=== PATIENT | female | born 2000 | race Caucasian/White ===

== ENCOUNTER 2024-04-04 11:50 | Emergency (ER) | payer OTHER, SELFPAY ==
[2024-04-04 11:57] VITALS: BP 114/92; PULSE 107; TEMP 36.9; O2SAT 97; BMI 48.9
[2024-04-04 12:29] LABS: Bilirubin Urine NEGATIVE (NEGATIVE); Blood Urine NEGATIVE (NEGATIVE); Clarity Urine CLEAR (CLEAR); Color Urine YELLOW (YELLOW); Glucose Urine UA NEGATIVE (NEGATIVE); Ketones Urine NEGATIVE (NEGATIVE); Leukocyte Esterase Urine NEGATIVE (NEGATIVE); Nitrite Urine NEGATIVE (NEGATIVE); Protein Urine TRACE mg/dL (NEG/TRACE); Specific Gravity Urine 1.015 (1.005-1.025); pH Urine 8.5 (5.0-9.0)
[2024-04-04 12:31] LABS: HCG Qualitative Urine* NEGATIVE (NEGATIVE); Urine Microscopic Indicated NO
[2024-04-04 12:50] VITALS: BP 127/83; PULSE 94; O2SAT 98
--- NOTE | 2024-04-04 15:51 | ED_ITS ---
HPI HPI - General Adult General Chief complaint: Nausea/Vomiting/Diarrhea Stated complaint: NAUSEA/VOMITING Time Seen by Provider: 04/04/24 12:05 Source: patient Mode of arrival: walk-in Limitations: no limitations History of Present Illness HPI narrative: 23-year-old female to the emergency department with chief complaint of crampy abdominal pain, nausea, vomiting, diarrhea. Symptoms started suddenly this morning. She reports some chills without fever. She reports possible . Related Data Home Medications ?Medication ?Instructions ?Recorded ?Confirmed desvenlafaxine succinate 50 mg 50 mg PO Q24H 04/04/24 04/04/24 tablet,extended release 24 hr doxepin 10 mg capsule 20 mg PO BEDTIME 04/04/24 04/04/24 omeprazole 40 mg capsule,delayed 40 mg PO DAILY 04/04/24 04/04/24 release prazosin 1 mg capsule 1 mg PO BEDTIME 04/04/24 04/04/24 Previous Rx's ?Medication ?Instructions ?Recorded dicyclomine 10 mg capsule 10 mg PO QID PRN abdominal pain 04/04/24 #12 caps ondansetron 4 mg disintegrating 4 mg PO Q8H PRN nausea and 04/04/24 tablet vomiting 3 days #9 tabs promethazine 25 mg tablet 25 mg PO QID PRN nausea and 04/04/24 vomiting #12 tabs Allergies Allergy/AdvReac Type Severity Reaction Status Date / Time morphine Allergy Intermediate Verified 04/04/24 12:00 Opioid HPI Opioid Management Most Recent Opioid Data: No Data to Display Exam Narrative Exam Narrative: VITALS: I have reviewed the triage vital signs. GENERAL: Well developed, well appearing adult in no acute distress. NEURO: Alert and oriented. Moves all extremities. Face is symmetric and expressive. EYES: PERRL. No scleral icterus or conjunctival injection. No discharge. HENT: Normocephalic, atraumatic. Hearing is grossly intact. Nares grossly patent and without discharge. Mucous membranes moist. NECK: No JVD. Patient moves neck without restriction. CARDIO: Rhythm regular. Normal rate. No murmur, rub, or gallop. Pulses equal bilaterally in the upper and lower extremity. No lower extremity edema. PULM: Lungs clear to auscultation in all lynn. No wheezes, rales, or rhonchi. No conversational dyspnea. No splinting, stridor, or accessory muscle use. GI/: Abdomen is soft and non-tender. Normoactive bowel sounds. EXTREMITIES: Symmetric muscle bulk. No joint swelling. No clubbing, cyanosis, or deformity. SKIN: Warm and dry. Normal turgor. No rash or lesions appreciated. PSYCH: Mood, affect, and interaction is appropriate to the setting. Constitutional Vital Signs, click to edit/add: Last Vital Signs Temp 98.5 F 04/04/24 11:57 Pulse 94 H 04/04/24 12:50 Resp 16 04/04/24 12:50 BP 127/83 04/04/24 12:50 Pulse Ox 98 04/04/24 12:50 O2 Del Method Room Air 04/04/24 12:50 Course Vital Signs Vital signs: Vital Signs Temperature 98.5 F 04/04/24 11:57 Pulse Rate 107 H 04/04/24 11:57 Respiratory Rate 18 04/04/24 11:57 Blood Pressure 114/92 H 04/04/24 11:57 Pulse Oximetry 97 04/04/24 11:57 Oxygen Delivery Method Room Air 04/04/24 11:57 Temperature 98.5 F 04/04/24 11:57 Pulse Rate 94 H 04/04/24 12:50 Respiratory Rate 16 04/04/24 12:50 Blood Pressure 127/83 04/04/24 12:50 Pulse Oximetry 98 04/04/24 12:50 Oxygen Delivery Method Room Air 04/04/24 12:50 Medical Decision Making MDM Narrative Medical decision making narrative: 23-year-old female with nausea, vomiting, diarrhea. Vital stable, the patient is afebrile. Her belly examination is benign. Just Zofran prior to arrival was controlled her symptoms. Given the predominance in the community her symptoms likely gastroenteritis. We'll treat with antiemetics and Bentyl at home. She is able tolerate oral intake. Oral rehydration is discussed. All questions were answered. The patient was discharged home. Medical Records Medical records reviewed: Yes I reviewed the patient's medical records Lab Data Lab results reviewed: Yes I reviewed the patient's lab results Labs: Lab Results 04/04/24 Range/Units 12:00 Urine Color Yellow (YELLOW) Urine Clarity Clear (CLEAR) Urine pH 8.5 (5.0-9.0) Ur Specific [place] 1.015 (1.005-1.025) Urine Protein Trace (NEG/TRACE) mg/dL Urine Glucose (UA) Negative (NEGATIVE) mg/dL Urine Ketones Negative (NEGATIVE) mg/dL Urine Occult Blood Negative (NEGATIVE) Urine Nitrite Negative (NEGATIVE) Urine Bilirubin Negative (NEGATIVE) Urine Urobilinogen 1.0 (0.2-1.0) EU/dL Ur Leukocyte Esterase Negative (NEGATIVE) Urine HCG, Qual Negative (NEGATIVE) Discharge Plan Discharge Stand Alone Forms: Portal Instructions Chief Complaint: Nausea/Vomiting/Diarrhea Clinical Impression: Gastroenteritis Patient Disposition: Home, Self-Care Time of Disposition Decision: 12:43 Condition: Good Mode of Transportation: Private Vehicle Prescriptions / Home Meds: New promethazine 25 mg tablet 25 mg PO QID PRN (Reason: nausea and vomiting) Qty: 12 0RF ondansetron 4 mg tablet,disintegrating 4 mg PO Q8H PRN (Reason: nausea and vomiting) 3 Days Qty: 9 0RF dicyclomine 10 mg capsule 10 mg PO QID PRN (Reason: abdominal pain) Qty: 12 0RF No Action desvenlafaxine succinate 50 mg tablet extended release 24 hr 50 mg PO Q24H doxepin 10 mg capsule 20 mg PO BEDTIME omeprazole 40 mg capsule,delayed release(DR/EC) 40 mg PO DAILY prazosin 1 mg capsule 1 mg PO BEDTIME Print Language: [place]ien Instructions: Gastroenteritis (ED) Referrals: DRE VÁZQUEZ [Primary Care Provider] - 1 week Discharge Date/Time: 04/04/24 12:51
== END 2024-04-04 12:51 | disposition home or self-care (01) ==
PROVIDERS: Emergency Provider Student in an Organized Health Care Education/Training Program; PCP Nurse Practitioner
DX: K52.9 Noninfective gastroenteritis and colitis, unspecified (principal); Z79.899 Other long term (current) drug therapy
CPT/HCPCS: 81003; 84703; 99283

== ENCOUNTER 2024-11-10 21:36 | Emergency (ER) | payer OTHER, SELFPAY ==
[2024-11-10 21:39] VITALS: BP 126/84; PULSE 86; TEMP 37; O2SAT 97; BMI 50.3
--- OUTSIDE RECORDS SUMMARY | 2024-11-10 21:43 | XMS_ITS | CCD ---
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 Phone SELF, REFERRED Referring Unavailable SELF, REFERRED Primary Care Unavailable AROMND SUBRAMANIAN Attending Unavailable MARIARMOND NEWTON Admitting Unavailable Adina, Kip A Primary Care Provider Kathya Rush Primary Care Provider Natan Jose Primary Care Provider Jose Gama MD Primary Care Provider [phone] CHIRICA, JOSE Primary Care Unavailable CHIRICA, JOSE Referring Unavailable TURSKI, KATHYA L Referring Unavailable TURSKI, KATHYA L Primary Care Unavailable AHMAD, RAYEESA Referring Unavailable TURSKI, KATHYA L Primary Care Unavailable CHIRICA, JOSE Referring Unavailable CHIRICA, JOSE Primary Care Unavailable CHIRICA, JOSE Referring Unavailable CHIRICA, JOSE Primary Care Unavailable ADINA, KIP A Primary Care Unavailable YOVANY JOHNSON Referring Unavailable ADINA, KIP A Primary Care Unavailable YOVANY JOHNSON Referring Unavailable ADINA, KIP A Primary Care Unavailable YOVANY JOHNSON Referring Unavailable CHIRICA, JOSE Primary Care Unavailable CHIRICA, JOSE Referring Unavailable CHIRICA, JOSE Primary Care Unavailable KRISTINE GONZALEZ Referring Unavailable CHIRICA, JOSE Primary Care Unavailable NANI GRESHAM Referring Unavailable KRISTINE GONZALEZ Admitting Unavailable KRISTINE GONZALEZ Attending Unavailable CHIRICA, JOSE Primary Care Unavailable EVENS MEMBRENO Referring Unavailable CHIRICA, JOSE Primary Care Unavailable CHIRICA, JOSE Primary Care Unavailable Marie Mccormick Unavailable Micaela Lewis Unavailable Lillian Almanzar Unavailable Katie Mahmood Unavailable MICAELA CENTENO Primary Care Physician ТАТЬЯНА Centeno Primary Care Provider DEMETRICE Lewis Emergency Provider [phone] DEMETRICE Mccormick Attending Provider [phone] JACOBO, MICAELA Primary Care Unavailable THANG ., JESSE Admitting Unavailable THANG ., JESSE Attending Unavailable THANG ., JESSE Consulting Unavailable HOY ., DR WANG Admitting Unavailable HOY ., DR WANG Attending Unavailable JACOBO, MICAELA Primary Care Unavailable HOY ., DR WANG Consulting Unavailable HOY ., DR WANG Admitting Unavailable HOY ., DR WANG Attending Unavailable JACOBO, MICAELA Primary Care Unavailable HOY ., DR WANG Consulting Unavailable JACOBO, MICAELA Primary Care Unavailable MARKER ., DR KAUR Admitting Unavailable MARKER ., DR KAUR Attending Unavailable JACOBO, MICAELA Primary Care Unavailable THANG ., JESSE Admitting Unavailable THANG ., JESSE Attending Unavailable KRISTINE PIMENTEL Consulting Unavailable THANG ., JESSE Consulting Unavailable JACOBO, MICAELA Admitting Unavailable JACOBO, MICAELA Attending Unavailable JACOBO, MICAELA Primary Care Unavailable JACOBO, MICAELA Consulting Unavailable ZIEBER, DR VIKASH Barrera Admitting Unavailable ZIEBER, DR VIKASH Barrera Attending Unavailable JACOBO, MICAELA Primary Care Unavailable ZIEBER, DR VIKASH Barrera Consulting Unavailable HOY ., DR WANG Admitting Unavailable HOY ., DR WANG Attending Unavailable JACOBO, MICAELA Primary Care Unavailable JACOBO, MICAELA Admitting Unavailable JACOBO, MICAELA Attending Unavailable JACOBO, MICAELA Primary Care Unavailable JACOBO, MICAELA Consulting Unavailable HOY ., DR WANG Admitting Unavailable HOY ., DR WANG Attending Unavailable JACOBO, MICAELA Primary Care Unavailable HOY ., DR WANG Consulting Unavailable ZAID, DR KRISTINE Thibodeaux Consulting Unavailable JACOBO, MICAELA Admitting Unavailable JACOBO, MICAELA Attending Unavailable JACOBO, MICAELA Primary Care Unavailable JACOBO, MICAELA Consulting Unavailable JACOBO, MICAELA Admitting Unavailable JACOBO, MICAELA Attending Unavailable JACOBO, MICAELA Primary Care Unavailable JACOBO, MICAELA Consulting Unavailable JACOBO, MICAELA Admitting Unavailable JACOBO, MICAELA Attending Unavailable JACOBO, MICAELA Primary Care Unavailable JACOBO, MICAELA Consulting Unavailable JACOBO, MICAELA Admitting Unavailable JACOBO, MICAELA Attending Unavailable JACOBO, MICAELA Primary Care Unavailable JACOBO, MICAELA Consulting Unavailable KARASIK ., DR BISHOP Admitting Unavailabl e KARASIK ., DR BISHOP Attending Unavailabl e JACOBO, MICAELA Primary Care Unavailable KARASIK ., DR BISHOP Consulting Unavailabl e JACOBO, MICAELA Primary Care Unavailable REINECK, DR SCOOTER Bonilla Admitting Unavailabl e REINECK, DR SCOOTER Bonilla Attending Unavailabl e REINECK, DR SCOOTER Bonilla Consulting Unavailabl e JACOBO, MICAELA Primary Care Unavailable DAWN, DR DES Barrera Admitting Unavailable DAWN, DR DES Barrera Attending Unavailable DAWN, DR DES Barrera Consulting Unavailable AALIYAH CHACON Consulting Unavailable JACOBO, MICAELA Primary Care Unavailable HAY ., DR ROLLINS Admitting Unavailable HAY ., DR ROLLINS Attending Unavailable SUHAS ., RACHNA Consulting Unavailable JACOBO, MICAELA Primary Care Unavailable HAY ., DR ROLLINS Admitting Unavailable HAY ., DR ROLLINS Attending Unavailable HAY ., DR ROLLINS Consulting Unavailable CLAUDYKALEB Admitting Unavailable CLAUDYKALEB Attending Unavailable JACOBO, MICAELA Primary Care Unavailable ZIEBER, DR VIKASH Barrera Consulting Unavailable CLAUDYKALEB Consulting Unavailable JACOBO, MICAELA Primary Care Unavailable HAY ., DR ROLLINS Admitting Unavailable HAY ., DR ROLLINS Attending Unavailable HAY ., DR ROLLINS Consulting Unavailable JACOBO, MICAELA Admitting Unavailable JACOBO, MICAELA Attending Unavailable JACOBO, MICAELA Primary Care Unavailable JACOBO, MICAELA Admitting Unavailable JACOBO, MICAELA Attending Unavailable JACOBO, MICAELA Primary Care Unavailable JACOBO, MICAELA Consulting Unavailable KARASIK ., DR BISHOP Admitting Unavailabl e KARASIK ., DR BISHOP Attending Unavailabl e JACOBO, MICAELA Primary Care Unavailable KARASIK ., DR BISHOP Consulting Unavailabl e KRISTINE PIMENTEL Consulting Unavailable 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 CNP Primary Care Provider 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 CNP Attending Unavailable Jose Gama MD Primary Care Provider Kendra TAYLOR, Dhiraj Abebe Attending Unavaila ble CHIRICA, JOSE Primary Care Unavailable SHARON RAM Attending Unavailable CHIRICA, JOSE Primary Care Unavailable JUAN JOSE ZAVALA Referring Unavailable CHIRICA, JOSE Primary Care Unavailable PEDRO SEYMOUR Referring Unavailabl e CHIRICA, JOSE Primary Care Unavailable CHIRICA, JOSE Primary Care Unavailable RACHEAL GOSS Attending Unavailabl e Fredo, Sophie Kuhn Primary Care Physician Fredo, ORDER CHECKER Sophie L Attending Unavailable Fredo, ORDER CHECKER Sophie L Attending Unavailable Fredo, ORDER CHECKER Sophie L Attending Unavailable Fredo, ORDER CHECKER Sophie L Attending Unavailable VALADEZPURNIMA Hannah Admitting Unavailabl e VALADEZPURNIMA EARLY Attending Unavailabl e Hajdisac, Astrit H Attending Unavailable Fredo, ORDER CHECKER Sophie L Attending Unavailable Fredo, ORDER CHECKER Sophie L Attending Unavailable Fredo, ORDER CHECKER Sophie L Admitting Unavailable Kourtney, Evens STamra Attending Unavailable Fredo, ORDER CHECKER Sophie L Attending Unavailable VALADEZ, LIBERTY Admitting Unavailable VALADEZ, LIBERTY Attending Unavailable Kourtney, Evens S. Attending Unavailable HENRIQUE GUTIERREZ Attending Unavailable Fredo Sophie TAYLOR Unavailable Maciel Bellamy Attending Unavailab le Maciel Bellamy Admitting Unavailab le NON STAFF Primary Care Unavailable Fredo, Sophie L Attending Unavailable Fredo, Sophie L Attending Unavailable Fredo, Sophie L Attending Unavailable Fredo, Sophie L Attending Unavailable KANDICE KATHYA A Attending Unavailable KANDICE, KATHYA A Attending Unavailable Fredo, Sophie L Attending Unavailable KANDICE, KATHYA A Attending Unavailable KANDICE, KATHYA A Attending Unavailable Fredo, Sophie L Attending Unavailable Fredo, Sophie L Referring Unavailable Fredo, Sophie L Attending Unavailable Allergies Allergy Classification Reported Allergen(s) Allergy Type Date of Onset Reaction(s) Facility Antihistamines (4 sources) hydrOXYzine Drug Allergy 1 Nausea And Vomiting [facility] Opioid Agonists (1 source) Morphine Drug Allergy 1 Hives [facility] (20 sources) hydrOXYzine; Translations: [hydroxyzine] Drug Allergy 1 Nausea And Vomiting, Nausea and vomiting (disorder), Rash, GI intolerance [facility]- [place], [place] (20 sources) Morphine; Translations: [morphine] Drug Allergy 1 Hives, Urticaria (disorder) [facility] (15 sources) traZODone; Translations: [trazodone] Drug Allergy 3 Shortness Of Breath [facility] (4 sources) trazadone Propensity to adverse reactions Unknown [facility]oni[facility] Other (2 sources) hydrOXYzine Drug Allergy [facility] (2 sources) Morphine Drug Allergy [facility] (2 sources) traZODone Drug Allergy [facility] (6 sources) hydrOXYzine; Translations: [Vistaril 25 MG Oral Capsule] Drug Allergy 3 Skin Rashes / Eruption of skin [facility] (6 sources) SUMAtriptan; Translations: [Imitrex 25 MG Oral Tablet] Drug Allergy 3 Skin Rashes / Eruption of skin, Hives / Urticaria [facility] (6 sources) Morphine Derivatives; Translations: [Morphine Derivatives] Drug allergy 3 Hives / Urticaria [facility] (2 sources) SUMAtriptan Drug Allergy 3 Rash, Hives [facility] (1 source) hydrOXYzine Drug Allergy 4 [facility] Repository (1 source) Morphine Drug Allergy 4 [facility] Repository (1 source) traZODone Drug Allergy 4 [facility] Repository Medications Current Medications Medication Drug Class(es) Dates Sig (Normalized) Sig (Original) acetaminophen 500 mg oral tablet (5 sources) Start: 07-16-2024 take 1 tablet by mouth every four hours acetaminophen 500 mg Tab 500 mg = 1 tab(s), Oral, q4hr, # 60 tab(s), Refills(s) 0, Pharmacy: [facility]/pharmacy #[id number], 163, cm, 07/16/24 15:27:00 EDT, Height/Length Dosing, 130.2, kg, 07/16/24 15:27:00 EDT, Weight Dosing Start Date: 07/16/24 Status: Ordered Start: 07-16-2024 acetaminophen (Tylenol) 500 MG tablet Take 500 mg by mouth 07/16/2024 Active take 1 tablet by hayley th every six hours as needed for pain acetaminophen (TYLENOL) 500 MG tablet Take 500 mg by mouth every 6 hours as needed for Pain 0 Active Acidophilus Probiotic Oral Capsule (1 source) Start: 10-03-2023 Acidophilus Probiotic Oral Capsule 10/03/2023 Provider: Vika Rose CNP [id number] 200 actuat albuterol 0.09 mg/actuat metered dose inhaler (7 sources) beta2-Adrenergic Agonist Start: 06-06-2020 take 1-2 puff(s) by mouth every four to six hours albuterol sulfate HFA 108 (90 Base) MCG/ACT inhaler inhale 1 TO 2 puffs by mouth every 4 to 6 hours if needed 0 06/06/2020 Active albuterol sulfate HFA 108 (90 Base) MCG/ACT inhaler (14 sources) Start: 06-06-2020 take 1-2 puff(s) by mouth every four to six hours albuterol sulfate HFA 108 (90 Base) MCG/ACT inhaler inhale 1 TO 2 puffs by mouth every 4 to 6 hours if needed 0 06/06/2020 Active amitriptyline hydrochloride 25 mg oral tablet (7 sources) Tricyclic Antidepressant Start: 03-05-2024 take 25 mg by mouth once daily Amitriptyline Active 25 MG PO Daily March 05, 2024 12:00am amitriptyline (E LAVIL) 25 MG tablet Take by mouth 0 Active amoxicillin 500 mg oral capsule (4 sources) Penicillin-class Antibacterial Start: 05-08-2024 End: 05-18-2024 take 1 capsule by mouth every twelve hours amoxicillin 500 mg Cap 500 mg = 1 cap(s), Oral, q12hr, X 10 day(s), # 20 cap(s), Refills(s) 0, Pharmacy: [facility]/pharmacy #[id number], 163, cm, 05/08/24 15:30:00 EDT, Height/Length Dosing, 133.3, kg, 05/08/24 15:30:00 EDT, Weight Dosing Start Date: 05/08/24 Stop Date: 05/18/24 Status: Ordered Start: 10-12-2020 End: 10-22-2020 take 1 tablet by mouth twice daily amoxicillin (AMOXIL) 875 MG tablet Indications: Non-recurrent acute suppurative otitis media of right ear without spontaneous rupture of tympanic membrane Take 1 tablet by mouth 2 times daily for 10 days 20 tablet 0 10/12/2020 10/22/2020 Active amoxicillin 875 mg / clavulanate 125 mg oral tablet (1 source) Penicillin-class Antibacterial Start: 10-26-2020 End: 11-05-2020 take 1 tablet by mouth twice daily amoxicillin-clavulanate (AUGMENTIN) 875-125 MG per tablet Indications: Recurrent acute suppurative otitis media of right ear without spontaneous rupture of tympanic membrane Take 1 tablet by mouth 2 times daily for 10 days 20 tablet 0 10/26/2020 11/05/2020 Active azelastine hydrochloride 0.137 mg/actuat metered dose nasal spray (6 sources) Histamine-1 Receptor Antagonist Start: 05-01-2023 take 2 spray(s) nasal route twice daily Azelastine HCl 137 MCG/SPRAY SOLN USE 2 SPRAYS NASALLY TWICE A DAY 0 05/01/2023 Active take 2 spray(s) nasal route twic e daily Azelastine HCl 137 MCG/SPRAY USE 2 SPRAYS NASALLY TWICE A DAY Nasal for 30 Days Not-Taking azithromycin 250 mg oral tablet (3 sources) Macrolide Antimicrobial Start: 12-02-2020 End: 12-07-2020 take 2 tablets by mouth once daily azithromycin (ZITHROMAX) 250 MG tablet Indications: Cough present for greater than 3 weeks 500 mg orally on day one followed by 250 mg daily on days two through five 6 tablet 0 12/02/2020 12/07/2020 Active benzonatate 100 mg oral capsule (1 source) Non-narcotic Antitussive Start: 10-12-2020 End: 10-19-2020 take 1 capsule by mouth three times daily as needed for cough benzonatate (TESSALON) 100 MG capsule Indications: Cough Take 1 capsule by mouth 3 times daily as needed for Cough 21 capsule 0 10/12/2020 10/19/2020 Active brompheniramine maleate 0.4 mg/ml / dextromethorphan hydrobromide 2 mg/ml / pseudoephedrine hydrochloride 6 mg/ml oral solution (2 sources) alpha-Adrenergic Agonist, Uncompetitive C-pexikh-T-aspartat e Receptor Antagonist, Sigma-1 Agonist Start: 01-21-2024 take 5 mL by mouth four times daily Bromfed DM oral syrup 5 mL, Oral, QID for cold symptoms, 120 mL, Refill(s) 0, [facility], 163.8, cm, 01/21/24 16:10:00 EST, Height/Length Dosing, 135.2, kg, 01/21/24 16:10:00 EST, Weight Dosing Start Date: 01/21/24 Status: Ordered Start: 02-16-2022 take 10 mL by mouth every six hours Sdygkhkwa-Tjxzxitm-FS 30-2-10 MG/5ML 10 mL Orally every 6 hours for 5 days Jan, Active busPIRone hydrochloride 10 mg oral tablet (5 sources) Start: 10-24-2020 take 1 tablet by mouth twice daily busPIRone (BUSPAR) 10 MG tablet take 1 tablet by mouth twice a day 60 tablet 5 10/24/2020 Active Start: 09-19-2020 End: 10-19-2020 take 1 tablet by mouth twice daily busPIRone (BUSPAR) 10 MG tablet Take 1 tablet by mouth 2 times daily 60 tablet 0 09/19/2020 10/19/2020 Active calcium chloride 0.0014 meq/ml / potassium chloride 0.004 meq/ml / sodium chloride 0.103 meq/ml / sodium lactate 0.028 meq/ml injectable solution (1 source) Start: 07-07-2021 luis enrique mejia rs infusion cetirizine hydrochloride 10 mg oral tablet (20 sources) Histamine-1 Receptor Antagonist Start: 08-19-2024 take 1 tablet by mouth once daily cetirizine 10 mg Tab See Instructions, TAKE 1 TABLET BY MOUTH EVERY DAY, # 90 tab(s), Refills(s) 3, Pharmacy: [facility]/pharmacy #[id number], 163, cm, 08/19/24 9:04:00 EDT, Height/Length Dosing, 131.8, kg, 08/19/24 9:04:00 EDT, Weight Dosing Start Date: 08/19/24 Status: Ordered Start: 03-05-2024 take 10 mg by mouth once daily Cetirizine Active 10 MG PO Daily March 05, 2024 12:00am Start: 05-12-2023 take 1 tablet by hayley th once daily cetirizine (ZYRTEC) 10 MG tablet Take 1 tablet by mouth daily 0 05/12/2023 Active Start: 01-30-2022 take 1 tablet by hayley th every twenty-four hours Start: 08-12-2018 take 1 tablet by hayley th once daily RA ALLERGY RELIEF 10 MG tablet Indications: Eustachian tube dysfunction, bilateral take 1 tablet by mouth once daily 30 tablet 5 08/12/2018 Active clotrimazole 10 mg/ml topical cream (1 source) Azole Antifungal Start: 10-03-2023 Clotrimazole 1% External Cream 10/03/2023 Provider: Vika Rose CNP 24 hr desvenlafaxine succinate 50 mg extended release oral tablet (20 sources) Serotonin and Norepinephrine Reuptake Inhibitor Start: 02-21-2024 take 1 tablet by mouth every twenty-four hours desvenlafaxine (Pristiq) 50 MG 24 hr tablet Take 50 mg by mouth 02/21/2024 Active Start: 02-21-2024 take 1 tablet by hayley th once daily desvenlafaxine 50 mg Tab- 50 mg = 1 tab(s), Oral, Daily, take 1 tablet by mouth once daily, # 90 tab(s), Refills(s) 1, Pharmacy: [id number], 163.8, cm, 02/06/24 13:56:00 EDT, Height/Length Dosing, 132, kg, 02/06/24 13:56:00 EDT, Weight Dosing Start Date: 02/21/24 Status: Ordered Start: 01-09-2024 take 1 tablet by hayley th once daily desvenlafaxine 50 mg Tab- 50 mg = 1 tab(s), Oral, Daily, take 1 tablet by mouth once daily Start Date: 01/09/24 Status: Ordered Start: 04-12-2021 take 1 tablet by hayley th once daily desvenlafaxine succinate (PRISTIQ) 100 MG TB24 extended release tablet Indications: Mild episode of recurrent major depressive disorder (HCC) Take 1 tablet by mouth daily 30 tablet 3 04/12/2021 Active Start: 09-11-2020 desvenlafaxine succinate (PRISTIQ) 100 MG TB24 extended release tablet Start: 07-06-2020 take 1 tablet by hayley th once daily desvenlafaxine succinate (PRISTIQ) 50 MG TB24 extended release tablet take 1 tablet by mouth once daily 0 07/06/2020 Active dicyclomine hydrochloride 10 mg oral capsule (1 source) Anticholinergic Start: 05-18-2024 End: 05-25-2024 take 1 capsule by mouth four times daily Bentyl 10 mg Cap 10 mg = 1 cap(s), Oral, QID, X 7 day(s), # 28 cap(s), Refills(s) 0, Pharmacy: [facility]/pharmacy #[id number], 163, cm, 05/18/24 20:47:00 EDT, Height/Length Dosing, 133.2, kg, 05/18/24 20:47:00 EDT, Weight Dosing Start Date: 05/18/24 Stop Date: 05/25/24 Status: Ordered docusate sodium 100 mg oral capsule (6 sources) Start: 07-07-2021 take 1 capsule by mouth twice daily docusate sodium (COLACE) 100 MG capsule Take 1 capsule by mouth 2 times daily 20 capsule 0 07/07/2021 Active Start: 01-05-2019 take 1 capsule by mo [facility] twice daily docusate sodium (COLACE) 100 MG capsule Indications: Rectal bleeding in pediatric patient Take 1 capsule by mouth 2 times daily 60 capsule 1 01/05/2019 Active ergocalciferol 1.25 mg oral capsule (7 sources) Provitamin D2 Compound Start: 04-12-2021 take 1 capsule by mouth every week vitamin D (ERGOCALCIFEROL) 1.25 MG (11013 UT) CAPS capsule Indications: Vitamin D deficiency Take 1 capsule by mouth once a week 12 capsule 0 04/12/2021 Active escitalopram 10 mg oral tablet (17 sources) Serotonin Reuptake Inhibitor Start: 03-05-2024 take 10 mg by mouth once daily Escitalopram Oxalate Active 10 MG PO Daily March 05, 2024 12:00am Start: 04-30-2023 Escitalopram O xalate 20 MG Oral Tablet 04/30/2023 Provider: take 1 tablet by hayley once daily Escitalopram Oxalate 10 MG TAKE 1 TABLET BY MOUTH EVERY DAY Oral for 30 Days Active Lexapro Antonia-Takliat ng Ethinyl Estradiol / norgestimate (20 sources) Progestin, Estrogen Start: 05-14-2024 take 1 tablet by mouth once daily ethinyl estradiol-norgestimate 35 mcg-0.25 mg Tab 1 tab(s), Oral, Daily, 28 tab(s), Refill(s) 11, [facility]/pharmacy #[id number], 163, cm, 05/14/24 9:33:00 EDT, Height/Length Dosing, 133.5, kg, 05/14/24 9:33:00 EDT, Weight Dosing Start Date: 05/14/24 Status: Ordered Start: 01-09-2024 take 1 tablet by hayley th once daily ethinyl estradiol-norgestimate 35 mcg-0.25 mg Tab 1 tab(s), Oral, Daily, Refill(s) 0 Start Date: 01/09/24 Status: Ordered Start: 11-02-2023 norgestimate-e thinyl estradiol (Ortho-Cyclen) 0.25-35 MG-MCG tablet Take 1 tablet by mouth Daily 11/02/2023 Active Start: 06-30-2023 norgestimate-e thinyl estradiol (ORTHO-CYCLEN) 0.25-35 MG-MCG per tablet Start: 06-04-2023 Bhumika 0.25-35 M G-MCG Oral Tablet 06/04/2023 Provider: 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 CNP Start: 04-29-2023 End: 06-04-2023 Bhumika 0.25-35 MG-MCG Oral Tab let 04/29/2023 - 06/04/2023 Provider: etonogestrel 68 mg drug impl ant (20 sources) Progestin etonogestrel (NE XPLANON) 68 MG implant Inject into the skin 0 Active Nexplanon Active Etonogestrel (Nexplanon) 68 mg implant (1 source) Start: 03-05-2024 Etonogestrel (Nexplanon) 68 mg implant Active 1 IMPLANT SUBDERMAL Once March 05, 2024 12:00am famotidine 20 mg oral tablet (13 sources) Histamine-2 Receptor Antagonist Start: 09-12-2020 take 1 tablet by mouth twice daily famotidine (PEPCID) 20 MG tablet Indications: Gastroesophageal reflux disease without esophagitis , Cough Take 1 tablet by mouth 2 times daily 60 tablet 3 09/12/2020 Active 2 ml fentaNYL 0.05 mg/ml injection (1 source) Opioid Agonist Start: 07-07-2021 fentaNYL (SUBLIMAZE) injection 25 mcg ferrous sulfate 325 mg oral tablet (2 sources) Start: 01-05-2019 take 1 tablet by mouth once daily at breakfast ferrous sulfate 325 (65 Fe) MG tablet Indications: Anemia, unspecified type Take 1 tablet by mouth daily (with breakfast) 30 tablet 5 01/05/2019 Active fluconazole 150 mg oral tablet (4 sources) Azole Antifungal Start: 08-19-2024 fluconazole (Diflucan) 150 MG tablet Take 150 mg by mouth 08/19/2024 Active Start: 05-14-2024 take 4 tablets by mouth once D iflucan 150 mg Tab 150 mg = 1 tab(s), Oral, Once, take 1 tab on day one and 1 tab on day four, # 2 tab(s), Refills(s) 1, Pharmacy: [facility]/pharmacy #[id number], 163, cm, 05/14/24 9:33:00 EDT, Height/Length Dosing, 133.5, kg, 05/14/24 9:33:00 EDT, Weight Dosing Start Date: 05/14/24 Status: Ordered Start: 10-03-2023 Diflucan 150 M G Oral Tablet 10/03/2023 Provider: Vika Rose CNP fluticasone propionate 0.05 mg/actuat metered dose nasal spray (20 sources) Corticosteroid Start: 08-19-2024 take 2 spray(s) nasal route once daily fluticasone (Flonase Allergy Relief) 50 MCG/ACT nasal spray Administer 2 sprays into each nostril Daily 08/19/2024 Active Start: 08-19-2024 Flonase 0.05 m g/inh [place] 2 spray(s), Nasal, Daily, 16 gram, Refill(s) 5, each nostril, [facility]/pharmacy #[id number], 163, cm, 08/19/24 9:04:00 EDT, Height/Length Dosing, 131.8, kg, 08/19/24 9:04:00 EDT, Weight Dosing Start Date: 08/19/24 Status: Ordered Start: 03-05-2024 Fluticasone Pr opionate (Flonase Allergy Relief) 50 mcg/actuation spray,suspension Active 1 SPRAY INTRANASAL Daily March 05, 2024 12:00am Start: 02-10-2024 Flonase 0.05 m g/inh [place] 2 spray(s), Nasal, Daily, 16 gram, Refill(s) 0, each nostril, [facility], 163.8, cm, 02/06/24 13:56:00 EDT, Height/Length Dosing, 132, kg, 02/06/24 13:56:00 EDT, Weight Dosing Start Date: 02/10/24 Status: Ordered Start: 01-30-2022 take 1 spray(s) nasa l route once daily Start: 11-10-2021 take 1 spray(s) nasa l route once daily fluticasone (FLONASE) 50 MCG/ACT nasal spray 1 spray by Each Nostril route daily 16 g 0 11/10/2021 Active 12 hr guaiFENesin 1200 mg / pseudoephedrine hydrochloride 120 mg extended release oral tablet (3 sources) alpha-Adrenergic Agonist Start: 11-10-2021 take 120-1200 mg by mouth once as needed pseudoephedrine-guaiFENesin (MUCINEX D MAX STRENGTH) 120-1200 MG TB12 Take 1 tablet by mouth 2 times daily as needed (cough/congestion) 20 tablet 0 11/10/2021 Active 1 ml hydrALAZINE hydrochloride 20 mg/ml injection (1 source) Arteriolar Vasodilator Start: 07-07-2021 hydrALAZINE (APRESOLINE) injection 5 mg hydrOXYzine pamoate 25 mg oral capsule (1 source) Antihistamine Start: 09-11-2020 hydrOXYzine (VISTARIL) 25 MG capsule ibuprofen 800 mg oral tablet (20 sources) Nonsteroidal Anti-inflammatory Drug Start: 09-18-2024 take 1 tablet by mouth every eight hours ibuprofen 800 mg Tab 800 mg = 1 tab(s), Oral, q8hr, # 30 tab(s), Refills(s) 0, Pharmacy: [facility]/pharmacy #[id number], 163, cm, 09/18/24 9:18:00 EDT, Height/Length Dosing, 133.6, kg, 09/18/24 9:18:00 EDT, Weight Dosing Start Date: 09/18/24 Status: Ordered Start: 05-18-2024 take 1 tablet by hayley th every eight hours as needed for pain ibuprofen 600 mg Tab 600 mg = 1 tab(s), Oral, q8hr, PRN as needed for pain, # 30 tab(s), Refills(s) 0, Pharmacy: [facility]/pharmacy #[id number], 163, cm, 05/18/24 20:47:00 EDT, Height/Length Dosing, 133.2, kg, 05/18/24 20:47:00 EDT, Weight Dosing Start Date: 05/18/24 Status: Ordered Start: 09-17-2021 End: 11-21-2022 take 800 mg by mouth every six hours Ibuprofen Discontinued 800 MG PO Q6H September 17, 2021 12:00am November 21, 2022 12:06pm Start: 04-12-2021 take 1 tablet by hayley th twice daily as needed for pain ibuprofen (ADVIL;MOTRIN) 800 MG tablet Indications: Dysmenorrhea Take 1 tablet by mouth 2 times daily as needed for Pain (headaches, dysmenorrhea) 60 tablet 1 04/12/2021 Active Start: 07-11-2020 take 1 tablet by hayley th twice daily as needed for pain ibuprofen (ADVIL;MOTRIN) 800 MG tablet Take 1 tablet by mouth 2 times daily as needed for Pain 90 tablet 1 07/11/2020 Active Start: 09-25-2016 take 1 tablet by hayley th every six hours as needed for pain ibuprofen (ADVIL;MOTRIN) 600 MG tablet Indications: Dysmenorrhea in adolescent Take 1 tablet by mouth every 6 hours as needed for Pain 120 tablet 1 09/25/2016 Active lactase 3000 unt oral tablet (20 sources) Start: 04-12-2021 take 1 tablet by mouth three times daily at mealtime lactase (LACTAID) 3000 units tablet Indications: Lactose intolerance Take 1 tablet by mouth 3 times daily (with meals) 90 tablet 3 04/12/2021 Active Start: 04-27-2019 take 1 tablet by hayley th three times daily at mealtime lactase (LACTAID) 3000 units tablet Indications: Lactose intolerance Take 1 tablet by mouth 3 times daily (with meals) 90 tablet 3 04/27/2019 Active meclizine hydrochloride 25 mg oral tablet (1 source) Antiemetic Start: 09-01-2024 take 1 tablet by mouth three times daily as needed for dizziness meclizine 25 mg Tab 25 mg = 1 tab(s), Oral, TID, PRN for dizziness, # 60 tab(s), Refills(s) 0, Pharmacy: [facility]/pharmacy #[id number], 163, cm, 09/01/24 10:38:00 EDT, Height/Length Dosing, 131.3, kg, 09/01/24 10:38:00 EDT, Weight Dosing Start Date: 09/01/24 Status: Ordered melatonin 3 mg oral tablet (2 sources) Start: 04-03-2023 take 1-2 tablets by mouth at bedtime as needed for sleep melatonin 3 MG TABS tablet TAKE 1-2 TABLETS BY MOUTH AT BEDTIME NEEDED FOR SLEEP 0 04/03/2023 Active meloxicam 15 mg disintegrating oral tablet (2 sources) Nonsteroidal Anti-inflammatory Drug Start: 08-28-2024 take 1 tablet by mouth once daily Meloxicam 15 MG tablet dispersible Indications: Otalgia, right ear Take 15 mg by mouth Daily 30 tablet 08/28/2024 Active Start: 08-28-2024 take 1 tablet by hayley th once daily Meloxicam 15 MG tablet dispersible Indications: Otalgia, right ear Take 15 mg by mouth Daily 30 tablet 08/28/2024 Active meperidine hydrochloride 50 mg/ml injectable solution (1 source) Opioid Agonist Start: 07-07-2021 meperidine (DEMEROL) injection 12.5 mg methocarbamol 500 mg oral tablet (1 source) Muscle Relaxant Start: 01-08-2023 End: 01-11-2023 take 1 tablet by mouth three times daily Robaxin 500 mg Tab 500 mg = 1 tab(s), Oral, TID, X 3 day(s), # 9 tab(s), Refills(s) 0, Pharmacy: [facility]/pharmacy #[id number], 165, cm, 01/08/23 17:56:00 EST, Height/Length Dosing, 121.7, kg, 01/08/23 17:56:00 EST, Weight Dosing Start Date: 01/08/23 Stop Date: 01/11/23 Status: Ordered methylPREDNISolone 4 mg oral tablet (3 sources) Corticosteroid Start: 08-24-2024 End: 08-30-2024 methylPREDNISolone (Medrol) 4 MG tablet Take by mouth 08/24/2024 08/30/2024 Active Start: 05-14-2024 End: 05-20-2024 Medrol 4 mg Tab = 1 packet(s ), Oral, As Directed, as directed on package labeling, X 6 day(s), # 21 tab(s), Refills(s) 0, Pharmacy: [facility]/pharmacy #[id number], 163, cm, 05/14/24 9:33:00 EDT, Height/Length Dosing, 133.5, kg, 05/14/24 9:33:00 EDT, Weight Dosing Start Date: 05/14/24 Stop Date: 05/20/24 Status: Ordered metroNIDAZOLE 500 mg oral tablet (1 source) Nitroimidazole Antimicrobial Start: 11-03-2021 End: 11-10-2021 take 1 tablet by mouth twice daily metroNIDAZOLE (FLAGYL) 500 MG tablet Take 1 tablet by mouth 2 times daily for 7 days 14 tablet 0 11/03/2021 11/10/2021 Active naproxen 500 mg oral tablet (1 source) Nonsteroidal Anti-inflammatory Drug Start: 01-08-2023 take 1 tablet by mouth twice daily as needed for pain Naprosyn 500 mg Tab 500 mg = 1 tab(s), Oral, BID, PRN for pain, # 20 tab(s), Refills(s) 0, [id number], cm, 01/08/23 17:56:00 EST, Height/Length Dosing, 121.7, kg, 01/08/23 17:56:00 EST, Weight Dosing Start Date: 01/08/23 Status: Ordered Nasalcare Rinse Starter Kit nasal powder for reconstitution (2 sources) Start: 05-11-2024 Nasalcare Rinse Starter Kit nasal powder for reconstitution See Instructions, 1 kit(s), Refill(s) 0, Use as directed Dispense one kit, [facility]/pharmacy #[id number], 163, cm, 05/08/24 15:30:00 EDT, Height/Length Dosing, 133.3, kg, 05/08/24 15:30:00 EDT, Weight Dosing Start Date: 05/11/24 Status: Ordered NIFEdipine 10 mg oral capsule (2 sources) Dihydropyridine Calcium Channel Richard Start: 01-21-2019 take 1 capsule by mouth once daily NIFEdipine (PROCARDIA) 10 MG capsule Take 1 capsule by mouth daily 30 capsule 1 01/21/2019 Active nitrofurantoin, macrocrystals 25 mg / nitrofurantoin, monohydrate 75 mg oral capsule (4 sources) Nitrofuran Antibacterial Start: 01-08-2023 take 1 capsule by mouth every twelve hours Macrobid 100 MG 1 capsule with food Orally every 12 hrs for 7 day(s) Dec, Active nystatin [id number] unt/ml topical cream (3 sources) Polyene Antifungal Start: 08-19-2024 nystatin (Mycostatin) cream Apply topically 08/19/2024 Active ofloxacin 3 mg/ml otic solution (5 sources) Quinolone Antimicrobial Start: 08-26-2024 ofloxacin Otic 0.3% Marsha 5 drop(s), Otic, BID, 5 mL, Refill(s) 0, [facility] #[id number], 163, cm, 08/24/24 9:13:00 EDT, Height/Length Dosing, 131, kg, 08/24/24 9:13:00 EDT, Weight Dosing Start Date: 08/26/24 Status: Ordered Start: 05-27-2024 ofloxacin (Edward halina) 0.3 % otic solution 5 drops 05/27/2024 Active Start: 05-08-2024 End: 05-15-2024 ofloxacin Otic 0.3% Marsha 5 dr op(s), Otic, BID for 7 day(s), 5 mL, Refill(s) 0, [id number], 163, cm, 05/08/24 15:30:00 EDT, Height/Length Dosing, 133.3, kg, 05/08/24 15:30:00 EDT, Weight Dosing Start Date: 05/08/24 Stop Date: 05/15/24 Status: Ordered omeprazole 40 mg delayed release oral capsule (20 sources) Proton Pump Inhibitor Start: 05-25-2024 omeprazo le (PriLOSEC) [address] capsule Take 40 mg by mouth 05/25/2024 Active Start: 03-05-2024 take 20 mg by mouth once daily Omeprazole Active 20 MG PO Daily March 05, 2024 12:00am Start: 01-09-2024 take 1 capsule by [facility] once daily omeprazole 40 mg Cap-DR 40 mg = 1 cap(s), Oral, Daily, take 1 capsule by mouth once daily Start Date: 01/09/24 Status: Ordered Start: 05-01-2023 End: 06-04-2023 take 1 capsule by mouth once daily before breakfast omeprazole (PRILOSEC) 40 MG delayed release capsule Take 1 capsule by mouth every morning (before breakfast) 30 capsule 0 07/11/2023 Active Start: 12-19-2021 take 1 capsule by mo uth once daily omeprazole 20 mg Cap-DR 20 mg = 1 cap(s), Oral, Daily Start Date: 12/19/21 Status: Ordered Start: 01-05-2021 take 1 capsule by mo uth once daily before breakfast for pain omeprazole (PRILOSEC) 40 MG delayed release capsule Indications: Other acute gastritis without hemorrhage take 1 capsule by mouth EVERY MORNING BEFORE BREAKFAST FOR UPSET STOMACH AND PAIN 30 capsule 0 01/05/2021 Active Omeprazole Activ e ondansetron 4 mg disintegrating oral tablet (13 sources) Serotonin-3 Receptor Antagonist Start: 01-09-2024 take 1 tablet by mouth every four to six hours ondansetron 4 mg Dis Tab See Instructions, 1 tab(s) Oral every 4-6 hours Start Date: 01/09/24 Status: Ordered Start: 07-11-2023 take 1 tablet by hayley th three times daily as needed for nausea ondansetron (ZOFRAN-ODT) 4 MG disintegrating tablet Take 1 tablet by mouth 3 times daily as needed for Nausea or Vomiting 21 tablet 0 07/11/2023 Active Start: 06-15-2022 take 1 tablet by hayley th every eight hours as needed Zofran ODT 4 MG 1 tab Orally every 8 hours prn for 5 days May, Active Start: 07-07-2021 End: 07-07-2021 ondansetron (ZOFRAN) injecti on 4 mg Start: 06-07-2021 End: 06-13-2021 take 1 tablet by mouth every six hours as needed for nausea ondansetron (ZOFRAN) 4 MG tablet Indications: Abdominal pain, RLQ Take 1 tablet by mouth every 6 hours as needed for Nausea or Vomiting 24 tablet 0 06/07/2021 06/13/2021 Active Start: 10-12-2020 End: 10-14-2020 take 1 tablet by mouth every eight hours as needed for nausea ondansetron (ZOFRAN ODT) 4 MG disintegrating tablet Indications: Nausea and vomiting, intractability of vomiting not specified, unspecified vomiting type Take 1 tablet by mouth every 8 hours as needed for Nausea or Vomiting 6 tablet 0 10/12/2020 10/14/2020 Active phenazopyridine hydrochloride 200 mg oral tablet (4 sources) Start: 01-05-2023 take 1 tablet by mouth every eight hours Pyridium 200 MG 1 tablet after meals Orally Three times a day for 2 day(s) Dec, Active phentermine hydrochloride 37.5 mg oral tablet (2 sources) Sympathomimetic Amine Anorectic Start: 01-13-2024 take 1 tablet by mouth once daily phentermine 37.5 mg Tab 37.5 mg = 1 tab(s), Oral, Daily, # 30 tab(s), Refills(s) 0, Pharmacy: [facility] #[id number], 163.8, cm, 01/09/24 13:06:00 EST, Height/Length Dosing, 136.3, kg, 01/09/24 13:06:00 EST, Weight Dosing Start Date: 01/13/24 Status: Ordered Start: 08-05-2023 End: 10-03-2023 Phentermine HCl 37.5 MG Oral Tablet 08/05/2023 - 10/03/2023 Provider: 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 CNP polyethylene glycol 3350 16488 mg powder for oral solution (7 sources) Osmotic Laxative Start: 05-24-2021 polyethylene glycol (GLYCOLAX) 17 GM/SCOOP powder Take 17 g by mouth 2 times daily 0 05/24/2021 Active predniSONE 20 mg oral tablet (1 source) Start: 11-10-2021 End: 11-17-2021 take 2 tablets by mouth once daily predniSONE (DELTASONE) 20 MG tablet Take 2 tablets by mouth daily for 7 days 14 tablet 0 11/10/2021 11/17/2021 Active 1 ml promethazine hydrochloride 25 mg/ml injection (1 source) Phenothiazine Start: 07-07-2021 End: 07-07-2021 promethazine (PHENERGAN) injection 6.25 mg sertraline 50 mg oral tablet (2 sources) Serotonin Reuptake Inhibitor Start: 08-11-2018 take 2 tablets by mouth once daily sertraline (ZOLOFT) 50 MG tablet Take 100 mg by mouth daily 0 08/11/2018 Active 3 ml sodium chloride 9 mg/ml injection (4 sources) Start: 07-07-2021 sodium chloride flush 0.9 % injection 10 mL Start: 07-07-2021 0.9 % sodium c hloride infusion Start: 07-07-2021 sodium chlorid e flush 0.9 % injection 10 mL traZODone hydrochloride 100 mg oral tablet (10 sources) Serotonin Reuptake Inhibitor Start: 06-22-2020 take 1 tablet by mouth at bedtime for sleep traZODone (DESYREL) 100 MG tablet take 1 tablet by mouth at bedtime if needed for sleep 0 06/22/2020 Active Start: 10-14-2018 traZODone (ADALBERTO YREL) 50 MG tablet vilazodone hydrochloride 20 mg oral tablet (12 sources) Start: 09-12-2020 VILAZODONE HCL 20 MG Tablet Zofran ODT 4 mg Tab-Dis (1 source) Start: 05-18-2024 take 1 tablet by mouth every eight hours as needed for nausea Zofran ODT 4 mg Tab-Dis 4 mg = 1 tab(s), Oral, q8hr, PRN Nausea/Vomiting, # 12 tab(s), Refills(s) 0, Pharmacy: [facility]/pharmacy #[id number], 163, cm, 05/18/24 20:47:00 EDT, Height/Length Dosing, 133.2, kg, 05/18/24 20:47:00 EDT, Weight Dosing Start Date: 05/18/24 Status: Ordered Completed/Discontinued Medications Medication Drug Class(es) Dates Sig (Normalized) Sig (Original) acetaminophen 325 mg / HYDROcodone bitartrate 5 mg oral tablet (2 sources) Opioid Agonist Start: 07-07-2021 End: 07-07-2021 HYDROcodone-acetam inophen (NORCO) 5-325 MG per tablet Start: 07-07-2021 End: 07-14-2021 HYDROcodone-acetaminophen (N ORCO) 5-325 MG per tablet Indications: Chronic appendicitis Take 1 tablet by mouth every 6 hours as needed for Pain for up to 7 days. Intended supply: 7 days. Take lowest dose possible to manage pain 10 tablet 0 07/07/2021 07/14/2021 Active 1 ml diphenhydrAMINE hydrochloride 50 mg/ml cartridge (2 sources) Histamine-1 Receptor Antagonist Start: 07-07-2021 End: 07-07-2021 diphenhydrAMINE (BENADRYL) injection 25 mg Start: 07-07-2021 End: 07-07-2021 diphenhydrAMINE (BENADRYL) 5 0 MG/ML injection doxepin hydrochloride 10 mg oral capsule (16 sources) Tricyclic Antidepressant Start: 11-12-2023 take 1 capsule by mouth once daily at bedtime for sleep doxepin 10 mg Cap 10 mg = 1 cap(s), Oral, Once a day (at bedtime), PRN Insomnia, take 1 capsule by mouth at bedtime if needed for sleep Start Date: 01/09/24 Status: Ordered Start: 04-30-2023 Doxepin HCl 10 MG Oral Capsule 04/30/2023 Provider: 1 ml HYDROmorphone hydrochloride 1 mg/ml cartridge (2 sources) Opioid Agonist Start: 07-07-2021 End: 07-07-2021 HYDROmorphone (DILAUDID) 1 MG/ML injection Start: 07-07-2021 HYDROmorphone (DILAUDID) injection 0.5 mg 1 ml morphine sulfate 2 mg/ml injection (2 sources) Opioid Agonist Start: 07-07-2021 End: 07-07-2021 morphine 2 MG/ML injection Start: 07-07-2021 morphine (PF) injection 1 mg penicillin v potassium 500 mg oral tablet (11 sources) Start: 01-30-2022 End: 03-05-2024 take 500 mg by mouth twice daily Penicillin V Potassium Discontinued 500 MG PO Twice daily November 21, 2022 1:00am March 05, 2024 1:55pm prazosin 1 mg oral capsule (14 sources) alpha-Adrenergi c Richard Start: 11-12-2023 take 1 capsule by mouth at bedtime prazosin 1 mg Cap 1 mg = 1 cap(s), Oral, Bedtime, take 1 capsule by mouth at bedtime for PTSD NIGHTMARES, # 90 cap(s), Refills(s) 1, Pharmacy: [id number], 163.8, cm, 01/27/24 15:09:00 EST, Height/Length Dosing, 133.9, kg, 01/27/24 15:09:00 EST, Weight Dosing Start Date: 02/04/24 Status: Ordered Start: 04-30-2023 Prazosin HCl 1 MG Oral Capsule 04/30/2023 Provider: Problems Active Problems Problem Classification Problem Date Documented Da te Episodic/Chronic Abdominal pain (19 sources) Right lower quadrant pain; Translations: [Right lower quadrant pain] Onset: 2 Episodic Acquired foot deformities (2 sources) Acquired pes planus of left foot; Translations: [Flat foot [pes planus] (acquired), left foot] Onset: 3 10-03-2023 Episodic Acute and chronic tonsillitis (1 source) Acute tonsillitis, unspecified; Translations: [Acute tonsillitis, unspecified] Onset: 3 Episodic Administrative/social admission (10 sources) Obesity diet education; Translations: [Dietary counseling and surveillance] Onset: 3 07-22-2023 Episodic Anxiety disorders (20 sources) Chronic post-traumatic stress disorder; Translations: [Anxiety] Onset: 1 01-05-2019 Chronic Appendicitis and other appendiceal conditions (1 source) Chronic appendicitis; Translations: [Other appendicitis] Episodic Asthma (1 source) Unspecified asthma with (acute) exacerbation; Translations: [UNS ASTHMA W/ACUTE EXACERBATION] Onset: 2 Chronic Conditions associated with dizziness or vertigo (1 source) Vertigo 09-01-2024 Episodic Esophageal disorders (20 sources) Gastroesophageal reflux disease; Translations: [Gastro-esophageal reflux disease without esophagitis] Onset: 0 09-12-2020 Chronic Fever of unknown origin (1 source) Fever 08-24-2024 Episodic Gastrointestinal hemorrhage (20 sources) Hematochezia; Translations: [Rectal hemorrhage] Onset: 3 12-23-2021 Episodic Genitourinary symptoms and ill-defined conditions (5 sources) Dysuria; Translations: [Frequency of micturition] Onset: 2 Episodic Headache; including migraine (1 source) Headache; including migraine; Translations: [HEADACHE UNSPECIFIED] Onset: 2 Hemorrhoids (5 sources) Hemorrhoids 01-27-2024 Episodic Joint disorders and dislocations; trauma-related (7 sources) Patellofemoral stress syndrome; Translations: [Patellofemoral disorders, unspecified knee] Onset: 6 01-11-2016 Chronic Malaise and fatigue (1 source) Fatigue; Translations: [Chronic fatigue] Episodic Menstrual disorders (20 sources) Menometrorrhagia; Translations: [Excessive and frequent menstruation with irregular cycle] Onset: 0 09-12-2020 Chronic Mood disorders (20 sources) Recurrent major depressive episodes, moderate ; Translations: [Depressive disorder] Onset: 1 Resolved: 1 01-05-2019 Chronic Mycoses (5 sources) Candidiasis; Translations: [Candidiasis, unspecified] Onset: 3 10-03-2023 Episodic Nutritional deficiencies (9 sources) Vitamin D deficiency; Translations: [Vitamin D deficiency, unspecified] Onset: 1 12-05-2020 Chronic Other ear and sense organ disorders (3 sources) Otitis externa of right ear; Translations: [Unspecified otitis externa, right ear] Onset: 4 Chronic Other ear and sense organ disorders (3 sources) Otitis externa 05-09-2024 Chronic Other ear and sense organ disorders (2 sources) Otalgia, right ear; Translations: [Otalgia, unspecified] 08-28-2024 Episodic Other ear and sense organ disorders (2 sources) Ear sensations - finding; Translations: [Other specified disorders of ear, unspecified ear] Onset: 4 08-27-2024 Episodic Other female genital disorders (5 sources) Other specified noninflammatory disorders of vagina; Translations: [OTH SPEC NONINFLAMMATORY D/O VAGINA] Onset: 2 Episodic Other female genital disorders (2 sources) Vaginal irritation; Translations: [Other specified noninflammatory disorders of vagina] Onset: 4 08-27-2024 Episodic Other gastrointestinal disorders (13 sources) Constipation; Translations: [Constipation, unspecified] 09-12-2020 Episodic Other gastrointestinal disorders (10 sources) Alteration in bowel elimination 12-23-2021 Episodic Other lower respiratory disease (3 sources) Cough; Translations: [Cough] 07-21-2024 Episodic Other lower respiratory disease (1 source) Personal history of other diseases of the respiratory system Episodic Other non-traumatic joint disorders (16 sources) Pain in right knee; Translations: [Right knee pain] Onset: 6 01-11-2016 Other nutritional; endocrine; and metabolic disorders (20 sources) Lactose intolerance, unspecified; Translations: [Intolerance to lactose] Onset: 9 04-24-2019 Chronic Other nutritional; endocrine; and metabolic disorders (20 sources) Body mass index 30+ - obesity; Translations: [Body mass index (BMI) 35.0-35.9, adult] Onset: 9 04-24-2019 Chronic Other nutritional; endocrine; and metabolic disorders (14 sources) Obesity; Translations: [Obesity, unspecified] Onset: 0 09-12-2020 Chronic Other nutritional; endocrine; and metabolic disorders (11 sources) Body mass index 40+ - severely obese 12-19-2021 Chronic Other nutritional; endocrine; and metabolic disorders (1 source) Obesity, unspecified; Translations: [OBESITY UNSPECIFIED] Onset: 2 Chronic Other nutritional; endocrine; and metabolic disorders (20 sources) Finding of body mass index; Translations: [Body mass index (observable entity)] Onset: 3 Chronic Other and delivery including normal (1 source) Normal ; Translations: [Encounter for supervision of normal , unspecified, unspecified trimester] Onset: 4 Episodic Other upper respiratory disease (15 sources) Seasonal allergy; Translations: [Other seasonal allergic rhinitis] Onset: 0 09-12-2020 Chronic Other upper respiratory disease (7 sources) Allergic rhinitis; Translations: [Allergic rhinitis, unspecified] Onset: 1 04-17-2021 Chronic Other upper respiratory disease (1 source) Other seasonal allergic rhinitis Onset: 2 Resolved: 2 Chronic Other upper respiratory disease (1 source) Congestion of nasal sinus; Translations: [Nasal congestion] Episodic Other upper respiratory infections (20 sources) Streptococcal pharyngitis; Translations: [Acute pharyngitis, unspecified] Onset: 2 Resolved: 2 Episodic Otitis media and related conditions (20 sources) Acute suppurative otitis media without spontaneous rupture of ear drum; Translations: [Other acute nonsuppurative otitis media, bilateral] Onset: 2 Resolved: 2 Episodic Ovarian cyst (2 sources) Cyst of left ovary; Translations: [Unspecified ovarian cyst, left side] Onset: 3 Episodic Residual codes; unclassified (1 source) Generalized aches and pains 08-24-2024 Episodic Sprains and strains (4 sources) Sprain of interphalangeal joint of toe; Translations: [Sprain of interphalangeal joint of left great toe, initial encounter] Onset: 3 08-03-2023 Episodic Thyroid disorders (6 sources) Hypothyroidism; Translations: [Other specified hypothyroidism] Onset: 3 Chronic Unclassified (11 sources) Patient encounter status; Translations: [Screen for STD (sexually transmitted disease)] 01-09-2024 Unclassified (4 sources) CONTACT W/AND (SUSP) EXPOS COVID-19; Translations: [CONTACT W/AND (SUSP) EXPOS COVID-19] Onset: 2 Unclassified (4 sources) COUGH, UNSPECIFIED; Translations: [COUGH, UNSPECIFIED] Onset: 2 Unclassified (2 sources) Test; Translations: [ Test] Onset: 3 Unclassified (3 sources) Cancer cervix screening status 05-14-2024 Unclassified (3 sources) Possible 05-09-2024 Unclassified (1 source) Ear sensations - finding 05-27-2024 Unclassified (1 source) Non-smoker 08-19-2024 Urinary tract infections (20 sources) Urinary tract infectious disease; Translations: [Urinary tract infection, site not specified] Onset: 2 Episodic Viral infection (10 sources) Herpes simplex 07-04-2022 Episodic Viral infection (3 sources) COVID-19; Translations: [COVID-19] Onset: 2 Resolved: 2 Past or Other Problems Problem Classification Problem Date Documented Date Episodic/Chronic Chronic obstructive pulmonary disease and bronchiectasis (1 source) Bronchitis, not specified as acute or chronic; Translations: [BRONCHITIS NOT SPEC ACUTE/CHRON] Onset: 08-30-2022 Episodic Contraceptive and procreative management (12 sources) Contraception care management; Translations: [Encounter for surveillance of contraceptive pills] Onset: 06-04-2023 06-04-2023 Episodic E Codes: Struck by; against (1 source) Striking against or struck by other objects, initial encounter; Translations: [STRIKING AGNST/STRUCK OTH OBJ INIT] Onset: 10-28-2022 Episodic Immunizations and screening for infectious disease (18 sources) Contact with and (suspected) exposure to other viral communicable diseases; Translations: [Encounter for screening for infections with a predominantly sexual mode of transmission] Onset: 01-30-2022 Resolved: 06-15-2022 Episodic Inflammatory diseases of female pelvic organs (2 sources) Acute vaginitis; Translations: [Acute vulvitis] Onset: 05-21-2022 Episodic Joint disorders and dislocations; trauma-related (16 sources) Patellofemoral stress syndrome; Translations: [Patellofemoral stress syndrome] Onset: 01-11-2016 01-11-2016 Episodic Nausea and vomiting (6 sources) Nausea and vomiting; Translations: [Nausea with vomiting, unspecified] Onset: 06-15-2022 Resolved: 06-15-2022 Episodic Other aftercare (1 source) 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; Translations: [OTH EMBEDDED SYSTEMS DEVELOPER CURRENT DRUG THERAPY] Onset: 08-20-2022 Episodic Other nervous system disorders (1 source) Personal history of other diseases of the nervous system and sense organs; Translations: [PERSONAL HX OTH DZ NS AND SENSE ORGANS] Onset: 05-02-2022 Episodic Other non-traumatic joint disorders (5 sources) Pain in right knee; Translations: [Pain in right knee] Onset: 01-11-2016 01-11-2016 Episodic Other non-traumatic joint disorders (4 sources) Pain in right knee; Translations: [Pain in joint, lower leg] Onset: 01-11-2016 01-11-2016 Episodic Other screening for suspected conditions (not mental disorders or infectious disease) (20 sources) Encounter for test, result negative; Translations: [Encounter for screening for diabetes mellitus] Onset: 07-25-2022 Episodic Other upper respiratory disease (2 sources) Nasal congestion; Translations: [NASAL CONGESTION] Onset: 06-15-2022 Resolved: 06-15-2022 Episodic Other upper respiratory disease (1 source) Acute bronchospasm; Translations: [ACUTE BRONCHOSPASM] Onset: 08-20-2022 Episodic Residual codes; unclassified (1 source) Pain, unspecified Onset: 03-28-2022 Resolved: 03-28-2022 Episodic Residual codes; unclassified (4 sources) Procedure and treatment not carried out due to patient leaving prior to being seen by health care provider; Translations: [PROC AND TX NOT CARRIED OUT PT LEAVE] Onset: 06-28-2022 Episodic Superficial injury; contusion (4 sources) Contusion of scalp, initial encounter; Translations: [CONTUSION SCALP INITIAL ENCOUNTER] Onset: 10-25-2022 Episodic Unclassified (2 sources) Ankle sprain and strain 09-17-2021 Unclassified (1 source) Acute cough R05.1 Unclassified (1 source) CONTACT W/AND (SUSP) EXPOS COVID-19; Translations: [CONTACT W/AND (SUSP) EXPOS COVID-19] Onset: 11-20-2022 Unclassified (1 source) COUGH, UNSPECIFIED; Translations: [COUGH, UNSPECIFIED] Onset: 09-03-2022 Results Test Name Value Interpretation Reference Range Facility Ambulatory Visit Summaryon 1 01-06-2024 Ambulatory Visit Summary Ambulatory Visit Summary JENY CARDOSO :2000 Visit Date:11/05/2024 Ambulatory Visit Instructions Your Diagnosis Sinus problem Non-smoker BMI 45.0-49.9, adult, Body mass index [BMI] 45.0-49.9, adult Morbid obesity with BMI of 45.0-49.9, adult Your Care Team Attending Physician - KATHYA WOODSON CNP Primary Care Physician - Sophie Salcido This Is Your Medications List acetaminophen (acetaminophen 500 mg Tab) cetirizine (cetirizine 10 mg Tab) desvenlafaxine (desvenlafaxine 50 mg Tab-) doxepin (doxepin 10 mg Cap) ethinyl estradiol-norgestima te (ethinyl estradiol-norgestima te 35 mcg-0.25 mg Tab) fluconazole (Diflucan 150 mg Tab) fluticasone nasal (Flonase 0.05 mg/inh [place]) ibuprofen (ibuprofen 600 mg Tab) ibuprofen (ibuprofen 800 mg Tab) meclizine (meclizine 25 mg Tab) nystatin topical (nystatin Top 100,000 units/g Crm 15 gram) ofloxacin otic (ofloxacin Otic 0.3% Marsha) omeprazole (omeprazole 40 mg Cap-DR) ondansetron (ondansetron 4 mg Dis Tab) prazosin (prazosin 1 mg Cap) Procedures Performed Appendectomy, Colonoscopy, Ovarian cystectomy. Discharge Vitals Temperature (Oral) 36.5 ???C Heart Rate (Peripheral) 80 Respiratory Rate 18 Blood Pressure 124/84 Height 163.0 cm Height 64 in Weight 132.2 kg Weight 291.451 lb BMI 49.76 Medications What How Much When Why Instructions New fluconazole (Diflucan 150 mg Tab) Oral, 0 Refill(s) Unchanged acetaminophen (acetaminophen 500 mg Tab) 1 Tablets By Mouth Every 4 hours Viral URI Unchanged cetirizine (cetirizine 10 mg Tab) See instructions TAKE 1 TABLET BY MOUTH EVERY DAY Unchanged desvenlafaxine (desvenlafaxine 50 mg Tab-) 1 Tablets By Mouth Every day take 1 tablet by mouth once daily Unchanged doxepin (doxepin 10 mg Cap) 1 Capsules By Mouth Once a day (at bedtime) as needed for Insomnia take 1 capsule by mouth at bedtime if needed for sleep Unchanged ethinyl estradiol-norgestima te (ethinyl estradiol-norgestima te 35 mcg-0.25 mg Tab) 1 Tablets By Mouth Every day Unchanged fluticasone nasal (Flonase 0.05 mg/ inh [place]) 2 Sprays Nasal Inhalation Every day each nostril Unchanged ibuprofen (ibuprofen 600 mg Tab) 1 Tablets By Mouth Every 8 hours as needed for as needed for pain Unchanged ibuprofen (ibuprofen 800 mg Tab) 1 Tablets By Mouth Every 8 hours Thoracic back pain Unchanged meclizine (meclizine 25 mg Tab) 1 Tablets By Mouth 3 times a day as needed for for dizziness Vertigo BMI 45.0-49.9, adult Obesity, morbid, BMI 40.0-49.9 Non-smoker Unchanged nystatin topical (nystatin Top 100,000 units/ g Crm 15 gram) 1 Application Topical 2 times a day Skin yeast infection Unchanged ofloxacin otic (ofloxacin Otic 0.3% Marsha) 5 Drops Otic 2 times a day Ear infection Unchanged omeprazole (omeprazole 40 mg Cap-DR) 1 Capsules By Mouth Every day take 1 capsule by mouth once daily Unchanged ondansetron (ondansetron 4 mg Dis Tab) See instructions 1 tab(s) Oral every 4-6 hours Unchanged prazosin (prazosin 1 mg Cap) 1 Capsules By Mouth At bedtime take 1 capsule by mouth at bedtime for PTSD [place] Allergies hydrOXYzine (Nausea and vomiting) morphine (Urticaria) traZODone (Wheezing) Problems Ongoing - Any problem that you are currently receiving treatment for. Anxiety Bilateral otitis media BMI 45.0-49.9, adult Body aches Cervical cancer screening Change in bowel habits Chronic otitis media of both ears Cough Depression Ear fullness Encounter for weight management Fever Flank pain Fluid level behind tympanic membrane of both ears Fluid level behind tympanic membrane of left ear Frequent UTI GERD (gastroesophageal reflux disease) Hematochezia Hemorrhoid Herpes Non-smoker Obesity, morbid, BMI 40.0-49.9 Otitis media Possible Rectal bleeding Right otitis externa Right otitis media Skin yeast infection Vertigo Well woman exam Patient Survey You may receive a survey via text or e-mail asking about your office visit. Please share your experience with us by completing your survey. We appreciate your feedback and thank you for choosing us for your care. [facility] Family Medicine Office/Clini c Noteon 11-05-2024 Family Medicine Office/Clinic Note Family Medicine Office/Clinic Note HPI Staff Jeny is a 24 year old female presenting with sinus pressure Onset: Started last week Headache- yes yesterday Earache- yes both ears popping Sinus Congestion- yes Rhinorrhea- yes Sore Throat- yes Cough- yes wheezing- yes Orthopnea- Trouble laying flat/breathing through nose: yes Lung Hx (asthma, recurring bronchitis/chest colds, COPD)- ,, asthma Fevers/chills- no possibly the day before yesterday GI symptoms- no Tried: nasal rinses, and Ibuprofen Nyquil History of Present Illness 24 year old patient of Wendi Yoo CNP presents today for an acute visit for evaluation of sinus congestion x 1 week. She reports a headache, ear popping , sore throat, and cough. She has tried nasal rinses, ibuprofen, and nyquil with no improvement. Review of Systems PHQ Score Initial Depression Screen Score: 0 SCORE Constitutional: no fever, no chills, no sweats, no weakness Skin: no Jaundice, no rash, no lesions, nopetechiae ENMT: no ear pain, no sore throat, no congestion, no hoarseness Respiratory: no shortness of breath, no cough, no orthopnea, no wheezing Cardiovascular: no chest pain, no palpitations, no edema Gastrointestinal: no nausea, no vomiting, no diarrhea, no GI bleeding Genitourinary: no dysuria, no hematuria, no discharge, no pain Musculoskeletal: no back pain, no trauma Neurologic: no headache, no dizziness, no numbness, no weakness Psychiatric: no sleeping problems, no irritability, no mood swings/depression. Heme/Lymph: no bleeding tendency, no bruising tendency, no petechiae, no swollen nodes Allergy/Immunologic: no seasonal allergies, no food allergies, no recurrent infections, no impaired immunity Additional ROS info: Except as noted in the above Review of Systems and in the History of Present Illness all other systems have been reviewed and are negative or noncontributory. Physical Exam Vitals & Measurements T: 36.5 ???C(Oral) HR: 80(Peripheral) RR: 18 BP: 124/84 SpO2: 98% HT: 64 in HT: 163.0 cm WT: 132.2 kg WT: 291.451 lb BMI: 49.76 General: alert, no acute distress ENMT: TM's not clear, oral mucosa moist, no pharyngeal erythema or exudate Cardiovascular: regular rate and rhythm, normal peripheral perfusion Respiratory: Lungs CTA, respirations non labored Extremities: no deformity, no trauma Neurological: oriented x 4, LOC appropriate for age, CN II-XII intact, motor strength equal & normal bilaterally, sensation equal & normal bilaterally, speech normal Assessment/Plan 1. Sinus problem (J34.9: Unspecified disorder of nose and nasal sinuses) Encouraged to continue with nasal saline rinses Encouraged to restart flonase daily f/u with pcp if no improvement Ordered: amoxicillin-clavulan ate, 1 tab(s), Oral, BID for 10 day(s), 20 tab(s), Refill(s) 0, [id number], 163, cm, 11/05/24 7:54:00 EST, Height/Length Dosing, 132.2, kg, 11/05/24 7:54:00 EST, Weight Dosing 2. Non-smoker (Z78.9: Other specified health status) Encouraged to continue is a non-smoker 3. BMI 45.0-49.9, adult, (Z68.42: Body mass index [BMI] 45.0-49.9, adult)Body mass index [BMI] 45.0-49.9, adult The standard range for ages 18 and older is >=18.5 and < 25 kg/m2. Your BMI today was above this range, this falls in the overweight to obese category and there are medical benefits to weight loss. We can offer counselling, referral, and/or medical support in addressing this problem. Your BMI and weight management will be followed at subsequent visits. 4. Morbid obesity with BMI of 45.0-49.9, adult (E66.01: Morbid (severe) obesity due to excess calories) The standard range for ages 18 and older is >=18.5 and < 25 kg/m2. Your BMI today was above this range, this falls in the overweight to obese category and there are medical benefits to weight loss. We can offer counselling, referral, and/or medical support in addressing this problem. Your BMI and weight management will be followed at subsequent visits. Orders: fluconazole, 150 mg = 1 tab(s), Oral, Once, Take one tablet with the onset of symptoms; may repeat in 72 hours, # 2 tab(s), Refills(s) 0, Pharmacy: [id number], 163, cm, 11/05/24 7:54:00 EST, Height/Length Dosing, 132.2, kg, 11/05/24 7:54:00 EST, Weight Dosing Follow-up No qualifying data available Problem List/Past Medical History Ongoing Anxiety Bilateral otitis media BMI 45.0-49.9, adult Body aches Cervical cancer screening Change in bowel habits Chronic otitis media of both ears Cough Depression Ear fullness Encounter for weight management Fever Flank pain Fluid level behind tympanic membrane of both ears Fluid level behind tympanic membrane of left ear Frequent UTI GERD (gastroesophageal reflux disease) Hematochezia Hemorrhoid Herpes Non-smoker Obesity, morbid, BMI 40.0-49.9 Otitis media Possible Rectal bleeding Right otitis externa Right otitis media Skin yeast infection Verti (more content not included)... [facility] Comment on above: Result Comment: Elec tronically Signed By: KATHYA WOODSON CNP\.br\Date and Time Signed: 11/05/24 09:23 EST Family Medicine Office/Clini c Noteon 09-18-2024 Family Medicine Office/Clinic Note Family Medicine Office/Clinic Note HPI Staff Jeny is a 24 year old female presenting with Onset: Started yesterday at work, sitting on ground Location: mid back pain Characteristics:_ stabbing pain throbbing Aggravated by: walking, breathing trying to take a BM Relieved by: Tylenol,, Aleve neither one helped When she press on it it is her mid back, than radiates down lower back History of Present Illness 24 year old patient of Wendi Yoo CNP present today for evaluation of low back pain. Patient reports she was sitting on the floor at work with her back against the wall yesterday. She noted that she was having some back pain so she readjusted. She reports the back pain seemed worse after she got home she took 1 acetaminophen and later on took 1 aspirin. She reports these did not help at all she tried heat for about 20 minutes last night before she went to sleep. She reports she did get some relief with the heat. She denies any injury to her back. Review of Systems PHQ Score Initial Depression Screen Score: 0 SCORE Constitutional: no fever, no chills, no sweats, no weakness Skin: no Jaundice, no rash, no lesions, nopetechiae ENMT: no ear pain, no sore throat, no congestion, no hoarseness Respiratory: no shortness of breath, no cough, no orthopnea, no wheezing Cardiovascular: no chest pain, no palpitations, no edema Genitourinary: no dysuria, no hematuria, no discharge, no pain Musculoskeletal: mild back pain, no trauma Additional ROS info: Except as noted in the above Review of Systems and in the History of Present Illness all other systems have been reviewed and are negative or noncontributory. Physical Exam Vitals & Measurements T: 36.5 ???C(Oral) HR: 78(Peripheral) RR: 18 BP: 124/84 SpO2: 99% HT: 64 in HT: 163.0 cm WT: 133.6 kg WT: 293.92 lb BMI: 50.28 General: alert, no acute distress Skin: warm, dry Head: no trauma, normocephalic Cardiovascular: regular rate and rhythm, normal peripheral perfusion Respiratory: Lungs CTA, respirations non labored Back: Mild tenderness, Normal ROM, Normal alignment; mild pain when straightenin back up Extremities: no deformity, no trauma Neurological: oriented x 4, LOC appropriate for age speech normal Psychiatric: cooperative, affect appropriate for age, normal judgement, normal psychiatric thoughts. Assessment/Plan 1. Thoracic back pain (M54.6: Pain in thoracic spine) Encouraged to continue alternating between ice and heat Start ibuprofen 800 mg 1 p.o. 3 times daily as needed for pain encourage back exercises Follow-up with PCP as needed Ordered: ibuprofen, 800 mg = 1 tab(s), Oral, q8hr, # 30 tab(s), Refills(s) 0, Pharmacy: [facility] #[id number], 163, cm, 09/18/24 9:18:00 EDT, Height/Length Dosing, 133.6, kg, 09/18/24 9:18:00 EDT, Weight Dosing 2. Non-smoker (Z78.9: Other specified health status) Encouraged to continue with a non-smoker 3. BMI 50.0-59.9, adult (Z68.43: Body mass index [BMI] 50.0-59.9, adult) The standard range for ages 18 and older is >=18.5 and < 25 kg/m2. Your BMI today was above this range, this falls in the overweight to obese category and there are medical benefits to weight loss. We can offer counselling, referral, and/or medical support in addressing this problem. Your BMI and weight management will be followed at subsequent visits. 4. Morbid obesity (E66.01: Morbid (severe) obesity due to excess calories) The standard range for ages 18 and older is >=18.5 and < 25 kg/m2. Your BMI today was above this range, this falls in the overweight to obese category and there are medical benefits to weight loss. We can offer counselling, referral, and/or medical support in addressing this problem. Your BMI and weight management will be followed at subsequent visits. Follow-up No qualifying data available Patient Education Thoracic Strain, [id number] Problem List/Past Medical History Ongoing Anxiety Bilateral otitis media BMI 45.0-49.9, adult Body aches Cervical cancer screening Change in bowel habits Chronic otitis media of both ears Cough Depression Ear fullness Encounter for weight management Fever Flank pain Fluid level behind tympanic membrane of both ears Fluid level behind tympanic membrane of left ear Frequent UTI GERD (gastroesophageal reflux disease) Hematochezia Hemorrhoid Herpes Non-smoker Obesity, morbid, BMI 40.0-49.9 Otitis media Possible Rectal bleeding Right otitis externa Right otitis media Skin yeast infection Vertigo Well woman exam Historical No qualifying data Procedure/Surgical History Appendectomy, Colonoscopy, Ovarian cystectomy. Medications acetaminophen 500 mg Tab, 500 mg= 1 tab(s), Oral, q4hr cetirizine 10 mg Tab, See Instructions, 3 refills desvenlafaxine 50 mg Tab-, 50 mg= 1 tab(s), Oral, Daily, 1 refills doxepin 10 mg Cap, 10 mg= 1 cap(s), Oral, Once a day (at bedtime), PRN ethinyl estradiol-norgestima te 35 mcg-0.25 mg Tab, 1 (more content not included)... [facility] Comment on above: Result Comment: Elec tronically Signed By: KATHYA WOODSON CNP\.br\Date and Time Signed: 09/18/24 09:36 EDT Provider Letteron 09-18-2024 Provider Letter Provider Letter September 18, 2024 JENYROBINA CARDOSO [address] [place] [id number] : 2000 To Whom It May Concern, Please excuse above patient from work. Date of Illness: 09/18/2024 May Return to Work On: 09/21/2024 Sincerely, [place] [address] [facility] Provider Letteron 09-08-2024 Provider Letter Provider Letter September 08, 2024 JENYROBINA CARDOSO [address] [place] [phone] : 2000 To Whom It May Concern, Please excuse above patient from work. Date of Illness: From: 09-07-24 To: 09-08-24 May Return to Work On:09-09-24 Restrictions: _ Comments: _ Sincerely, [place] [address] [facility] Family Medicine Office/Clini c Noteon 09-01-2024 Family Medicine Office/Clinic Note Family Medicine Office/Clinic Note Chief Complaint Not feeling well HPI Staff Pt presents today for acute visit. Onset: since yesterday Location: head, ears Characteristics:_Diz zy spell, headache & not making sense while talking. Associated Symptoms:_Has passed out 2x since yesterday. Previously referred to ENT. Would like 2nd opinion. History of Present Illness pt c/o dizziness. feeling like she just got off a boat Review of Systems PHQ Score Initial Depression Screen Score: 0 SCORE Physical Exam Vitals & Measurements T: 36.8 ?C(Tympanic) HR: 83(Peripheral) RR: 16 BP: 130/84 SpO2: 97% HT: 64 in HT: 163 cm WT: 131.35 kg WT: 288.97 lb BMI: 49.44 General: alert, no acute distress ENMT: oral mucosa moist, no pharyngeal erythema or exudate Cardiovascular: regular rate and rhythm, normal peripheral perfusion Respiratory: Lungs CTA, respirations non labored Extremities: no deformity, no trauma Neurological: oriented x 4, LOC appropriate for age, CN II-XII intact, motor strength equal & normal bilaterally, speech normal Assessment/Plan 1. Vertigo (R42: Dizziness and giddiness) pt had 2 episodes of dizziness yesterday. feeling like she could pass out. was just seen by Dr. Gutierrez and was told she had TMJ. and she wants a second opinion. encouraged her to follow Dr. Gutierrez's suggestion to see if it helps her ear pain. if meclizine does not help with dizziness will refer to vestibular therapy Ordered: meclizine, 25 mg = 1 tab(s), Oral, TID, PRN for dizziness, # 60 tab(s), Refills(s) 0, Pharmacy: [facility]/pharmacy #[id number], 163, cm, 09/01/24 10:38:00 EDT, Height/Length Dosing, 131.3, kg, 09/01/24 10:38:00 EDT, Weight Dosing 2. BMI 45.0-49.9, adult (Z68.42: Body mass index [BMI] 45.0-49.9, adult) BMI edcuation Ordered: meclizine, 25 mg = 1 tab(s), Oral, TID, PRN for dizziness, # 60 tab(s), Refills(s) 0, [id number] 163, cm, 09/01/24 10:38:00 EDT, Height/Length Dosing, 131.3, kg, 09/01/24 10:38:00 EDT, Weight Dosing Body Mass Index (BMI) documented 3008F Current tobacco non-user 1036F Depression Screening Negative 3352F Discharge medications reconciled with current medications in outpatient record 1111F Influenza immunization status assessed 1030F Medication list documented in medical record 1159F Most recent diastolic blood pressure 80-89 mm Hg 3079F Review of all meds by a prescribing practitioner or clinical pharmacist documented in EHR 1160F Systolic BP 130-139 mm Hg (Most Recent) 3075F 3. Obesity, morbid, BMI 40.0-49.9 (E66.01: Morbid (severe) obesity due to excess calories) see above Ordered: meclizine, 25 mg = 1 tab(s), Oral, TID, PRN for dizziness, # 60 tab(s), Refills(s) 0, [id number] 163, cm, 09/01/24 10:38:00 EDT, Height/Length Dosing, 131.3, kg, 09/01/24 10:38:00 EDT, Weight Dosing 4. Non-smoker (Z78.9: Other specified health status) continue not smoking Ordered: meclizine, 25 mg = 1 tab(s), Oral, TID, PRN for dizziness, # 60 tab(s), Refills(s) 0, [id number] 163, cm, 09/01/24 10:38:00 EDT, Height/Length Dosing, 131.3, kg, 09/01/24 10:38:00 EDT, Weight Dosing ofloxacin otic, 5 drop(s), Otic, BID, 5 mL, Refill(s) 0, [id number] 163, cm, 05/27/24 17:45:00 EDT, Height/Length Dosing, 134.6, kg, 05/27/24 17:45:00 EDT, Weight Dosing Orders: fluconazole, 150 mg = 1 tab(s), Oral, Once, take 1 tab on day one and 1 tabon day four, # 2 tab(s), Refills(s) 1, Pharmacy: [facility]/pharmacy #[id number], 163, cm, 08/19/24 9:04:00 EDT, Height/Length Dosing, 131.8, kg, 08/19/24 9:04:00 EDT, Weight Dosing methylPREDNISolone, = 1 packet(s), Oral, Once, as directed on package labeling, # 21 tab(s), Refills(s) 0, [id number], 163, cm, 07/21/24 10:42:00 EDT, Height/Length Dosing, 130.5, kg, 07/21/24 10:42:00 EDT, Weight Dosing Follow-up No qualifying data available Problem List/Past Medical History Ongoing Anxiety Bilateral otitis media BMI 45.0-49.9, adult Body aches Cervical cancer screening Change in bowel habits Chronic otitis media of both ears Cough Depression Ear fullness Encounter for weight management Fever Flank pain Fluid level behind tympanic membrane of both ears Fluid level behind tympanic membrane of left ear Frequent UTI GERD (gastroesophageal reflux disease) Hematochezia Hemorrhoid Herpes Non-smoker Obesity, morbid, BMI 40.0-49.9 Otitis media Possible Rectal bleeding Right otitis externa Right otitis media Skin yeast infection Vertigo Well woman exam Historical No qualifying data Procedure/Surgical History Appendectomy, Colonoscopy, Ovarian cystectomy. Medications acetaminophen 500 mg Tab, 500 mg= 1 tab(s), Oral, q4hr cetirizine 10 mg Tab, See Instructions, 3 refills desvenlafaxine 50 mg Tab-, 50 mg= 1 tab(s), Oral, Daily, 1 refills doxepin 10 mg Cap, 10 mg= 1 cap(s), Oral, Once a day (at bedtime), PRN ethinyl estradiol-norgestima te 35 mcg-0.25 (more content not included)... [facility] Comment on above: Result Comment: Elec tronically Signed By: Sophie [email or web address].[email or web address]\Date and Time Signed: 09/01/24 11:10 EDT Ambulatory Visit Summaryon 0 08-24-2024 Ambulatory Visit Summary Ambulatory Visit Summary JENY CARDOSO :2000 Visit Date:08/24/2024 Ambulatory Visit Instructions Your Diagnosis Non-smoker BMI 45.0-49.9, adult Your Care Team Attending Physician - Sophie Salcido Primary Care Physician - Sophie Salcido This Is Your Medications List acetaminophen (acetaminophen 500 mg Tab) amoxicillin-clavulan ate (amoxicillin-clavula marko 875 mg-125 mg Tab) cetirizine (cetirizine 10 mg Tab) desvenlafaxine (desvenlafaxine 50 mg Tab-) doxepin (doxepin 10 mg Cap) ethinyl estradiol-norgestima te (ethinyl estradiol-norgestima te 35 mcg-0.25 mg Tab) fluconazole (Diflucan 150 mg Tab) fluticasone nasal (Flonase 0.05 mg/inh [place]) ibuprofen (ibuprofen 600 mg Tab) methylPREDNISolone (methylPREDNISolone 4 mg tab dosepak) nystatin topical (nystatin Top 100,000 units/g Crm 15 gram) ofloxacin otic (ofloxacin Otic 0.3% Marsha) omeprazole (omeprazole 40 mg Cap-DR) ondansetron (ondansetron 4 mg Dis Tab) prazosin (prazosin 1 mg Cap) Procedures Performed Appendectomy, Colonoscopy, Ovarian cystectomy. Discharge Vitals Temperature (Oral) 36.7 ?C Heart Rate (Peripheral) 88 Respiratory Rate 20 Blood Pressure 128/84 Height 163.0 cm Height 64 in Weight 131.0 kg Weight 288.2 lb BMI 49.31 Medications What How Much When Why Instructions Unchanged acetaminophen (acetaminophen 500 mg Tab) 1 Tablets By Mouth Every 4 hours Viral URI Unchanged amoxicillin-clavulan ate (amoxicillin-clavula marko 875 mg-125 mg Tab) 1 Tablets By Mouth Every 12 hours Duration: 7 Days Unchanged cetirizine (cetirizine 10 mg Tab) See instructions TAKE 1 TABLET BY MOUTH EVERY DAY Unchanged desvenlafaxine (desvenlafaxine 50 mg Tab-) 1 Tablets By Mouth Every day take 1 tablet by mouth once daily Unchanged doxepin (doxepin 10 mg Cap) 1 Capsules By Mouth Once a day (at bedtime) as needed for Insomnia take 1 capsule by mouth at bedtime if needed for sleep Unchanged ethinyl estradiol-norgestima te (ethinyl estradiol-norgestima te 35 mcg-0.25 mg Tab) 1 Tablets By Mouth Every day Unchanged fluconazole (Diflucan 150 mg Tab) 1 Tablets By Mouth Once Chronic otitis media of both ears Fluid level behind tympanic membrane of both ears take 1 tab on day one and 1 tabon day four Unchanged fluticasone nasal (Flonase 0.05 mg/ inh [place]) 2 Sprays Nasal Inhalation Every day each nostril Unchanged ibuprofen (ibuprofen 600 mg Tab) 1 Tablets By Mouth Every 8 hours as needed for as needed for pain Unchanged methylPREDNISolone (methylPREDNISolone 4 mg tab dosepak) 1 Packets By Mouth Once as directed on package labeling Unchanged nystatin topical (nystatin Top 100,000 units/ g Crm 15 gram) 1 Application Topical 2 times a day Skin yeast infection Unchanged ofloxacin otic (ofloxacin Otic 0.3% Marsha) 5 Drops Otic 2 times a day Ear fullness BMI 50.0-59.9, adult Non-smoker Unchanged omeprazole (omeprazole 40 mg Cap-DR) 1 Capsules By Mouth Every day take 1 capsule by mouth once daily Unchanged ondansetron (ondansetron 4 mg Dis Tab) See instructions 1 tab(s) Oral every 4-6 hours Unchanged prazosin (prazosin 1 mg Cap) 1 Capsules By Mouth At bedtime take 1 capsule by mouth at bedtime for PTSD [place] Allergies hydrOXYzine (Nausea and vomiting) morphine (Urticaria) traZODone (Wheezing) Problems Ongoing - Any problem that you are currently receiving treatment for. Anxiety Bilateral otitis media BMI 40.0-44.9, adult BMI 45.0-49.9, adult Cervical cancer screening Change in bowel habits Chronic otitis media of both ears Cough Depression Ear fullness Encounter for weight management Flank pain Fluid level behind tympanic membrane of both ears Fluid level behind tympanic membrane of left ear Frequent UTI GERD (gastroesophageal reflux disease) Hematochezia Hemorrhoid Herpes Non-smoker Obesity, morbid, BMI 40.0-49.9 Otitis media Possible Rectal bleeding Right otitis externa Right otitis media Skin yeast infection Well woman exam Patient Survey You may receive a survey via text or e-mail asking about your office visit. Please share your experience with us by completing your survey. We appreciate your feedback and thank you for choosing us for your care. [facility] Family Medicine Office/Clini c Noteon 08-24-2024 Family Medicine Office/Clinic Note Family Medicine Office/Clinic Note HPI Staff Jeny is a 24 year old female presenting with running fever and not feeling well Onset: Yesterday morning was achy through the day it got worse C/O: Duration: _ Body aches: yes Chills: yes Fatigue: yes Cough: no Sore throat: no a little bit Fever: yes This morning 101.8 Headache: yes Nasal congestion: no Loss of taste: no Loss of smell: no Eye itching/watering: no Sneezing: no SOB: yes Known Exposure: Works at [employer] last night and this morning Has ear infection now COVID tested- NEG FLU tested- NEG History of Present Illness pt presents today with fever and body aches. covid and flus both negative today Review of Systems PHQ Score Initial Depression Screen Score: 0 SCORE Physical Exam Vitals & Measurements T: 36.7 ?C(Oral) HR: 88(Peripheral) RR: 20 BP: 128/84 SpO2: 97% HT: 64 in HT: 163.0 cm WT: 131.0 kg WT: 288.2 lb BMI: 49.31 General: alert, no acute distress ENMT: oral mucosa moist, no pharyngeal erythema or exudate, ROGELIO TM full of fluid Cardiovascular: regular rate and rhythm, normal peripheral perfusion Respiratory: Lungs CTA, respirations non labored Extremities: no deformity, no trauma Neurological: oriented x 4, LOC appropriate for age, CN II-XII intact, motor strength equal & normal bilaterally, speech normal Assessment/Plan 1. Fever (R50.9: Fever, unspecified) pt presents today with fever and body aches. is still taking augmentin for ear infection. covid and flu both negative. will send medrol dose pack. 2. Body aches (R52: Pain, unspecified) rotate tylenol and motrin 3. Fluid level behind tympanic membrane of both ears (H65.93: Unspecified nonsuppurative otitis media, bilateral) medrol dose pack sent 4. Non-smoker (Z78.9: Other specified health status) continue not smoking Ordered: methylPREDNISolone, = 1 packet(s), Oral, As Directed, as directed on package labeling, X 6 day(s), # 21 tab(s), Refills(s) 0, Pharmacy: [facility]/pharmacy #[id number], 163, cm, 08/24/24 9:13:00 EDT, Height/Length Dosing, 131, kg, 08/24/24 9:13:00 EDT, Weight Dosing 5. BMI 45.0-49.9, adult (Z68.42: Body mass index [BMI] 45.0-49.9, adult) ZBMI education given Ordered: methylPREDNISolone, = 1 packet(s), Oral, As Directed, as directed on package labeling, X 6 day(s), # 21 tab(s), Refills(s) 0, Pharmacy: [facility]/pharmacy #[id number], 163, cm, 08/24/24 9:13:00 EDT, Height/Length Dosing, 131, kg, 08/24/24 9:13:00 EDT, Weight Dosing Follow-up No qualifying data available Problem List/Past Medical History Ongoing Anxiety Bilateral otitis media BMI 40.0-44.9, adult BMI 45.0-49.9, adult Body aches Cervical cancer screening Change in bowel habits Chronic otitis media of both ears Cough Depression Ear fullness Encounter for weight management Fever Flank pain Fluid level behind tympanic membrane of both ears Fluid level behind tympanic membrane of left ear Frequent UTI GERD (gastroesophageal reflux disease) Hematochezia Hemorrhoid Herpes Non-smoker Obesity, morbid, BMI 40.0-49.9 Otitis media Possible Rectal bleeding Right otitis externa Right otitis media Skin yeast infection Well woman exam Historical No qualifying data Procedure/Surgical History Appendectomy, Colonoscopy, Ovarian cystectomy. Medications acetaminophen 500 mg Tab, 500 mg= 1 tab(s), Oral, q4hr amoxicillin-clavulan ate 875 mg-125 mg Tab, 1 tab(s), Oral, q12hr cetirizine 10 mg Tab, See Instructions, 3 refills desvenlafaxine 50 mg Tab-, 50 mg= 1 tab(s), Oral, Daily, 1 refills Diflucan 150 mg Tab, 150 mg= 1 tab(s), Oral, Once, 1 refills doxepin 10 mg Cap, 10 mg= 1 cap(s), Oral, Once a day (at bedtime), PRN ethinyl estradiol-norgestima te 35 mcg-0.25 mg Tab, 1 tab(s), Oral, Daily, 11 refills Flonase 0.05 mg/inh [place], 2 spray(s), Nasal, Daily, 5 refills ibuprofen 600 mg Tab, 600 mg= 1 tab(s), Oral, q8hr, PRN Medrol 4 mg Tab, 1 packet(s), Oral, As Directed methylPREDNISolone 4 mg tab dosepak, 1 packet(s), Oral, Once nystatin Top 100,000 units/g Crm 15 gram, 1 gee, Topical, BID ofloxacin Otic 0.3% Marsha, 5 drop(s), Otic, BID omeprazole 40 mg Cap-DR, 40 mg= 1 cap(s), Oral, Daily, 1 refills ondansetron 4 mg Dis Tab, See Instructions prazosin 1 mg Cap, 1 mg= 1 cap(s), Oral, Bedtime, 1 refills Allergies hydrOXYzine (Nausea and vomiting) morphine (Urticaria) traZODone (Wheezing) Social History Alcohol - Denies Alcohol Use, 12/19/2021 Substance Abuse - Denies Substance Abuse, 12/19/2021 Tobacco - Denies Tobacco Use, 07/04/2022 Never (less than 100 in lifetime) Tobacco Use:. Never Smokeless Tobacco Use:. Cigarettes, Household tobacco concerns: No. Yes, 08/24/2024 Family History Alcoholism: Father. Arthritis: Mother and Father. Diabetes mellitus type 2: Grandparent. High blood pressure: Father. Migraine: Mother. Primary malignant neoplasm of female genital organ: Grandparent. Immuniza (more content not included)... [facility] Comment on above: Result Comment: Elec tronically Signed By: Sophie Salcido\.br\Date and Time Signed: 08/24/24 09:25 EDT Provider Letteron 08-24-2024 Provider Letter Provider Letter August 24, 2024 JENYRafaela CARDOSO [address] [place] [address] : 2000 To Whom It May Concern, Please excuse above patient from work, due to illness. Date of Illness: From: 08-24-24 To: May Return to Work On: 08-26-24 Restrictions: _ Comments: _ Sincerely, Family Medicine [address] [address] [facility] Ambulatory Visit Summaryon 0 08-19-2024 Ambulatory Visit Summary Ambulatory Visit Summary JENY CARDOSO :2000 Visit Date:08/19/2024 Ambulatory Visit Instructions Your Care Team Attending Physician - Sophie Salcido Primary Care Physician - Sophie Salcido This Is Your Medications List acetaminophen (acetaminophen 500 mg Tab) cetirizine (cetirizine 10 mg Tab) desvenlafaxine (desvenlafaxine 50 mg Tab-) doxepin (doxepin 10 mg Cap) ethinyl estradiol-norgestima te (ethinyl estradiol-norgestima te 35 mcg-0.25 mg Tab) fluticasone nasal (Flonase 0.05 mg/inh [place]) ibuprofen (ibuprofen 600 mg Tab) methylPREDNISolone (methylPREDNISolone 4 mg tab dosepak) ofloxacin otic (ofloxacin Otic 0.3% Marsha) omeprazole (omeprazole 40 mg Cap-DR) ondansetron (ondansetron 4 mg Dis Tab) prazosin (prazosin 1 mg Cap) Procedures Performed Appendectomy, Colonoscopy, Ovarian cystectomy. Discharge Vitals Temperature (Temporal Artery) 36.7 ?C Heart Rate (Peripheral) 77 Respiratory Rate 18 Blood Pressure 132/84 Height 163 cm Height 64 in Weight 131.85 kg Weight 290.07 lb BMI 49.63 Medications What How Much When Why Instructions Unchanged acetaminophen (acetaminophen 500 mg Tab) 1 Tablets By Mouth Every 4 hours Viral URI Unchanged cetirizine (cetirizine 10 mg Tab) See instructions TAKE 1 TABLET BY MOUTH EVERY DAY Unchanged desvenlafaxine (desvenlafaxine 50 mg Tab-) 1 Tablets By Mouth Every day take 1 tablet by mouth once daily Unchanged doxepin (doxepin 10 mg Cap) 1 Capsules By Mouth Once a day (at bedtime) as needed for Insomnia take 1 capsule by mouth at bedtime if needed for sleep Unchanged ethinyl estradiol-norgestima te (ethinyl estradiol-norgestima te 35 mcg-0.25 mg Tab) 1 Tablets By Mouth Every day Unchanged fluticasone nasal (Flonase 0.05 mg/ inh [place]) 2 Sprays Nasal Inhalation Every day each nostril Unchanged ibuprofen (ibuprofen 600 mg Tab) 1 Tablets By Mouth Every 8 hours as needed for as needed for pain Unchanged methylPREDNISolone (methylPREDNISolone 4 mg tab dosepak) 1 Packets By Mouth Once as directed on package labeling Unchanged ofloxacin otic (ofloxacin Otic 0.3% Marsha) 5 Drops Otic 2 times a day Ear fullness BMI 50.0-59.9, adult Non-smoker Unchanged omeprazole (omeprazole 40 mg Cap-DR) 1 Capsules By Mouth Every day take 1 capsule by mouth once daily Unchanged ondansetron (ondansetron 4 mg Dis Tab) See instructions 1 tab(s) Oral every 4-6 hours Unchanged prazosin (prazosin 1 mg Cap) 1 Capsules By Mouth At bedtime take 1 capsule by mouth at bedtime for PTSD [place] Allergies hydrOXYzine (Nausea and vomiting) morphine (Urticaria) traZODone (Wheezing) Problems Ongoing - Any problem that you are currently receiving treatment for. Anxiety Bilateral otitis media BMI 40.0-44.9, adult BMI 45.0-49.9, adult Cervical cancer screening Change in bowel habits Cough Depression Ear fullness Encounter for weight management Flank pain Fluid level behind tympanic membrane of both ears Fluid level behind tympanic membrane of left ear Frequent UTI GERD (gastroesophageal reflux disease) Hematochezia Hemorrhoid Herpes Non-smoker Obesity, morbid, BMI 40.0-49.9 Otitis media Possible Rectal bleeding Right otitis externa Right otitis media Well woman exam Patient Survey You may receive a survey via text or e-mail asking about your office visit. Please share your experience with us by completing your survey. We appreciate your feedback and thank you for choosing us for your care. [facility] Family Medicine Office/Clini c Noteon 08-19-2024 Family Medicine Office/Clinic Note Family Medicine Office/Clinic Note Chief Complaint Rash on Stomach HPI Staff Pt presents today due to rash on stomach. Onset: 2wks ago Location:on stomach Characteristics:_int ermittent, splotchy Aggravated by: Clothing, sweating Relieved by: Cream that grandma gave her Associated Symptoms:_painful, odorous Would also like to have her ears looked at. Thinks fluid back in both of them. History of Present Illness pt presents today with ear pain and rash on abdomen Review of Systems PHQ Score Initial Depression Screen Score: 0 SCORE Physical Exam Vitals & Measurements T: 36.7 ?C(Temporal Artery) HR: 77(Peripheral) RR: 18 BP: 132/84 SpO2: 97% HT: 64 in HT: 163 cm WT: 131.85 kg WT: 290.07 lb BMI: 49.63 General: alert, no acute distress ENMT: oral mucosa moist, no pharyngeal erythema or exudate, ROGELIO TM and canals red, Left TM bulging with fluid Cardiovascular: regular rate and rhythm, normal peripheral perfusion Respiratory: Lungs CTA, respirations non labored Extremities: no deformity, no trauma Neurological: oriented x 4, LOC appropriate for age, CN II-XII intact, motor strength equal & normal bilaterally, speech normal red yeast rash noted on abdominal fold Assessment/Plan 1. Chronic otitis media of both ears (H66.93: Otitis media, unspecified, bilateral) pt c/o ear pain and feeling fluid moving around. ROGELIO TM and canals red left TM is bulging with fluid. pt has had this going on and off for several months now. will continue cetrizine and flonase. will send referral to ENT Ordered: fluconazole, 150 mg = 1 tab(s), Oral, Once, take 1 tab on day one and 1 tabon day four, # 2 tab(s), Refills(s) 1, Pharmacy: [facility] #[id number], 163, cm, 08/19/24 9:04:00 EDT, Height/Length Dosing, 131.8, kg, 08/19/24 9:04:00 EDT, Weight Dosing [facility] [place] 2. Fluid level behind tympanic membrane of both ears (H65.93: Unspecified nonsuppurative otitis media, bilateral) refill of flonase sent Ordered: fluconazole, 150 mg = 1 tab(s), Oral, Once, take 1 tab on day one and 1 tabon day four, # 2 tab(s), Refills(s) 1, Pharmacy: [facility] #[id number], 163, cm, 08/19/24 9:04:00 EDT, Height/Length Dosing, 131.8, kg, 08/19/24 9:04:00 EDT, Weight Dosing [facility] [place] 3. Skin yeast infection, (B37.2: Candidiasis of skin and nail)Skin yeast infection nystatin cream sent Ordered: nystatin topical, 1 gee, Topical, BID, 30 gram, Refill(s) 0, [facility]/pharmacy #[id number], 163, cm, 08/19/24 9:04:00 EDT, Height/Length Dosing, 131.8, kg, 08/19/24 9:04:00 EDT, Weight Dosing Orders: amoxicillin-clavulan ate, 1 tab(s), Oral, q12hr for 7 day(s), 14 tab(s), Refill(s) 0, [facility]/pharmacy #[id number], 163, cm, 08/19/24 9:04:00 EDT, Height/Length Dosing, 131.8, kg, 08/19/24 9:04:00 EDT, Weight Dosing cetirizine, See Instructions, TAKE 1 TABLET BY MOUTH EVERY DAY, # 30 tab(s), Refills(s) 0, Pharmacy: [facility] [id number], 163, cm, 07/21/24 10:42:00 EDT, Height/Length Dosing, 130.5, kg, 07/21/24 10:42:00 EDT, Weight Dosing cetirizine, See Instructions, TAKE 1 TABLET BY MOUTH EVERY DAY, # 90 tab(s), Refills(s) 3, Pharmacy: [facility]/pharmacy #[id number], 163, cm, 08/19/24 9:04:00 EDT, Height/Length Dosing, 131.8, kg, 08/19/24 9:04:00 EDT, Weight Dosing fluticasone nasal, 2 spray(s), Nasal, Daily, 16 gram, Refill(s) 0, each nostril, [facility] #[facility], 163.8, cm, 02/06/24 13:56:00 EDT, Height/Length Dosing, 132, kg, 02/06/24 13:56:00 EDT, Weight Dosing fluticasone nasal, 2 spray(s), Nasal, Daily, 16 gram, Refill(s) 5, each nostril, [facility]/pharmacy #[id number], 163, cm, 08/19/24 9:04:00 EDT, Height/Length Dosing, 131.8, kg, 08/19/24 9:04:00 EDT, Weight Dosing Follow-up No qualifying data available Problem List/Past Medical History Ongoing Anxiety Bilateral otitis media BMI 40.0-44.9, adult BMI 45.0-49.9, adult Cervical cancer screening Change in bowel habits Chronic otitis media of both ears Cough Depression Ear fullness Encounter for weight management Flank pain Fluid level behind tympanic membrane of both ears Fluid level behind tympanic membrane of left ear Frequent UTI GERD (gastroesophageal reflux disease) Hematochezia Hemorrhoid Herpes Non-smoker Obesity, morbid, BMI 40.0-49.9 Otitis media Possible Rectal bleeding Right otitis externa Right otitis media Skin yeast infection Well woman exam Historical No qualifying data Procedure/Surgical History Appendectomy, Colonoscopy, Ovarian cystectomy. Medications acetaminophen 500 mg Tab, 500 mg= 1 tab(s), Oral, q4hr amoxicillin-clavulan ate 875 mg-125 mg Tab, 1 tab(s), Oral, q12hr cetirizine 10 mg Tab, See Instructions, 3 refills desvenlafaxine 50 mg Tab-, 50 mg= 1 tab(s), Oral, Daily, 1 refills Diflucan 150 mg Tab, 150 mg= 1 tab(s), Oral, Once, 1 refills doxepin 10 mg Cap, 10 mg= 1 cap(s), Oral, Once a day (at bedtime), PRN ethinyl estradiol-norgestima te 35 mcg-0.25 mg Tab, 1 tab(s), Oral, Daily, 11 refills Flonase 0.05 mg (more content not included)... [facility] Comment on above: Result Comment: Elec tronically Signed By: Sophie Salcido\.br\Date and Time Signed: 08/19/24 09:39 EDT Ambulatory Visit Summaryon 0 07-21-2024 Ambulatory Visit Summary Ambulatory Visit Summary JENY CARDOSO :2000 Visit Date:07/21/2024 Ambulatory Visit Instructions Your Diagnosis Non-smoker Class 3 severe obesity with body mass index (BMI) of 45.0 to 49.9 in adult Body mass index [BMI] 45.0-49.9, adult Your Care Team Attending Physician - Sophie Salcido Primary Care Physician - Sophie Salcido This Is Your Medications List acetaminophen (acetaminophen 500 mg Tab) cetirizine (cetirizine 10 mg Tab) desvenlafaxine (desvenlafaxine 50 mg Tab-) doxepin (doxepin 10 mg Cap) ethinyl estradiol-norgestima te (ethinyl estradiol-norgestima te 35 mcg-0.25 mg Tab) fluticasone nasal (Flonase 0.05 mg/inh [place]) ibuprofen (ibuprofen 600 mg Tab) ofloxacin otic (ofloxacin Otic 0.3% Marsha) omeprazole (omeprazole 40 mg Cap-DR) ondansetron (ondansetron 4 mg Dis Tab) prazosin (prazosin 1 mg Cap) Procedures Performed Appendectomy, Colonoscopy, Ovarian cystectomy. Discharge Vitals Temperature (Temporal Artery) 36.5 ?C Heart Rate (Peripheral) 92 Respiratory Rate 18 Blood Pressure 128/86 Height 163.0 cm Height 64 in Weight 130.50 kg Weight 287.1 lb BMI 49.12 What to do next Scheduled Follow-Up Appointments 2023 10:15 AM EDT Where: [facility] Dietary Medications What How Much When Why Instructions Unchanged acetaminophen (acetaminophen 500 mg Tab) 1 Tablets By Mouth Every 4 hours Viral URI Unchanged cetirizine (cetirizine 10 mg Tab) 1 Tablets By Mouth Every day Viral URI Unchanged desvenlafaxine (desvenlafaxine 50 mg Tab-) 1 Tablets By Mouth Every day take 1 tablet by mouth once daily Unchanged doxepin (doxepin 10 mg Cap) 1 Capsules By Mouth Once a day (at bedtime) as needed for Insomnia take 1 capsule by mouth at bedtime if needed for sleep Unchanged ethinyl estradiol-norgestima te (ethinyl estradiol-norgestima te 35 mcg-0.25 mg Tab) 1 Tablets By Mouth Every day Unchanged fluticasone nasal (Flonase 0.05 mg/ inh [place]) 2 Sprays Nasal Inhalation Every day each nostril Unchanged ibuprofen (ibuprofen 600 mg Tab) 1 Tablets By Mouth Every 8 hours as needed for as needed for pain Unchanged ofloxacin otic (ofloxacin Otic 0.3% Marsha) 5 Drops Otic 2 times a day Ear fullness BMI 50.0-59.9, adult Non-smoker Unchanged omeprazole (omeprazole 40 mg Cap-DR) 1 Capsules By Mouth Every day take 1 capsule by mouth once daily Unchanged ondansetron (ondansetron 4 mg Dis Tab) See instructions 1 tab(s) Oral every 4-6 hours Unchanged prazosin (prazosin 1 mg Cap) 1 Capsules By Mouth At bedtime take 1 capsule by mouth at bedtime for PTSD [place] Allergies hydrOXYzine (Nausea and vomiting) morphine (Urticaria) traZODone (Wheezing) Problems Ongoing - Any problem that you are currently receiving treatment for. Anxiety BMI 40.0-44.9, adult Cervical cancer screening Change in bowel habits Depression Ear fullness Encounter for weight management Flank pain Fluid level behind tympanic membrane of both ears Fluid level behind tympanic membrane of left ear Frequent UTI GERD (gastroesophageal reflux disease) Hematochezia Hemorrhoid Herpes Otitis media Possible Rectal bleeding Right otitis externa Right otitis media Well woman exam Patient Survey You may receive a survey via text or e-mail asking about your office visit. Please share your experience with us by completing your survey. We appreciate your feedback and thank you for choosing us for your care. [facility] Family Medicine Office/Clini c Noteon 07-21-2024 Family Medicine Office/Clinic Note Family Medicine Office/Clinic Note HPI Staff Jeny is a 23 year old female presenting with congestion, sinus drainage, sore throat, cough, pain in both ears C/O: Duration: _ Started last Sunday 07/15 Body aches: no Chills: no Fatigue: yes Cough: yes Sore throat: yes Fever: no Headache: no Nasal congestion: yes Loss of taste: no Loss of smell: no Eye itching/watering: no itchy and pain in both Sneezing: no SOB: no Known Exposure: no sinus drainage, pain in both ears Did nasal rinse this morning and yesterday, today her ears hurt really bad and they popped Did home COVID test and on here IO last week History of Present Illness pt presents today with worsening URI symptoms Review of Systems PHQ Score Initial Depression Screen Score: 0 SCORE Physical Exam Vitals & Measurements T: 36.5 ?C(Temporal Artery) HR: 92(Peripheral) RR: 18 BP: 128/86 SpO2: 99% HT: 64 in HT: 163.0 cm WT: 130.50 kg WT: 287.1 lb BMI: 49.12 General: alert, no acute distress ENMT: oral mucosa moist, no pharyngeal erythema or exudate, ROGELIO TM red and full of fluid, canals are red Cardiovascular: regular rate and rhythm, normal peripheral perfusion Respiratory: Lungs CTA, respirations non labored Extremities: no deformity, no trauma Neurological: oriented x 4, LOC appropriate for age, CN II-XII intact, motor strength equal & normal bilaterally, speech normal Assessment/Plan 1. Bilateral otitis media (H66.93: Otitis media, unspecified, bilateral) ROGELIO TM and canals red. TM are both bulging with clear fluid. 2. Cough (R05.9: Cough, unspecified) post nasal drainage cough. will order medrol dose pack and tessalon pearls. 3. Non-smoker (Z78.9: Other specified health status) continue not smoking Ordered: benzonatate, 200 mg = 1 cap(s), Oral, TID, X 7 day(s), # 21 cap(s), Refills(s) 0, Pharmacy: [facility] #[id number], 163, cm, 07/21/24 10:42:00 EDT, Height/Length Dosing, 130.5, kg, 07/21/24 10:42:00 EDT, Weight Dosing 4. Class 3 severe obesity with body mass index (BMI) of 45.0 to 49.9 in adult (E66.01: Morbid (severe) obesity due to excess calories) see above Ordered: benzonatate, 200 mg = 1 cap(s), Oral, TID, X 7 day(s), # 21 cap(s), Refills(s) 0, Pharmacy: [facility] #[id number], 163, cm, 07/21/24 10:42:00 EDT, Height/Length Dosing, 130.5, kg, 07/21/24 10:42:00 EDT, Weight Dosing Body mass index [BMI] 45.0-49.9, adult (Z68.42: Body mass index [BMI] 45.0-49.9, adult) BMI education given Orders: amoxicillin-clavulan ate, 1 tab(s), Oral, q12hr for 7 day(s), 14 tab(s), Refill(s) 0, [id number], 163, cm, 07/21/24 10:42:00 EDT, Height/Length Dosing, 130.5, kg, 07/21/24 10:42:00 EDT, Weight Dosing methylPREDNISolone, = 1 packet(s), Oral, Once, as directed on package labeling, # 21 tab(s), Refills(s) 0, Pharmacy: [facility]/pharmacy #[id number], 163, cm, 07/21/24 10:42:00 EDT, Height/Length Dosing, 130.5, kg, 07/21/24 10:42:00 EDT, Weight Dosing Follow-up No qualifying data available Problem List/Past Medical History Ongoing Anxiety Bilateral otitis media BMI 40.0-44.9, adult Cervical cancer screening Change in bowel habits Cough Depression Ear fullness Encounter for weight management Flank pain Fluid level behind tympanic membrane of both ears Fluid level behind tympanic membrane of left ear Frequent UTI GERD (gastroesophageal reflux disease) Hematochezia Hemorrhoid Herpes Otitis media Possible Rectal bleeding Right otitis externa Right otitis media Well woman exam Historical No qualifying data Procedure/Surgical History Appendectomy, Colonoscopy, Ovarian cystectomy. Medications acetaminophen 500 mg Tab, 500 mg= 1 tab(s), Oral, q4hr amoxicillin-clavulan ate 875 mg-125 mg Tab, 1 tab(s), Oral, q12hr benzonatate 200 mg oral capsule, 200 mg= 1 cap(s), Oral, TID cetirizine 10 mg Tab, 10 mg= 1 tab(s), Oral, Daily desvenlafaxine 50 mg Tab-, 50 mg= 1 tab(s), Oral, Daily, 1 refills doxepin 10 mg Cap, 10 mg= 1 cap(s), Oral, Once a day (at bedtime), PRN ethinyl estradiol-norgestima te 35 mcg-0.25 mg Tab, 1 tab(s), Oral, Daily, 11 refills Flonase 0.05 mg/inh [place], 2 spray(s), Nasal, Daily ibuprofen 600 mg Tab, 600 mg= 1 tab(s), Oral, q8hr, PRN methylPREDNISolone 4 mg tab dosepak, 1 packet(s), Oral, Once ofloxacin Otic 0.3% Marsha, 5 drop(s), Otic, BID omeprazole 40 mg Cap-DR, 40 mg= 1 cap(s), Oral, Daily, 1 refills ondansetron 4 mg Dis Tab, See Instructions prazosin 1 mg Cap, 1 mg= 1 cap(s), Oral, Bedtime, 1 refills Allergies hydrOXYzine (Nausea and vomiting) morphine (Urticaria) traZODone (Wheezing) Social History Alcohol - Denies Alcohol Use, 12/19/2021 Substance Abuse - Denies Substance Abuse, 12/19/2021 Tobacco - Denies Tobacco Use, 07/04/2022 Never (less than 100 in lifetime) Tobacco Use:. Never Smokeless Tobacco Use:. Cigarettes, Household tobacco concerns: No., 07/21/2024 Family History Alcoholism: Father. Arthritis: Mother and Father. (more content not included)... [facility] Comment on above: Result Comment: Elec tronically Signed By: Sophie Salcido\.br\Date and Time Signed: 07/21/24 10:55 EDT Family Medicine Office/Clini c Noteon 07-16-2024 Family Medicine Office/Clinic Note Family Medicine Office/Clinic Note HPI Staff Jeny is a 23 year old female presenting with C/O: Ears feel full Duration: _ Started yesterday Body aches: yes Chills: yes Fatigue: yes Cough: yes Sore throat: yes Fever: yes last time temp was last night 99.3 Headache: no Nasal congestion: yes Loss of taste: no Loss of smell: no Eye itching/watering: no dry Sneezing: yes SOB: yes 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 History of Present Illness 23 year old patient of Wendi Yoo CNP presents today for evaluation of ear congestion, sore throat, and body aches. She reports she took a home COVID and it was negative.She reports she has not taken any acetaminophen today. She did call off work and she will need a note for her employer. Review of Systems PHQ Score Initial Depression Screen Score: 0 SCORE Constitutional: no fever, mild chills, no sweats, no weakness Skin: no Jaundice, no rash, no lesions, nopetechiae ENMT: no ear pain, no sore throat, mild congestion, no hoarseness Respiratory: no shortness of breath, no cough, no orthopnea, no wheezing Cardiovascular: no chest pain, no palpitations, no edema Musculoskeletal: no back pain, no trauma Neurologic: no headache, no dizziness, no numbness, no weakness Psychiatric: no sleeping problems, no irritability, no mood swings/depression. Additional ROS info: Except as noted in the above Review of Systems and in the History of Present Illness all other systems have been reviewed and are negative or noncontributory. Physical Exam Vitals & Measurements T: 36.8 ?C(Oral) HR: 92(Peripheral) RR: 20 BP: 130/84 SpO2: 98% HT: 64 in HT: 163.0 cm WT: 130.2 kg WT: 286.44 lb BMI: 49 General: alert, no acute distress ENMT: TM's not clear injected, oral mucosa moist, no pharyngeal erythema or exudate; mild frontal sinus tenderness; nasal passages clear Cardiovascular: regular rate and rhythm, normal peripheral perfusion Respiratory: Lungs CTA, respirations non labored Extremities: no deformity, no trauma Neurological: oriented x 4, LOC appropriate for age speech normal Assessment/Plan 1. Viral URI (J06.9: Acute upper respiratory infection, unspecified) Discussed viral vs bacterial infections COVID negative in office Encouraged to increase fluids Acetaminophen or ibuprofen for fever or discomfort Encouraged to use the flonase as ordered Patient reports seasonal allergies - encouraged to take the cetirizine daily Note completed for employer for today f/u if no improvement ion 3-5 days Ordered: acetaminophen, 500 mg = 1 tab(s), Oral, q4hr, # 60 tab(s), Refills(s) 0, Pharmacy: [id number], 163, cm, 07/16/24 15:27:00 EDT, Height/Length Dosing, 130.2, kg, 07/16/24 15:27:00 EDT, Weight Dosing cetirizine, 10 mg = 1 tab(s), Oral, Daily, # 30 tab(s), Refills(s) 0, Pharmacy: [id number], 163, cm, 07/16/24 15:27:00 EDT, Height/Length Dosing, 130.2, kg, 07/16/24 15:27:00 EDT, Weight Dosing 2. Non-smoker (Z78.9: Other specified health status) Encouraged to continue as a non-smoker Ordered: Rapid COVID POC 75632 3. Adult BMI 45.0-49.9 kg/sq m (Z68.42: Body mass index [BMI] 45.0-49.9, adult) The standard range for ages 18 and older is >=18.5 and < 25 kg/m2. Your BMI today was above this range, this falls in the overweight to obese category and there are medical benefits to weight loss. We can offer counselling, referral, and/or medical support in addressing this problem. Your BMI and weight management will be followed at subsequent visits. Ordered: Rapid COVID POC 41131 4. Class 3 severe obesity due to excess calories with body mass index (BMI) of 45.0 to 49.9 in adult (E66.01: Morbid (severe) obesity due to excess calories) The standard range for ages 18 and older is >=18.5 and < 25 kg/m2. Your BMI today was above this range, this falls in the overweight to obese category and there are medical benefits to weight loss. We can offer counselling, referral, and/or medical support in addressing this problem. Your BMI and weight management will be followed at subsequent visits. Ordered: Rapid COVID POC 53862 Follow-up No qualifying data available Patient Education Viral Respiratory Infection, [id number] Problem List/Past Medical History Ongoing Anxiety BMI 40.0-44.9, adult Cervical cancer screening Change in bowel habits Depression Ear fullness Encounter for weight management Flank pain Fluid level behind tympanic membrane of both ears Fluid level behind tympanic membrane of left ear Frequent UTI GERD (gastroesophageal reflux disease) Hematochezia Hemorrhoid Herpes Otitis media Possible Rectal bleeding Right otitis externa Right otitis media Well woman exam Historical No qualifying data Procedure/Surgical History Appendectomy, Colonoscopy, Ovarian cystect (more content not included)... [facility] Comment on above: Result Comment: Elec tronically Signed By: KATHYA WOODSON CNP\.br\Date and Time Signed: 07/16/24 16:07 EDT Provider Letteron 07-16-2024 Provider Letter Provider Letter July 16, 2024 [address]OSO [address] [place] [id number] : 2000 To Whom It May Concern, Please excuse above patient from work. Date of Illness: 07/16/2024 May Return to Work On: 07/17/2024 Sincerely, [place] [address] [facility] Ambulatory Visit Summaryon 0 06-22-2024 Ambulatory Visit Summary Ambulatory Visit Summary JENY CARDOSO :2000 Visit Date:06/22/2024 Ambulatory Visit Instructions Your Diagnosis Encounter for physical examination BMI 45.0-49.9, adult Your Care Team Attending Physician - KATHYA WOODSON CNP Primary Care Physician - Sophie Salcido This Is Your Medications List desvenlafaxine (desvenlafaxine 50 mg Tab-) doxepin (doxepin 10 mg Cap) ethinyl estradiol-norgestima te (ethinyl estradiol-norgestima te 35 mcg-0.25 mg Tab) fluticasone nasal (Flonase 0.05 mg/inh [place]) ibuprofen (ibuprofen 600 mg Tab) ofloxacin otic (ofloxacin Otic 0.3% Marsha) omeprazole (omeprazole 40 mg Cap-DR) ondansetron (ondansetron 4 mg Dis Tab) prazosin (prazosin 1 mg Cap) Procedures Performed Appendectomy, Colonoscopy, Ovarian cystectomy. Discharge Vitals Heart Rate (Peripheral) 94 Blood Pressure 128/70 Height 163 cm Height 64 in Weight 132.1 kg Weight 290.62 lb BMI 49.72 What to do next Scheduled Follow-Up Appointments 2023 9:00 AM EDT Where: [facility] Dietary Medications What How Much When Why Instructions Unchanged desvenlafaxine (desvenlafaxine 50 mg Tab-) 1 Tablets By Mouth Every day take 1 tablet by mouth once daily Unchanged doxepin (doxepin 10 mg Cap) 1 Capsules By Mouth Once a day (at bedtime) as needed for Insomnia take 1 capsule by mouth at bedtime if needed for sleep Unchanged ethinyl estradiol-norgestima te (ethinyl estradiol-norgestima te 35 mcg-0.25 mg Tab) 1 Tablets By Mouth Every day Unchanged fluticasone nasal (Flonase 0.05 mg/ inh [place]) 2 Sprays Nasal Inhalation Every day each nostril Unchanged ibuprofen (ibuprofen 600 mg Tab) 1 Tablets By Mouth Every 8 hours as needed for as needed for pain Unchanged ofloxacin otic (ofloxacin Otic 0.3% Marsha) 5 Drops Otic 2 times a day Ear fullness BMI 50.0-59.9, adult Non-smoker Unchanged omeprazole (omeprazole 40 mg Cap-DR) 1 Capsules By Mouth Every day take 1 capsule by mouth once daily Unchanged ondansetron (ondansetron 4 mg Dis Tab) See instructions 1 tab(s) Oral every 4-6 hours Unchanged prazosin (prazosin 1 mg Cap) 1 Capsules By Mouth At bedtime take 1 capsule by mouth at bedtime for PTSD [place] Allergies hydrOXYzine (Nausea and vomiting) morphine (Urticaria) traZODone (Wheezing) Problems Ongoing - Any problem that you are currently receiving treatment for. Anxiety BMI 40.0-44.9, adult Cervical cancer screening Change in bowel habits Depression Ear fullness Encounter for weight management Flank pain Fluid level behind tympanic membrane of both ears Fluid level behind tympanic membrane of left ear Frequent UTI GERD (gastroesophageal reflux disease) Hematochezia Hemorrhoid Herpes Otitis media Possible Rectal bleeding Right otitis externa Right otitis media Well woman exam Patient Survey You may receive a survey via text or e-mail asking about your office visit. Please share your experience with us by completing your survey. We appreciate your feedback and thank you for choosing us for your care. [facility] Family Medicine Office/Clini c Noteon 06-22-2024 Family Medicine Office/Clinic Note Family Medicine Office/Clinic Note Chief Complaint work physical HPI Staff Jeny is a 23 year old female presenting for a work physical Pt. states she has some real bad hemorrhoids for a few weeks, has tried some otc cream History of Present Illness 23 year old patient of Wendi Yoo CNP, presents today for a physical for employment. 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 She reports she should be starting work on July 06. . Review of Systems PHQ Score Initial Depression Screen Score: 0 SCORE Constitutional: no fever, no chills, no sweats, no weakness Skin: no Jaundice, no rash, no lesions, nopetechiae ENMT: no ear pain, no sore throat, no congestion, no hoarseness Respiratory: no shortness of breath, no cough, no orthopnea, no wheezing Cardiovascular: no chest pain, no palpitations, no edema Gastrointestinal: no nausea, no vomiting, no diarrhea, no GI bleeding Genitourinary: no dysuria, no hematuria, no discharge, no pain Musculoskeletal: no back pain, no trauma Neurologic: no headache, no dizziness, no numbness, no weakness Psychiatric: no sleeping problems, no irritability, no mood swings/depression. Heme/Lymph: no bleeding tendency, no bruising tendency, no petechiae, no swollen nodes Allergy/Immunologic: no seasonal allergies, no food allergies, no recurrent infections, no impaired immunity Additional ROS info: Except as noted in the above Review of Systems and in the History of Present Illness all other systems have been reviewed and are negative or noncontributory. Physical Exam Vitals & Measurements HR: 94(Peripheral) BP: 128/70 SpO2: 97% HT: 64 in HT: 163 cm WT: 132.1 kg WT: 290.62 lb BMI: 49.72 General: alert, no acute distress Skin: warm, dry Head: no trauma, normocephalic Neck: Trachea midline, no adenopathy, no tenderness Eye: normal conjunctiva, sclera clear ENMT: TM's clear, oral mucosa moist, no pharyngeal erythema or exudate Cardiovascular: regular rate and rhythm, normal peripheral perfusion Respiratory: Lungs CTA, respirations non labored Chest wall: no deformity. Gastrointestinal: soft, non distended, no tenderness, no guarding. Back: No tenderness, Normal ROM, Normal alignment. Extremities: no deformity, no trauma Neurological: oriented x 4, LOC appropriate for age, CN II-XII intact, motor strength equal & normal bilaterally, sensation equal & normal bilaterally, speech normal Psychiatric: cooperative, affect appropriate for age, normal judgement, normal psychiatric thoughts. Assessment/Plan 1. Encounter for physical examination (Z00.00: Encounter for general adult medical examination without abnormal findings) Stable Healthy Form completed for employer (see scanned document) f/u with pcp as needed 2. BMI 45.0-49.9, adult (Z68.42: Body mass index [BMI] 45.0-49.9, adult) The standard range for ages 18 and older is >=18.5 and < 25 kg/m2. Your BMI today was above this range, this falls in the overweight to obese category and there are medical benefits to weight loss. We can offer counselling, referral, and/or medical support in addressing this problem. Your BMI and weight management will be followed at subsequent visits. Follow-up No qualifying data available Patient Education Health Maintenance, Female Problem List/Past Medical History Ongoing Anxiety BMI 40.0-44.9, adult Cervical cancer screening Change in bowel habits Depression Ear fullness Encounter for weight management Flank pain Fluid level behind tympanic membrane of both ears Fluid level behind tympanic membrane of left ear Frequent UTI GERD (gastroesophageal reflux disease) Hematochezia Hemorrhoid Herpes Otitis media Possible Rectal bleeding Right otitis externa Right otitis media Well woman exam Historical No qualifying data Procedure/Surgical History Appendectomy, Colonoscopy, Ovarian cystectomy. Medications desvenlafaxine 50 mg Tab-, 50 mg= 1 tab(s), Oral, Daily, 1 refills doxepin 10 mg Cap, 10 mg= 1 cap(s), Oral, Once a day (at bedtime), PRN ethinyl estradiol-norgestima te 35 mcg-0.25 mg Tab, 1 tab(s), Oral, Daily, 11 refills Flonase 0.05 mg/inh [place], 2 spray(s), Nasal, Daily ibuprofen 600 mg Tab, 600 mg= 1 tab(s), Oral, q8hr, PRN ofloxacin Otic 0.3% Marsha, 5 drop(s), Otic, BID omeprazole 40 mg Cap-DR, 40 mg= 1 cap(s), Oral, Daily, 1 refills ondansetron 4 mg Dis Tab, See Instructions prazosin 1 mg Cap, 1 mg= 1 cap(s), Oral, Bedtime, 1 refills Allergies hydrOXYzine (Nausea and vomiting) morphine (Urticaria) traZODone (Wheezing) Social History Alcohol - Denies Alcohol Use, 12/19/2021 Substance Abuse - Denies Substance Abuse, 12/19/2021 Tobacco - Denies Tobacco Use, 07/04/2022 Never (less than 100 in lifetime) Tobacco Use:. Never Smokeless Tobacco Use:. Household tobacco concerns: No., 06/22/2024 Family History Alcoholism: Father. Arthritis: Mother and Father. Diabetes mellitus ty (more content not included)... [facility] Comment on above: Result Comment: Elec tronically Signed By: KATHYA WOODSON CNP.kike\Date and Time Signed: 06/22/24 13:45 EDT Family Medicine Office/Clini c Noteon 05-27-2024 Family Medicine Office/Clinic Note Family Medicine Office/Clinic Note HPI Staff Jeny is a 23 year old female presenting for acute visit Onset: 2 weeks Fevers: no Sinus congestion: no Sneezing: Ear pain: bilateral Ear itching, popping, fullness, ringing, muffled hearing: itching, popping, full , muffled Ear drainage: no Swollen nodes: no Sore throat: no Ear pain worse with chewing: yes Itching: yes Difficulty hearing: yes 1 week right calf pain intermittent noticed a bruise and denies any injury to area History of Present Illness pt presents today with ear complaints Review of Systems PHQ Score Initial Depression Screen Score: 0 SCORE Physical Exam Vitals & Measurements HR: 86(Peripheral) RR: 18 BP: 118/84 SpO2: 98% HT: 64 in HT: 163.0 cm WT: 134.6 kg WT: 296.12 lb BMI: 50.66 General: alert, no acute distress ENMT: oral mucosa moist, no pharyngeal erythema or exudate, ROGELIO Tm full of fluid also red and irritated Cardiovascular: regular rate and rhythm, normal peripheral perfusion Respiratory: Lungs CTA, respirations non labored Extremities: no deformity, no trauma Neurological: oriented x 4, LOC appropriate for age, CN II-XII intact, motor strength equal & normal bilaterally, speech normal Assessment/Plan 1. Otitis media (H66.90: Otitis media, unspecified, unspecified ear) augmentin sent to pharmacy 2. Fluid level behind tympanic membrane of both ears (H65.93: Unspecified nonsuppurative otitis media, bilateral) kenalog 80mg given in office 3. BMI 50.0-59.9, adult (Z68.43: Body mass index [BMI] 50.0-59.9, adult) BMI education given Ordered: amoxicillin-clavulan ate, = 1 tab(s), Oral, q12hr, X 7 day(s), # 14 tab(s), Refills(s) 0, Pharmacy: [facility]/pharmacy #[id number], 163, cm, 05/27/24 17:45:00 EDT, Height/Length Dosing, 134.6, kg, 05/27/24 17:45:00 EDT, Weight Dosing ofloxacin otic, 5 drop(s), Otic, BID, 5 mL, Refill(s) 0, [facility]/pharmacy #[id number], 163, cm, 05/27/24 17:45:00 EDT, Height/Length Dosing, 134.6, kg, 05/27/24 17:45:00 EDT, Weight Dosing 4. Non-smoker (Z78.9: Other specified health status) continue not smoking Ordered: amoxicillin-clavulan ate, = 1 tab(s), Oral, q12hr, X 7 day(s), # 14 tab(s), Refills(s) 0, Pharmacy: [facility]/pharmacy #[id number], 163, cm, 05/27/24 17:45:00 EDT, Height/Length Dosing, 134.6, kg, 05/27/24 17:45:00 EDT, Weight Dosing ofloxacin otic, 5 drop(s), Otic, BID, 5 mL, Refill(s) 0, [facility]/pharmacy #[id number], 163, cm, 05/27/24 17:45:00 EDT, Height/Length Dosing, 134.6, kg, 05/27/24 17:45:00 EDT, Weight Dosing Orders: dicyclomine, 10 mg = 1 cap(s), Oral, QID, X 7 day(s), # 28 cap(s), Refills(s) 0, Pharmacy: [facility]/pharmacy #[id number], 163, cm, 05/18/24 20:47:00 EDT, Height/Length Dosing, 133.2, kg, 05/18/24 20:47:00 EDT, Weight Dosing sodium chloride nasal, See Instructions, 1 kit(s), Refill(s) 0, Use as directed Dispense one kit, [facility]/pharmacy #[id number], 163, cm, 05/08/24 15:30:00 EDT, Height/Length Dosing, 133.3, kg, 05/08/24 15:30:00 EDT, Weight Dosing Follow-up No qualifying data available Problem List/Past Medical History Ongoing Anxiety BMI 40.0-44.9, adult Cervical cancer screening Change in bowel habits Depression Ear fullness Encounter for weight management Flank pain Fluid level behind tympanic membrane of both ears Fluid level behind tympanic membrane of left ear Frequent UTI GERD (gastroesophageal reflux disease) Hematochezia Hemorrhoid Herpes Otitis media Possible Rectal bleeding Right otitis externa Right otitis media Well woman exam Historical No qualifying data Procedure/Surgical History Appendectomy, Colonoscopy, Ovarian cystectomy. Medications Augmentin 875 mg oral tablet, 1 tab(s), Oral, q12hr desvenlafaxine 50 mg Tab-, 50 mg= 1 tab(s), Oral, Daily, 1 refills doxepin 10 mg Cap, 10 mg= 1 cap(s), Oral, Once a day (at bedtime), PRN ethinyl estradiol-norgestima te 35 mcg-0.25 mg Tab, 1 tab(s), Oral, Daily, 11 refills Flonase 0.05 mg/inh [place], 2 spray(s), Nasal, Daily ibuprofen 600 mg Tab, 600 mg= 1 tab(s), Oral, q8hr, PRN ofloxacin Otic 0.3% Marsha, 5 drop(s), Otic, BID omeprazole 40 mg Cap-DR, 40 mg= 1 cap(s), Oral, Daily, 1 refills ondansetron 4 mg Dis Tab, See Instructions prazosin 1 mg Cap, 1 mg= 1 cap(s), Oral, Bedtime, 1 refills Allergies hydrOXYzine (Nausea and vomiting) morphine (Urticaria) traZODone (Wheezing) Social History Alcohol - Denies Alcohol Use, 12/19/2021 Substance Abuse - Denies Substance Abuse, 12/19/2021 Tobacco - Denies Tobacco Use, 07/04/2022 Never (less than 100 in lifetime) Tobacco Use:. Never Smokeless Tobacco Use:. Household tobacco concerns: No., 05/27/2024 Family History Alcoholism: Father. Arthritis: Mother and Father. Diabetes mellitus type 2: Grandparent. High blood pressure: Father. Migraine: Mother. Primary malignant neoplasm of female genital organ: Grandparent. Immunizations Vaccine Date Status Comments influenza virus vaccine, inactivated 09/14/2021 Recorded influenza, unspecified (more content not included)... [facility] Comment on above: Result Comment: Elec tronically Signed By: Sophie Salcido\.br\Date and Time Signed: 05/27/24 17:56 EDT C Urineon 05-20-2024 Bacteria identified Cx Nom (U) Microbiology PROCEDURE: Urine Culture [R1] SOURCE: U CleanCatch BODY SITE: COLLECTED DATE/TIME: 05/18/2024 21:30 EDT RECEIVED DATE/TIME: 05/18/2024 22:44 EDT START DATE/TIME: 05/18/2024 22:44 EDT FREE TEXT SOURCE: Evens Oconnell DO, DO, Noah S. FINAL REPORTS Final Report [] Verified Date/Time: 05/20/2024 11:09 EDT 3,000 cfu/ml Mixed skin contaminants Performing Locations R1: This test was performed at: [facility], [address] [place] [address], [facility]- , , [facility] Comment on above: Performed By: #### 2 [id number] ####[facility] [address] [place] [address] Coding Summary.on 05-20-2024 Coding Summary. HFCVCram24OTu1zVd+PG hlYWQ+HD0MSSGtO94gyL ByxV7oJ9FERTsKNojyQQ PMZFdJXgEvhfGsZH3kvB NjZXJu IC8+UW8iUHFzXnywpCEl x8T9nLH6I74xvt7dHKok pML0HTWeEpOnpreml7ji vPb7PGzqJgolEtIw LNUchU22XZB1xJ08Ju08 mVHcjLEgo8fqbKl5JyFs OAPyUJX5aMbwMMzet7Tp JHMfU70hsDPhp6K9 IGNvbGxhcHNlOyBlbXB0 lK3mHTympemxw2cxvtbz Cdf9pc12mLSqs7O1jFT9 R8OfduF3NYJxqZDn PjrwcUOJiR9hayulh0lm lmgqJzPqZNUcGQv9DKr0 MGVatJfvXiKjOW97XPW8 KLJkuvRyC6UhGUQe qUdqPmE0v4O0Je2QI4BL VkotC7PEWANYBAkseCD+ HU93zo02V9VzZtzqBan7 EMUkUSK2bWW7lC0v NXStBEccq9R9aQW9O1Ps ymRonc5ye7xbLLDeZOie G66seOCkg6R9ZABhjCU7 RPIbmYpaLqThdJ59 Oyc+OFDmlRwzp8QwSjce t8crx4rpdVy0TohzKQAs dsPvpYuhPLU8f3LjZy2w GPDxeHM3sIV0rW5z ClUwOoL8OJfuU436ZhMp jKItRlsrQ20wF9VfzXT+ FKZbHum6CMGicWcmPU8j Z8AfQGEqkadrgZUj rMwzMW7cVYCebdyoYHXt kT1gNPEeR0x7BaCsNsR6 OGegR8TvWEUtzlqmIt78 xI4rZmLlXdB5WIze Z1NisxB9XDHruVImFClx JVD5Y94hw0P9SROaXIUi BJK7tCJ4cZ8glKcqhpon bGVmdDsgdmVydGlj DZzrVHqgC721JJMsfYce PkNvZGluZyBEYXRlOiAg MDYvMjYvMjAyNDwvdGQ+ KWLyEDN1kAvdLRKl gZJnSHouOf4apBduqEwa JP6xUZFnjzmpTPZxgR2y LBHvpVIqeRseCW5oPUSi lqxsg145MbNdDDA7 PBHsmVEvR0QirQ5oKvRq SARpPQVhY3ZafUMtBEwb D259FNqpLeI7TYBxzdLx K4OkIHAuaIduGbY1 g1R9Wa5Rj6CcpabuV3Oy yVLzMdIqByznCMz0G0Vq PjwvdHI+TE44MNBqFJ25 JQs1FXC8oTznZStp ETAyZ0VsxO6uDxMeIWFr ZGRkOyc+PHRhYmxlIHdp ZHRoPScxMDAlJyBzdHls ZS1jSx4jWFQdIIDs bPayzDGkBvOla0prSDWg FXegDQ9udCoxK4DfiOU4 YDBpy9z8Qu06F24eY3Ad dXA+CCTvtDL7uZQ8 dH7mUgJnLuW9TVcrV440 HvVahOMcTdjbc9hdm7fl uAd1QfG8UVEmiyKoiWmi XOO9p2VoJf11X59z IHdpZHRoPSIxNSUiIHZh tIjkny2qxM9tGk4+PGNv lRL0zSE9nU8mQsBeHiS3 VZbiZ777TcZihMTu Hhkis2rsn6mixZj7RsZg DTCssuUyeMafQGL9l2Ou Fk79F7EkjCliy4ElEio4 ki70wZBci7C0kAL9 V7EsKVDungxtyAWxwRga VO6cQHJnendxGHKimA5s TDKrV1j3ZbJtAoT4DSxj Y7PagzK6YJYolQAa QRJxcGUFpC2xldvws6yl uiucSxOcBUViHBm5FRj0 DFNnqUrvCoYvYCW8CcN4 RXP9bJFrpQ5qdLbd afxzyL2fAum+UKI0kCWk sZJFWZ2oPzsniCB+PHRk OUF8bPfzUJbsHXPrsI5d IDPeW5q5FrIgSvV8 PAgoR9WowtW0IHOzzDOc HGJtkDFUrX3zzjfzc1jw pkspKiTkJDNvJNr0LAa2 LWFsaWduOiBsZWZ0 GpE3FUE6oWKvwO3oxMhv ybfgyD0iGko+QmlydGgg KRR3MTi0M0EaAlj8AZGq tTtxMF5xgUDvNCiz Lk5pxUicyPicAI4mFEMw ijmtw179PlOic4koTYMp rEPaMBzkLSG7I81um2W2 HKWfJBUvAYG7tQV5 qL3sfCnshqgehAJciKyu ljGsrNuoVVhnKAjaO933 PEVxqEdvUzIbDWb0X3La Yco0LONmaTlbRI8h aTQlLYuoQw2qdViakEai YJ1zLTAagyocd648EvAt u2cpZONtpUTbEGkcJZD5 V52ba7L1VAGqHLAm FPT6gET4zX4aoRdntlko bGVmdDsgdmVydGljYWwt ZVbcG419TXGneBvjIhZm uUv1T7HnFcs4MVId tWsiGZ3mdTZgVSzbPy8u tFblcRfcLV3pKJHpwcjj f782TiKqp2pvMDUizGSa NKpqDEI0N53su4F8 UOMzPJPpONG8mLU1hF0e bGlnbjogbGVmdDsgdmVy jCzyEQmhDLpcZ154SXWf cDsnPlBhdGllbnQg TKeiCSo6R2YxIqbblVT+ GC33XWJaCC32aOIhwFHd b7widDw0UwMuEMWoXSH6 xPahMKkcs3SaGLEe O38gnVIut7S4KQXmtKdp ePAyTzTqbYM1iF7gVRfh yatte6zlcswhNmprh4io uv76gG75E24xVJwo ZHRoPSIzMCUiIHZhbGln bg8amW9aWf9+PGNvbCB3 eZT2gZ8fQMTfUyW3RSmt R350QjGblUIlFiyv v8bia8ujcJl6QyT7GRKy yrVlsGvhJIX4x5AdCs88 I09oSUwkPXEzEJPgEBIj ZKCsbChwvg8iaC2i Ii8+DWLzgAG8zKE4bF6m HnGlXpN0FAjoP161KyPb jCKyDqdkF77cW7RniHY+ TBQpJik4MIJoqUye NH4wvMDiWYvaAe5pQYU9 HfDkKhVdKKxtG0FdJAPn pqynymljoRX5TTZqLYCn sC04Ud1vrGxzQJJu xJCKtA7fluifj1zimyfa UkBsTVXsNXi7GHx0FHUs mRalJrDeNJN3SuW7MLD5 uHUdjS4mtVimyccj jV9rC2DdANEhdyvwHu12 yB7pPkIpYnD7XRqdKwd+ UklGRkUsIEtBWUxFRSBB NC53HO97mEDcw5A9 vTV6V9YkLXHisqktwwua wSY6UYRrZOMudB61sENj LZdhYw1sp2C6l273APLs DLUnkY67Mr0hgStt MAHkgZSEnN2sgrzvl6li pqrnFxZkSPHpMUl6LWa3 IHXczSbgRtRoELG7VzP8 BTO7tSUmnQ9nvTjn evjbzB5vNvv+MDkvMjkv MjAwMjwvdGQ+PHRkIHN0 iZpxCKuvATLynQ0jPQZk U9b2YfLjNjA1AGdw K2YqBPFbxxkcQi91iK8d OsFeGxX7JJipE8CtizU5 YIOrmSDgJBgbYSH9V19n w7Y9PPCoZDVaIVR9 bLO5zI4fjKlbasyycGPm dDsgdmVydGljYWwtYWxp Y384FQZtaAtoQcQpYYfk IMJmUW22EG27qEWa o1W3tBR0U3KzSPKsquoe jizehBV5JCGqPZCzbA76 aVNlCIudYt0sz6C6r287 VRHqRTLbmO05Ov0u aHadLMVwfKAKxB8rlymt h6vtdvraGzNbNZMxOOt5 KJh0BPGlgOwxSlGdLHJ8 YkN9XYH5mBAxrO2l gSzguktjhT9lJgg+RmVt PVoqNC27MF54oSPqk0T5 xNA1K1NnBOWdqlsicoje eEH1LWUtXFJhaP58 sXKhWVjvCd6iw5H0c726 XOYzXILzfV72Oq2hpKnj GZMeaTVOmW3pcflqv9mw cjogIzAwMDAwMDt0 LZu5DCUiwHxkPlOqHNS4 AmR9TCD3hKMxsP6cnAnx ucpviJ5fOmc+TGFiIERy k2Xna3AhSM49KF52 F4BtUplnmZRokTB+PHRh YmxlIHdpZHRoPScxMDAl ElKcfEijUM1tWw2fIKUe LWNvbGxhcHNlOiBj w1zdBVCdEQipOI3zjZkk E0CraTB6HNFyx9i8Dq87 X96rD2AnrCT+PGNvbCB3 vFO8uU2qAzGrYrA2 MKgvV574FnPmrOPaZpuk j8tyw9wecGu7DxDuXFEd pxRbcWzmEMR2q1IfUg28 E54sZIpxCJMwTVHz SIDaJUPfeLzgnj9akQ5f Ii8+WERihTN9mCA1hV5q IhOkBrN6CEhjH838ZlYx vTDkFdapY28bI6Lc dXA+GHQcOmn6INNrpHnh IL2kaRWySGbzQw7tLII9 CzPjKvSeAVuhM8QwTEMk tcnaweromMB9AVEd XGAhsU34Fm6biLbtOl8j DUPwZLZ8EQYgmLSaO0Xw hQ4mNuAkCAWsWPUyE1Dn mDPqAOzdM716DGkv QdB9MMByxsLpV2MaICZu xWusDpT9n4O1Gb7JkWkn nWToWO7tLyJyFIz8T4Tk Xpk0RRUfySivJG7f fRXkQFiuVz6arCaswTdl NX5dBBOguiiwz430PuFv o6itODVfzDClFXpdAEP4 O24xf5I4WFTnIEFa DJZ6tTI8hH6xiDqibjsg bGVmdDsgdmVydGljYWwt BWqcN918DMUncYcvEbKJ Tep2X4LdXma3CPTv xZlyRU8dzDUaYZwnNf8r hTsmxPzwYF6gACDvxhdo s752JbTxl4uoJYMxhSSo TOjhMOI1R86wv6I0 RXFvNMCsOEH1nUV0wO7m bGlnbjogbGVmdDsgdmVy nKikZVwrQZikJ466RIMm kSzfYd2SHcy2G7Ds Vbu5FQGhyUdhTD4dpLFn VZvdJy0iaWbakAljSM2d WTFchbmsc934ClSsp6at IDEwcHQgVGltZXM7 F41oz7J5OUYyGUSfKGJ4 rRX5mT1adNsxxgkmdHHo dDsgdmVydGljYWwtYWxp O131WKLzlYlaLpXf eWVyOjwvdGQ+JM29qz17 L7IaZmemFvw5VJRsYAM2 pWL9yQ0rKTDdSZjma8E0 rRR6J3NptaTcxs4h y9vyZEJyGHrvS (more content not included)... [facility] Coding Summary.on 05-19-2024 Coding Summary. PDBQBhrv51IGn7jGn+PG hlYWQ+MX3YUMUnI45pxP OxyA0lJ1XVTMrEJzulKC NIUNjDGvZhbgKbRG0iuV NjZXJu IC8+GR9sUDTiWlvjdPBj b6F4xVZ9E30ecu5rNIue bOI1FEYnQkGkfytxw9mn lTj7OSvuNjmyUySy JNXozS16ZPH9aM48Ud05 wPJkvFDim3rayXx6LeKo SLQzEYI4gVjrFHgdv9Pc CWAdK12hxTOri5E3 IGNvbGxhcHNlOyBlbXB0 cK3jIAgjozlad2ygictl Fbn9pe71wNKak3A9zSQ0 Z2FrmsX9XUVurZAp McumzXOErG6maetdc0yj qiwnLgKlBLLaGVd6XDu1 MJUauDniRmOnTQ43PAR4 XUNyjjFzS6ItGSWb rNlrOjT9x0T7La9KB1WY ZhxbI9KABKLVMMjzjLY+ XV92cr50W5CzKokoQch6 XVGuEGF0mEO8sZ3s KSHmWEiyl5T9oTI4C4Iz sdZvcd8eq1gqJIIsOTty H68wqAKrn0I0HXSmvFU0 RBNxkAhrQtNeaF86 Oyc+VEIovNkmy5MgSyst f7yrl7rtkSl5GavhFTMs wwXpjUbqLBJ4v6CxCg8b OQGxhIC0xQU3xZ5u UyLbKxY0UJraF117AwDf qRQzVsieM37kM6UbyTN+ RLAlDyh8RPBwtZcnUU2v V0VhYLUvmaqnuYId tBnqZZ9zKVZpkrvqJEWp jS2pCOQlH0o2EaZrPnD5 CWdsE0NuQKDklcjcJa79 sH2tBaYnIqM9FVwv J3FgixX1WUIvoTTaTCeo SDX3B62th1B4KKUpCKJl BVL6mZA1kG4xuOwjupsv bGVmdDsgdmVydGlj UKikBMliQ890IVOjxCaj PkNvZGluZyBEYXRlOiAg MDYvMjUvMjAyNDwvdGQ+ DHJuPLP4iYhkLFFp yPEvXFibKl0iwPlbhBay ZL3tDUGhhipdINOnxJ7w KLHncFVqmTroFN0qSVKf zwcaf762EsPiUET3 TAUlgJLiM4WozS4wJrUb SSMoAYTeE4UpoCGnOBsu G933IZxiSmD1BBLiyzSe H9AsZGUnlPutVeV2 j0J8Rz3Xh1HdirjbN4Qu dOVxEhKqCuzbHGn5Q3Rn PjwvdHI+EG20GSJqHR22 TQt9UIC9bEfkXXdd WPXuB2VlhS9rIzZgYJFq ZGRkOyc+PHRhYmxlIHdp ZHRoPScxMDAlJyBzdHls HO7sSj4ySOIiBDVg cLxjkJHdHxIfb2daIDOp QZphLK2bjBwkH5MvjGF2 CBWxr4c8Bn70O95fC6Zi dXA+HMOcpKE4uAF7 aN0dRlHvVeZ4TUcfS118 PiFgtNFpMdszg3mst6fj pYr8ChE0QOInyoLyuJtg XFO9g2ToWq70W05z IHdpZHRoPSIxNSUiIHZh uJkhtz3xxM9uEk0+PGNv lWC2kGV8iC0sIxCvGuG0 KUupG086MwHchNEp Wciyx3rle2zgtOq3BsKn QQLvhxXrzEzsPXJ7o5Tg Jt17Z8ByvLecs4QkLrt6 oq73rWKeh1N6dKN5 I5UwXEFeblbehJJevQhi MY0bPAMetidtAXMraH9j ICEmE3x5HqAvApO8YEyx E9BuqtY5LULwfWVz DNGhuNFQvY2gwvauk6gv xyrzFrHlMMOpLOk8ODz2 KYIrzIvfXkJjPGH7QwB1 PYU2kWKnfQ4grAnf jowhvC9zIvo+CUT4xIUy rGIPPI2tXaojbYD+PHRk IFZ8wQcwQBdwAQCbvM8j VFMvB8d2OqFgVqG3 OHsvS3DzfxJ6UFDcvCAh UJFnoHSDuO4xcbcsh6rx kqhyEfDqBUPxPIq6PTi6 LWFsaWduOiBsZWZ0 PvK7XBU8rXJzoK6boCce cyxhwE0jPwa+QmlydGgg DGS2HXm8E1NwDsk3ADJe zQtiOV0iyTEcBJkv Vq9rgUssbMxgIB3nAMUs sydsy861BzTav7swMXCt iMTrSQsbFFW7I61zx1J5 IRQkYMLdZJJ7gFZ4 mW2xtPlntokvuBVedPyv szMkiSntHSueKSvaM471 PASxbLxaMeUnTEa3B3Zi Iwc5WUQvzHyvLC2h nNLzHGdgPe2jzQblmSgi XF5lXYBhxibtm490ClFc z4ftSCRvdVSdEJlqTNQ4 D09dw4R7WDYcOUQf CEL1xOA4zW2ipUmcqlcz bGVmdDsgdmVydGljYWwt EPipO982BILmtWijIxGx fGs2U9CyNih9RUOq fSguUG8cwNXxQZdxNw3i lJglhVxfAI3uHVInxayg e171JsCpr4fbXINawOTq BCmeHLS8W63la2Q0 JLSvUGIvSSM2cUO3gQ9d bGlnbjogbGVmdDsgdmVy aXjrUVrqVKbeM015SXBd cDsnPlBhdGllbnQg ZQizBWz0W3JdImpmlDM+ WK26JOBfMY74zKYuqFDo x7losBz7DsOcYENhBQW2 zRcxWEnhs9KtRONa G13pkWImv1P6ACGubQcg gSWxZmRqeUJ6wF2zVNfk cpkyc7rfyriwGgwyb3rf is90xZ75U13hBXtt ZHRoPSIzMCUiIHZhbGln ni2knM0nPc7+PGNvbCB3 fLW2qN3cDUBpCoS2HTrm Y794PkTozRWfRivp m3mtq0rfoFo6OxR8DVZu qeAqmHtmRXL6q0BcKi08 Y47aADtfQTTrFZRjBACy RJRiaPxnpf9zmW0s Ii8+IIMzxHI0sJR8aO2v NgHgFuG8FVynG956QjTi jINmVqthP31pH1CzoWW+ VFCtKmn5YGXtcKby IK8hrCGaQTunLa8tGEL2 JzYxDfHcBBikF1UsLBFu rclavqghbUB4VHCzXJKz dI54By1ajUrrTPCv fTKFpU5jasyvp3ppzfez HiGnMPNtMIv5DGg6VJEl vJscUkZuHNW8TmD7WUJ2 gWQqhS0orCkujvit cI4lE6EwSBCegavwYy40 bJ3xWiOpByH3QQdvRqf+ UklGRkUsIEtBWUxFRSBB GK82QK57lVGha3O0 sOG2R4YjXYExhpmpjayj yHU6JJRuIJUqfB30kNWx UWqyLl4kq4C4u173XYSz FQPboY79Gu1poWmb BJEwjGNIeK2setaof6vs remiSmNtHKKzJJn4VOd4 WBKywYzhTnScBZI4WrP4 HQS6vRBmwB1arJuj zhdywJ6nMla+MDkvMjkv MjAwMjwvdGQ+PHRkIHN0 aEllZYnzPMRepY0eUNQj G3d6PnJxPhW1FByh A9XyTBBkvwhgBg47yR3t ImFiLkD6JBpuA5FvbvP5 ARGkpAYpGTgwPMJ7Y78c h6W6CFCfIXUgAZW9 yEI6nW9akZetahdjsCUi dDsgdmVydGljYWwtYWxp G083DQFvmJhzZtOtTDvk UERiMO38PS28eMMl z9G0oEJ9J8DaOABxvhum ethgwGU3ZWAfZHJxhU36 vHBhOLqqJd0pl8W9c658 GHWyOMNbbT61He2a oVbiDZFfbCPAjT3rigev b3sfqsviOvUwYZSnHKw3 QKi1KVDfuKxwNrYzMLO0 CkY1VMG9oSZpjY7x yYwlkolzlQ5pCpp+RmVt BDanJG85PP75fINqb2H3 jEG5I9IlUADmpqvjkwqk pDR0GNWiLHAvzT28 bAKcEHzcAo7fx7H9w575 YMJsUOIgqL20Vw4wmHby LPMexWDFyX3xxzqyf1fh cjogIzAwMDAwMDt0 GLa9KCZprZwxEkGbXGT6 VnJ4DNR5rVVcnB8tmIgp rekhhD6tGnn+O0E9wEG0 aWVudDwvdGQ+PC90 kl97C7PyLuofBml2ATTk WEB7nNP6xL9lZWJlKNyh g5S4fXF4R2JpwiZgmf1e u1moUQIyTXlpP25q kFKug7A3TBLciKX8UGBs jDwbCxCxdM83Hwq+PGNv iLmes9NtUxsvn5awc2eq nEv2NvHzLOFsrdVd yJyeTVP9d1ZsSg72K10y IHdpZHRoPSIzMCUiIHZh aFvltu1qpD8oSt0+PGNv vJC9lPH3fD7gJvCx ZxD6AVmrA910ZgJgoWHr Vyfjo3mor0rydJd2RdDk DPCogdZbqRfjLKS9n5Ry Ip03F1ZnrRere4Jk Pcb1vn87aXQag7U2lZJ4 T4MlWRNywqhnxHUlnGmu LA0sTEWqkvgqRLHveU7o FSErO9o0NfIoZrD9 BJglX9YfgbX6LIWccUZa OJBvmJMNaG6ogazbr6ne wtyxLuYxIINzKPm8BDm5 LWFsaWduOiBsZWZ0 IhK6EWE4vGHveQ6ccSbh vlnxvY1hHwx+OSp5d5cy iTUdOK1abXY3NL12KK75 vRBdc0S0yHY7T3Kl RUXxvojqvhyyhXR6BCWd UYSxdY16Tj5mdAxpHm0h OEJdSRM6ITJlgMLkG2Jx zT6oQpXqLHDkKKZp F1GxmPSgKMjoS909QFsz PiU7INTczeLcO5GaLWXf xOjuPlV8q0S4Fk9OFI25 GX80SZ40dQPfh5W6 bAS8J2ExLFKtpntpcjyj vOP6FSOyHAYngE94Si8d hOuaYd1hDZWaBWO3BZAh mRUmT9LlfN9uKdYi WDErPCRnG0RfbJYvMFgx B915AAojLwJ0VBQtddNq I7MqFYNijBbsFdL3f5F4 Ny0SOr43OP73QD63 qYQmf4S6jCX7A8NmRBKx tgjbdskhzWH4RAAmSUHv gL09Yf5xnWxjPo3sXQRx KYJ1QGUhnYUtS3Lx lC0aLdKjJOHzAGQdL9Fy gQSjRRjkY569XUuwIqM6 FZFlegVqY2QhYIGziOsy RcH8q8C1Nv4ASJml dyx4D5AjVqelnOJ+PC90 HHEnAB10yMFtvAMgy9nt eLa7WbKkSWXxBRG0dPov APzkj7RzHUQfG39d eYFqx9I4FCNpa (more content not included)... Normal [facility] Discharge Instructionson Discharge Instructions [id number]#1.00TIFF Normal [facility] PAP [id number] 05-19-2024 C. trachomatis rRNA MIKE+probe Ql (Cvx) Negative Invalid Interpretation Code Negative [facility] Comment on above: Performed By: #### 1 [id number] #### [facility] [address] [place] [address] Cytology report Cyto stain Doc (Cvx/Vag) Note Invalid Interpretation Code [facility] Comment on above: Result Comment: TEST S RESULT FLAG UNITS REF RANGE LAB Clinician Provided Cytology Information Source.............Endocervix No. of containers..01 ThinPrep Vial DIAGNOSIS: 01 NEGATIVE FOR INTRAEPITHELIAL LESION OR MALIGNANCY. Specimen adequacy: 01 Satisfactory for evaluation. Endocervical and/or squamous metaplastic cells (endocervical component) are present. Performed by: Rachna Owens, Entrepreneurship Program Director (ASC) . 01 Note: Note 01 The Pap smear is a screening test designed to aid in the detection of premalignant and malignant conditions of the uterine cervix. It is not a diagnostic procedure and should not be used as the sole means of detecting cervical cancer. Both false-positive and false-negative reports do occur. Test Methodology: Note 01 This liquid based ThinPrep(R) pap test was screened with the use of an image guided system. . 01 The HPV DNA reflex criteria were not met with this specimen result therefore, no HPV testing was performed. FLAG LEGEND: L-Low Normal,H-High Normal,LL-Alert Low,HH-Alert High <-Panic Low,>-Panic High,A-Abnormal,AA-Critical Abnormal Performed at: 01 [facility] [address] [id number] Renay Tobias MD, Performed By: #### 1 [id number] #### [facility] [address] [place] [address] N. gonorrhoeae rRNA MIKE+probe Ql (Cvx) Negative Invalid Interpretation Code Negative [facility] Comment on above: Performed By: #### 1 [id number] #### [facility] [address] [place] [address] T. vaginalis rRNA MIKE+probe Ql (Unsp spec) Negative Invalid Interpretation Code Negative [facility] Comment on above: Result Comment: Perf ormed at: [facility] [place] [address] [place], [place] [id number] MD Micheline Niño Performed at: =[facility] [id number] MD Micheline Niño Performed By: #### 1 [id number] #### [facility] [address] [place] [address] BMPon 05-18-2024 Anion gap [Moles/Vol] 13 mmol/L Normal 6-16 [facility] Comment on above: Performed By: #### 2 [id number] #### [facility] [address] [place] [address] Calcium [Mass/Vol] 9.1 mg/dL Normal 8.9-11.1 [facility] Comment on above: Performed By: #### 2 [id number] #### [facility] [address] [place] [address] Chloride [Moles/Vol] 104 mmol/L Normal 101-111 [facility] Comment on above: Performed By: #### 2 [id number] #### [facility] [address] [place] [address] CO2 [Moles/Vol] 25 mmol/L Normal 21-31 [facility] Comment on above: Performed By: #### 2 [id number] #### [facility] [address] [place] [address] Creatinine [Mass/Vol] 0.6 mg/dL Normal 0.5-1.3 [facility] Comment on above: Performed By: #### 2 [id number] #### [facility] [address] [place] [address] Glucose [Mass/Vol] 83 mg/dL Normal 55-199 [facility] Comment on above: Performed By: #### 2 [id number] #### [facility] [address] [place] [address] Potassium [Moles/Vol] 4.1 mmol/L Normal 3.5-5.3 [facility] Comment on above: Performed By: #### 2 [id number] #### [facility] [address] [place] [address] Sodium [Moles/Vol] 138 mmol/L Normal 135-145 [facility] Comment on above: Performed By: #### 2 [id number] #### [facility] [address] [place] [address] Urea nitrogen [Mass/Vol] 10 mg/dL Normal 5-21 [facility] Comment on above: Performed By: #### 2 [id number] #### [facility] [address] [place] [address] Urea nitrogen/Creatinine [Mass ratio] 17 No Units Normal 10-20 [facility] Comment on above: Performed By: #### 2 [id number] #### [facility] [address] [place] [address] CBC w/ Auto Diffon 4 Basophils/100 WBC (Bld) 0.4 % Normal 0.0-2.0 [facility] Comment on above: Performed By: #### 2 [id number] #### [facility] [address] [place] [address] Basophils/Leukocytes Auto (Bld) [Pure # fraction] 0.0 E9/L Normal 0.0-0.2 [facility] Comment on above: Performed By: #### 2 [id number] #### [facility] [address] [place] [address] Eosinophils (Bld) [#/Vol] 0.1 E9/L Normal 0.0-0.5 [facility] Comment on above: Performed By: #### 2 [id number] #### [facility] [address] [place] [address] Eosinophils/100 WBC (Bld) 1.3 % Normal 0.0-8.0 [facility] Comment on above: Performed By: #### 2 [id number] #### [facility] [address] [place] [address] Erythrocyte distribution width (RBC) [Ratio] 17.0 % High 10.9-14.2 [facility] Comment on above: Performed By: #### 2 [id number] #### [facility] [address] [place] [address] Hematocrit (Bld) [Volume fraction] 37.3 % Normal 34.0-46.0 [facility] Comment on above: Performed By: #### 2 [id number] #### [facility] [address] [place] [address] Hemoglobin (Bld) [Mass/Vol] 12.8 g/dL Normal 12.0-16.0 [facility] Comment on above: Performed By: #### 2 [id number] #### [facility] [address] [place] [address] Lymphocytes (Bld) [#/Vol] 2.0 E9/L Normal 1.0-4.0 [facility] Comment on above: Performed By: #### 2 [id number] #### [facility] [address] [place] [address] Lymphocytes/100 WBC (Bld) 31.4 % Normal 14.0-50.0 [facility] Comment on above: Performed By: #### 2 [id number] #### [facility] [address] [place] [address] MCH (RBC) [Entitic mass] 27.6 pg Normal 27.0-34.0 [facility] Comment on above: Performed By: #### 2 [id number] #### [facility] [address] [place] [address] MCHC (RBC) [Mass/Vol] 34.2 g/dL Normal 31.4-36.0 [facility] Comment on above: Performed By: #### 2 [id number] #### [facility] [address] [place] [address] MCV (RBC) [Entitic vol] 80.7 fL Normal 80.0-100.0 [facility] Comment on above: Performed By: #### 2 [id number] #### [facility] [address] [place] [address] Monocytes (Bld) [#/Vol] 0.4 E9/L Normal 0.2-1.0 [facility] Comment on above: Performed By: #### 2 [id number] #### [facility] [address] [place] [address] Neutrophils (Bld) [#/Vol] 3.8 E9/L Normal 2.0-7.5 [facility] Comment on above: Performed By: #### 2 [id number] #### [facility] [address] [place] [address] Neutrophils/100 WBC (Bld) 61.2 % Normal 36.0-75.0 [facility] Comment on above: Performed By: #### 2 [id number] #### [facility] [address] [place] [address] Platelet 254.0 E9/L Normal 150.0-500.0 [facility] Comment on above: Performed By: #### 2 [id number] #### [facility] [address] [place] [address] Platelet mean volume (Bld) [Entitic vol] 8.2 fL Normal 6.4-10.8 [facility] Comment on above: Performed By: #### 2 [id number] #### [facility] [address] [place] [address] RBC (Bld) [#/Vol] 4.6 E12/L Normal 4.3-5.9 [facility] Comment on above: Performed By: #### 2 [id number] #### [facility] [address] [place] [address] WBC corrected for nucl RBC Auto (Bld) [#/Vol] 6.2 E9/L Normal 4.0-11.0 [facility] Comment on above: Performed By: #### 2 [id number] #### [facility] [address] [place] [address] CHEMISTRYOrdered By: SYSTEM SYSTEM on 05-18-2024 Albumin [Mass/Vol] 4.1 g/dL Normal 3.3 - 5.0 gm/dL [facility] Albumin/Globulin [Mass ratio] 1.2 {ratio} Normal 1.1 - 2.2 [facility] ALP [Catalytic activity/Vol] 63 [iU]/d Normal 21 - 98 Int._Unit/L [facility] ALT No additional P-5'-P [Catalytic activity/Vol] 23 [iU]/d Normal 6 - 46 Int._Unit/L [facility] Anion gap [Moles/Vol] 13 mmol/L Normal 6 - 16 mEq/L R emisol Chem AST [Catalytic activity/Vol] 18 [iU]/d Normal 5 - 43 Int._Unit/L [facility] Bilirubin [Mass/Vol] 0.3 mg/dL Normal 0.0 - 1 .1 mg/dL [facility] Bilirubin.direct [Mass/Vol] 0.1 mg/dL Normal 0.0 - 0.4 mg/dL [facility] Bilirubin.indirect [Mass or moles/Vol] 0.2 mg/dL Normal 0.1 - 0.9 mg/dL [facility] Calcium [Mass/Vol] 9.1 mg/dL Normal 8.9 - 11. 1 mg/dL [facility] Chloride [Moles/Vol] 104 mmol/L Normal 101 - 1 11 mmol/L [facility] CO2 [Moles/Vol] 25 mmol/L Normal 21 - 31 mmol/L [facility] Creatinine [Mass/Vol] 0.6 mg/dL Normal 0.5 - 1.3 mg/dL [facility] eGFR 130 mL/min/1.73 m2 Normal >=59mL/mi n/1. 73 m2 [facility] Globulin (S) [Mass/Vol] 3.3 g/dL Normal 1.4 - 4.0 gm/dL [facility] Glucose [Mass/Vol] 83 mg/dL Normal 55 - 199 mg/dL [facility] Lipase [Catalytic activity/Vol] 16 U/L Normal 13 - 58 unit/L [facility] Potassium [Moles/Vol] 4.1 mmol/L Normal 3.5 - 5.3 mmol/L [facility] Protein [Mass/Vol] 7.4 g/dL Normal 6.0 - 7.8 gm/dL [facility] Sodium [Moles/Vol] 138 mmol/L Normal 135 - 145 mmol/L [facility] Urea nitrogen [Mass/Vol] 10 mg/dL Normal 5 - 21 mg/dL [facility] Urea nitrogen/Creatinine [Mass ratio] 17 mg/mg Normal 10 - 20 [facility] Consent for Treatmenton 04-26 Consent for Treatment [id number] #1.00TIFF Normal [facility] ED Clinical Summaryon 2023 ED Clinical Summary [place] [id number] ED Clinical Summary Person Information Name: JENY CARDOSO Ivelisse/[facility] Age: 23 Years : 2000 Sex: Female Language: Citizen Of [place] PCP: Sophie Salcido Marital Status: Single Visit Id: Visit Reason: Vaginal bleeding; Nausea; Abdominal pain; VAGINAL BLEEDING Speciality: Acuity: 3 Enc Type: Emergency Med Service: Emergency Arrival: 05/18/2024 20:28:49 Discharge: 05/18/2024 23:39:50 LOS: 000 03:11 Checkin: 05/18/2024 20:28:49 Checkout: 05/18/2024 23:39:50 Dispo Type: Home (Routine DC) EVENTS: Event Name Event Status Request Date/Time Start Date/Time Complete Date/Time Arrive Complete 05/18/2024 20:28:49 05/18/2024 20:28:49 05/18/2024 20:28:49 Document Home Meds Request 05/18/2024 20:28:49 Triage Complete 05/18/2024 20:28:49 05/18/2024 20:47:23 05/18/2024 20:47:23 Bed Assign Complete 05/18/2024 20:48:15 05/18/2024 20:48:15 05/18/2024 20:48:15 Dr Exam Complete 05/18/2024 20:48:15 05/18/2024 20:52:22 05/18/2024 20:52:22 RN Exam Complete 05/18/2024 20:48:15 05/18/2024 22:14:24 05/18/2024 22:14:24 Registration Complete 05/18/2024 20:52:22 05/18/2024 21:11:42 05/18/2024 21:11:42 Meds Admin Complete 05/18/2024 20:53:00 05/18/2024 23:32:25 Pending Labs Complete 05/18/2024 20:53:00 05/18/2024 23:23:13 Lab Complete 05/18/2024 20:53:00 05/18/2024 23:23:13 Patient Care Complete 05/18/2024 20:53:00 05/18/2024 23:22:29 Urine Collect Complete 05/18/2024 20:53:00 05/18/2024 21:40:57 Meds Admin Cancel 05/18/2024 20:53:28 05/18/2024 22:25:08 Reg Complete Request 05/18/2024 21:11:42 Reg Bed Request Complete 05/18/2024 21:11:42 05/18/2024 21:11:42 05/18/2024 21:11:42 Pending Labs Inlab 05/18/2024 21:44:51 05/18/2024 21:44:51 Lab Inlab 05/18/2024 21:44:51 05/18/2024 21:44:51 Meds Admin Complete 05/18/2024 22:24:10 05/18/2024 22:46:46 Meds Admin Complete 05/18/2024 22:25:08 05/18/2024 22:46:46 Pending Labs Complete 05/18/2024 22:51:04 05/18/2024 22:51:04 05/18/2024 23:23:13 Lab Complete 05/18/2024 22:51:04 05/18/2024 22:51:04 05/18/2024 23:23:13 Discharge Complete 05/18/2024 23:27:40 05/18/2024 23:40:01 05/18/2024 23:40:01 Transfer Complete 05/18/2024 23:40:01 05/18/2024 23:40:01 05/18/2024 23:40:01 ADDRESS: [address] [place] [phone] PHYS DOC NOTES: MEDICAL INFORMATION: Prescriptions Given: New Medications [facility]/pharmacy #[id number], [address], [place] [id number], [phone] dicyclomine (Bentyl 10 mg Cap) 1 Capsules By Mouth 4 times a day for 7 Days. Refills: 0. ibuprofen (ibuprofen 600 mg Tab) 1 Tablets By Mouth every 8 hours as needed as needed for pain. Refills: 0. Medications to Continue Taking That Have Changed [facility]/pharmacy #[id number], [address], [place] [id number], [phone] START: ondansetron (Zofran ODT 4 mg Tab-Dis) 1 Tablets By Mouth every 8 hours as needed Nausea/Vomiting. Refills: 0. Other Medications START: ondansetron (ondansetron 4 mg Dis Tab) 1 tab(s) Oral every 4-6 hours. Medications to Continue with No Changes Other Medications desvenlafaxine (desvenlafaxine 50 mg Tab-) 1 Tablets By Mouth every day. take 1 tablet by mouth once daily. Refills: 1. doxepin (doxepin 10 mg Cap) 1 Capsules By Mouth once a day (at bedtime) as needed Insomnia. take 1 capsule by mouth at bedtime if needed for sleep. ethinyl estradiol-norgestima te (ethinyl estradiol-norgestima te 35 mcg-0.25 mg Tab) 1 Tablets By Mouth every day. Refills: 11. fluticasone nasal (Flonase 0.05 mg/inh [place]) 2 Sprays Nasal Inhalation every day. each nostril. Refills: 0. omeprazole (omeprazole 40 mg Cap-DR) 1 Capsules By Mouth every day. take 1 capsule by mouth once daily. prazosin (prazosin 1 mg Cap) 1 Capsules By Mouth at bedtime. take 1 capsule by mouth at bedtime for PTSD NIGHT[place]. Refills: 1. sodium chloride nasal (Nasalcare Rinse Starter Kit nasal powder for reconstitution) Use as directed Dispense one kit. Refills: 0. PATIENT EDUCATION INFORMATION: Instructions: Abdominal Pain, Adult Follow up: With: Address: When: Sophie Fredo In 3 days DIAGNOSIS: AP (abdominal pain) [facility] ED Note-Physicianon 05-18-20 ED Note-Physician Basic Information Time Seen: Evens Oconnell DO 05/18/2024 20:52 Chief Complaint pt arrives for c/o being 16 days late on her period . states she has been having cramps and bleeding starting last night. pt states she called the family dr who advised to be seen in ed History of Present Illness HPI: Patient is a 23-year-old female past medical history of anxiety, depression, GERD presents the ED for lower abdominal cramping and vaginal bleeding. Patient states that she does take oral contraceptives and has not missed any doses but does have unprotected sex with her boyfriend and was 16 days late for her menstrual cycle. She states that last night she is having spotting and today having a large amount of vaginal bleeding with clots and lower abdominal cramping. She has had some nausea with this but denies vomiting. She does have some loose bowel movements as well. She denies any fever or chills. ROS: Pertinent review of systems conducted and is negative except as noted above. Physical exam: General: nontoxic appearing and in no distress HEENT: Mucous membranes moist Neuro: awake and alert Neck: supple, trachea midline Card: Heart regular rate and rhythm no murmur Resp: Lungs clear to auscultation no wheeze or rhonchi Abd: Soft and nondistended. No tenderness to palpation with no rebound or guarding. Ext: No gross deformity or edema Physical Exam Vitals & Measurements T: 37 ?C(Oral) HR: 92(Peripheral) RR: 19 BP: 131/86 SpO2: 99% HT: 163 cm WT: 133.2 kg BMI: 50.13 Medical Decision Making MEDICAL DECISION MAKING Number and Complexity of Problems Differential Diagnosis: [] [facility] Data External documents reviewed: N/A My EKG interpretation: Noted in chart if applicable My CT interpretation: N/A My X-ray interpretation: Noted in chart if applicable My Ultrasound interpretation: N/A Decision rules/scores evaluated: N/A Discussed with: N/A Treatment and Disposition ED Course: Is nontoxic-appearing no distress. She has no reproducible tenderness on exam. A urinalysis and urine was ordered as well as blood work. Urine is negative so the patient was given Zofran and Toradol as well as Bentyl. Work is overall very reassuring. Urine shows contamination without convincing signs of UTI. Reexamination the patient is feeling much better. I discussed that I feel that this was just cramping due to a late period which is more severe than usual. We discussed plan of discharge with ibuprofen, Bentyl, and Zofran as needed. She will follow-up with her primary care physician. Discussed return precautions. Patient states understanding agreement this plan was discharged stable condition. Shared decision making: As above Code status: N/A Assessment/Plan AP (abdominal pain) (R10.9: Unspecified abdominal pain) Orders: dicyclomine, 10 mg = 1 cap(s), Oral, QID, X 7 day(s), # 28 cap(s), Refills(s) 0, Pharmacy: [facility]/pharmacy #[id number], 163, cm, 05/18/24 20:47:00 EDT, Height/Length Dosing, 133.2, kg, 05/18/24 20:47:00 EDT, Weight Dosing dicyclomine, 10 mg = 1 cap(s), Cap, Oral, Once, Stop date 05/18/24 22:24:00 EDT, STAT, Start date 05/18/24 22:24:00 EDT, 05/18/24 22:24:00 EDT ibuprofen, 600 mg = 1 tab(s), Oral, q8hr, PRN as needed for pain, # 30 tab(s), Refills(s) 0, Pharmacy: [facility]/pharmacy #[id number], 163, cm, 05/18/24 20:47:00 EDT, Height/Length Dosing, 133.2, kg, 05/18/24 20:47:00 EDT, Weight Dosing ketorolac, 30 mg = 1 mL, Injection, IntraMuscular, Once, Stop date 05/18/24 22:23:00 EDT, STAT, Start date 05/18/24 22:23:00 EDT, 05/18/24 22:23:00 EDT ondansetron, 4 mg = 1 tab(s), Oral, q8hr, PRN Nausea/Vomiting, # 12 tab(s), Refills(s) 0, Pharmacy: [facility]/pharmacy #[id number], 163, cm, 05/18/24 20:47:00 EDT, Height/Length Dosing, 133.2, kg, 05/18/24 20:47:00 EDT, Weight Dosing ondansetron, 4 mg = 1 tab(s), Tab-Dis, Oral, Once, Stop date 05/18/24 22:24:00 EDT, STAT, Start date 05/18/24 22:24:00 EDT, 05/18/24 22:24:00 EDT Sodium Chloride 0.9% intravenous solution, 1,000 mL, Soln-IV, IV, Once, Stop date 05/18/24 20:52:00 EDT, STAT, Start date 05/18/24 20:52:00 EDT, Infuse over 61, minute(s) Basic Metabolic Panel CBC w/ Auto Diff eGFR Hepatic Function Panel Lipase Level Saline Lock Insert U Beta Hcg Qual UA with Cult Rflx Urine Culture Disposition Plan Discharge Prescription List Prescriptions Bentyl 10 mg Cap, 10 mg= 1 cap(s), Oral, QID ibuprofen 600 mg Tab, 600 mg= 1 tab(s), Oral, q8hr, PRN Zofran ODT 4 mg Tab-Dis, 4 mg= 1 tab(s), Oral, q8hr, PRN Follow-up With When Contact Information Sophie Yoo In 3 days Additional Instructions: Patient Education Abdominal Pain, Adult Problem List/Past Medical History Ongoing Anxiety BMI 40.0-44.9, adult Cervical cancer screening Change in bowel habits Depression Encounter for weight management Flank pain Fluid level behind tympanic membrane of left ear Frequent UTI GERD (gastroesophageal reflux disease) Hematochezia Hemorrhoid Herpes (more content not included)... Normal [facility] Comment on above: Result Comment: Cristo alfonso Signed By: Evens Oconnell DO\.kike\Date and Time Signed: 05/18/24 23:30 EDT ED Patient Education Noteon 05-18-2024 ED Patient Education Note Gastroenterology Abdominal Pain, Adult Pain in the abdomen (abdominal pain) can be caused by many things. Often, abdominal pain is not serious and it gets better with no treatment or by being treated at home. However, sometimes abdominal pain is serious. Your health care provider will ask questions about your medical history and do a physical exam to try to determine the cause of your abdominal pain. Follow these instructions at home: Medicines ? Take [id number] and prescription medicines only as told by your health care provider. ? Do not take a laxative unless told by your health care provider. General instructions ? Watch your condition for any changes. ? Drink enough fluid to keep your urine pale yellow. ? Keep all follow-up visits as told by your health care provider. This is important. Contact a health care provider if: ? Your abdominal pain changes or gets worse. ? You are not hungry or you lose weight without trying. ? You are constipated or have diarrhea for more than 2?3 days. ? You have pain when you urinate or have a bowel movement. ? Your abdominal pain wakes you up at night. ? Your pain gets worse with meals, after eating, or with certain foods. ? You are vomiting and cannot keep anything down. ? You have a fever. ? You have blood in your urine. Get help right away if: ? Your pain does not go away as soon as your health care provider told you to expect. ? You cannot stop vomiting. ? Your pain is only in areas of the abdomen, such as the right side or the left lower portion of the abdomen. Pain on the right side could be caused by appendicitis. ? You have bloody or black stools, or stools that look like tar. ? You have severe pain, cramping, or bloating in your abdomen. ? You have signs of dehydration, such as: ? Dark urine, very little urine, or no urine. ? Cracked lips. ? Dry mouth. ? Sunken eyes. ? Sleepiness. ? Weakness. ? You have trouble breathing or chest pain. Summary ? Often, abdominal pain is not serious and it gets better with no treatment or by being treated at home. However, sometimes abdominal pain is serious. ? Watch your condition for any changes. ? Take riop-rjv-adzyfdl and prescription medicines only as told by your health care provider. ? Contact a health care provider if your abdominal pain changes or gets worse. ? Get help right away if you have severe pain, cramping, or bloating in your abdomen. This information is not intended to replace advice given to you by your health care provider. Make sure you discuss any questions you have with your health care provider. Document Revised: 12/30/2020 Document Reviewed: 03/21/2020 [employer] Patient Education ? 2022 [employer]. [facility] ED Patient Summaryon 024 ED Patient Summary [place] [id number] Patient Discharge Instructions Person Information Name: JENY CARDOSO Age: 23 Years Arrival Date: 05/18/2024 20:28:49 Discharge Diagnosis: AP (abdominal pain) Primary Care Physician: Sophie Salcido Provider Information Primary Provider: Evens Oconnell DO Advanced Dryer Operator:None The exam and treatment you received in the Emergency Department were for an urgent problem and are not intended as complete care. It is important that you follow up with a doctor, nurse practitioner, or physician?s catering administrative assistant for ongoing care. If your symptoms become worse or you do not improve as expected and you are unable to reach your usual health care provider, you should return to the Emergency Department. We are available 24 hours a day. JENY CARDOSO has been given the following list of patient education materials, prescriptions and follow-up instructions: Follow-up Instructions: With: Address: When: Sophie Yoo In 3 days In the event that this physician does not participate in your insurance network, please consult with your insurance company to find a nearby participating provider. Patient Education Materials: Abdominal Pain, Adult A MESSAGE TO ALL PATIENTS REGARDING OPIOIDS PRESCRIPTION OPIOIDS: WHAT YOU NEED TO KNOW Prescription opioids can be used to help relieve pikfmqer-cn-ylepyn pain and are often prescribed following a surgery or injury, or for certain health conditions. These medications can be an important part of the treatment but also come with serious risks. It is important to work with your healthcare provider to make sure you are getting the safest, most effective care. WHAT ARE THE RISKS AND SIDE EFFECTS OF OPIOID USE? Prescription opioids carry serious risks of addiction and overdose, especially with prolonged use. An opioid overdose, often marked by slowed breathing, can cause sudden . The use of prescription opioids can have a number of side effects as well, even when taken as directed: ? Tolerance?meaning you might need to take more of the medication for the same pain relief ? Physical dependence?meaning you have symptoms of withdrawal when a medication is stopped ? Increased sensitivity to pain ? Constipation ? Nausea, vomiting, and dry mouth ? Sleepiness and dizziness ? Confusion ? Depression ? Low levels of testosterone that can result in lower sex drive, energy, and strength ? Itching and sweating RISKS ARE GREATER WITH: ? History of drug misuse, substance use disorder, or overdose ? Mental health conditions (such as depression or anxiety) ? Sleep apnea ? Older age (65 years and older) ? Avoid alcohol while taking prescription opioids. Also, unless specifically advised by your health care provider, medications to avoid include: ? Benzodiazepines (such as Xanax or Valium) ? Muscle relaxants (such as Soma or Flexeril) ? Hypnotics (such as Ambien or Lunesta) ? Other prescription opioids KNOW YOUR OPTIONS Talk to your health care provider about ways to manage your pain that don?t involve prescription opioids. Some of these options may actually work better and have fewer risks and side effects. Options may include: ? Pain relievers such as acetaminophen, ibuprofen, and naproxen ? Some medication that are also used for depression or seizures ? Physical therapy and exercise ? Cognitive behavioral therapy, a psychological, goal-directed approach, in which patients learn how to modify physical, behavioral, and emotional triggers of pain and stress. IF YOU ARE PRESCRIBED OPIOIDS FOR PAIN: ? Never take opioids in greater amounts or more often than prescribed. ? Follow up with your primary health care provider. o Work together to create a plan on how to manage your pain. o Talk about ways to help manage your pain that don?t involve prescription opioids. o Talk about any and all concerns and side effects. ? Help prevent misuse and abuse o Never sell or share prescription opioids. o Never use another person?s prescription opioids. ? Store prescription opioids in a secure place and out of reach of others (this may include visitors, children, friends, and family). ? Safely dispose of unused prescription opioids: Find your community drug take-back program or your pharmacy mail-back program, or flush them down the toilet, following guidance from the Food and Drug Administration (www.fda.gov/Drugs/R esourcesForYou). ? Visit www.cdc.gov/drugover dose to learn about the risks of opioids abuse and overdose. ? If you believe you may be struggling with addiction, tell your health date night caregiver and ask for guidance or call [facility]?S National Helpline at 2-976-836-BXKG. r Source: US Department of Health and Human Services/Center for Disease Control & Prevention [facility] (more content not included)... [facility] HEMATOLOGYOrdered By: SYSTEM SYSTEM on 05-18-2024 Basophils/100 WBC (Bld) 0.4 % Normal 0.0 - 2.0 % Remisol Heme Basophils/Leukocytes Auto (Bld) [Pure # fraction] 0.0 E9/L Normal 0.0 - 0.2 E9/L Remisol Heme Eosinophils (Bld) [#/Vol] 0.1 E9/L Normal 0.0 - 0.5 E9/L Remisol Heme Eosinophils/100 WBC (Bld) 1.3 % Normal 0.0 - 8.0 % Remisol Heme Erythrocyte distribution width (RBC) [Ratio] 17.0 % High 10.9 - 14.2 % Remisol Heme Hematocrit (Bld) [Volume fraction] 37.3 % Normal 34.0 - 46.0 % Remisol Heme Hemoglobin (Bld) [Mass/Vol] 12.8 g/dL Normal 12.0 - 16.0 gm/dL Remisol Heme Lymphocytes (Bld) [#/Vol] 2.0 E9/L Normal 1.0 - 4.0 E9/L Remisol Heme Lymphocytes/100 WBC (Bld) 31.4 % Normal 14.0 - 50.0 % Remisol Heme MCH (RBC) [Entitic mass] 27.6 pg Normal 27.0 - 34.0 pg Remisol Heme MCHC (RBC) [Mass/Vol] 34.2 g/dL Normal 31.4 - 36.0 gm/dL Remisol Heme MCV (RBC) [Entitic vol] 80.7 fL Normal 80.0 - 100.0 fL Remisol Heme Monocytes (Bld) [#/Vol] 0.4 E9/L Normal 0.2 - 1.0 E9/L Remisol Heme Monocytes/100 WBC (Bld) 5.7 % Normal 4.0 - 14.0 % Remisol Heme Neutrophils (Bld) [#/Vol] 3.8 E9/L Normal 2.0 - 7.5 E9/L Remisol Heme Neutrophils/100 WBC (Bld) 61.2 % Normal 36.0 - 75.0 % Remisol Heme Platelet 254.0 E9/L Normal 150.0 - 500.0 E9/L Remisol Heme Platelet mean volume (Bld) [Entitic vol] 8.2 fL Normal 6.4 - 10.8 fL Remisol Heme RBC (Bld) [#/Vol] 4.6 E12/L Normal 4.3 - 5.9 E12/L Remisol Heme WBC corrected for nucl RBC Auto (Bld) [#/Vol] 6.2 E9/L Normal 4.0 - 11.0 E9/L Remisol Heme Hep Func Panelon 05-18-2024 Albumin [Mass/Vol] 4.1 g/dL Normal 3.3-5.0 [facility] Comment on above: Performed By: #### 2 [id number] #### [facility] [address] [place] [address] Albumin/Globulin (S) [Mass conc ratio] 1.2 Normal 1.1-2.2 [facility] Comment on above: Performed By: #### 2 [id number] #### [facility] [address] [place] [address] ALP [Catalytic activity/Vol] 63 Int._Unit/L Normal 21-98 [facility] Comment on above: Performed By: #### 2 [id number] #### [facility] [address] [place] [address] ALT No additional P-5'-P [Catalytic activity/Vol] 23 Int._Unit/L Normal 6-46 [facility] Comment on above: Performed By: #### 2 [id number] #### [facility] [address] [place] [address] AST [Catalytic activity/Vol] 18 Int._Unit/L Normal 5-43 [facility] Comment on above: Performed By: #### 2 [id number] #### [facility] [address] [place] [address] Bilirubin [Mass/Vol] 0.3 mg/dL Normal 0.0-1.1 [facility] Comment on above: Performed By: #### 2 [id number] #### [facility] [address] [place] [address] Bilirubin.direct [Mass/Vol] 0.1 mg/dL Normal 0.0-0.4 [facility] Comment on above: Performed By: #### 2 [id number] #### [facility] [address] [place] [address] Bilirubin.indirect [Mass or moles/Vol] 0.2 mg/dL Normal 0.1-0.9 [facility] Comment on above: Performed By: #### 2 [id number] #### [facility] [address] [place] [address] Globulin (S) [Mass/Vol] 3.3 g/dL Normal 1.4-4.0 [facility] Comment on above: Performed By: #### 2 [id number] #### [facility] [address] [place] [address] Protein [Mass/Vol] 7.4 g/dL Normal 6.0-7.8 [facility] Comment on above: Performed By: #### 2 [id number] #### [facility] [address] [place] [address] Lipase Levelon 05-18-2024 Lipase [Catalytic activity/Vol] 16 U/L Normal 13-58 [facility] Comment on above: Performed By: #### 2 [id number] #### [facility] [address] [place] [address] SEROLOGYOrdered By: Emmanuel Hackett on 05-18-2024 HCG.beta subunit (U) [Moles/Vol] Negative Normal [facility] Man Sero U BetaHcg Qualon 05-18-2024 HCG.beta subunit (U) [Moles/Vol] Negative [facility] Comment on above: Performed By: #### 2 [id number] #### [facility] [address] [place] [address] UA with Cult Rflxon 05-18-20 Bacteria Auto Ql (U) Trace Normal Trace [facility] Comment on above: Performed By: #### 4 [id number] #### [facility] [address] [place] [address] Bilirubin Ql (U) Negative Normal Negative [facility] Comment on above: Performed By: #### 4 [id number] #### [facility] [address] [place] [address] Clarity (U) Turbid Abnormal Clear [facility] Comment on above: Performed By: #### 4 [id number] #### [facility] [address] [place] [address] Color (U) Yellow Normal Yellow [facility] Comment on above: Result Comment: Micr oscopic readings are only performed on those samples that meet specific criteria set forth by [facility]. Performed By: #### 4 [id number] #### [facility] [address] [place] [address] Epithelial cells.squamous Auto (Urine sed) [#/Area] 9-10 Invalid Interpretation Code [facility] Comment on above: Performed By: #### 4 [id number] #### [facility] [address] [place] [address] Glucose Ql (U) Negative Normal Negative [facility] Comment on above: Performed By: #### 4 [id number] #### [facility] [address] [place] [address] Hemoglobin Auto test strip (U) [Mass/Vol] 3+ mg/dL Abnormal Negative [facility] Comment on above: Performed By: #### 4 [id number] #### [facility] [address] [place] [address] Hyaline casts LM Ql (Urine sed) 0-3 Normal 0-3 [facility] Comment on above: Performed By: #### 4 [id number] #### [facility] [address] [place] [address] Ketones Auto test strip Ql (U) Negative Normal Negative [facility] Comment on above: Performed By: #### 4 [id number] #### [facility] [address] [place] [address] Leukocyte esterase Auto test strip Ql (U) 75 Amelia/uL Abnormal Negative [facility] Comment on above: Performed By: #### 4 [id number] #### [facility] [address] [place] [address] Mucus Auto Ql (U) Trace Normal Negative [facility] Comment on above: Performed By: #### 4 [id number] #### [facility] [address] [place] [address] Nitrite Auto test strip Ql (U) Negative Normal Negative [facility] Comment on above: Performed By: #### 4 [id number] #### [facility] [address] [place] [address] pH (U) 6.0 [pH] Invalid Interpretation Code 5.0-9.0 [facility] Comment on above: Performed By: #### 4 [id number] #### [facility] [address] [place] [address] Protein Ql (U) Trace Abnormal Negative [facility] Comment on above: Performed By: #### 4 [id number] #### [facility] [address] [place] [address] RBC Ql (U) 4-20 Abnormal 0-3 [facility] Comment on above: Performed By: #### 4 [id number] #### [facility] [address] [place] [address] Specific gravity (U) [Rel density] 1.026 Invalid Interpretation Code 1.005-1.030 [facility] Comment on above: Performed By: #### 4 [id number] #### [facility] [address] [place] [address] Urobilinogen (U) [Mass/Vol] Negative Normal Negative [facility] Comment on above: Performed By: #### 4 [id number] #### [facility] [address] [place] [address] WBC Auto (Urine sed) [#/Area] 6-15 Abnormal 0-5 [facility] Comment on above: Performed By: #### 4 [id number] #### [facility] [address] [place] [address] Type of Urine collection method Clean Catch Normal [facility] Comment on above: Performed By: #### 4 [id number] #### [facility] [address] [place] [address] URINALYSISOrdered By: SYSTEM SYSTEM on 05-18-2024 Bacteria Auto Ql (U) Trace /HPF Normal Trace/HPF FT UA Auto SS Bilirubin Ql (U) Negative Normal Negativemg/dL [facility] UA Auto SS Clarity (U) Turbid *ABN* (05/18/24 9:30 PM) Invalid Interpretation Code Clear [facility] UA Auto SS Color (U) Yellow 1 (05/18/24 9:30 PM) Normal Yellow [facility] UA Auto SS Comment on above: Interpretive Data: M icroscopic readings are only performed on those samples that meet specific criteria set forth by [facility]. Epithelial cells.squamous Auto (Urine sed) [#/Area] 9-10 graded/HPF Invalid Interpretation Code FT UA Auto SS Glucose Ql (U) Negative Normal Negativemg/dL FT UA Auto SS Hemoglobin Auto test strip (U) [Mass/Vol] 3+ mg/dL Invalid Interpretation Code Negativemg/dL FT UA Auto SS Hyaline casts LM Ql (Urine sed) 0-3 graded/LPF Normal 0-3graded/LPF FT UA Auto SS Ketones Auto test strip Ql (U) Negative Normal Negativemg/dL FT UA Auto SS Leukocyte esterase Auto test strip Ql (U) 75 Amelia/uL Amelia/uL Invalid Interpretation Code NegativeLeu/u L FT UA Auto SS Mucus Auto Ql (U) Trace graded/LPF Normal Negati vegrade d/LPF FT UA Auto SS Nitrite Auto test strip Ql (U) Negative Normal Negativemg/dL FT UA Auto SS pH (U) 6.0 *NA* (05/18/24 9:30 PM) Invalid Interpretation Code 5.0 - 9.0 FT UA Auto SS Protein Ql (U) Trace mg/dL Invalid Interpretation Code Negativemg/dL FT UA Auto SS RBC Ql (U) 4-20 graded/HPF Invalid Interpretation Code 0-3graded/HPF FT UA Auto SS Specific gravity (U) [Rel density] 1.026 *NA* (05/18/24 9:30 PM) Invalid Interpretation Code 1.005 - 1.030 FT UA Auto SS Urobilinogen (U) [Mass/Vol] Negative Normal Negativemg/dL FT UA Auto SS WBC Auto (Urine sed) [#/Area] 6-15 graded/HPF Invalid Interpretation Code 0-5graded/HPF [facility] UA Auto SS URINALYSISOrdered By: Evens erazo on 05-18-2024 UA Spec Desc Clean Catch (05/18/24 9:30 PM) Normal [facility] UA Auto SS eGFRon 05-18-2024 eGFR 130 mL/min/1.73 m2 Normal >=59 [facility] Comment on above: Order Comment: Order added by Discern Expert. Performed By: #### 1 [id number] #### [facility] [address] [place] [address] Family Medicine Office/Clini c Noteon 05-14-2024 Family Medicine Office/Clinic Note Chief Complaint women wellness exam HPI Staff Jeny is a 23 year old female presenting for well woman Woman check up: Last pap:2022 Results of lap pap: normal Where was it done: [facility] hx: # of pregnancies:none abortions:none. live births: none living children: none menstrual cycle (normal,heavy,ect): normal- she states she is late on her menstrual cycle. states it will be 2 weeks. she states she went to [facility] and had HCG lab and it was negative. patient is on control History of STD: none Do you want tested for STD today: yes Vaginal discharge, odor, itching: none Self breast exam at home? does not Hx of breast, cervical or uterine cancer in the family: yes, maternal grandmother- cervical cancer PHQ9(D): 5 LEVI: 7 History of Present Illness pt presents today for well woman visit Review of Systems PHQ Score Initial Depression Screen Score: 0 SCORE Physical Exam Vitals & Measurements HR: 85(Peripheral) RR: 16 BP: 112/62 SpO2: 98% HT: 64 in HT: 163 cm WT: 133.5 kg WT: 293.7 lb BMI: 50.25 General: Well developed, well nourished, in no acute distress Neck: Neck supple. No masses or palpable cervical nodes. Trachea midline. Thyroid without nodules, masses, tenderness, or enlargement Breast: No mass, nodule, discharge, or erythema bilaterally, and no axillary lymphadenopathy Lungs: Normal respiratory effort and clear to auscultation Cardio: Regular rate and rhythm, normal S1 and S2, no murmur, no rub Abdomen: Soft, non-distended, non-tender, normal bowel sounds x4 Gyno: normal external genitalia. Urethra no discharge. Vagina normal without lesions, no vaginal discharge. Cervix normal, without lesions. Uterus normal. No adnexal masses. Pap obtained CMT noted on exam, small amount white discharge noted Neurologic: Grossly normal Skin: [place], moist, no tenting Lymph Nodes: No cervical adenopathy, nodes normal Mental Status: Alert and oriented x3. Normal mood and affect Assessment/Plan 1. Well woman exam (Z01.419: Encounter for gynecological examination (general) (routine) without abnormal findings) pt presents today for well woman exam. pt is 2 weeks late for cycle. urine test is negative. pt is currently on antibiotics for ear infection. BSE discussed. pap obtained without difficulty. cervix is sensitive. Ordered: fluconazole, 150 mg = 1 tab(s), Oral, Once, take 1 tab on day one and 1 tab on day four, # 2 tab(s), Refills(s) 1, Pharmacy: [facility]/pharmacy #[id number], 163, cm, 05/14/24 9:33:00 EDT, Height/Length Dosing, 133.5, kg, 05/14/24 9:33:00 EDT, Weight Dosing methylPREDNISolone, = 1 packet(s), Oral, As Directed, as directed on package labeling, X 6 day(s), # 21 tab(s), Refills(s) 0, Pharmacy: [facility]/pharmacy #[id number], 163, cm, 05/14/24 9:33:00 EDT, Height/Length Dosing, 133.5, kg, 05/14/24 9:33:00 EDT, Weight Dosing Est Preventative 18 to 39 years [id number]/NG/Trich rflx HPV 2. Cervical cancer screening (Z12.4: Encounter for screening for malignant neoplasm of cervix) pap obtained. cervical motion tenderness noted on exam. small amount of white discharge also noted Ordered: fluconazole, 150 mg = 1 tab(s), Oral, Once, take 1 tab on day one and 1 tab on day four, # 2 tab(s), Refills(s) 1, Pharmacy: [facility]/pharmacy #[id number], 163, cm, 05/14/24 9:33:00 EDT, Height/Length Dosing, 133.5, kg, 05/14/24 9:33:00 EDT, Weight Dosing methylPREDNISolone, = 1 packet(s), Oral, As Directed, as directed on package labeling, X 6 day(s), # 21 tab(s), Refills(s) 0, Pharmacy: [facility]/pharmacy #[id number], 163, cm, 05/14/24 9:33:00 EDT, Height/Length Dosing, 133.5, kg, 05/14/24 9:33:00 EDT, Weight Dosing Est Preventative 18 to 39 years [address]/NG/Trich rflx HPV 3. Late menses (N92.6: Irregular menstruation, unspecified) urine test negative in office today. and HCG was negative last week Ordered: fluconazole, 150 mg = 1 tab(s), Oral, Once, take 1 tab on day one and 1 tab on day four, # 2 tab(s), Refills(s) 1, [id number] 163, cm, 05/14/24 9:33:00 EDT, Height/Length Dosing, 133.5, kg, 05/14/24 9:33:00 EDT, Weight Dosing Est Preventative 18 to 39 years [address] HCG, Urine POC 65649 4. Fluid level behind tympanic membrane of left ear (H65.92: Unspecified nonsuppurative otitis media, left ear) medrol dose pack sent Ordered: fluconazole, 150 mg = 1 tab(s), Oral, Once, take 1 tab on day one and 1 tab on day four, # 2 tab(s), Refills(s) 1, Pharmacy: [facility]/pharmacy #[id number], 163, cm, 05/14/24 9:33:00 EDT, Height/Length Dosing, 133.5, kg, 05/14/24 9:33:00 EDT, Weight Dosing methylPREDNISolone, = 1 packet(s), Oral, As Directed, as directed on package labeling, X 6 day(s), # 21 tab(s), Refills(s) 0, Pharmacy: [facility]/pharmacy #[id number], 163, cm, 05/14/24 9:33:00 EDT, Height/Length Dosing, 133.5, kg, 05/14/24 9:33:00 EDT, Weight Dosing Est Preventative 18 to 39 years [address] 5. BMI 50.0-59.9, adult (Z68.43: Body mass index [BMI] 50.0-59.9, adult) BMI education Ordered: fl (more content not included)... [facility] Comment on above: Result Comment: Elec tronically Signed By: Sophie Salcido\.br\Date and Time Signed: 05/14/24 11:15 EDT PAP [id number] 05-14-2024 Gynecological Body Site ENDOCERVIX Normal [facility] Comment on above: Performed By: #### 1 [id number] #### [facility] [address] [place] [address] Family Medicine Office/Clini c Noteon 05-09-2024 Family Medicine Office/Clinic Note Chief Complaint Sore throat, Rogelio ear pain HPI Staff 23 year old female present for Sore throat Onset: Yesterday Sinus congestion: Yes Swollen nodes: Yes Red/ white spots: Denies Fever/ Chills: Denies Body aches: Denies Nausea/ Vomiting: Yes/nausea, poor appetite Cough: Denies Ear pain: Yes OTC: None History of Present Illness Reviewed and agree with above documented HPI by emergency medical technician/driver. Portions of this record may have been created with voice recognition artificial intelligence software, specifically [employer] and or [employer]. Substitutions may have occurred due to the inherent limitations of voice recognition and artificial intelligence software. Patient is a 23-year-old female who [facility], for right ear pain, sore throat, patient states she did have some sinus congestion for about a week, noticed some enlarged lymph nodes, states been having some postnasal drip causing her to have some nausea and vomiting, had a poor appetite, the sinus symptoms had improved, but continues with right ear pain, versus left ear pain, states she Mr. Menstrual cycle, she is about 3 weeks late, concerned she may be , does not want any antibiotics if she is , states she is able to eat and drink, has a sense of taste and smell intact, denies any headache, worsening nausea or vomiting, fevers, chills, difficulty swallowing, cough, chest pain, shortness of breath, weakness, vaginal bleeding, or vaginal discharge, or abdominal pain. Review of Systems PHQ Score Initial Depression Screen Score: 0 SCORE Physical Exam Vitals & Measurements T: 36.9 ?C(Oral) HR: 86(Peripheral) RR: 16 BP: 118/78 SpO2: 98% HT: 64 in HT: 163 cm WT: 133.3 kg WT: 293.26 lb BMI: 50.17 General: Well developed, well nourished, in no acute distress. Patient does appears ill but not septic. No respiratory distress. Patient answers questions appropriately and in complete sentences, and follows commands appropriately. Head: Normocephalic/atraum atic positive upper respiratory infections. Eyes: Pupils equal, round, and reactive to light. Conjunctivae and sclerae normal, Ears: Bilateral TMs are bulging, right greater than left, right with redness and tenderness, concerning for otitis externa and otitis media, no signs otitis media otitis externa with the left ear, hearing is intact. Nose: No deformity, discharge, inflammation, or lesions Mouth: Mucous membranes moist. Normal oropharynx, and posterior pharynx without erythema, lesions, exudates, or enlarged tonsils. No trismus. No difficulty swallowing. Neck: Neck supple. No masses or palpable cervical nodes. No mastoid tenderness. Lungs: Normal respiratory effort and clear to auscultation throughout. Cardio: regular rate and rhythm, no murmur no chest wall tenderness. Pulses: Normal capillary refill Abdomen: . Soft, nondistended, nontender, no pain with deep palpation, no left or right CVA tenderness, suprapubic pressure, or lumbar back pain. Neurologic: Grossly normal Skin: No rashes, ulcerations, or suspicious lesions Lymph Nodes: no lad Mental Status: alert, active Assessment/Plan 23-year-old female presented to [facility], for right otitis media and right otitis externa, patient was concern for , informed patient was given a prescription for amoxicillin, if she is is not contradicted, preferred to have a blood test done since she missed her period, she will take the prescription for amoxicillin, would not fill until she finds out she is negative for , to to take kqjk-jor-lgdijxj Tylenol only for any body aches or fevers, drink plenty of water for hydration, patient is agreeable to go to [facility] for hCG blood test, to be notified of the results. And follow-up with her primary care doctor or her occupational analyst. 1. Right otitis externa (H60.91: Unspecified otitis externa, right ear) See above Ordered: amoxicillin, 500 mg = 1 cap(s), Oral, q12hr, X 10 day(s), # 20 cap(s), Refills(s) 0, [facility]acy: [id number], 163, cm, 05/08/24 15:30:00 EDT, Height/Length Dosing, 133.3, kg, 05/08/24 15:30:00 EDT, Weight Dosing ofloxacin otic, 5 drop(s), Otic, BID for 7 day(s), 5 mL, Refill(s) 0, [id number], 163, cm, 05/08/24 15:30:00 EDT, Height/Length Dosing, 133.3, kg, 05/08/24 15:30:00 EDT, Weight Dosing 2. Right otitis media (H66.91: Otitis media, unspecified, right ear) See above Ordered: amoxicillin, 500 mg = 1 cap(s), Oral, q12hr, X 10 day(s), # 20 cap(s), Refills(s) 0, Pharmacy: [id number], 163, cm, 05/08/24 15:30:00 EDT, Height/Length Dosing, 133.3, kg, 05/08/24 15:30:00 EDT, Weight Dosing 3. Possible (Z32.00: Encounter for test, result unknown) See above Orders: Beta hCG Qual Follow-up With When Contact Information Sophie Salcido, FAM, MED Additional Instructions: Patient Education Human Chorionic Gonadotropin Test Otitis Media, Adult, (more content not included)... [facility] Comment on above: Result Comment: Elec tronically Signed By: LIBERTY VALADEZ PA-C\.br\Date and Time Signed: 05/09/24 12:32 EDT Patient Educationon 05-09-20 Patient Education ENT Otitis Media, Adult Otitis media is a condition in which the middle ear is red and swollen (inflamed) and full of fluid. The middle ear is the part of the ear that contains bones for hearing as well as air that helps send sounds to the brain. The condition usually goes away on its own. What are the causes? This condition is caused by a blockage in the eustachian tube. This tube connects the middle ear to the back of the nose. It normally allows air into the middle ear. The blockage is caused by fluid or swelling. Problems that can cause blockage include: ? A cold or infection that affects the nose, mouth, or throat. ? Allergies. ? An irritant, such as tobacco smoke. ? Adenoids that have become large. The adenoids are soft tissue located in the back of the throat, behind the nose and the roof of the mouth. ? Growth or swelling in the upper part of the throat, just behind the nose (nasopharynx). ? Damage to the ear caused by a change in pressure. This is called barotrauma. What increases the risk? You are more likely to develop this condition if you: ? Smoke or are exposed to tobacco smoke. ? Have an opening in the roof of your mouth (cleft palate). ? Have acid reflux. ? Have problems in your body's defense system (immune system). What are the signs or symptoms? Symptoms of this condition include: ? Ear pain. ? Fever. ? Problems with hearing. ? Being tired. ? Fluid leaking from the ear. ? Ringing in the ear. How is this treated? This condition can go away on its own within 3?5 days. But if the condition is caused by germs (bacteria) and does not go away on its own, or if it keeps coming back, your doctor may: ? Give you antibiotic medicines. ? Give you medicines for pain. Follow these instructions at home: ? Take hydn-esv-repbfvj and prescription medicines only as told by your doctor. ? If you were prescribed an antibiotic medicine, take it as told by your doctor. Do not stop taking it even if you start to feel better. ? Keep all follow-up visits. Contact a doctor if: ? You have bleeding from your nose. ? There is a lump on your neck. ? You are not feeling better in 5 days. ? You feel worse instead of better. Get help right away if: ? You have pain that is not helped with medicine. ? You have swelling, redness, or pain around your ear. ? You get a stiff neck. ? You cannot move part of your face (paralysis). ? You notice that the bone behind your ear hurts when you touch it. ? You get a very bad headache. Summary ? Otitis media means that the middle ear is red, swollen, and full of fluid. ? This condition usually goes away on its own. ? If the problem does not go away, treatment may be needed. You may be given medicines to treat the infection or to treat your pain. ? If you were prescribed an antibiotic medicine, take it as told by your doctor. Do not stop taking it even if you start to feel better. ? Keep all follow-up visits. This information is not intended to replace advice given to you by your health care provider. Make sure you discuss any questions you have with your health care provider. Document Revised: 02/19/2022 Document Reviewed: 02/19/2022 [employer] Patient Education ? 2022 [employer] Infectious Disease Otitis Externa Otitis externa is an infection of the outer ear canal. The outer ear canal is the area between the outside of the ear and the eardrum. Otitis externa is sometimes called swimmer's ear. What are the causes? Common causes of this condition include: ? Swimming in dirty water. ? Moisture in the ear. ? An injury to the inside of the ear. ? An object stuck in the ear. ? A cut or scrape on the outside of the ear or in the ear canal. What increases the risk? You are more likely to get this condition if you go swimming often. What are the signs or symptoms? ? Itching in the ear. This is often the first symptom. ? Swelling of the ear. ? Redness in the ear. ? Ear pain. The pain may get worse when you pull on your ear. ? Pus coming from the ear. How is this treated? This condition may be treated with: ? Antibiotic ear drops. These are often given for 10?14 days. ? Medicines to reduce itching and swelling. Follow these instructions at home: ? If you were prescribed antibiotic ear drops, use them as told by your doctor. Do not stop using them even if you start to feel better. ? Take lsgt-fki-ldpocqy and prescription medicines only as told by your doctor. ? Avoid getting water in your ears as told by your doctor. You may be told to avoid swimming or water sports for a few days. ? Keep all follow-up visits. How is this prevented? ? Keep your ears dry. Use the corner of a towel to dry your ears after you swim or bathe. ? Try not to scratch or put things in your ear. Doing these things makes it easier for germs to grow in your ear. ? Avoid swimming in lakes (more content not included)... [facility] B hCG Qualon 05-08-2024 Beta HCG ( test) Ql Negative [facility] Comment on above: Performed By: #### 2 [id number] #### [facility] [address] [place] [address] Consent for Treatmenton 04-25 Consent for Treatment [id number] #1.00TIFF [facility] SEROLOGYOrdered By: Christina Martinez on 05-08-2024 Beta HCG ( test) Ql Negative (05/08/24 5:08 PM) Normal [facility] Pre-Certification Formon Pre-Certification Form [id number] #1.00TIFF [facility] Family Medicine Office/Clini c Noteon 02-06-2024 Family Medicine Office/Clinic Note HPI Staff Jeny is a 23 year old female presenting for 1 month follow up Weight management: Started Phentermine on 01/09/24 Sleeping well:Yes, 6-8 hours Chest pain:No Tremors:No Headaches:No Heart fluttering:No Blurred Vision:No Beginning weight: 299.8 Ibs Previous weight: 294.5 Today's weight: 291.4 Questions/Concerns: pt is having dry mouth Bilateral ears are muffled and can hardly hear out of the left ear. History of Present Illness pt presents today for weight management Review of Systems PHQ Score Initial Depression Screen Score: 0 SCORE Physical Exam Vitals & Measurements HR: 92(Peripheral) RR: 18 BP: 124/80 SpO2: 99% HT: 64 in HT: 163.8 cm WT: 132.0 kg WT: 290.4 lb BMI: 49.2 General: alert, no acute distress ENMT: oral mucosa moist, no pharyngeal erythema or exudate Cardiovascular: regular rate and rhythm, normal peripheral perfusion Respiratory: Lungs CTA, respirations non labored Extremities: no deformity, no trauma Neurological: oriented x 4, LOC appropriate for age, CN II-XII intact, motor strength equal & normal bilaterally, speech normal Assessment/Plan 1. Encounter for weight management (Z76.89: Persons encountering health services in other specified circumstances) pt is down 8 pounds. having dry mouth. denies other needs. refill sent RTC 4 weeks 2. BMI 45.0-49.9, adult (Z68.42: Body mass index [BMI] 45.0-49.9, adult) BMI education complete 3. Non-smoker (Z78.9: Other specified health status) continue not smoking Orders: phentermine, 37.5 mg = 1 tab(s), Oral, Daily, # 30 tab(s), Refills(s) 0, Pharmacy: [id number], 163.8, cm, 02/06/24 13:56:00 EDT, Height/Length Dosing, 132, kg, 02/06/24 13:56:00 EDT, Weight Dosing phentermine, 37.5 mg = 1 tab(s), Oral, Daily, # 30 tab(s), Refills(s) 0, Pharmacy: [id number], 163.8, cm, 01/09/24 13:06:00 EST, Height/Length Dosing, 136.3, kg, 01/09/24 13:06:00 EST, Weight Dosing Follow-up No qualifying data available Problem List/Past Medical History Ongoing Anxiety BMI 40.0-44.9, adult Change in bowel habits Depression Encounter for weight management Flank pain Fluid level behind tympanic membrane of left ear Frequent UTI GERD (gastroesophageal reflux disease) Hematochezia Hemorrhoid Herpes Rectal bleeding Right otitis media Historical No qualifying data Procedure/Surgical History Appendectomy, Colonoscopy, Ovarian cystectomy. Medications desvenlafaxine 50 mg Tab-, 50 mg= 1 tab(s), Oral, Daily doxepin 10 mg Cap, 10 mg= 1 cap(s), Oral, Once a day (at bedtime), PRN ethinyl estradiol-norgestima te 35 mcg-0.25 mg Tab, 1 tab(s), Oral, Daily omeprazole 40 mg Cap-DR, 40 mg= 1 cap(s), Oral, Daily ondansetron 4 mg Dis Tab, See Instructions phentermine 37.5 mg Tab, 37.5 mg= 1 tab(s), Oral, Daily prazosin 1 mg Cap, 1 mg= 1 cap(s), Oral, Bedtime, 1 refills Proctofoam HC rectal foam, 1 gee, Rectal, TID Allergies hydrOXYzine (Nausea and vomiting) morphine (Urticaria) traZODone (Wheezing) Social History Alcohol - Denies Alcohol Use, 12/19/2021 Substance Abuse - Denies Substance Abuse, 12/19/2021 Tobacco - Denies Tobacco Use, 07/04/2022 Never (less than 100 in lifetime) Tobacco Use:. Never Smokeless Tobacco Use:. Household tobacco concerns: No., 01/27/2024 Family History Alcoholism: Father. Arthritis: Mother and Father. Diabetes mellitus type 2: Grandparent. High blood pressure: Father. Migraine: Mother. Immunizations Vaccine Date Status Comments influenza virus vaccine, inactivated 09/14/2021 Recorded influenza, unspecified formulation 08/25/2021 Recorded meningococcal conjugate vaccine 12/02/2020 Recorded 2022-12-25: VIS DATE: 07/09/2019 influenza virus vaccine, inactivated 12/02/2020 Recorded 2022-12-25: VIS DATE: 07/09/2019 meningococcal group B vaccine 09/17/2019 Recorded meningococcal conjugate vaccine 09/17/2019 Recorded influenza virus vaccine, inactivated 10/14/2018 Recorded influenza virus vaccine, inactivated 09/11/2018 Recorded influenza virus vaccine, inactivated 11/25/2016 Recorded influenza virus vaccine, inactivated 09/25/2016 Recorded human papillomavirus vaccine 03/12/2016 Recorded human papillomavirus vaccine 11/07/2015 Recorded diphtheria/pertussis , acel/tetanus adult 09/07/2015 Recorded meningococcal conjugate vaccine 09/07/2015 Recorded influenza virus vaccine, live, trivalent 09/07/2015 Recorded human papillomavirus vaccine 09/07/2015 Recorded hepatitis A pediatric vaccine 09/07/2015 Recorded hepatitis A pediatric vaccine 12/23/2013 Recorded DTaP, unspecified formulation 02/24/2013 Recorded influenza virus vaccine, inactivated 01/16/2012 Recorded varicella virus vaccine 02/07/2010 Recorded influenza virus vaccine, inactivated 10/04/2009 Recorded poliovirus vaccine, inactivated 08/12/2007 Recorded measles/mumps/rubell a virus vaccine 08/12/2007 Recorded DTaP, unspecified formulation 08/12/2007 Recorded DT (more content not included)... [facility] Comment on above: Result Comment: Elec tronically Signed By: Sophie Salcido\.br\Date and Time Signed: 02/06/24 15:47 EDT Pre-Certification Formon Pre-Certification Form [id number] #1.00TIFF [facility] Family Medicine Office/Clini c Noteon 01-27-2024 Family Medicine Office/Clinic Note HPI Staff Jeny is a 23 year old female presenting for acute sick visit Respiratory C/O: Pt went [place] [facility] [place] was negative for flu and covid started on brompheniramine/dext romethorphan Onset: 01/20/24 Body aches: no Chest congestion: no Chills: no Cough: yes Sputum production: yes light green/yellow Sore throat: little bit but is a lot ear Ear complaints: yes bilateral popping Eye itching/watering: no Fever: no Headache: no Nasal congestion: no Nasal discharge: yes Poor appetite: yes Reduced activity: yes Sinus pain/pressure: yes Sneezing: yes Wheezing: no yesterday had to use inhaler Ill contacts: yes Remedies tried: Mucinex Questions/Concerns: started out as sore throat and sinus felt full on left side with left ear popping. pt thinks yesterday she may have a hemorrhoid. History of Present Illness pt presents today with URI symptoms Review of Systems PHQ Score Initial Depression Screen Score: 0 SCORE ROS - Provider Constitutional: no fever, no chills, no sweats, no fatigue Respiratory: no shortness of breath, no cough, no orthopnea, no wheezing. ears popping, dizziness Cardiovascular: no chest pain, no palpitations, no edema. Neurologic: no headache, no dizziness, no numbness, no weakness. Physical Exam Vitals & Measurements T: 37.0 ?C(Tympanic) HR: 88(Peripheral) RR: 18 BP: 128/74 SpO2: 98% HT: 64 in HT: 163.8 cm WT: 133.900 kg WT: 294.58 lb BMI: 49.91 General: alert, no acute distress ENMT: oral mucosa moist, no pharyngeal erythema or exudate Cardiovascular: regular rate and rhythm, normal peripheral perfusion Respiratory: Lungs CTA, respirations non labored Extremities: no deformity, no trauma Neurological: oriented x 4, LOC appropriate for age, CN II-XII intact, motor strength equal & normal bilaterally, speech normal Assessment/Plan 1. Right otitis media (H66.91: Otitis media, unspecified, right ear) right TM red as well as canal. will treat with augmentin 2. Fluid level behind tympanic membrane of left ear (H65.92: Unspecified nonsuppurative otitis media, left ear) left TM bulging with clear fluid 3. Hemorrhoid (K64.9: Unspecified hemorrhoids) proctofoam ordered 4. BMI 45.0-49.9, adult (Z68.42: Body mass index [BMI] 45.0-49.9, adult) BMI education complete Ordered: amoxicillin-clavulan ate, = 1 tab(s), Oral, q12hr, X 7 day(s), # 14 tab(s), Refills(s) 0, Pharmacy: [facility], 163.8, cm, 01/27/24 15:09:00 EST, Height/Length Dosing, 133.9, kg, 01/27/24 15:09:00 EST, Weight Dosing hydrocortisone-pramo xine topical, 1 gee, Rectal, TID, 10 gram, Refill(s) 0, [facility], 163.8, cm, 01/27/24 15:09:00 EST, Height/Length Dosing, 133.9, kg, 01/27/24 15:09:00 EST, Weight Dosing methylPREDNISolone, = 1 packet(s), Oral, As Directed, as directed on package labeling, X 6 day(s), # 21 tab(s), Refills(s) 0, Pharmacy: [facility], 163.8, cm, 01/27/24 15:09:00 EST, Height/Length Dosing, 133.9, kg, 01/27/24 15:09:00 EST, Weight Dosing 5. Non-smoker (Z78.9: Other specified health status) continue not smoking Ordered: amoxicillin-clavulan ate, = 1 tab(s), Oral, q12hr, X 7 day(s), # 14 tab(s), Refills(s) 0, Pharmacy: [facility], 163.8, cm, 01/27/24 15:09:00 EST, Height/Length Dosing, 133.9, kg, 01/27/24 15:09:00 EST, Weight Dosing hydrocortisone-pramo xine topical, 1 gee, Rectal, TID, 10 gram, Refill(s) 0, [facility], 163.8, cm, 01/27/24 15:09:00 EST, Height/Length Dosing, 133.9, kg, 01/27/24 15:09:00 EST, Weight Dosing methylPREDNISolone, = 1 packet(s), Oral, As Directed, as directed on package labeling, X 6 day(s), # 21 tab(s), Refills(s) 0, Pharmacy: [facility], 163.8, cm, 01/27/24 15:09:00 EST, Height/Length Dosing, 133.9, kg, 01/27/24 15:09:00 EST, Weight Dosing Follow-up No qualifying data available Problem List/Past Medical History Ongoing Anxiety BMI 40.0-44.9, adult Change in bowel habits Depression Encounter for weight management Flank pain Fluid level behind tympanic membrane of left ear Frequent UTI GERD (gastroesophageal reflux disease) Hematochezia Hemorrhoid Herpes Rectal bleeding Right otitis media Historical No qualifying data Procedure/Surgical History Appendectomy, Colonoscopy, Ovarian cystectomy. Medications Augmentin 875 mg oral tablet, 1 tab(s), Oral, q12hr desvenlafaxine 50 mg Tab-, 50 mg= 1 tab(s), Oral, Daily doxepin 10 mg Cap, 10 mg= 1 cap(s), Oral, Once a day (at bedtime), PRN ethinyl estradiol-norgestima te 35 mcg-0.25 mg Tab, 1 tab(s), Oral, Daily Medrol 4 mg Tab, 1 packet(s), Oral, As Directed omeprazole 40 mg Cap-DR, 40 mg= 1 cap(s), Oral, Daily ondansetron 4 mg Dis Tab, See Instructions phentermine 37.5 mg Tab, 37.5 mg= 1 tab(s), Oral, Daily prazosin 1 mg Cap, 1 mg= 1 cap(s), Oral, Bedtime Proctofoam HC rectal foam, 1 gee, Rectal, TID Allergies hydrOXYzine (Nausea and vomiting) morphine (Urticaria) traZODone (Wheezing) Social (more content not included)... [facility] Comment on above: Result Comment: Elec tronically Signed By: Sophie Salcido\.br\Date and Time Signed: 01/27/24 15:45 EST Consent for Treatmenton 12-27 Consent for Treatment [id number] #1.00TIFF [facility] Discharge Instructionson Discharge Instructions [id number]#1.00TIFF [facility] ED Clinical Summaryon 2023 ED Clinical Summary [address] [address] ED Clinical Summary Person Information Name: JENY CARDOSO Ivelisse/[facility] Age: 23 Years : 2000 Sex: Female Language: Citizen Of [place] PCP: Sophie Salcido Marital Status: Single Phone: [phone] Visit Id: Visit Reason: Throat pain - Adult; Sinus Pain/Congestion; Cough; COVID LIKE SYMPTOMS Speciality: Acuity: 4 Enc Type: Emergency Med Service: Emergency Arrival: 01/21/2024 15:57:24 Discharge: 01/21/2024 18:29:08 LOS: 000 02:32 Checkin: 01/21/2024 15:57:24 Checkout: 01/21/2024 18:29:08 Dispo Type: Home (Routine DC) EVENTS: Event Name Event Status Request Date/Time Start Date/Time Complete Date/Time Arrive Complete 01/21/2024 15:57:24 01/21/2024 15:57:24 01/21/2024 15:57:24 Document Home Meds Request 01/21/2024 15:57:24 Triage Complete 01/21/2024 15:57:24 01/21/2024 16:10:44 01/21/2024 16:10:44 Registration Complete 01/21/2024 16:00:23 01/21/2024 16:00:23 01/21/2024 16:00:23 Reg Complete Request 01/21/2024 16:00:23 Reg Bed Request Complete 01/21/2024 16:00:23 01/21/2024 16:00:23 01/21/2024 16:00:23 Pending Labs Complete 01/21/2024 16:11:07 01/21/2024 16:51:17 Lab Complete 01/21/2024 16:11:07 01/21/2024 16:51:17 Swab Complete 01/21/2024 16:11:07 01/21/2024 16:50:45 Dr Exam Complete 01/21/2024 16:32:34 01/21/2024 16:32:34 01/21/2024 16:32:34 Registration Start 01/21/2024 16:32:34 01/21/2024 16:55:10 Pending Labs Request 01/21/2024 16:33:00 Dr Exam Complete 01/21/2024 16:42:33 01/21/2024 16:42:33 01/21/2024 16:42:33 Bed Assign Complete 01/21/2024 16:55:10 01/21/2024 16:55:10 01/21/2024 16:55:10 RN Exam Complete 01/21/2024 16:55:10 01/21/2024 17:02:08 01/21/2024 17:02:08 Pending Labs Complete 01/21/2024 17:14:18 01/21/2024 18:01:33 Lab Complete 01/21/2024 17:14:18 01/21/2024 18:01:33 Urine Collect Complete 01/21/2024 17:14:18 01/21/2024 18:01:33 Discharge Complete 01/21/2024 17:57:51 01/21/2024 18:29:12 01/21/2024 18:29:12 Transfer Complete 01/21/2024 18:29:12 01/21/2024 18:29:12 01/21/2024 18:29:12 ADDRESS: [address] [place] [phone] PHYS DOC NOTES: MEDICAL INFORMATION: Prescriptions Given: [facility], [address], [place] [id number], [phone] brompheniramine/dext romethorphan/PSE (Bromfed DM oral syrup) 5 Milliliter By Mouth 4 times a day as needed for cold symptoms. Refills: 0. Medications to Continue with No Changes Other Medications desvenlafaxine (desvenlafaxine 50 mg Tab-) 1 Tablets By Mouth every day. take 1 tablet by mouth once daily. doxepin (doxepin 10 mg Cap) 1 Capsules By Mouth once a day (at bedtime) as needed Insomnia. take 1 capsule by mouth at bedtime if needed for sleep. ethinyl estradiol-norgestima te (ethinyl estradiol-norgestima te 35 mcg-0.25 mg Tab) 1 Tablets By Mouth every day. omeprazole (omeprazole 40 mg Cap-DR) 1 Capsules By Mouth every day. take 1 capsule by mouth once daily. ondansetron (ondansetron 4 mg Dis Tab) 1 tab(s) Oral every 4-6 hours. phentermine (phentermine 37.5 mg Tab) 1 Tablets By Mouth every day. Refills: 0. prazosin (prazosin 1 mg Cap) 1 Capsules By Mouth at bedtime. take 1 capsule by mouth at bedtime for PTSD NIGHTMARES. PATIENT EDUCATION INFORMATION: Instructions: Upper Respiratory Infection, Adult, [place] Follow up: With: Address: When: Sophie Yoo In 3 days 01/24/2024 DIAGNOSIS: 1:Viral URI with cough [facility] ED Note-Physicianon 01-21-20 ED Note-Physician Basic Information Time Seen: Sosa Licea PA-C 01/21/2024 16:32 Chief Complaint patient presents with cough, sore throat and congestion that started 1 week ago History of Present Illness This patient presents emergency department chief complaint of cough, congestion, sore throat x 1 week. The patient has been exposed to other people that have been ill. The patient states she also had a period that lasted only 2 days this weekend and she is concerned she might be . She denies any urinary burning frequency or urgency. She denies any vaginal discharge or bleeding. Review of Systems Constitutional: Denies weight loss, fevers, chills, sweats, malaise Eyes: Denies visual changes, eye pain, double vision, scotomas, floaters ENT: Denies runny nose, epistaxis, sinus pain, ear pain, ringing in ears, tooth ache. + sore throat, pain with swallowing,+ Nasal congestion Cardiovascular: Denies chest pain, shortness of breath, orthopnea, edema, palpitations, loss of consciousness, claudication Respiratory: Denies sputum production, wheezing, hemoptysis, shortness of breath, dyspnea on exertion. + Nonproductive cough Gastrointestinal: Denies abdominal pain, unintentional weight loss, difficulty swallowing, indigestion, bloating, cramping, loss of appetite, nausea, vomiting, diarrhea, constipation, hematochezia, melena Genitourinary: Denies any incontinence of urine, dysuria, hematuria, nocturia, polyuria, hesitancy, frequency, urgency, burning Musculoskeletal: Denies joint pain, morning stiffness, joint swelling, decreased range of motion, crepitus Integumentary: Denies any pruritus, rashes, lesions, wounds, petechiae Neurologic: Denies any changes in sight, smell, hearing, taste, seizures, headache, paresthesia, numbness, weakness, balance disturbance Psychiatric denies any depression, change in sleep patterns, anxiety, difficulty concentrating, paranoia, anhedonia, lack of energy, adia Hematologic/lymphati c: Denies any purpura, petechiae, excessive bleeding, bruising Physical Exam Vitals & Measurements T: 36.8 ?C(Oral) HR: 83(Peripheral) RR: 18 BP: 131/97 SpO2: 99% HT: 163.8 cm WT: 135.2 kg BMI: 50.39 Vital signs and nursing notes reviewed. General: Awake, alert, NAD. HEENT: Head is normocephalic, atraumatic. PERRL. EOMI. Sclerae are anicteric. External ears are normal. TMs are intact bilaterally. Canals are clear bilaterally. Nares are patent bilaterally. Oral mucosa is pink and moist. No lesions noted. Tongue protrudes in midline. Uvula rises with phonation. Neck is supple, no no palpable adenopathy. No JVD. Trachea is midline. Thorax: Symmetrical rise and fall Lungs: Clear to auscultation throughout all lynn, no wheezes, no crackles Heart: Regular rate and rhythm. No murmur, gallop, or rub Abdomen: No tenderness on palpation. Bowel sounds are present active and normal. No organomegaly. No palpable masses. No CVA tenderness. Extremities: Motor sensory pulses intact x4 extremities. No lower extremity edema. Skin: No lesions, rashes, ulcerations. No bruising or petechiae. Color appropriate, warm and dry Neuro: No oriented x3, no focal neuro deficits Psych: Mood and affect are normal Medical Decision Making MEDICAL DECISION MAKING Number and Complexity of Problems Differential Diagnosis: COVID-19, influenza A, influenza B, viral illness, acute lower urinary tract infection, MDM Data External documents reviewed: Not applicable My EKG interpretation: Noted in chart if applicable My CT interpretation: Noted in chart if applicable My X-ray interpretation: Noted in chart if applicable My Ultrasound interpretation: Not applicable Decision rules/scores evaluated: Noted in chart if applicable Discussed with: Not applicable Treatment and Disposition ED Course: Patient was interviewed and examined. The appropriate ER workup has been initiated. Influenza A, influenza B, both negative. COVID-19 negative. UA was unremarkable. Urine was negative. I discussed the results of the workup with the patient. I discussed the discharge diagnosis, plan of care, home-going instructions and prescription with the patient. The patient be discharged home in stable condition. She can follow-up with her primary care physician. She is to return to the emergency department for any further problems or concerns. Shared decision making: I discussed the discharge diagnosis, plan of care, home-going instructions and prescription with the patient. She is in agreement with the plan of care. Code status: Not applicable Assessment/Plan 1. Viral URI with cough (J06.9: Acute upper respiratory infection, unspecified) Orders: brompheniramine/dext romethorphan/PSE, 5 mL, Oral, QID for cold symptoms, 120 mL, Refill(s) 0, [facility], 163.8, cm, 01/21/24 16:10:00 EST, Height/Length Dosing, 135.2, kg, 01/21/24 16:10:00 EST, Weight Dosing Rapid Strep w/rfx U Beta Hcg Qual UA With Cult Reflex Disposition Plan Radha (more content not included)... [facility] Comment on above: Result Comment: Elec tronically Signed By: Sosa Licea PA-C\.br\Date and Time Signed: 01/21/24 18:19 EST\.br\Electronically Co-Signed By: Ruel Dowd M.D.\.br\Date and Time Co-Signed: 01/21/24 19:48 EST ED Patient Education Noteon 01-21-2024 ED Patient Education Note Infectious Disease Upper Respiratory Infection, Adult An upper respiratory infection (URI) affects the nose, throat, and upper airways that lead to the lungs. The most common type of URI is often called the common cold. URIs usually get better on their own, without medical treatment. What are the causes? A URI is caused by a germ (virus). You may catch these germs by: ? Breathing in droplets from an infected person's cough or sneeze. ? Touching something that has the germ on it (is contaminated) and then touching your mouth, nose, or eyes. What increases the risk? You are more likely to get a URI if: ? You are very young or very old. ? You have close contact with others, such as at work, school, or a health care facility. ? You smoke. ? You have long-term (chronic) heart or lung disease. ? You have a weakened disease-fighting system (immune system). ? You have nasal allergies or asthma. ? You have a lot of stress. ? You have poor nutrition. What are the signs or symptoms? ? Runny or stuffy (congested) nose. ? Cough. ? Sneezing. ? Sore throat. ? Headache. ? Feeling tired (fatigue). ? Fever. ? Not wanting to eat as much as usual. ? Pain in your forehead, behind your eyes, and over your cheekbones (sinus pain). ? Muscle aches. ? Redness or irritation of the eyes. ? Pressure in the ears or face. How is this treated? URIs usually get better on their own within 7?10 days. Medicines cannot cure URIs, but your doctor may recommend certain medicines to help relieve symptoms, such as: ? Ooyt-kbe-rnphlzq cold medicines. ? Medicines to reduce coughing (cough suppressants). Coughing is a type of defense against infection that helps to clear the nose, throat, windpipe, and lungs (respiratory system). Take these medicines only as told by your doctor. ? Medicines to lower your fever. Follow these instructions at home: Activity ? Rest as needed. ? If you have a fever, stay home from work or school until your fever is gone, or until your doctor says you may return to work or school. ? You should stay home until you cannot spread the infection anymore (you are not contagious). ? Your doctor may have you wear a face mask so you have less risk of spreading the infection. Relieving symptoms ? Rinse your mouth often with salt water. To make salt water, dissolve ??1 tsp (3?6 g) of salt in 1 cup (237 mL) of warm water. ? Use a cool-mist humidifier to add moisture to the air. This can help you breathe more easily. Eating and drinking ? Drink enough fluid to keep your pee (urine) pale yellow. ? Eat soups and other clear broths. General instructions ? Take pdqp-cew-nhkspcw and prescription medicines only as told by your doctor. ? Do not smoke or use any products that contain nicotine or tobacco. If you need help quitting, ask your doctor. ? Avoid being where people are smoking (avoid secondhand smoke). ? Stay up to date on all your shots (immunizations), and get the flu shot every year. ? Keep all follow-up visits. How to prevent the spread of infection to others ? Wash your hands with soap and water for at least 20 seconds. If you cannot use soap and water, use hand supervisor grinding. ? Avoid touching your mouth, face, eyes, or nose. ? Cough or sneeze into a tissue or your sleeve or elbow. Do not cough or sneeze into your hand or into the air. Contact a doctor if: ? You are getting worse, not better. ? You have any of these: ? A fever or chills. ? Brown or red mucus in your nose. ? Yellow or brown fluid (discharge)coming from your nose. ? Pain in your face, especially when you bend forward. ? Swollen neck glands. ? Pain when you swallow. ? White areas in the back of your throat. Get help right away if: ? You have shortness of breath that gets worse. ? You have very bad or constant: ? Headache. ? Ear pain. ? Pain in your forehead, behind your eyes, and over your cheekbones (sinus pain). ? Chest pain. ? You have long-lasting (chronic) lung disease along with any of these: ? Making high-pitched whistling sounds when you breathe, most often when you breathe out (wheezing). ? Long-lasting cough (more than 14 days). ? Coughing up blood. ? A change in your usual mucus. ? You have a stiff neck. ? You have changes in your: ? Vision. ? Hearing. ? Thinking. ? Mood. These symptoms may be an emergency. Get help right away. Call 911. ? Do not wait to see if the symptoms will go away. ? Do not drive yourself to the hospital. Summary ? An upper respiratory infection (URI) is caused by a germ (virus). The most common type of URI is often called the common cold. ? URIs usually get better within 7?10 days. ? Take bfve-sgb-rocewdv and prescription medicines only as told by your doctor. This information is not intended to replace advice given to you by your health care (more content not included)... Normal [facility] ED Patient Summaryon 024 ED Patient Summary [address] [address] Patient Discharge Instructions Person Information Name: JENY CARDOSO Age: 23 Years Arrival Date: 01/21/2024 15:57:24 Discharge Diagnosis: 1:Viral URI with cough Primary Care Physician: Sophie Salcido Provider Information Primary Provider: uRel Dowd M.D. Advanced Dryer Operator:None The exam and treatment you received in the Emergency Department were for an urgent problem and are not intended as complete care. It is important that you follow up with a doctor, nurse practitioner, or physician?s catering administrative assistant for ongoing care. If your symptoms become worse or you do not improve as expected and you are unable to reach your usual health care provider, you should return to the Emergency Department. We are available 24 hours a day. JENY CARDOSO has been given the following list of patient education materials, prescriptions and follow-up instructions: Follow-up Instructions: With: Address: When: Sophie Yoo In 3 days 01/24/2024 In the event that this physician does not participate in your insurance network, please consult with your insurance company to find a nearby participating provider. Patient Education Materials: Upper Respiratory Infection, Adult, Xvnj-em-Rcno A MESSAGE TO ALL PATIENTS REGARDING OPIOIDS PRESCRIPTION OPIOIDS: WHAT YOU NEED TO KNOW Prescription opioids can be used to help relieve hpphpvkn-yr-cfpiyt pain and are often prescribed following a surgery or injury, or for certain health conditions. These medications can be an important part of the treatment but also come with serious risks. It is important to work with your healthcare provider to make sure you are getting the safest, most effective care. WHAT ARE THE RISKS AND SIDE EFFECTS OF OPIOID USE? Prescription opioids carry serious risks of addiction and overdose, especially with prolonged use. An opioid overdose, often marked by slowed breathing, can cause sudden . The use of prescription opioids can have a number of side effects as well, even when taken as directed: ? Tolerance?meaning you might need to take more of the medication for the same pain relief ? Physical dependence?meaning you have symptoms of withdrawal when a medication is stopped ? Increased sensitivity to pain ? Constipation ? Nausea, vomiting, and dry mouth ? Sleepiness and dizziness ? Confusion ? Depression ? Low levels of testosterone that can result in lower sex drive, energy, and strength ? Itching and sweating RISKS ARE GREATER WITH: ? History of drug misuse, substance use disorder, or overdose ? Mental health conditions (such as depression or anxiety) ? Sleep apnea ? Older age (65 years and older) ? Avoid alcohol while taking prescription opioids. Also, unless specifically advised by your health care provider, medications to avoid include: ? Benzodiazepines (such as Xanax or Valium) ? Muscle relaxants (such as Soma or Flexeril) ? Hypnotics (such as Ambien or Lunesta) ? Other prescription opioids KNOW YOUR OPTIONS Talk to your health care provider about ways to manage your pain that don?t involve prescription opioids. Some of these options may actually work better and have fewer risks and side effects. Options may include: ? Pain relievers such as acetaminophen, ibuprofen, and naproxen ? Some medication that are also used for depression or seizures ? Physical therapy and exercise ? Cognitive behavioral therapy, a psychological, goal-directed approach, in which patients learn how to modify physical, behavioral, and emotional triggers of pain and stress. IF YOU ARE PRESCRIBED OPIOIDS FOR PAIN: ? Never take opioids in greater amounts or more often than prescribed. ? Follow up with your primary health care provider. o Work together to create a plan on how to manage your pain. o Talk about ways to help manage your pain that don?t involve prescription opioids. o Talk about any and all concerns and side effects. ? Help prevent misuse and abuse o Never sell or share prescription opioids. o Never use another person?s prescription opioids. ? Store prescription opioids in a secure place and out of reach of others (this may include visitors, children, friends, and family). ? Safely dispose of unused prescription opioids: Find your community drug take-back program or your pharmacy mail-back program, or flush them down the toilet, following guidance from the Food and Drug Administration (www.fda.gov/Drugs/R esourcesForYou). ? Visit www.cdc.gov/drugover dose to learn about the risks of opioids abuse and overdose. ? If you believe you may be struggling with addiction, tell your health date night caregiver and ask for guidance or call [facility]?S National Helpline at 8-401-385-FHWO. v Source: [place] Department of Health and Human Services/Center for Disease C (more content not included)... Normal [facility] Influenza A&B Agon Influenzae A Ag Negative Normal Negative [facility] Comment on above: Performed By: #### 1 [id number], [id number] ####[facility] [address] [place] [address] Influenzae B Ag Negative Normal Negative [facility] Comment on above: Result Comment: Test sensitivity and specificity vary for age group, specimen type, antigen types, and prevalence of disease. Test results must be evaluated in conjunction with other clinical data available to the physician. Individuals who received nasally administered Influenza A vaccine may have positive test results up to 3 days after vaccination. Performed By: #### 1 [id number], [id number] ####[facility] [address] [place] [address] MICRO OTHER TESTSOrdered By: Christina Martinez on 01-21-2024 Influenzae A Ag Negative (01/21/24 4:14 PM) Normal Negative [facility] Influenzae B Ag Negative 1 (01/21/24 4:14 PM) Normal Negative [facility] Comment on above: Interpretive Data: T est sensitivity and specificity vary for age group, specimen type, antigen types, and prevalence of disease. Test results must be evaluated in conjunction with other clinical data available to the physician. Individuals who received nasally administered Influenza A vaccine may have positive test results up to 3 days after vaccination. Rapid COV Int NEG Ctl Pass (01/21/24 4:14 PM) Normal [facility] Rapid COV Int POS Ctl Pass (01/21/24 4:14 PM) Normal [facility] SARS-CoV+SARS-CoV-2 (COVID-19) Ag IA.rapid Ql (Resp) Not Detected 2 (01/21/24 4:14 PM) Normal Not Detected [facility] Comment on above: Interpretive Data: T he [employer] Veritor System for Rapid Detection of SARS-CoV-2 is a chromatographic digital immunoassay intended for the direct and qualitative detection of SARS-CoV-2 nucleocapsid antigens in nasal swabs from individuals who are suspected of COVID-19 by their healthcare provider within the first five days of the onset of symptoms. Negative results should be treated as presumptive, do not rule out SARS-CoV-2 infection and should not be used as the sole basis for treatment or patient management decisions, including infection control decisions. Negative results should be considered in the context of a patient s recent exposures, history and the presence of clinical signs and symptoms consistent with COVID-19, and confirmed with a molecular assay, if necessary, for patient management. For in vitro diagnostic use. In the [place], only for use under an Emergency Use Authorization. In the [place], this test has not been FDA cleared or approved; this test has been authorized by FDA under an EUA for use by authorized laboratories; use by laboratories certified under the CLIA, 42 U.S.C. 263a, that meet requirements to perform moderate, high, or waived complexity tests and at the Point of Care (POC), i.e., in patient care settings operating under a CLIA Certificate of Waiver, Certificate of Compliance, or Certificate of Accreditation. This test has been authorized only for the detection of proteins from SARS-CoV-2, not for any other viruses or pathogens; and, in the [place], this test is only authorized for the duration of the declaration that circumstances exist justifying the authorization of emergency use of in vitro diagnostics for detection and/or diagnosis of the virus that causes COVID-19 under Section 564(b)(1) of the Act, 21 U.S.C. 360bbb-3(b)(1), unless the authorization is terminated or revoked sooner. Prescriptions/Work Noteson 0 01-21-2024 Prescriptions/Work Notes [id number] 2#1.00TIFF Normal [facility] Rapid COVID Antigen ([facility])on 01-21-2024 Rapid COV Int NEG Ctl Pass Normal [facility] Comment on above: Performed By: #### 1 [id number], [id number] ####[facility] [address] [place] [address] Rapid COV Int POS Ctl Pass Normal [facility] Comment on above: Performed By: #### 1 [id number], [id number] ####[facility] [address] [place] [address] SARS-CoV+SARS-CoV-2 (COVID-19) Ag IA.rapid Ql (Resp) Not detected Normal Not Detected [facility] Comment on above: Result Comment: The [employer]? System for Rapid Detection of SARS-CoV-2 is a chromatographic digital immunoassay intended for the direct and qualitative detection of SARS-CoV-2 nucleocapsid antigens in nasal swabs from individuals who are suspected of COVID-19 by their healthcare provider within the first five days of the onset of symptoms. Negative results should be treated as presumptive, do not rule out SARS-CoV-2 infection and should not be used as the sole basis for treatment or patient management decisions, including infection control decisions. Negative results should be considered in the context of a patient?s recent exposures, history and the presence of clinical signs and symptoms consistent with COVID-19, and confirmed with a molecular assay, if necessary, for patient management. For in vitro diagnostic use. In the [place], only for use under an Emergency Use Authorization. In the [place], this test has not been FDA cleared or approved; this test has been authorized by FDA under an EUA for use by authorized laboratories; use by laboratories certified under the CLIA, 42 U.S.C. ?263a, that meet requirements to perform moderate, high, or waived complexity tests and at the Point of Care (POC), i.e., in patient care settings operating under a CLIA Certificate of Waiver, Certificate of Compliance, or Certificate of Accreditation. This test has been authorized only for the detection of proteins from SARS-CoV-2, not for any other viruses or pathogens; and, in the [place], this test is only authorized for the duration of the declaration that circumstances exist justifying the authorization of emergency use of in vitro diagnostics for detection and/or diagnosis of the virus that causes COVID-19 under Section 564(b)(1) of the Act, 21 U.S.C. ? 360bbb-3(b)(1), unless the authorization is terminated or revoked sooner. Performed By: #### 1 [id number], [id number] ####[facility] [address] [place] [address] SEROLOGYOrdered By: Jeannette russo on 01-21-2024 HCG.beta subunit (U) [Moles/Vol] Negative Normal [facility] U BetaHcg Qualon 01-21-2024 HCG.beta subunit (U) [Moles/Vol] Negative Normal [facility] Comment on above: Performed By: #### 1 [id number], [id number] ####[facility] [address] [place] [address] UA With Cult Reflexon 2023 Bacteria LM Ql (Urine sed) TRACE Normal Trace [facility] Comment on above: Performed By: #### 1 [id number], [id number] ####[facility] [address] [place] [address] Bilirubin Ql (U) Negative Normal Negative [facility] Comment on above: Performed By: #### 1 [id number], [id number] ####[facility] [address] [place] [address] Clarity (U) CLEAR Normal Clear [facility] Comment on above: Performed By: #### 1 [id number], [id number] ####[facility] [address] [place] [id number] Color (U) YELLOW Normal Yellow [facility] Comment on above: Performed By: #### 1 [id number], [id number] ####[facility] [address] [place] [address] Crystals LM Ql (Urine sed) Present Normal [facility] Comment on above: Performed By: #### 1 [id number], [id number] ####[facility] [address] [place] [address] Epithelial cells.squamous LM.HPF (Urine sed) [#/Area] 5-8 Normal 0-2 [facility] Comment on above: Performed By: #### 1 [id number], [id number] ####[facility] [address] [place] [address] Glucose Test strip (U) [Mass/Vol] Negative Normal Negative [facility] Comment on above: Performed By: #### 1 [id number], [id number] ####[facility] [address] [place] [address] Hemoglobin Ql (U) Negative Normal Negative [facility] Comment on above: Performed By: #### 1 [id number], [id number] ####[facility] [address] [place] [address] Ketones (U) [Mass/Vol] Negative Normal Negative [facility] Comment on above: Performed By: #### 1 [id number], [id number] ####[facility] [address] [place] [address] Agency.plasma/Agency .RBC (Bld) [Mass ratio] 0-3 Normal 0-3 [facility] Comment on above: Performed By: #### 1 [id number], [id number] ####[facility] [address] [place] [address] Mucus Ql (Urine sed) TRACE Normal [facility] Comment on above: Performed By: #### 1 [id number], [id number] ####[facility] [address] [place] [address] Nitrite Ql (U) Negative Normal Negative [facility] Comment on above: Performed By: #### 1 [id number], [id number] ####[facility] [address] [place] [address] pH (U) 6.0 [pH] Invalid Interpretation Code 5.0-9.0 [facility] Comment on above: Performed By: #### 1 [id number], [id number] ####[facility] [address] [place] [address] Protein (U) [Mass/Vol] TRACE Abnormal Negative [facility] Comment on above: Performed By: #### 1 [id number], [id number] ####[facility] [address] [place] [address] Specific gravity (U) [Rel density] >=1.030 Invalid Interpretation Code 1.005-1.030 [facility] Comment on above: Performed By: #### 1 [id number], [id number] ####[facility] [address] [place] [address] Type of Urine collection method Clean Catch Normal [facility] Comment on above: Performed By: #### 1 [id number], [id number] ####[facility] [address] [place] [address] Urobilinogen Qn (U) 1.0 {Shelbie'U}/dL Normal 0.0-1.0 [facility] Comment on above: Performed By: #### 1 [id number], [id number] ####[place] [id number] WBC Auto Ql (U) Negative Normal Negative [facility] Comment on above: Performed By: #### 1 [id number], [id number] ####[place] [id number] WBC LM.HPF (Urine sed) [#/Area] 0-5 Normal 0-5 [facility] Comment on above: Performed By: #### 1 [id number], [id number] ####[place] [id number] URINALYSISOrdered By: Jeannette keys on 01-21-2024 Bacteria LM Ql (Urine sed) Trace /HPF Normal Trace/HPF [facility] UA Auto SS Bilirubin Ql (U) Negative (01/21/24 5:27 PM) Normal Negative [facility] UA Auto SS Clarity (U) Clear (01/21/24 5:27 PM) Normal Clear [facility] UA Auto SS Color (U) Yellow (01/21/24 5:27 PM) Normal Yellow [facility] UA Auto SS Crystals LM Ql (Urine sed) Present (01/21/24 5:27 PM) Normal [facility] UA Auto SS Epithelial cells.squamous LM.HPF (Urine sed) [#/Area] 5-8 /HPF Normal 0-2/HPF [facility] UA Aut o SS Glucose Test strip (U) [Mass/Vol] Negative (01/21/24 5:27 PM) Normal Negative [facility] UA Auto SS Hemoglobin Ql (U) Negative (01/21/24 5:27 PM) Normal Negative [facility] UA Auto SS Ketones (U) [Mass/Vol] Negative (01/21/24 5:27 PM) Normal Negative [facility] UA Auto SS Agency.plasma/Agency .RBC (Bld) [Mass ratio] 0-3 /HPF Normal 0-3/HPF [facility] UA Auto SS Mucus Ql (Urine sed) Trace (01/21/24 5:27 PM) Normal [facility] UA Auto SS Nitrite Ql (U) Negative (01/21/24 5:27 PM) Normal Negative [facility] UA Auto SS pH (U) 6.0 *NA* (01/21/24 5:27 PM) Invalid Interpretation Code 5.0 - 9.0 [facility] UA Auto SS Protein (U) [Mass/Vol] Trace *ABN* (01/21/24 5:27 PM) Invalid Interpretation Code Negative [facility] UA Auto SS Specific gravity (U) [Rel density] >=1.030 *NA* (01/21/24 5:27 PM) Invalid Interpretation Code 1.005 - 1.030 [facility] UA Auto SS UA Spec Desc Clean Catch (01/21/24 5:27 PM) Normal [facility] UA Auto SS Urobilinogen Qn (U) 1.4324630 {Shelbie'U}/dL Normal 0.0 - 1.0 EU/dL [facility] UA Auto SS WBC Auto Ql (U) Negative (01/21/24 5:27 PM) Normal Negative [facility] UA Auto SS WBC LM.HPF (Urine sed) [#/Area] 0-5 /HPF Normal 0-5/HPF [facility] UA Auto SS Ambulatory Visit Summaryon 0 01-09-2024 Ambulatory Visit Summary JANAECHRISTINEJENY A :2000 Visit Date:01/09/2024 Ambulatory Visit Instructions Your Diagnosis Encounter for weight management Depression Anxiety BMI 50.0-59.9, adult Non-smoker Your Care Team Attending Physician - Sophie Salcido Primary Care Physician - MICAELA CENTENO CNP This Is Your Medications List desvenlafaxine (desvenlafaxine 50 mg Tab-) doxepin (doxepin 10 mg Cap) ethinyl estradiol-norgestima te (ethinyl estradiol-norgestima te 35 mcg-0.25 mg Tab) omeprazole (omeprazole 40 mg Cap-DR) ondansetron (ondansetron 4 mg Dis Tab) prazosin (prazosin 1 mg Cap) Procedures Performed Appendectomy, Colonoscopy, Ovarian cystectomy. Discharge Vitals Heart Rate (Peripheral) 88 Respiratory Rate 18 Blood Pressure 128/86 Height 163.8 cm Height 64 in Weight 136.3 kg Weight 299.86 lb BMI 50.8 What to do next Scheduled Follow-Up Appointments Jan. 2023 1:40 PM EDT With: Sophie Salcido Where: [facility] Family Medicine Bashir Normal [facility] Family Medicine Office/Clini c Noteon 01-09-2024 Family Medicine Office/Clinic Note HPI Staff Jeny is a 23 year old female presenting to establish care Establish Care: History: Any previous diagnosis: Anxiety/Depression PTSD History of seeing any specialist: When was your last doctors visit: Last provider: cheyenne ortega Any recent labs: 09/2023 , [facility] UTD: Colonoscopy: 2-3 years ago normal Mammogram: 2-3 years ago normal Pelvic/Pap: 07/2023 normal LEVI: 13 PHQ-9: 13 Acute: Current issues/complaints: 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 no refills needed at this time History of Present Illness pt presents today to establish care. would like referral for , also wants to discuss weight loss Review of Systems PHQ Score Initial Depression Screen Score: 2 SCORE ROS - Provider Constitutional: no fever, no chills, no sweats, no fatigue Respiratory: no shortness of breath, no cough, no orthopnea, no wheezing. Cardiovascular: no chest pain, no palpitations, no edema. Neurologic: no headache, no dizziness, no numbness, no weakness. Physical Exam Vitals & Measurements HR: 88(Peripheral) RR: 18 BP: 128/86 SpO2: 98% HT: 64 in HT: 163.8 cm WT: 136.3 kg WT: 299.86 lb BMI: 50.8 General: alert, no acute distress ENMT: oral mucosa moist, no pharyngeal erythema or exudate Cardiovascular: regular rate and rhythm, normal peripheral perfusion Respiratory: Lungs CTA, respirations non labored Extremities: no deformity, no trauma Neurological: oriented x 4, LOC appropriate for age, CN II-XII intact, motor strength equal & normal bilaterally, speech normal Assessment/Plan 1. Encounter for weight management (Z76.89: Persons encountering health services in other specified circumstances) pt would like to discuss weight loss. previous provider wanted to prescribe something that was really expensive. adipiex discussed. medication agreement signed. risks and benefits discussed. RTC 4 weeks 2. Depression (F32.A: Depression, unspecified) pt looking for referral for . has been going to [employer] but is not happy for it. 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 Anxiety (F41.9: Anxiety disorder, unspecified) see above 4. BMI 50.0-59.9, adult (Z68.43: Body mass index [BMI] 50.0-59.9, adult) BMI education complete. pt to make better food choices and is working out 5. Non-smoker (Z78.9: Other specified health status) continue not smoking Follow-up No qualifying data available Problem List/Past Medical History Ongoing Anxiety BMI 40.0-44.9, adult Change in bowel habits Depression Encounter for weight management Flank pain Frequent UTI GERD (gastroesophageal reflux disease) Hematochezia Herpes Rectal bleeding Historical No qualifying data Procedure/Surgical History Appendectomy, Colonoscopy, Ovarian cystectomy. Medications desvenlafaxine 50 mg Tab-, 50 mg= 1 tab(s), Oral, Daily doxepin 10 mg Cap, 10 mg= 1 cap(s), Oral, Once a day (at bedtime), PRN ethinyl estradiol-norgestima te 35 mcg-0.25 mg Tab, 1 tab(s), Oral, Daily, Not taking: pt is out of medication omeprazole 40 mg Cap-DR, 40 mg= 1 cap(s), Oral, Daily ondansetron 4 mg Dis Tab, See Instructions prazosin 1 mg Cap, 1 mg= 1 cap(s), Oral, Bedtime Allergies hydrOXYzine (Nausea and vomiting) morphine (Urticaria) traZODone (Wheezing) Social History Alcohol - Denies Alcohol Use, 12/19/2021 Substance Abuse - Denies Substance Abuse, 12/19/2021 Tobacco - Denies Tobacco Use, 07/04/2022 Never (less than 100 in lifetime) Tobacco Use:. Never Smokeless Tobacco Use:. Household tobacco concerns: No., 01/09/2024 Family History Alcoholism: Father. Arthritis: Mother and Father. Diabetes mellitus type 2: Grandparent. High blood pressure: Father. Migraine: Mother. Immunizations Vaccine Date Status Comments influenza virus vaccine, inactivated 09/14/2021 Recorded influenza, unspecified formulation 08/25/2021 Recorded meningococcal conjugate vaccine 12/02/2020 Recorded 2022-12-25: VIS DATE: 07/09/2019 influenza virus vaccine, inactivated 12/02/2020 Recorded 2022-12-25: VIS DATE: 07/09/2019 meningococcal group B vaccine 09/17/2019 Recorded meningococcal conjugate vaccine 09/17/2019 Recorded influenza virus vaccine, inactivated 10/14/2018 Recorded influenza virus vaccine, inactivated 09/11/2018 Recorded influenza virus vaccine, inactivated 11/25/2016 Recorded influenza virus vaccine, inactivated 09/25/2016 Recorded human papillomavirus vaccine 03/12/2016 Recorded human papillomavirus vaccine 11/07/2015 Recorded diphtheria/pertussis , acel/tetanus adult 09/07/2015 Recorded meningococcal conjugate vaccine 09/07/2015 Recorded influenza virus vaccine, live, trivalent 09/07/2015 Recorded human papillomavirus vaccine 09/07/2015 Recorded hepatitis A pediatric vaccine 09/07/2015 Recorded hepatitis A pediatric vaccine 12/23/2013 Recorded DTaP, unspecified formulation 02/24/2013 Recorded influenza viru (more content not included)... [facility] Comment on above: Result Comment: Elec tronically Signed By: Sophie Salcido\.br\Date and Time Signed: 01/09/24 13:26 EST Medication Consenton 024 Medication Consent [id number] #[id number] [facility] Cult,Genitalon 09-13-2023 Cult,Genital Specimen Description .VAGINA Culture NORMAL URO-GENITAL OMID NEGATIVE FOR GROUP B STREPTOCOCCI NEGATIVE FOR NEISSERIA GONORRHOEAE Report Status FINAL 09/13/2023 [facility] Comment on above: Performed By: #### G EC #### [facility] [address] [place] [address] Receiving Team Member: Arron Paul MD [facility] [address] [place] [address] Receiving Team Member: Kristine Talbot MD Chlamydia/GC DNA, TPon 09-12 Chlamydia Probe, TP Negative Normal NEG [facility] Comment on above: Result Comment: CHLA MYDIA TRACHOMATIS DNA not detected by nucleic acid amplification. This test is intended for medical purposes only and is not valid for the evaluation of suspected sexual abuse or for other forensic purposes. In certain contexts, culture may be required to meet applicable laws and regulations for diagnosis of C. trachomatis and N. gonorrhoeae infections. Per 2014 CDC recommendations, this test does not include confirmation of positive results by an alternative nucleic acid target. Performed By: #### C YTCGP #### [address] [id number] Receiving Team Member: Arron Paul MD Gonorrhea Probe, TP Negative Normal NEG [facility] Comment on above: Result Comment: NEIS SERIA GONORRHOEAE DNA not detected by nucleic acid amplification. This test is intended for medical purposes only and is not valid for the evaluation of suspected sexual abuse or for other forensic purposes. In certain contexts, culture may be required to meet applicable laws and regulations for diagnosis of C. trachomatis and N. gonorrhoeae infections. Per 2014 CDC recommendations, this test does not include confirmation of positive results by an alternative nucleic acid target. Performed By: #### C YTCGP #### [address] [id number] Receiving Team Member: Arron Paul MD Cult,Urineon 09-12-2023 Cult,Urine Specimen Description .CLEAN CATCH URINE Culture KLEBSIELLA PNEUMONIAE >100,000 CFU/ML Report Status FINAL 09/12/2023 SUSCEPTIBILITY Organism KLEBSIELLA PNEUMONIAE Method PATTI Ampicillin >=32 RESISTANT Cefazolin <=4 SUSCEPTIBLE Cefazolin sensitivity results can be used to predict the effectiveness of oral cephalosporins (eg. Cephalexin) in uncomplicated Urinary Tract Infections due to E. coli, K. pneumoniae, and P. mirabilis Ceftriaxone <=0.25 SUSCEPTIBLE ESBL NEGATIVE Gentamicin <=1 SUSCEPTIBLE Levofloxacin <=0.12 SUSCEPTIBLE Nitrofurantoin 64 INTERMEDIATE Piperacillin/Tazobac mckeon <=4 SUSCEPTIBLE Tobramycin <=1 SUSCEPTIBLE Trimethoprim/Sulfa <=20 SUSCEPTIBLE Susceptible [facility] Comment on above: Performed By: #### U #### [id number] [place] [address] Receiving Team Member: Arron Paul MD [facility] [address] [place] [address] Receiving Team Member: Kristine Talbot MD Cytology Reporton 09-10-2023 Cytology report Cyto stain.thin prep Doc (Cvx/Vag) (NOTE) Path Number: [id number] DIAGNOSIS Imaged ThinPrep Pap - Cervical (1 monolayer slide): Specimen Adequacy: Satisfactory for evaluation. - Endocervical/transfo rmation zone component present. Descriptive Diagnosis: Negative for intraepithelial lesion or malignancy. Cytotech Screener: EY Electronically Signed Out Harpal DRAKE(ASCP) ey/09/17/2023 Source of Specimen: A: Imaged ThinPrep Pap - Cervical (1 monolayer slide) Clinical History Contraceptive use Z12.4 Encounter for screening for malignant neoplasm of cervix LMP: 08/19/23 Processing Lab: [address] [id number] Interpretation performed at [address] [id number] This Pap Test has been evaluated with the assistance of the ThinPrep Pap Test Imaging System. The Pap smear is a screening test primarily for squamous epithelial lesions, which is subject to both false negative and false positive results. Your patient should be reminded to consult you immediately if she experiences any suspicious signs or symptoms, regardless of her Pap smear result. GYNECOLOGIC CYTOLOGY REPORT Patient Name: JENY CARDOSO [facility] Rec: [id number] [facility] ANATOMIC PATHOLOGY [address] [place] [id number] Normal [facility] XR TOE LEFT (MIN 2 VIEWS)on 08-03-2023 XR TOE LEFT (MIN 2 VIEWS) EXAMINATION: 4 XRAY VIEWS OF THE LEFT TOE 08/03/2023 8:50 am COMPARISON: 08/13/2017 HISTORY: ORDERING SYSTEM PROVIDED HISTORY: TECHNOLOGIST PROVIDED HISTORY: Specify which digit to image->First (Thumb/Great Toe) FINDINGS: No fracture or malalignment identified. The joint spaces are maintained. No discrete soft tissue abnormality identified. IMPRESSION: No acute osseous abnormality identified. Interpreted by: Adelso Hernandez MD Signed by: Adelso Hernandez MD 08/03/23 Final result Normal [facility] No acute osseous abnormality identified. [facility] EXAMINATION: 4 XRAY VIEWS OF THE LEFT TOE 08/03/2023 8:50 am COMPARISON: 08/13/2017 HISTORY: ORDERING SYSTEM PROVIDED HISTORY: TECHNOLOGIST PROVIDED HISTORY: Specify which digit to image->First (Thumb/Great Toe) FINDINGS: No fracture or malalignment identified. The joint spaces are maintained. No discrete soft tissue abnormality identified. [facility] Adelso Hernandez MD - 08/03/2023 EXAMINATION: 4 XRAY VIEWS OF THE LEFT TOE 08/03/2023 8:50 am COMPARISON: 08/13/2017 HISTORY: ORDERING SYSTEM PROVIDED HISTORY: TECHNOLOGIST PROVIDED HISTORY: Specify which digit to image->First (Thumb/Great Toe) FINDINGS: No fracture or malalignment identified. The joint spaces are maintained. No discrete soft tissue abnormality identified. IMPRESSION: No acute osseous abnormality identified. [facility] Radiology Study observation (narrative) [facility] XR TOE LEFT (MIN 2 VIEWS)Ord ered By: Adelso Hernandez on 08-03-2023 [facility] Work Phone: Flu A/B Ag Detectionon 07-11 Flu A Ag Detection Negative Normal NEG [facility] Comment on above: Result Comment: for Influenza A Antigen Performed By: #### F LUABA #### [facility] [address] [place] [address] Receiving Team Member: Kristine Talbot MD Flu B Ag Detection Negative Normal NEG [facility] Comment on above: Result Comment: for Influenza B Antigen. Performed By: #### F LUABA #### [facility] [address] [place] [address] Receiving Team Member: Kristine Talbot MD [id number] 07-11-2023 SARS-CoV-2 (COVID-19) RNA MIKE+probe Ql (Unsp spec) Not detected Normal NOTDET [facility] Comment on above: Result Comment: Rapid NAAT: The specimen is NEGATIVE for SARS-CoV-2, the novel coronavirus associated with COVID-19. The ID NOW COVID-19 assay is designed to detect the virus that causes COVID-19 in patients with signs and symptoms of infection who are suspected of COVID-19. An individual without symptoms of COVID-19 and who is not shedding SARS-CoV-2 virus would expect to have a negative (not detected) result in this assay. Negative results should be treated as presumptive and, if inconsistent with clinical signs and symptoms or necessary for patient management, should be tested with an alternative molecular assay. Negative results do not preclude SARS-CoV-2 infection and should not be used as the sole basis for patient management decisions. Fact sheet for Healthcare Providers: https://www.fda.gov/media/686129/download Fact sheet for Patients: https://www.fda.gov/media/751599/download Methodology: Isothermal Nucleic Acid Amplification Performed By: #### C OVRB #### [facility] [address] [place] [address] Receiving Team Member: Kristine Talbot MD Strep Group A, Rapidon 07-11 Strep A, Molecular Negative Normal NEG [facility] Comment on above: Performed By: #### R SAB #### [facility] [address] [place] [address] Receiving Team Member: Kristine Talbot MD Source .THROAT SWAB Normal [facility] Comment on above: Performed By: #### R SAB #### [facility] [address] [place] [address] Receiving Team Member: Kristine Talbot MD Chlamydia/GC DNA, Uron 07-02 Chlamydia Probe, Ur Negative Normal NEG [facility] Comment on above: Result Comment: CHLA MYDIA TRACHOMATIS DNA not detected by nucleic acid amplification. This test is intended for medical purposes only and is not valid for the evaluation of suspected sexual abuse or for other forensic purposes. In certain contexts, culture may be required to meet applicable laws and regulations for diagnosis of C. trachomatis and N. gonorrhoeae infections. Per 2014 CDC recommendations, this test does not include confirmation of positive results by an alternative nucleic acid target. Performed By: #### U CGP #### [facility] [address] [place], [place] [id number] Receiving Team Member: Arron Paul MD Gonorrhea Probe, Ur Negative Normal NEG [facility] Comment on above: Result Comment: NEIS SERIA GONORRHOEAE DNA not detected by nucleic acid amplification. This test is intended for medical purposes only and is not valid for the evaluation of suspected sexual abuse or for other forensic purposes. In certain contexts, culture may be required to meet applicable laws and regulations for diagnosis of C. trachomatis and N. gonorrhoeae infections. Per 2014 CDC recommendations, this test does not include confirmation of positive results by an alternative nucleic acid target. Performed By: #### U CGP #### [facility] [place] [address] Receiving Team Member: Arron Paul MD Laboratory - Chemistry and C hemistry - challengeon 07-01-2023 Albumin [Mass/Vol] 4.0 g/dL (3.5-5.2 ) [facility] Comment on above: Note: ALT [Catalytic activity/Vol] 34 U/L (5-40 ) [facility] Anion gap [Moles/Vol] 9.0 mmol/L (7.0-16.0 ) [facility] Bilirubin.direct [Mass/Vol] 0.3 mg/dL (<=1.2 ) [facility] Calcium [Mass/Vol] 8.7 mg/dL (8.5-10.5 ) [facility] Chloride [Moles/Vol] 103 mmol/L (95-107 ) [facility] Cholesterol [Mass/Vol] 148 mg/dL (<200 ) [facility] Cholesterol in LDL/Cholesterol in HDL [Mass ratio] 1.5 {ratio} (<3.22 ) [facility] Cholesterol.total/Chol esterol in HDL [Mass ratio] 2.8 {ratio} (<4.44 ) [facility] Comment on above: Note: CO2 [Moles/Vol] 22 mmol/L (19-31 ) [facility] Creatinine [Mass/Vol] 0.71 mg/dL (0.60-1.30 ) [facility] GFR/1.73 sq M.predicted among non-blacks MDRD (S/P/Bld) [Vol rate/Area] 125 mL/min/{1.73_m2} (>60 ) [facility] Comment on above: Note: Glucose [Mass/Vol] 88 mg/dL (70-99 ) [facility] Comment on above: Note: Magnesium [Mass/Vol] 53 mg/dL (>39 ) [facility] Comment on above: Note: Magnesium [Mass/Vol] 79 mg/dL (<100 ) [facility] Magnesium [Mass/Vol] 16 mg/dL (<30 ) [facility] Potassium [Moles/Vol] 3.9 mmol/L (3.5-5.4 ) [facility] Protein [Mass/Vol] 6.5 g/dL (6.1-8.3 ) [facility] Sodium [Moles/Vol] 134 mmol/L (133-146 ) [facility] Triglyceride [Mass/Vol] 79 mg/dL (<150 ) [facility] Urea nitrogen [Mass/Vol] 9 mg/dL (6-20 ) [facility] Laboratory - Hematology and Cell countson 07-01-2023 Basophils (Bld) [#/Vol] 0.04 10*3/uL (0.00-0.20 ) [facility] Basophils/100 WBC (Bld) 0.7 % [facility] Eosinophils (Bld) [#/Vol] 0.20 10*3/uL (0.00-0.50 ) [facility] Eosinophils/100 WBC (Bld) 3.5 % [facility] Erythrocyte distribution width (RBC) [Ratio] 13.7 % (11.5-15.0 ) [facility] Hematocrit (Bld) [Volume fraction] 38.2 % (34.0-45.0 ) [facility] Hemoglobin (Bld) [Mass/Vol] 12.7 g/dL (11.5-15.5 ) [facility] Lymphocytes (Bld) [#/Vol] 1.54 10*3/uL (1.00-4.00 ) [facility] Lymphocytes/100 WBC (Bld) 26.7 % [facility] MCH (RBC) [Entitic mass] 28.6 pg (25.0-33.0 ) [facility] MCHC (RBC) [Mass/Vol] 33.2 g/dL (31.0-36.0 ) [facility] MCV (RBC) [Entitic vol] 86.0 fL (80.0-99.0 ) [facility] Monocytes (Bld) [#/Vol] 0.34 10*3/uL (0.20-1.00 ) [facility] Monocytes/100 WBC (Bld) 5.9 % [facility] Neutrophils/100 WBC (Bld) 62.9 % [facility] Platelet mean volume (Bld) [Entitic vol] 11.2 fL (9.3-13.0 ) [facility] Comment on above: Note: Platelets (Bld) [#/Vol] 218 10*3/uL (130-400 ) [facility] RBC (Bld) [#/Vol] 4.44 10*6/uL (3.80-5.40 ) [facility] WBC (Bld) [#/Vol] 5.8 10*3/uL (3.5-11.0 ) [facility] No Panel Informationon 07-01 ABS NEUTROPHILS 3.63 K/uL (1.50-7.50 ) [facility] ALK PHOS 65 U/L (40-116 ) [facility] AST-SGOT 29 U/L (9-40 ) [facility] Performing Lab: see note [facility] Comment on above: Note: JAMES - [employer] [address] [address] Akosua Santana MD Reported Physicians See Note [facility] Comment on above: Note: Reported Physi cians:Ordering: Yvan OrtegaaAttending: 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 TSH 2.07 uIu/mL (0.400-4.100 ) [facility] Comment on above: Note: Pathology [employer] [address] [id number] No. [id number] CAP Accreditation No. [id number] Director: Karol Flores M.D. No Panel Informationon 06-27 Performing Lab: see note [facility] Comment on above: Note: MAIN [employer] [address] [address] Akosua Santaan MD Reported Physicians See Note [facility] Comment on above: Note: Reported Physi cians:Ordering: Lisa Ortega: 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 SERUM SCREEN Negative (NEGATIVE ) [facility] Comment on above: Note: Pathology [employer] [address] [place] [id number] No. [id number] CAP Accreditation No. [id number] Director: Karol Flores M.D. HCG, ,Urineon 06-24 Beta HCG ( test) Ql (U) Negative Normal NEG [facility] Comment on above: Result Comment: Spec imens with hCG levels near the threshold of the test (25 mIU/mL) may give a negative or indeterminate result. In such cases, another test should be performed with a new specimen in 48-72 hours. If early is suspected clinically in this setting, correlation with quantitative serum b-hCG level is suggested. [facility] has confirmed the use of plasma for this test. This has not been cleared or approved by the U.S. Food and Drug Administration. The FDA has determined that such clearance is not necessary. Performed By: #### U HCG #### [facility] [address] [place] [address] Receiving Team Member: Kristine Talbot MD US PELVIS AND TRANSVAGon US PELVIS AND TRANSVAG EXAM: Pelvic ultrasound HISTORY: . Pelvic and perineal pain . COMPARISON: None. TECHNIQUE: Transabdominal and transvaginal scanning was performed FINDINGS: Thinning of the pelvis demonstrates uterus to measure 6.3 x 2.2 x 3.6 cm. Uterus appears anteflexed. Endometrial complex measures 4 mm. Left ovary measures 3.9 x 3.2 x 2.8 cm. Resistive indexes 0.6. There is a 2.8 x 2.4 cm cyst within the left ovary. Right ovary measures 2.4 x 1.3 x 1.5 cm. Color-flow is noted. Resistive indexes 0.5. No masses are noted within the right ovary. Follicles are noted. No fluid is noted in the cul-de-sac. IMPRESSION: 1. Normal-appearing uterus and endometrial complex. 2. Normal right ovary. 3. 2.8 x 2.4 cm simple cyst in the left ovary Electronically authenticated by: KRISTINE PIMENTEL Date: 2023-03-13 09:10 Normal [facility] PREG QUANT HCGon 02-26-2023 HCG QUANT <1 Normal [facility] Comment on above: Performed By: #### P REGQNT #### [facility] [address] [place] [address] Dr. Cristiano Hammond HCG RANGE SEE BELOW Normal [facility] Comment on above: Result Comment: 5-50 0.2-1 WEEK 50-500 1-2 WEEKS 100-5,000 2-3 WEEKS 500-10,000 3-4 WEEKS 1,000-50,000 4-5 WEEKS 10,000-100,000 5-6 WEEKS 15,000-200,000 6-8 WEEKS 10,000-100,000 2-3 MONTHS Performed By: #### P REGQNT #### [facility] [address] [place] [address] Dr. Cristiano Hammond CHEMISTRYOrdered By: SYSTEM SYSTEM on 01-08-2023 Albumin [Mass/Vol] 3.6 g/dL Normal 3.3 - 5.0 gm/dL [facility] Remisol Albumin/Globulin [Mass ratio] 1.0 {ratio} Low 1.1 - 2.2 [facility] ALP [Catalytic activity/Vol] 47 [iU]/d Normal 21 - 98 Int._Unit/L [facility] ALT No additional P-5'-P [Catalytic activity/Vol] 28 [iU]/d Normal 6 - 46 Int._Unit/L [facility] Comment on above: Result Comment: 'Spe cimen hemolyzed, result may be affected. Recommend redraw.' Anion gap [Moles/Vol] 13 mmol/L Normal 6 - 16 mEq/L F [facility] AST [Catalytic activity/Vol] 32 [iU]/d Normal 5 - 43 Int._Unit/L [facility] Comment on above: Result Comment: 'Spe cimen hemolyzed, result may be affected. Recommend redraw.' Bilirubin [Mass/Vol] 0.6 mg/dL Normal 0.0 - 1 .1 mg/dL [facility] Comment on above: Result Comment: 'Spe cimen hemolyzed, result may be affected. Redraw is recommended.' Bilirubin.direct [Mass/Vol] 0.2 mg/dL Normal 0.1 - 0.4 mg/dL [facility] Comment on above: Result Comment: 'Spe cimen hemolyzed, result may be affected. Redraw recommended.' Bilirubin.indirect [Mass or moles/Vol] 0.4 mg/dL Normal 0.1 - 0.9 mg/dL [facility] Calcium [Mass/Vol] 8.5 mg/dL Low 8.9 - 11. 1 mg/dL [facility] Chloride [Moles/Vol] 107 mmol/L Normal 101 - 1 11 mmol/L [facility] CO2 [Moles/Vol] 21 mmol/L Normal 21 - 31 mmol/L [facility] Creatinine [Mass/Vol] 0.9 mg/dL Normal 0.5 - 1.3 mg/dL [facility] GFR/1.73 sq M.predicted among blacks MDRD (S/P/Bld) [Vol rate/Area] mL/min/1.73 m2 Normal >=59mL/min/1. 73 m2 [facility] Chem S GFR/1.73 sq M.predicted among non-blacks MDRD (S/P/Bld) [Vol rate/Area] mL/min/1.73 m2 Normal >=59mL/min/1. 73 m2 [facility] S Globulin (S) [Mass/Vol] 3.5 g/dL Normal 1.4 - 4.0 gm/dL [facility] Glucose [Mass/Vol] 101 mg/dL Normal 55 - 199 mg/dL [facility] Lipase [Catalytic activity/Vol] 30 U/L Normal 13 - 58 unit/L [facility] Potassium [Moles/Vol] 3.7 mmol/L Normal 3.5 - 5.3 mmol/L [facility] Comment on above: Result Comment: 'Spe cimen hemolyzed. Result may be affected. Redraw is recommended.' Protein [Mass/Vol] 7.1 g/dL Normal 6.0 - 7.8 gm/dL [facility] Sodium [Moles/Vol] 137 mmol/L Normal 135 - 145 mmol/L [facility] Urea nitrogen [Mass/Vol] 10 mg/dL Normal 5 - 21 mg/dL [facility] Urea nitrogen/Creatinine [Mass ratio] 11 mg/mg Normal 10 - 20 [facility] HEMATOLOGYOrdered By: SYSTEM SYSTEM on 01-08-2023 Basophils/100 WBC (Bld) 0.5 % Normal 0.0 - 2.0 % [facility] HemeAutoSS Basophils/Leukocytes Auto (Bld) [Pure # fraction] 0.0 E9/L Normal 0.0 - 0.2 E9/L [facility]eAuto[facility] Eosinophils/100 WBC (Bld) 1.6 % Normal 0.0 - 8.0 % [facility]eAutoSS Eosinophils/Leukocytes Auto (Bld) [Pure # fraction] 0.1 E9/L Normal 0.0 - 0.5 E9/L [facility] Lymphocytes/100 WBC (Bld) 32.7 % Normal 14.0 - 50.0 % [facility]eAutoSS Lymphocytes/Leukocytes Auto (Bld) [Pure # fraction] 1.7 E9/L Normal 1.0 - 4.0 E9/L [facility]eAutoSS Monocytes/100 WBC (Bld) 6.9 % Normal 4.0 - 14.0 % [facility]eAutoSS Monocytes/Leukocytes Auto (Bld) [Pure # fraction] 0.4 E9/L Normal 0.2 - 1.0 E9/L [facility]SS Neutrophils/100 WBC (Bld) 58.3 % Normal 36.0 - 75.0 % [facility]eAutoSS Neutrophils/Leukocytes Auto (Bld) [Pure # fraction] 3.0 E9/L Normal 2.0 - 7.5 E9/L [facility]eAutoSS HEMATOLOGYOrdered By: Lisa Langford on 01-08-2023 Erythrocyte distribution width (RBC) [Ratio] 14.3 % High 10.9 - 14.2 % [facility] Hematocrit (Bld) [Volume fraction] 38.0 % Normal 34.0 - 46.0 % [facility] Hemoglobin (Bld) [Mass/Vol] 12.4 g/dL Normal 12.0 - 16.0 gm/dL [facility]AutoSS MCH (RBC) [Entitic mass] 28.5 pg Normal 27.0 - 34.0 pg [facility] MCHC (RBC) [Mass/Vol] 32.7 g/dL Normal 31.4 - 36.0 gm/dL [facility] MCV (RBC) [Entitic vol] 87.1 fL Normal 80.0 - 100.0 fL [facility] Platelet mean volume (Bld) [Entitic vol] 9.1 fL Normal 6.4 - 10.8 fL [facility]eAutoSS Platelets (Bld) [#/Vol] 211.0 E9/L Normal 150.0 - 500.0 E9/L [facility] RBC (Bld) [#/Vol] 4.4 E12/L Normal 4.3 - 5.9 E12/L [facility] WBC corrected for nucl RBC Auto (Bld) [#/Vol] 5.1 E9/L Normal 4.0 - 11.0 E9/L [facility] SEROLOGYOrdered By: Migdalia yen on 01-08-2023 HCG.beta subunit (U) [Moles/Vol] Negative Normal [facility] URINALYSISOrdered By: Migdalia Stout on 01-08-2023 Bilirubin Ql (U) Negative (01/08/23 6:37 PM) Normal Negative [facility] UA Auto SS Clarity (U) Clear (01/08/23 6:37 PM) Normal Clear [facility] UA Auto SS Color (U) Yellow (01/08/23 6:37 PM) Normal Yellow [facility] UA Auto SS Epithelial cells.squamous LM.HPF (Urine sed) [#/Area] 5-8 /HPF Normal 0-2/HPF [facility] UA Aut o SS Glucose Test strip (U) [Mass/Vol] Negative (01/08/23 6:37 PM) Normal Negative [facility]A Auto SS Hemoglobin Ql (U) Trace *ABN* (01/08/23 6:37 PM) Invalid Interpretation Code Negative [facility] UA Auto SS Ketones (U) [Mass/Vol] Negative (01/08/23 6:37 PM) Normal Negative [facility] UA Auto SS Agency.plasma/Agency .RBC (Bld) [Mass ratio] 0-3 /HPF Normal 0-3/HPF [facility]A Auto SS Nitrite Ql (U) Negative (01/08/23 6:37 PM) Normal Negative [facility]A Auto SS pH (U) 7.0 *NA* (01/08/23 6:37 PM) Invalid Interpretation Code 5.0 - 9.0 [facility]A Auto SS Protein (U) [Mass/Vol] Negative (01/08/23 6:37 PM) Normal Negative [facility] [facility]A Auto SS Specific gravity (U) [Rel density] 1.020 *NA* (01/08/23 6:37 PM) Invalid Interpretation Code 1.005 - 1.030 [facility]A Auto SS UA Spec Desc Clean Catch (01/08/23 6:37 PM) Normal [facility] [place] UA Auto SS Urobilinogen Qn (U) [id number] {Shelbie'U}/dL Normal 0.0 - 1.0 EU/dL [facility] UA Auto SS WBC Auto Ql (U) Negative (01/08/23 6:37 PM) Normal Negative [facility] [place] UA Auto SS WBC LM.HPF (Urine sed) [#/Area] 0-5 /HPF Normal 0-5/HPF [facility] [place] UA Auto SS Urinalysis - AUTOMATEDon Appearance (U) Cloudy [employer] Other Bilirubin Ql (U) Negative [employer] Other Color (U) Yellow [employer] Other Glucose Ql (U) Negative [employer] Other Hemoglobin Ql (U) Negative [employer] Other Ketones Ql (U) Negative [employer] Other Leukocyte esterase Test strip Ql (U) Small [employer] Other Nitrite Ql (U) Negative [employer] Other pH (U) 7.0 [pH] [employer] Other Protein Ql (U) Trace [employer] Other Specific gravity (U) [Rel density] 1.025 [employer] Other Urobilinogen (U) [Mass/Vol] 1.0 mg/dL [employer] Other Urinalysis - AUTOMATED No rt [employer] Other Urine Cultureon 01-05-2023 Bacteria identified Cx Nom (U) [employer] Other Covid-19 PCR ([facility])on 11-26 SARS-CoV-2 (COVID-19) RNA MIKE+probe Ql (Unsp spec) Not detected Normal NOT DETECTED [facility] Comment on above: Result Comment: This test is not yet approved or cleared by the [place] FDA. When there are no FDA-approved or cleared tests available, and other criteria are met, FDA can make tests available under an emergency access mechanism called an Emergency Use Authorization (EUA). The EUA for this test is supported by the [place] of Health and Human Service's (HHS's) declaration that circumstances exist to justify the emergency use of in vitro diagnostics for the detection and/or diagnosis of the virus that causes COVID-19. This EUA will remain in effect (meaning this test can be used) for the duration of the COVID-19 declaration justifying emergency of IVDs, unless it is terminated or revoked by FDA (after which the test may no longer be used). When diagnostic testing is negative, the possibility of a false negative should be considered in the context of a patient's recent exposures and the presence of clinical signs and symptoms consistent with SARS-CoV-2. Performed By: #### P REGQNT #### [facility] [address] [place] [address] Dr. Cristiano Hammond INFLUENZA A AND B AGon 12-19 INFLUANEGH SEE BELOW Normal [facility] Comment on above: Result Comment: Nega tive for Flu A protein angiten. Infection due to Flu A cannot be ruled out. Flu A angiten in the sample may be below the detection limit of the test. Performed By: #### P REGQNT #### [facility] [address] [place] [address] Dr. Cristiano Hammond INFLUBNEGH SEE BELOW Normal [facility] Comment on above: Result Comment: Nega tive for Flu B protein antigen. Infection due to Flu B cannot be ruled out. Flu B antigen in the sample may be below the detection limit of the test. Performed By: #### P REGQNT #### [facility] [address] [place] [address] Dr. Cristiano Hammond INFLUENZA A AG Negative Normal NEGATIVE SEE COMMENT [facility] Comment on above: Performed By: #### P REGQNT #### [facility] [address] [address] [address] Cristiano Hammond INFLUENZA B AG Negative Normal NEGATIVE SEE COMMENT [facility] Comment on above: Performed By: #### P REGQNT #### [facility] [address] [place] [address] Dr. Cristiano Hammond Streptococcus pyogenes antig en detectionOrdered By: Codey Lewis on 11-21-2022 S. pyogenes Ag Ql (Unsp spec) [facility] Covid-19 PCR ([facility])on 10-26 SARS-CoV-2 (COVID-19) RNA MIKE+probe Ql (Unsp spec) Not detected Normal NOT DETECTED [facility] Comment on above: Result Comment: This test is not yet approved or cleared by the [place] FDA. When there are no FDA-approved or cleared tests available, and other criteria are met, FDA can make tests available under an emergency access mechanism called an Emergency Use Authorization (EUA). The EUA for this test is supported by the [place] of Health and Human Service's (HHS's) declaration that circumstances exist to justify the emergency use of in vitro diagnostics for the detection and/or diagnosis of the virus that causes COVID-19. This EUA will remain in effect (meaning this test can be used) for the duration of the COVID-19 declaration justifying emergency of IVDs, unless it is terminated or revoked by FDA (after which the test may no longer be used). When diagnostic testing is negative, the possibility of a false negative should be considered in the context of a patient's recent exposures and the presence of clinical signs and symptoms consistent with SARS-CoV-2. Performed By: #### C VDTBH #### [facility] [address] [place] [address] Dr. Cristiano Hammond GROUP A STREP CULTUREon 10-26 S. pyogenes Ag Ql (Unsp spec) Culture Observations: NEGATIVE FOR GROUP A STREPTOCOCCUS. Normal [facility] Comment on above: Performed By: #### P REGQNT #### [facility] [address] [place] [address] Dr. Cristiano Hammond INFLUENZA A AND B AGon 11-[facility] Normal [facility] Comment on above: Result Comment: Nega tive for Flu A protein angiten. Infection due to Flu A cannot be ruled out. Flu A angiten in the sample may be below the detection limit of the test. Performed By: #### P REGQNT #### [facility] [address] [place] [address] Dr. Cristiano Hammond INFLUBNEG SEE BELOW Normal [facility] Comment on above: Result Comment: Nega tive for Flu B protein antigen. Infection due to Flu B cannot be ruled out. Flu B antigen in the sample may be below the detection limit of the test. Performed By: #### P REGQNT #### [facility] [address] [place] [address] Dr. Cristiano Hammond INFLUENZA A AG Negative Normal NEGATIVE SEE COMMENT [facility] Comment on above: Performed By: #### P REGQNT #### [facility] [address] [place] [address] Dr. Cristiano Hammond INFLUENZA B AG Negative Normal NEGATIVE SEE COMMENT [facility] Comment on above: Performed By: #### P REGQNT #### [facility] [address] [place] [address] Dr. Cristiano Hammond INTERNAL CONTROLS Within Normal Limits Normal Wi thin Normal Limits [facility] Comment on above: Performed By: #### P REGQNT #### [facility] [address] [address] [address] Cristiano Hammond STREPT SCREENon 11-20-2022 STREP SCREEN A Negative Normal NEGATIVE [facility] Comment on above: Performed By: #### P REGQNT #### [facility] [address] [address] [address] Cristiano Hammond COVID + FLU Quick Testingon 11-14-2022 SARS-CoV-2 (COVID-19) RNA MIKE+probe Ql (Unsp spec) Negative wripl [facility] [employer] Other COVID + FLU Quick Testing Negative wripl [facility] [employer] Other Quick Strepon 11-14-2022 S. pyogenes Org specific cx Ql (Throat) Negative wripl [facility] [employer] Other Quick Strep wripl [facility] Other XR CYSTOGRAPH VOID EXPon XR CYSTOGRAPH VOID EXP Begin Addendu m #1 Correction to voice-recognition error: TECHNIQUE: 500 mL of Cysto-Conray slowly instilled into the urinary bladder through Butler catheter. Original Report EXAMINATION: XR CYSTOGRAPH VOID EXP HISTORY: Urinary tract infectious disease ; recurrent urinary tract infections COMPARISON: None. FLUOROSCOPY TIME: Fluoro time measures 2 minutes 55 seconds and 10 images were obtained. TECHNIQUE: 5 mL Cysto-Conray slowly instilled into the urinary bladder through Butler catheter. FINDINGS: Normal size and contour of the urinary bladder. No reflux of contrast into the ureters. Complete emptying of urinary bladder during voiding. IMPRESSION: Normal voiding cystourethrogram. Normal [facility] CULTURE SPUTUMon 09-03-2022 CULTURE SPUTUM Culture Observations: NORMAL RESPIRATORY OMID. Normal [facility] Comment on above: Performed By: #### V AGINT #### [facility] [address] [address] [address] Cristiano Hammond SPUTUM GRAM STAINon 09-03-20 22 COMMENTS Normal [facility] Comment on above: Performed By: #### P REGU, ERUR, UMICRO #### [facility] [address] [address] [address] Cristiano Hammond DIPHTHEROIDS Normal [facility] Comment on above: Performed By: #### P REGU, ERUR, UMICRO #### [facility] [address] [address] [address] Cristiano Hammond EPITHELIALS <25 Normal [facility] Comment on above: Performed By: #### P REGU, ERUR, UMICRO #### [facility] [address] [address] [address] Cristiano Hammond FUNGAL ELEMENTS Normal [facility] Comment on above: Performed By: #### P REGU, ERUR, UMICRO #### [facility] [address] [address] [address] Cristiano Hammond GRAM NEG BACILLI Normal [facility] Comment on above: Performed By: #### P REGU, ERUR, UMICRO #### [facility] [address] [address] [address] Cristiano MEDEIROS NEG DIPPLOCOCCI Normal [facility] Comment on above: Performed By: #### P REGU, ERUR, UMICRO #### [facility] [address] [address] [address] Cristiano MEDEIROS POS BACILLI RARE Normal [facility] Comment on above: Performed By: #### P REGU, ERUR, UMICRO #### [facility] [address] [address] [address] Cristiano Hammond GRAM POSITIVE COCCI MODERATE Normal [facility] Comment on above: Performed By: #### P REGU, ERUR, UMICRO #### [facility] [address] [address] [address] Cristiano Hammond WBC (Bld) [#/Vol] 10*3/uL Normal [facility] Comment on above: Performed By: #### P REGU, ERUR, UMICRO #### [facility] [address] [address] [address] Cristiano Hammond XR CHEST 1 Von 08-29-2022 XR CHEST 1 V EXAM: XR CHEST 1 V HISTORY: COUGH COMPARISON: 08/17/2022 TECHNIQUE: Chest single view. FINDINGS: Lines/tubes/devices: None. Cardiomediastinum: Heart size is normal. Unremarkable mediastinal silhouette. Vasculature: Normal. Lungs/pleura: No consolidation, sizeable effusion, or visible pneumothorax. Bones/soft tissues: Bony thorax is grossly intact/unchanged as seen. IMPRESSION: No acute findings, or significant interval change. Electronically authenticated by: AALIYAH CHACON Date: 2022-08-29 00:36 Normal [facility] Covid-19 PCR ([facility])on 07-28 SARS-CoV-2 (COVID-19) RNA MIKE+probe Ql (Unsp spec) Detected Critically abnormal NOT DETECTED [facility] Comment on above: Result Comment: This test is not yet approved or cleared by the [place] FDA. When there are no FDA-approved or cleared tests available, and other criteria are met, FDA can make tests available under an emergency access mechanism called an Emergency Use Authorization (EUA). The EUA for this test is supported by the Insurance Application [place] of Health and Human Service's declaration that circumstances exist to justify the emergency use of in vitro diagnostics for the detection and/or diagnosis of the virus that causes COVID-19. This EUA will remain in effect for the duration of the COVID-19 declaration justifying emergency of IVDs, unless it is terminated or revoked by the FDA (after which the test may no longer be used). Performed By: #### P REGQNT #### [facility] [address] [place] [address] Dr. Cristiano Hammond Covid-19 PCR ([facility])on 07-27 SARS-CoV-2 (COVID-19) RNA MIKE+probe Ql (Unsp spec) Not detected Normal NOT DETECTED [facility] Comment on above: Result Comment: When diagnostic testing is negative, the possibility of a false negative should be considered in the context of a patient's recent exposures and the presence of clinical signs and symptoms consistent with SARS-CoV-2. This test is not yet approved or cleared by the [place] FDA. When there are no FDA-approved or cleared tests available, and other criteria are met, FDA can make tests available under an emergency access mechanism called an Emergency Use Authorization (EUA). The EUA for this test is supported by the [place] of Health and Human Service's declaration that circumstances exist to justify the emergency use of in vitro diagnostics for the detection and/or diagnosis of the virus that causes COVID-19. This EUA will remain in effect for the duration of the COVID-19 declaration justifying emergency of IVDs, unless it is terminated or revoked by the FDA (after which the test may no longer be used). Performed By: #### P REGQNT #### [facility] [address] [place] [address] Dr. Cristiano Hammond Covid-19 PCR ([facility])on 07-27 SARS-CoV-2 (COVID-19) RNA MIKE+probe Ql (Unsp spec) Not detected Normal NOT DETECTED [facility] Comment on above: Result Comment: When diagnostic testing is negative, the possibility of a false negative should be considered in the context of a patient's recent exposures and the presence of clinical signs and symptoms consistent with SARS-CoV-2. This test is not yet approved or cleared by the [place] FDA. When there are no FDA-approved or cleared tests available, and other criteria are met, FDA can make tests available under an emergency access mechanism called an Emergency Use Authorization (EUA). The EUA for this test is supported by the Insurance Application Investigator of Health and Human Service's declaration that circumstances exist to justify the emergency use of in vitro diagnostics for the detection and/or diagnosis of the virus that causes COVID-19. This EUA will remain in effect for the duration of the COVID-19 declaration justifying emergency of IVDs, unless it is terminated or revoked by the FDA (after which the test may no longer be used). Performed By: #### V AGINT #### [facility] [address] [place] [address] Dr. Cristiano Hammond INFLUENZA A AND B AGon 08-17 INFLUENZA A AG Negative Normal NEGATIVE SEE COMMENT [facility] Comment on above: Performed By: #### V AGINT #### [facility] [address] [place] [address] Dr. Cristiano Hammond INFLUENZA B AG Negative Normal NEGATIVE SEE COMMENT [facility] Comment on above: Performed By: #### V AGINT #### [facility] [address], [place] [address] Dr. Cristiano Hammond INTERNAL CONTROLS Within Normal Limits Normal Wi thin Normal Limits [facility] Comment on above: Performed By: #### V AGINT #### [facility] [address] [place], [place] [address] Dr. Cristiano Hammond XR CHEST 1 Von 08-17-2022 XR CHEST 1 V EXAM: Chest x-ray HISTORY: . COUGH . COMPARISON: None. TECHNIQUE: Single view of the chest FINDINGS: Heart and vascularity are unremarkable. Lungs are expanded and free of focal infiltrates. Grossly no bony abnormality is appreciated. IMPRESSION: No acute heart or lung disease identified. Electronically authenticated by: KRISTINE PIMENTEL Date: 2022-08-17 10:29 Normal [facility] Covid-19 PCR ([facility])on 07-26 SARS-CoV-2 (COVID-19) RNA MIKE+probe Ql (Unsp spec) Not detected Normal NOT DETECTED [facility] Comment on above: Result Comment: When diagnostic testing is negative, the possibility of a false negative should be considered in the context of a patient's recent exposures and the presence of clinical signs and symptoms consistent with SARS-CoV-2. This test is not yet approved or cleared by the [place] FDA. When there are no FDA-approved or cleared tests available, and other criteria are met, FDA can make tests available under an emergency access mechanism called an Emergency Use Authorization (EUA). The EUA for this test is supported by the Insurance Application Investigator of Health and Human Service's declaration that circumstances exist to justify the emergency use of in vitro diagnostics for the detection and/or diagnosis of the virus that causes COVID-19. This EUA will remain in effect for the duration of the COVID-19 declaration justifying emergency of IVDs, unless it is terminated or revoked by the FDA (after which the test may no longer be used). Performed By: #### P REGU, ISRAR, UMICRO #### [facility] [address], [place] [address] Dr. Cristiano Hammond Covid-19 PCR ([facility])on 07-26 SARS-CoV-2 (COVID-19) RNA MIKE+probe Ql (Unsp spec) Not detected Normal NOT DETECTED [facility] Comment on above: Result Comment: When diagnostic testing is negative, the possibility of a false negative should be considered in the context of a patient's recent exposures and the presence of clinical signs and symptoms consistent with SARS-CoV-2. This test is not yet approved or cleared by the [place] FDA. When there are no FDA-approved or cleared tests available, and other criteria are met, FDA can make tests available under an emergency access mechanism called an Emergency Use Authorization (EUA). The EUA for this test is supported by the [place] of Health and Human Service's declaration that circumstances exist to justify the emergency use of in vitro diagnostics for the detection and/or diagnosis of the virus that causes COVID-19. This EUA will remain in effect for the duration of the COVID-19 declaration justifying emergency of IVDs, unless it is terminated or revoked by the FDA (after which the test may no longer be used). Performed By: #### P RITA TAM UMICRO #### [facility] [address], [place] [address] Dr. Cristiano Hammond URon 07-25-2022 , QUAL Negative Normal NEGATIVE [facility] Comment on above: Performed By: #### RITA MORGAN UMICRO #### [facility] [address], [place] [address] Dr. Cristiano Hammond COVID Quick Testingon 2021 Result Negative [employer] Other COVID Quick Testingon 2021 Result Negative [employer] Other US KIDNEYS BLADDERon 022 US KIDNEYS BLADDER EXAMINATION: US KIDNEYS BLADDER HISTORY: Urinary tract infectious disease COMPARISON: No relevant comparison available. TECHNIQUE: Ultrasound examination was performed of the bladder. FINDINGS: Right Kidney: Normal in size, contour and echotexture. No solid cortical mass hydronephrosis or obstructing nephrolithiasis. The cortex measures 1.2 cm. Height: 4.6 cm Length: 11.5 cm Width: 6.2 cm Left Kidney: Normal in size, contour and echotexture. No solid cortical mass, hydronephrosis or obstructing nephrolithiasis. The cortex measures 1.6 cm Height: 4.8 cm Length: 11.8 cm Width: 6.1 cm Urinary bladder wall is thickened measuring 4.6 mm Prevoid volume: 321 mL Post void volume: 10 mL Ureteral jets: Visualized bilaterally IMPRESSION: Mild thickening of the urinary bladder wall Electronically authenticated by: KRISTINE MAR Date: 2022-06-05 16:27 Normal The [facility] CULTURE URINEon 06-02-2022 CULTURE URINE Isolate 1 Escherichia coli >100,000 cfu/mL of ORGANISM 1 Escherichia coli ANTIBIOTIC M.I.C RX STATUS Ampicillin 4 S F Ampicillin/Sulbactam <=2 S F Piperacillin/Tazobac mckeon <=4 S F Cefazolin <=4 S F Ceftazidime <=1 S F Ceftriaxone <=1 S F Ertapenem <=0.5 S F Imipenem <=0.25 S F Amikacin <=2 S F Gentamicin <=1 S F Tobramycin <=1 S F Ciprofloxacin >=4 R F Levofloxacin >=8 R F Nitrofurantoin <=16 S F Trimethoprim/Sulfame thoxazole <=20 S F Normal [facility] Comment on above: Performed By: #### V AGINT #### [facility] [address] [place] [address] Dr. Cristiano Hammond ER URINE PROFILEon 2 Bilirubin Ql (U) Negative Normal NEGATIVE [facility] Comment on above: Performed By: #### P RITA TAM UMICRO #### [facility] [address] [place] [address] Dr. Cristiano Hammond Clarity (U) SL CLOUDY Abnormal CLEAR [facility] Comment on above: Performed By: #### P RITA TAM UMICRO #### [facility] [address] [place] [address] Dr. Cristiano Hammond Color (U) LT. YELLOW Normal YELLOW [facility] Comment on above: Performed By: #### P RITA TAM UMICRO #### [facility] [address] [place] [address] Dr. Cristiano DILL A micrscopic examination will be performed if indicated. Normal [facility] Comment on above: Performed By: #### P REGU, ERUR, UMICRO #### [facility] [address] [address] [address] Cristiano Hammond Glucose Ql (U) Negative Normal NEGATIVE [facility] Comment on above: Performed By: #### P REGU, ERUR, UMICRO #### [facility] [address] [address] [address] Cristiano Hammond Hemoglobin Ql (U) TRACE-LYSED Abnormal NEGATIVE [facility] Comment on above: Performed By: #### P REGU, ERUR, UMICRO #### [facility] [address] [address] [address] Cristiano Hammond Ketones Ql (U) Negative Normal NEGATIVE The [facility] Comment on above: Performed By: #### P REGU, ERUR, UMICRO #### [facility] [address] [address] [address] Cristiano Hammond LEUKOCYTES MODERATE Abnormal NEGATIVE [facility] Comment on above: Performed By: #### P REGU, ERUR, UMICRO #### [facility] [address] [address] [address] Cristiano Hammond Nitrite Ql (U) Negative Normal NEGATIVE The [facility] Comment on above: Performed By: #### P REGU, ERUR, UMICRO #### [facility] [address] [address] [address] Cristiano Hammond pH (U) 6.0 [pH] Normal 5-9 [facility] Comment on above: Performed By: #### P REGU, ERUR, UMICRO #### [facility] [address] [address] [address] Cristiano Hammond SPEC GRAVITY 1.015 Normal 1.005-<=1.025 [facility] Comment on above: Performed By: #### P REGU, ERUR, UMICRO #### [facility] [address] [address] [address] Cristiano Hammond UA PROTEIN Negative Normal NEGATIVE/ TRACE [facility] Comment on above: Performed By: #### P REGU, ERUR, UMICRO #### [facility] [address] [place] [address] Dr. Cristiano Hammond UR MICRO IND INDICATED Normal [facility] Comment on above: Performed By: #### P REGU, ERUR, UMICRO #### [facility] [address] [place] [address] Dr. Cristiano Hammond Urobilinogen Qn (U) 0.2 {Shelbie'U}/dL Normal 0.2 - 1. 0 [facility] Comment on above: Performed By: #### P REGU, ERUR, UMICRO #### [facility] [address] [place] [address] Dr. Cristiano Hammond URon 05-30-2022 , QUAL Negative Normal NEGATIVE [facility] Comment on above: Performed By: #### P REGU, ERUR, UMICRO #### [facility] [address] [place] [address] Dr. Cristiano Hammond URINE MICROSCOPIC ONLYon BACTERIA LARGE Abnormal NONE SEEN [facility] Comment on above: Performed By: #### P REGU, ERUR, UMICRO #### [facility] [address] [place] [address] Dr. Cristiano Hammond Bacteria identified Cx Nom (U) INDICATED Normal [facility] Comment on above: Performed By: #### P REGU, ERUR, UMICRO #### [facility] [address] [place] [address] Dr. Cristiano Hammond CAST NONE SEEN Normal NONE SEEN [facility] Comment on above: Performed By: #### P REGU, ERUR, UMICRO #### [facility] [address] [place] [address] Dr. Cristiano Hammond Crystals LM Nom (Urine sed) NONE SEEN Normal NONE SEEN [facility] Comment on above: Performed By: #### P REGU, ERUR, UMICRO #### [facility] [address] [place] [address] Dr. Cristiano Hammond Epithelial cells LM Ql (Urine sed) MODERATE Abnormal NONE SEEN /RARE [facility] Comment on above: Performed By: #### P REGUISRAR UMICRO #### [facility] [address] [place] [address] Dr. Cristiano Hammond MUCOUS SMALL Abnormal NONE SEEN [facility] Comment on above: Performed By: #### P REGU ERUR, UMICRO #### [facility] [address] [address] [address] Cristiano Hammond RBC 2-5 Abnormal 0-2 [facility] Comment on above: Performed By: #### P REGUISRAR UMICRO #### [facility] [address] [place] [address] Dr. Cristiano Hammond WBC 75-100 Abnormal NONE SEEN [facility] Comment on above: Performed By: #### P REGUISRAR UMICRO #### [facility] [address] [place] [address] Dr. Cristiano Hammond HERPES SIMPLEX VIRUS (HSV) C ULTUREon 05-24-2022 HSV Culture/Type Comment Abnormal [facility] Comment on above: Result Comment: Posi tive for Herpes simplex virus type-2. Typing was confirmed by monoclonal antibody microscopic immunofluorescence. Performed By: #### P REGUISRAR UMICRO #### [facility] [address] [place] [address] Dr. Cristiano Hammond CHLAMYDIA/GONOCOCCUS MIKE (SW AB/URINE/PAPon 05-23-2022 Chlamydia trachomatis, MIKE Negative Normal Negative [facility] Comment on above: Performed By: #### V AGINT #### [facility] [address] [place] [address] Dr. Cristiano Hammond Neisseria gonorrhoeae, MIKE Negative Normal Negative [facility] Comment on above: Performed By: #### V AGINT #### [facility] [address] [place] [address] Dr. Cristiano Hammond VAGINITIS/VAGINOSIS DNA PROB Gonzales 05-23-2022 Juju species Negative Normal Negative [facility] Comment on above: Performed By: #### V AGINT #### [facility] [address] [address] [address] Cristiano Hammond Gardnerella vaginalis Positive Abnormal Negative [facility] Comment on above: Performed By: #### V AGINT #### [facility] [address] [address] [address] Cristiano Hammond Trichomonas vaginalis Negative Normal Negative [facility] Comment on above: Performed By: #### V AGINT #### [facility] [address] [address] [address] Cristiano Hammond HEPATITIS PANEL, ACUTEon HBsAg Screen Negative Normal Negative [facility] Comment on above: Performed By: #### P REGU ERUR, UMICRO #### [facility] [address] [address] [address] Cristiano Hammond HCV AB 0.1 s/co ratio Normal 0.0-0.9 [facility] Comment on above: Performed By: #### P REGU, ERUR, UMICRO #### [facility] [address] [address] [address] Cristiano Hammond Hep A Ab, IgM Negative Normal Negative [facility] Comment on above: Performed By: #### P REGU, ERUR, UMICRO #### [facility] [address] [address] [address] Cristiano Hammond Hep B Core Ab, IgM Negative Normal Negative [facility] Comment on above: Performed By: #### P REGU, ERUR, UMICRO #### [facility] [address] [address] [address] Cristiano Hammond Interpretation: Comment Normal [facility] Comment on above: Result Comment: Nega tive Not infected with HCV, unless recent infection is suspected or other evidence exists to indicate HCV infection. Performed By: #### P REGU, ERUR, UMICRO #### [facility] [address] [place] [address] Dr. Cristiano Hammond HERPES SIMPLEX 1/2 IGGon HSV 1 IgG, Type Spec 1.74 index Critically high 0.00-0.90 [facility] Comment on above: Result Comment: Nega tive <0.91 Equivocal 0.91 - 1.09 Positive >1.09 Note: Negative indicates no antibodies detected to HSV-1. Equivocal may suggest early infection. If clinically appropriate, retest at later date. Positive indicates antibodies detected to HSV-1. Performed By: #### H SV IGG #### [facility] [address] [place] [address] Dr. Cristiano Hammond HSV 2 IgG Type Spec <0.91 Normal 0.00-0.90 [facility] Comment on above: Result Comment: Nega tive <0.91 Equivocal 0.91 - 1.09 Positive >1.09 Note: Negative indicates no HSV-2 antibodies detected. Positive indicates HSV-2 antibodies detected. Equivocal and low positive HSV-2 screens (Index 0.91-5.00) may be false positive and are reflexed to supplemental testing in accordance with CDC guidelines. Performed By: #### H SV IGG #### [facility] [address] [place] [address] Dr. Cristiano Hammond HERPES SIMPLEX 1/2 IGMon HSV, IgM I/II Combination <0.91 Normal 0.00-0.90 [facility] Comment on above: Result Comment: Nega tive <0.91 Equivocal 0.91 - 1.09 Positive >1.09 Effective August 20, 2022 HSV, IgM I/II Combination will be made non-orderable. [facility] offers [id number] HSV 1 and 2-Spec Ab, IgG w/Rfx and [id number] HSV MIKE. Performed By: #### H SVIGM #### [facility] [address] [place] [address] Dr. Cristiano Hammond HIV 1 AND 2 WITH REFLEXon HIV Screen 4th Generation wRfx Non-Reactive Normal Non Reactive [facility] Comment on above: Result Comment: HIV Negative HIV-1/HIV-2 antibodies and HIV-1 p24 antigen were NOT detected. There is no laboratory evidence of HIV infection. Performed By: #### P REGQNT #### [facility] [address] [place] [address] Dr. Cristiano Hammond RPR QUANTon 05-18-2022 Rapid Plasma Reagin, Quant Non-Reactive Normal NonRea<1:1 [facility] Comment on above: Result Comment: Yogi hernández Note: This test does not meet current guidelines for screening and diagnosis of syphilis. This test is intended for following treatment response in patients being treated for syphilis infection. To screen for syphilis infection, a reflex cascade that includes both RPR and a treponema-specific assay should be utilized, such as Treponema pallidum (Syphilis) Screening [place] (317811) or Rapid Plasma Reagin (RPR) Test With Reflex to Quantitative RPR and Confirmatory Treponema pallidum Antibodies (680914). Performed By: #### P REGQNT #### [facility] [address] [place] [address] Dr. Cristiano Hammond Covid-19 PCR (CVDTBH)on SARS-CoV-2 (COVID-19) RNA MIKE+probe Ql (Unsp spec) Not detected Normal NOT DETECTED [facility] Comment on above: Result Comment: This test is not yet approved or cleared by the [place] FDA. When there are no FDA-approved or cleared tests available, and other criteria are met, FDA can make tests available under an emergency access mechanism called an Emergency Use Authorization (EUA). The EUA for this test is supported by the [place] of Health and Human Service's (HHS's) declaration that circumstances exist to justify the emergency use of in vitro diagnostics for the detection and/or diagnosis of the virus that causes COVID-19. This EUA will remain in effect (meaning this test can be used) for the duration of the COVID-19 declaration justifying emergency of IVDs, unless it is terminated or revoked by FDA (after which the test may no longer be used). When diagnostic testing is negative, the possibility of a false negative should be considered in the context of a patient's recent exposures and the presence of clinical signs and symptoms consistent with SARS-CoV-2. Performed By: #### C VDTBH #### [facility] [address] [address] [address] Cristiano Hammond SYMPTOMATIC COVID-19 ANTIGEN on 04-27-2022 EUA Statement SEE BELOW Normal The [facility] Comment on above: Result Comment: This test has not been FDA cleared or approved, but has been authorized by the FDA under an Emergency Use Authorization (EUA) for use by authorized laboratories certified under CLIA that meet the requirements to perform moderate or high complexity testing. This test has been authorized only for the detection of proteins from SARS-CoV-2, not for any other viruses or pathogens. The emergency use of this test is authorized for the duration of the declaration that circumstances exist justifying the authorization of emergency use of in vitro diagnostic tests for detection and/or diagnosis of Covid-19 under section 564(b)(1) of the Act, 21 U.S.C. 360bbb-3(b)(1), unless the declaration is terminated or authorization is revoked sooner. Performed By: #### P RITA TAM UMICRO #### [facility] [address] [place] [address] Dr. Cristiano Hammond SARS-CoV-2 (COVID-19) RNA MIKE+probe Ql (Unsp spec) Negative Normal NEGATIVE [facility] Comment on above: Performed By: #### P RITA TAM, UMICRO #### [facility] [address] [place] [address] Dr. Cristiano Hammond PREG HCG QUALon 04-13-2022 , QUAL Negative Normal NEGATIVE [facility] Comment on above: Performed By: #### P REGQNT #### [facility] [address] [place] [address] Dr. Cristiano Hammond PREG QUANT HCGon 04-13-2022 HCG QUANT <1 Normal [facility] Comment on above: Performed By: #### P REGQNT #### [facility] [address] [place] [address] Dr. Cristiano Hammond HCG RANGE SEE BELOW Normal [facility] Comment on above: Result Comment: 5-50 0-1 WEEK 40-300 1-2 WEEKS 100-1,000 2-3 WEEKS 500-6,000 3-4 WEEKS 5,000-200,000 1-2 MONTHS 10,000-100,000 2-3 MONTHS 3,000-50,000 2ND TRIMESTER 1,000-50,000 3RD TRIMESTER Performed By: #### P REGQNT #### [facility] [address] [address] [address] Cristiano Hammond COVID/FLU/RSV RT-PCRon 03-28 SARS-CoV-2 (COVID-19) RNA MIKE+probe Ql (Unsp spec) Negative [facility] [employer] Other COVID/FLU/RSV RT-PCR Negative [facility] [employer] Other Quick Strepon 03-28-2022 S. pyogenes Org specific cx Ql (Throat) Negative [facility] [employer] Other Quick Strep [facility] Other COVID Quick Testingon 2021 Result Negative [facility] [employer] Other Quick Fluon 01-30-2022 FLUAV Ab CF (S) [Titer] Negative [facility] Other FLUBV Ab CF (S) [Titer] Negative [facility] Other SARS-COV-2 & INFLUENZA A/Bon 11-11-2021 INFLUENZA A, RT-PCR Not detected Normal NOT DETECTED [facility] Comment on above: Performed By: #### C VFLU #### [facility] [employer] [address] [place] [address] INFLUENZA B, RT-PCR Not detected Normal NOT DETECTED [facility] Comment on above: Performed By: #### C VFLU #### [facility] [employer] [address] [place] [address] SARS-CoV-2 (COVID-19) RNA MIKE+probe Ql (Unsp spec) Not detected Normal NOT DETECTED [facility] Comment on above: Result Comment: Not Detected results do not preclude SARS-CoV-2 infection and should not be used as the sole basis for patient management decisions. Results must be combined with clinical observations, patient history, and epidemiological information. Testing was performed using BRAN Shreya SARS-CoV-2 and Influenza A/B nucleic acid assay. This test is a multiplex Real-Time Reverse Transcriptase Polymerase Chain Reaction (RT-PCR)-based in vitro diagnostic test intended for the qualitative detection of nucleic acids from SARS-CoV-2, influenza A, and influenza B in nasopharyngeal and nasal swab specimens for use under the FDA?s Emergency Use Authorization (EUA) only. Fact sheet for Healthcare Providers: https://www.fda.gov/media/696370/download Fact sheet for Patients: https://www.fda.gov/media/668512/download Performed By: #### C [facility] #### [place] [address] [address] Chlamydia/GC,DNA Ampon 11-03 Chlamydia Probe Negative Normal NEG [facility] Comment on above: Result Comment: CHLA MYDIA TRACHOMATIS DNA not detected by nucleic acid amplification. This test is intended for medical purposes only and is not valid for the evaluation of suspected sexual abuse or for other forensic purposes. In certain contexts, culture may be required to meet applicable laws and regulations for diagnosis of C. trachomatis and N. gonorrhoeae infections. Per 2014 CDC recommendations, this test does not include confirmation of positive results by an alternative nucleic acid target. Performed By: #### S WC #### [address] [id number] Receiving Team Member: Arron Paul MD Gonorrhea Probe Negative [facility] Comment on above: Result Comment: NEIS SERIA GONORRHOEAE DNA not detected by nucleic acid amplification. This test is intended for medical purposes only and is not valid for the evaluation of suspected sexual abuse or for other forensic purposes. In certain contexts, culture may be required to meet applicable laws and regulations for diagnosis of C. trachomatis and N. gonorrhoeae infections. Per 2014 CDC recommendations, this test does not include confirmation of positive results by an alternative nucleic acid target. Performed By: #### S WCGP #### [id number] Receiving Team Member: Arron Paul MD Cult,Urineon 11-03-2021 Cult,Urine Specimen Description .CLEAN CATCH URINE Special Requests NOT REPORTED Culture NO SIGNIFICANT GROWTH Report Status FINAL 11/03/2021 [facility] Comment on above: Performed By: #### U RC #### [employer] [address] [place] [phone] Receiving Team Member: Arron Paul MD Vaginitis DNA Probeon 2020 Vaginitis DNA Probe Specimen Description .VAGINA Special Requests NOT REPORTED Direct Exam POSITIVE for Juju sp. POSITIVE for Gardnerella vaginalis. NEGATIVE for Trichomonas vaginalis Method of testing is a DNA probe intended for detection and identification of Juju species, Gardnerella vaginalis, and Trichomonas vaginalis nucleic acid in vaginal fluid specimens from patients with symptoms of vaginitis/vaginosis. Report Status FINAL 11/02/2021 Normal [facility] Comment on above: Performed By: #### V AGDNA #### [address] [address] Receiving Team Member: Arron Paul MD UA w/Reflex Cultureon 2020 Bilirubin, SemiQt,Ur Negative Normal NEG [facility] Comment on above: Performed By: #### U AX, UMICAO #### [facility] [address] [place] [address] Receiving Team Member: Arron Paul MD Blood, Urine Negative Normal NEG [facility] Comment on above: Performed By: #### U AX, UMICAO #### [facility] [address] [place] [phone] Receiving Team Member: Arron Paul MD Clarity (U) Cloudy Abnormal CLEAR [facility] Comment on above: Performed By: #### U AX, UMICAO #### [employer] [address] [place] [address] Receiving Team Member: Arron Paul MD Color (U) Yellow Normal YEL [facility] Comment on above: Performed By: #### U AX, UMICAO #### [facility] [address] [place] [address] Receiving Team Member: Arron Paul MD Glucose Ql (U) Negative Normal NEG [facility] Comment on above: Performed By: #### U AX, UMICAO #### [facility] [address] [place] [phone] Receiving Team Member: Arron Paul MD Ketones Ql (U) Negative Normal NEG [facility] Comment on above: Performed By: #### U AX, UMICAO #### [facility] [address] [place] [address] Receiving Team Member: Arron Paul MD Leukocyte esterase Test strip Ql (U) Negative Normal NEG [facility] Comment on above: Performed By: #### U AX, UMICAO #### [address] [address] Receiving Team Member: Arron Paul MD Nitrite,Ur Negative Normal NEG [facility] Comment on above: Performed By: #### U AX, UMICAO #### [address] [address] Receiving Team Member: Arron Paul MD PH,Ur 7.5 Normal 5.0-8.0 [facility] Comment on above: Performed By: #### U AX, UMICAO #### [facility] [address] [place] [address] Receiving Team Member: Arron Paul MD Protein Ql (U) Negative Normal NEG [facility] Comment on above: Performed By: #### U AX, UMICAO #### [facility] [address] [place] [address] Receiving Team Member: Arron Paul MD Spec. [place],Ur 1.020 Normal 1.005-1.030 [facility] Comment on above: Performed By: #### U AX, UMICAO #### [facility] [address] [place] [address] Receiving Team Member: Arron Paul MD Urobilinogen,Ur Normal Normal NORM [facility] Comment on above: Performed By: #### U AX, UMICAO #### [facility] [employer] [address] [place] [address] Receiving Team Member: Arron Paul MD Comment NOT REPORTED Normal [facility] Comment on above: Performed By: #### U AX, UMICAO #### [facility] [employer] [address] [place] [phone] Receiving Team Member: Arron Paul MD Urinalysis,Microon 1 ----- Normal [facility] Comment on above: Performed By: #### U AX, UMICAO #### [facility] [employer] [address] [place] [address] Receiving Team Member: Arron Paul MD Amorphous sediment LM Ql (Urine sed) 1+ Abnormal NONE [facility] Comment on above: Performed By: #### U AX, UMICAO #### [facility] [address] [place] [address] Receiving Team Member: Arron Paul MD Bacteria FEW Abnormal NONE [facility] Comment on above: Performed By: #### U AX, UMICAO #### [facility] [employer] [address] [place] [address] Receiving Team Member: Arron Paul MD Casts 0 TO 2 Normal 0-2 [facility] Comment on above: Result Comment: HYAL INE Performed By: #### U AX, UMICAO #### [facility] [employer] [address] [place] [address] Receiving Team Member: Arron Paul MD Epithelial cells LM Ql (Urine sed) 10 TO 20 Normal 0-5 [facility] Comment on above: Performed By: #### U AX, UMICAO #### [facility] [employer] [address] [place] [address] Receiving Team Member: Arron Paul MD Mucus Strands 1+ Abnormal NONE [facility] Comment on above: Performed By: #### U AX, UMICAO #### [facility] [address] [place] [address] Receiving Team Member: Arron Paul MD Urine RBC's 0 TO 2 Normal 0-2 [facility] Comment on above: Performed By: #### U AX, UMICAO #### [facility] [address] [place] [address] Receiving Team Member: Arron Paul MD Urine WBC's 5 TO 10 Normal 0-5 [facility] Comment on above: Performed By: #### U AX, UMICAO #### [facility] [employer] [address] [place] [address] Receiving Team Member: Arron Paul MD Crystals LM Nom (Urine sed) NOT REPORTED Normal NONE [facility] Comment on above: Performed By: #### U AX, UMICAO #### [facility] [address] [place] [address] Receiving Team Member: Arron Paul MD Epithelial, Renal NOT REPORTED Normal 0 [facility] Comment on above: Performed By: #### U AX, UMICAO #### [facility] [address] [place] [address] Receiving Team Member: Arron Paul MD Other Observations NOT REPORTED Normal NREQ [facility] Comment on above: Performed By: #### U AX, UMICAO #### [facility] [address] [place] [address] Receiving Team Member: Arron Paul MD Trichomonas NOT REPORTED Normal [facility] Comment on above: Performed By: #### U AX, UMICAO #### [facility] [address] [place] [address] Receiving Team Member: Arron Paul MD Yeast NOT REPORTED Normal [facility] Comment on above: Performed By: #### U AX, UMICAO #### [employer] [address] [place] [address] [phone] Receiving Team Member: Arron Paul MD POCT urine pregnancyOrdered By: Kristine Gonzalez on 07-07-2021 Beta HCG ( test) Ql (U) Negative NEGATIVE H?REL Phone: Comment on above: Specimens with hCG l evels near the threshold of the test (25 mIU/mL) may give a negative or indeterminate result. In such cases, another test should be performed with a new specimen in 48-72 hours. If early is suspected clinically in this setting, correlation with quantitative serum b-hCG level is suggested. TESTING PERFORMED AT [address] [address] H?REL Phone: Surgical Pathologyon Surgical Pathology (NOTE) -- Diagnosis -- Appendix: Fibrosis and fibrous adhesion. Sabas Diaz Electronically Signed Out rdd/07/11/2021 Clinical Information Pre-op Diagnosis: RIGHT LOWER QUADRANT PAIN Operative Findings: APPENDIX Operation Performed: ABDOMINAL EXPLORATORY LAPAROSCOPIC ROBOTIC, LAPAROSCOPIC APPENDECTOMY Source of Specimen 1: APPENDIX Gross Description JENY CARDOSO, APPENDIX 6.0 cm long x 0.6 cm in diameter vermiform appendix with a moderate amount of attached mesoappendix. The serosa is pink-fernandez with adhesions. Sectioning reveals no fecalith or transmural defect. Tip and cross sections with margin inked black 1cs. tm Microscopic Description There is serosal fibrosis and fibrous lesion. There is no active inflammation and no focal lesions. SURGICAL PATHOLOGY CONSULTATION Patient Name: JENY CARDOSO [facility] Rec: [id number] Path Number: [id number] [facility] ANATOMIC PATHOLOGY [address] [place] [id number] Normal [facility] Comment on above: Performed By: #### P PPVS #### [employer] [address] [place] [address] Receiving Team Member: Arron Paul MD [id number] 07-04-2021 SARS-CoV-2 (COVID-19) RNA MIKE+probe Ql (Unsp spec) Normal [facility] Comment on above: Performed By: #### L IPR #### [facility] [address] [facility] [place], [place] [id number] Receiving Team Member: Jordan Baez DO SARS-CoV-2 (COVID-19) RNA MIKE+probe Ql (Unsp spec) Not detected Normal [facility] Comment on above: Result Comment: The specimen is NEGATIVE for SARS-CoV-2, the novel coronavirus associated with COVID-19. A negative result does not rule out COVID-19. Bran SARS-CoV-2 for use on the Bran [employer]/8800 Systems is a real-time RT-PCR test intended for the qualitative detection of nucleic acids from SARS-CoV-2 in clinician-collected nasal, nasopharyngeal, and oropharyngeal swab specimens from individuals who meet COVID-19 clinical and/or epidemiological criteria. Bran SARS-CoV-2 is for use only under Emergency Use Authorization (EUA) in laboratories certified under Clinical Laboratory Improvement Amendments of 1988 (CLIA), 42 U.S.C. ?263a, that meet requirements to perform high or moderate complexity tests. An individual without symptoms of COVID-19 and who is not shedding SARS-CoV-2 virus would expect to have a negative (not detected) result in this assay. Fact sheet for Healthcare Providers: https://www.fda.gov/media/743467/download Fact sheet for Patients: https://www.fda.gov/media/646431/download METHODOLOGY: RT-PCR Performed By: #### L IPR #### [facility] [address] [facility] [place] [address] Receiving Team Member: Jordan Baez DO Comp Metabolic Profon 2020 (cont.) [facility] Comment on above: Result Comment: Aver age GFR for <20 years old not available. Chronic Kidney Disease: <60 mL/min/1.73sq m Kidney failure: <15 mL/min/1.73sq m eGFR calculated using average adult body mass. Additional eGFR calculator available at: http://www.PerceptiMed.com/multiple_crcl_2012.htm Performed By: #### L IPR #### [facility] [address] [place] [address] Receiving Team Member: Jordan Baez DO Albumin [Mass/Vol] 4.2 g/dL Normal 3.5-5.2 [facility] Comment on above: Performed By: #### L IPR #### [facility] [address] [facility] [place] [address] Receiving Team Member: Jordan Baez DO Alkaline Phos 72 U/L Normal 35-104 [facility] Comment on above: Performed By: #### L IPR #### [facility] [place] [address] Receiving Team Member: Jordan Baez DO ALT [Catalytic activity/Vol] 23 U/L Normal 5-33 [facility] Comment on above: Performed By: #### L IPR #### [facility] [facility] [place] [address] Receiving Team Member: Jordan Baez DO Anion gap [Moles/Vol] 11 mmol/L Normal 9-17 [facility] Comment on above: Performed By: #### L IPR #### [facility] [address] [place] [address] Receiving Team Member: Jordan Baez DO AST [Catalytic activity/Vol] 16 U/L Normal <32 [facility] Comment on above: Performed By: #### L IPR #### [facility] [place] [address] Receiving Team Member: Jordan Baze DO Bilirubin [Mass/Vol] 0.32 mg/dL Normal 0.3-1.2 [facility] Comment on above: Performed By: #### L IPR #### [facility] [address] [place] [address] Receiving Team Member: Jordan Baez DO Calcium [Mass/Vol] 9.2 mg/dL Normal 8.6-10.4 [facility] Comment on above: Performed By: #### L IPR #### [facility] [place] [address] Receiving Team Member: Jordan Baez DO Chloride [Moles/Vol] 100 mmol/L Normal 98-107 [facility] Comment on above: Performed By: #### L IPR #### [facility] [place] [address] Receiving Team Member: Jordan Baez DO CO2 [Moles/Vol] 25 mmol/L Normal 20-31 [facility] Comment on above: Performed By: #### L IPR #### [facility] [place] [address] Receiving Team Member: Jordan Baez DO Creatinine [Mass/Vol] 0.62 mg/dL Normal 0.50-0.90 [facility] Comment on above: Performed By: #### L IPR #### [facility] [address] [place] [address]. [place] [address] Receiving Team Member: Jordan Baez DO GFR,non Amer Pediatric GFR requires additional information. Refer to NKDEP website for Normal >60 [facility] Comment on above: Result Comment: calc ulator. Performed By: #### L IPR #### [facility] [facility] [place] [address] Receiving Team Member: Jordan Baez DO Glucose [Mass/Vol] 99 mg/dL Normal 70-99 [facility] Comment on above: Performed By: #### L IPR #### [facility] [address] [place] [address]. [place] [address] Receiving Team Member: Jordan Baez DO Potassium [Moles/Vol] 3.7 mmol/L Normal 3.7-5.3 [facility] Comment on above: Performed By: #### L IPR #### [facility] [address] [place] [address] Receiving Team Member: Jordan Baez DO Protein [Mass/Vol] 7.4 g/dL Normal 6.4-8.3 [facility] Comment on above: Performed By: #### L IPR #### [facility] [place] [address] Receiving Team Member: Jordan Baez DO Sodium [Moles/Vol] 136 mmol/L Normal 135-144 [facility] Comment on above: Performed By: #### L IPR #### [facility] [place] [address] Receiving Team Member: Jordan Baez DO Urea nitrogen [Mass/Vol] 8 mg/dL Normal 6-20 [facility] Comment on above: Performed By: #### L IPR #### [facility] [place] [address] Receiving Team Member: Jordan Baez DO Albumin/Glob Ratio NOT REPORTED Normal 1.0-2.5 [facility] Comment on above: Performed By: #### L IPR #### [facility] [address] [place] [address] Receiving Team Member: Jordan Baez DO BUN/CRE Ratio NOT REPORTED Normal 9-20 [facility] Comment on above: Performed By: #### L IPR #### [facility] [address] [place] [address] Receiving Team Member: Jordan Baez DO GFR, Amer NOT REPORTED Normal >60 [facility] Comment on above: Performed By: #### L IPR #### [facility] [address] [facility] [place], [place] [id number] Receiving Team Member: Jordan Baez DO Staging: NOT REPORTED Normal [facility] Comment on above: Performed By: #### L IPR #### [facility] [address] [facility] [place] [address] Receiving Team Member: Jordan Baez DO Comprehensive Metabolic Pane lOrdered By: Kristine Gonzalez on 07-03-2021 Albumin [Mass/Vol] 4.2 g/dL 3.5 - 5.2 g/dL H?REL Phone: Albumin/Globulin Ratio NOT REPORTED H?REL Phone: ALP (Bld) [Catalytic activity/Vol] 72 U/L 35 - 104 U/L H?REL Phone: ALT [Catalytic activity/Vol] 23 U/L 5 - 33 U/L H?REL Phone: Anion gap [Moles/Vol] 11 mmol/L 9 - 17 mmol/L H?REL Phone: AST [Catalytic activity/Vol] 16 U/L <32 H?REL Phone: Bilirubin [Mass/Vol] 0.32 mg/dL 0.3 - 1 .2 mg/dL H?REL Phone: Calcium [Mass/Vol] 9.2 mg/dL 8.6 - 10. 4 mg/dL H?REL Phone: Chloride [Moles/Vol] 100 mmol/L 98 - 10 7 mmol/L H?REL Phone: CO2 [Moles/Vol] 25 mmol/L 20 - 31 mmol/L H?REL Phone: Creatinine [Mass/Vol] 0.62 mg/dL 0.50 - 0.90 mg/dL H?REL Phone: Free PSA/Total PSA [Mass fraction] 7.4 g/dL 6.4 - 8.3 g/dL H?REL Phone: GFR NOT REPORTED >60 mL/min [employer] Phone: GFR Non- Pediatric GFR requires additional information. Refer to NKDEP website for calculator. >60 mL/min [facility] Phone: GFR/1.73 sq M.predicted MDRD (S/P/Bld) [Vol rate/Area] [facility] Phone: Comment on above: Average GFR for <20 years old not available. Chronic Kidney Disease: <60 mL/min/1.73sq m Kidney failure: <15 mL/min/1.73sq m eGFR calculated using average adult body mass. Additional eGFR calculator available at: http://www.[employer]uvola/multiple_crcl_2012.htm GFR/1.73 sq M.predicted MDRD (S/P/Bld) [Vol rate/Area] NOT REPORTED [facility] Phone: Glucose [Mass/Vol] 99 mg/dL 70 - 99 mg/dL [facility] Phone: Potassium [Moles/Vol] 3.7 mmol/L 3.7 - 5.3 mmol/L [facility] Phone: Sodium [Moles/Vol] 136 mmol/L 135 - 144 mmol/L [facility] Phone: Urea nitrogen (BldV) [Mass/Vol] 8 mg/dL 6 - 20 mg/dL [facility] Phone: Urea nitrogen/Creatinine (Bld) [Mass ratio] NOT REPORTED H?REL Phone: H?REL Phone: [id number] 07-03-2021 SARS-CoV-2 (COVID-19) RNA MIKE+probe Ql (Unsp spec) .NASOPHARYNGEAL SWAB Normal [facility] Comment on above: Performed By: #### L IPR #### [facility] [address] [place] [address] Receiving Team Member: Jordan Baez DO CBC Auto DifferentialOrdered By: Jose Gama on 06-07-2021 [employer] # 0.10 [facility] Work Phone: Absolute Immature Granulocyte NOT REPORTED [facility] [employer] Work Phone: Absolute Lymph # 1.80 [facility] Work Phone: Absolute Peñuelas # 0.40 [facility] Work Phone: Basophils (Bld) [#/Vol] 0.00 10*3/uL [facility] Work Phone: Basophils/100 WBC (Bld) 0 % 0 - 2 % [facility] [employer] Work Phone: Differential Type NOT REPORTED [facility] [employer] Phone: Eosinophils/100 WBC (Bld) 2 % 0 - 4 % H?REL Phone: Hematocrit (Bld) [Volume fraction] 38.8 % 36 - 46 % [facility] Phone: Hemoglobin.gastrointes tinal spec 1 Ql (Stl) 12.6 g/dL 12.0 - 16.0 g/dL [facility] [employer] Work Phone: Immature Granulocytes NOT REPORTED 0 % [employer] Work Phone: Lymphocytes/100 WBC (Bld) 33 % 25 - 45 % H?REL Phone: MCH (RBC) [Entitic mass] 28.0 pg 25 - 35 pg [employer] Work Phone: MCHC (RBC) [Mass/Vol] 32.5 g/dL 31 - 37 g/dL [employer] Work Phone: MCV (RBC) [Entitic vol] 86.1 fL 78 - 102 fL H?REL Phone: Monocytes/100 WBC (Bld) 7 % 2 - 8 % H?REL Phone: NRBC Automated NOT REPORTED per 100 WBC [facility] Work Phone: Platelet distribution width (Bld) [Ratio] 14.9 % 11.5 - 14.9 % H?REL Phone: Platelet Estimate NOT REPORTED H?REL Phone: Platelet mean volume (Bld) [Entitic vol] 8.2 fL 6.0 - 12.0 fL H?REL Phone: Platelets (Bld) [#/Vol] 238 10*3/uL H?REL Phone: RBC (Bld) [#/Vol] 4.50 10*6/uL 4.0 - 5.2 m/uL H?REL Phone: RBC (Bld) [#/Vol] NOT REPORTED H?REL Phone: Segmented neutrophils/100 WBC (Bld) 58 % 34 - 64 % H?REL Phone: Segs [employer] 3[employer] Work Phone: WBC (Bld) [#/Vol] 5.4 10*3/uL H?REL Phone: WBC (Bld) [#/Vol] NOT REPORTED H?REL Phone: H?REL Phone: CBC with Diffon 06-07-2021 Abs. Basophil 0.00 k/uL Normal 0.0-0.2 [facility] Comment on above: Performed By: #### C DP #### [facility] [address] [place] [address] Receiving Team Member: Jordan Baez DO Abs.Neutrophil (Seg) 3.20 k/uL Normal 1.3-9.1 [facility] Comment on above: Performed By: #### C DP #### [facility] [address] [place] [address] Receiving Team Member: Jordan Baez DO Basophils/100 WBC (Bld) 0 % Normal 0-2 [facility] Comment on above: Performed By: #### C DP #### [facility] [place] [address] Receiving Team Member: Jordan Baez DO Eosinophils (Bld) [#/Vol] 0.10 10*3/uL Normal 0.0-0.4 [facility] Comment on above: Performed By: #### C DP #### [facility] [place] [address] Receiving Team Member: Jordan Baez DO Eosinophils/100 WBC (Bld) 2 % Normal 0-4 [facility] Comment on above: Performed By: #### C DP #### [facility] [place] [address] Receiving Team Member: Jordan Baez DO Erythrocyte distribution width (RBC) [Ratio] 14.9 % Normal 11.5-14.9 [facility] Comment on above: Performed By: #### C DP #### [facility] [place] [address] Receiving Team Member: Jordan Baez DO Hematocrit (Bld) [Volume fraction] 38.8 % Normal 36-46 [facility] Comment on above: Performed By: #### C DP #### [facility] [place] [address] Receiving Team Member: Fanelly, Jordan, DO Hemoglobin (Bld) [Mass/Vol] 12.6 g/dL Normal 12.0-16.0 [facility] Comment on above: Performed By: #### C DP #### [facility] [place] [address] Receiving Team Member: Jordan Baez DO Lymphocytes (Bld) [#/Vol] 1.80 10*3/uL Normal 1.2-5.2 [facility] Comment on above: Performed By: #### C DP #### [facility] [address] [place] [address] Receiving Team Member: Jordan Baez DO Lymphocytes/100 WBC (Bld) 33 % Normal 25-45 [facility] Comment on above: Performed By: #### C DP #### [facility] [address] [place] [address] Receiving Team Member: Jordan Baez DO MCH (RBC) [Entitic mass] 28.0 pg Normal 25-35 [facility] Comment on above: Performed By: #### C DP #### [facility] [address] [place] [address] Receiving Team Member: Jordan Baez DO MCHC (RBC) [Mass/Vol] 32.5 g/dL Normal 31-37 [facility] Comment on above: Performed By: #### C DP #### [facility] [address] [place] [address] Receiving Team Member: Jordan Baez DO MCV (RBC) [Entitic vol] 86.1 fL Normal 78-102 [facility] Comment on above: Performed By: #### C DP #### [facility] [address] [place] [address] Receiving Team Member: Jordan Baez DO Monocytes (Bld) [#/Vol] 0.40 10*3/uL Normal 0.1-1.3 [facility] Comment on above: Performed By: #### C DP #### [facility] [place] [address] Receiving Team Member: Jordan Baez DO Monocytes/100 WBC (Bld) 7 % Normal 2-8 [facility] Comment on above: Performed By: #### C DP #### [facility] [address] [place] [address] Receiving Team Member: Jordan Baez DO Neutrophil (Seg) 58 % Normal 34-64 [facility] Comment on above: Performed By: #### C DP #### [facility] [address] [place] [address] Receiving Team Member: Jordan Baez DO Platelet mean volume (Bld) [Entitic vol] 8.2 fL Normal 6.0-12.0 [facility] Comment on above: Performed By: #### C DP #### [facility] [address] [place] [address] Receiving Team Member: Jordan Baez DO Platelets (Bld) [#/Vol] 238 10*3/uL Normal 150-450 [facility] Comment on above: Performed By: #### C DP #### [facility] [address] [place] [address] Receiving Team Member: Jordan Baez DO RBC (Bld) [#/Vol] 4.50 10*6/uL Normal 4.0-5.2 [facility] Comment on above: Performed By: #### C DP #### [facility] [address] [place], [place] [address] [place] [address] Receiving Team Member: Jordan Baez DO WBC (Bld) [#/Vol] 5.4 10*3/uL Normal 4.5-13.5 [facility] Comment on above: Performed By: #### C DP #### [facility] [address] [place] [address] Receiving Team Member: Jordan Baez DO Abs.Imm.Granulocyte NOT REPORTED Normal 0.00-0.30 [facility] Comment on above: Performed By: #### C DP #### [facility] [place] [address] Receiving Team Member: Jordan Baez DO Auto Diff Performed NOT REPORTED Normal [facility] Comment on above: Performed By: #### C DP #### [facility] [address] [place] [address] Receiving Team Member: Jordan Baez DO Immature Granulocyte NOT REPORTED Normal 0 [facility] Comment on above: Performed By: #### C DP #### [facility] [address] [place] [address] Receiving Team Member: Jordan Baez DO NRBC Automated NOT REPORTED Normal [facility] Comment on above: Performed By: #### C DP #### [facility] [address] [place] [address] Receiving Team Member: Jordan Baez DO Platelet Estimate NOT REPORTED Normal [facility] Comment on above: Performed By: #### C DP #### [facility] [address] [place] [address] Receiving Team Member: Jordan Baez DO RBC morphology finding Nom (Bld) NOT REPORTED Normal [facility] Comment on above: Performed By: #### C DP #### [facility] [address] [place] [address] Receiving Team Member: Jordan Baez DO WBC Morphology NOT REPORTED Normal [facility] Comment on above: Performed By: #### C DP #### [facility] [address] [place] [address] Receiving Team Member: Jordan Baez DO Microscopic UrinalysisOrdere d By: Jose Gama on 06-07-2021 - [facility] [employer] Work Phone: Amorphous, UA 2+ Abnormal None [facility] Work Phone: Bacteria, UA FEW Abnormal None [facility] Work Phone: Casts UA NOT REPORTED /LPF [facility] [employer] Work Phone: Crystals, UA NOT REPORTED None /HPF [facility] Work Phone: Epithelial Cells UA 2 TO 5 /HPF [facility] Work Phone: Interpretation and review of laboratory results Abnormal [facility] [employer] Work Phone: Mucus, UA NOT REPORTED None [facility] [employer] Work Phone: Other Observations UA NOT REPORTED NOT REQ. [facility] [employer] Work Phone: RBC, UA 20 TO 50 /HPF [facility] [employer] Work Phone: Renal Epithelial, UA NOT REPORTED 0 /HPF [facility] [employer] Work Phone: Trichomonas, UA NOT REPORTED None [facility] Work Phone: WBC, UA 0 TO 2 /HPF [facility] [employer] Work Phone: Yeast, UA NOT REPORTED None [facility] Work Phone: [facility] [employer] Work Phone: UA w/Reflex [employer] 2020 Bilirubin, SemiQt,Ur Negative Normal NEG [facility] Comment on above: Performed By: #### L IPR #### [facility] [address] [place] [address] Receiving Team Member: Jordan Baez DO Blood, Urine LARGE Abnormal NEG [facility] Comment on above: Performed By: #### L IPR #### [facility] [address] [place] [address] Receiving Team Member: Jordan Baez DO Clarity (U) CLOUDY Abnormal CLEAR [facility] Comment on above: Performed By: #### L IPR #### [facility] [place] [address] Receiving Team Member: Jordan Baez DO Color (U) YELLOW Normal YEL [facility] Comment on above: Performed By: #### L IPR #### [facility] [address] [place] [address] Receiving Team Member: Jordan Baez DO Glucose Ql (U) Negative Normal NEG [facility] Comment on above: Performed By: #### L IPR #### [facility] [address] [place] [address] Receiving Team Member: Jordan Baez DO Ketones Ql (U) Negative Normal NEG [facility] Comment on above: Performed By: #### L IPR #### [facility] [place] [address] Receiving Team Member: Jordan Baez DO Leukocyte esterase Test strip Ql (U) Negative Normal NEG [facility] Comment on above: Performed By: #### L IPR #### [facility] [address] [place] [address] Receiving Team Member: Jordan Baez DO Nitrite,Ur Negative Normal NEG [facility] Comment on above: Performed By: #### L IPR #### [facility] [address] [place] [address] Receiving Team Member: Jordan Baez DO PH,Ur 7.0 Normal 5.0-8.0 [facility] Comment on above: Performed By: #### L IPR #### [facility] [address] [facility] [place] [address] Receiving Team Member: Jordan Baez DO Protein Ql (U) Negative Normal NEG [facility] Comment on above: Performed By: #### L IPR #### [facility] [address] [place] [address] Receiving Team Member: Jordan Baez DO Spec. [place],Ur 1.019 Normal 1.000-1.030 [facility] Comment on above: Performed By: #### L IPR #### [facility] [address] [place] [address] Receiving Team Member: Jordan Baez DO Urobilinogen,Ur Normal Normal NORM [facility] Comment on above: Performed By: #### L IPR #### [facility] [address] [place] [address] Receiving Team Member: Jordan Baez DO Comment NOT REPORTED Normal [facility] Comment on above: Performed By: #### L IPR #### [facility] [place] [address] Receiving Team Member: Jordan Baez DO Urinalysis Reflex to Culture Ordered By: Jose Gama on 06-07-2021 Bilirubin Urine Negative NEGATIVE [facility] Work Phone: Color, UA YELLOW YELLOW [facility] Work Phone: Glucose, Ur Negative NEGATIVE [facility] Work Phone: Interpretation and review of laboratory results Abnormal [facility] Work Phone: Ketones Ql (U) Negative NEGATIVE [facility] Work Phone: Leukocyte esterase Test strip Ql (U) Negative NEGATIVE [facility] Work Phone: Nitrite, Urine Negative NEGATIVE [facility] Work Phone: pH, UA 7.0 [facility] Work Phone: Protein, UA Negative NEGATIVE [facility] [employer] Phone: Specific [place], UA 1.019 [facility] Work Phone: Turbidity UA CLOUDY Abnormal CLEAR [facility] Work Phone: Urinalysis Comments NOT REPORTED [facility] Work Phone: Urine Hgb LARGE Abnormal NEGATIVE [facility] [employer] Phone: Urobilinogen, Urine Normal Normal [facility] Phone: [facility] Phone: Urinalysis,Microon 1 ----- Normal [facility] Comment on above: Performed By: #### L IPR #### [facility] [address] [place] [address] Receiving Team Member: Jordan Baez DO Amorphous sediment LM Ql (Urine sed) 2+ Abnormal [facility] Comment on above: Performed By: #### L IPR #### [facility] [address] [place] [address] Receiving Team Member: Jordan Baez DO Bacteria FEW Abnormal [facility] Comment on above: Performed By: #### L IPR #### [facility] [place] [address] Receiving Team Member: Jordan Baez DO Epithelial cells LM Ql (Urine sed) 2 TO 5 Normal [facility] Comment on above: Performed By: #### L IPR #### [facility] [place] [address] Receiving Team Member: Jordan Baez DO Urine RBC's 20 TO 50 Normal [facility] Comment on above: Performed By: #### L IPR #### [facility] [address] [facility]. [place] [address] Receiving Team Member: Joradn Baez DO Urine WBC's 0 TO 2 Normal [facility] Comment on above: Performed By: #### L IPR #### [facility] [address] [place] [address] Receiving Team Member: Jordan Baez DO Casts NOT REPORTED Normal [facility] Comment on above: Performed By: #### L IPR #### [facility] [address] [place] [address] Receiving Team Member: Jordan Baez DO Crystals LM Nom (Urine sed) NOT REPORTED Normal NONE [facility] Comment on above: Performed By: #### L IPR #### [facility] [address] [place] [address] Receiving Team Member: Jordan Baez DO Epithelial, Renal NOT REPORTED Normal 0 [facility] Comment on above: Performed By: #### L IPR #### [facility] [address] [place] [address] Receiving Team Member: Jordan Baez DO Mucus Strands NOT REPORTED Normal NONE [facility] Comment on above: Performed By: #### L IPR #### [facility] [address] [facility]. [place] [address] Receiving Team Member: Jordan Baez DO Other Observations NOT REPORTED Normal NREQ [facility] Comment on above: Performed By: #### L IPR #### [facility] [address] [place] [address] Receiving Team Member: Jordna Baez DO Trichomonas NOT REPORTED Normal NONE [facility] Comment on above: Performed By: #### L IPR #### [facility] [address] [facility]. [place] [address] Receiving Team Member: Jordan Baez DO Yeast NOT REPORTED Normal NONE [facility] Comment on above: Performed By: #### L IPR #### [facility] [address] [place] [address] Receiving Team Member: Jordan Baez DO Chlamydia, DNA, Uron 021 Chlamydia Probe, Ur Negative Normal NEG [facility] Comment on above: Result Comment: CHLA MYDIA TRACHOMATIS DNA not detected by nucleic acid amplification. This test is intended for medical purposes only and is not valid for the evaluation of suspected sexual abuse or for other forensic purposes. In certain contexts, culture may be required to meet applicable laws and regulations for diagnosis of C. trachomatis and N. gonorrhoeae infections. Per 2014 CDC recommendations, this test does not include confirmation of positive results by an alternative nucleic acid target. Performed By: #### U CP #### [address] [address] Receiving Team Member: Arron Paul MD CBCon 12-02-2020 Erythrocyte distribution width (RBC) [Ratio] 14.5 % Normal 11.5-14.9 [facility] Comment on above: Performed By: #### V D25, HIVCMB, AHCV #### [address] [address] Receiving Team Member: Arron Paul MD #### CBC, CP, TSH #### [facility] [address] [place] [address] Receiving Team Member: Jordan Baez DO Hematocrit (Bld) [Volume fraction] 40.5 % Normal 36-46 [facility] Comment on above: Performed By: #### V D25, HIVCMB, AHCV #### [address] [address] Receiving Team Member: Arron Paul MD #### CBC, CP, TSH #### [facility] [address] [place] [address] Receiving Team Member: Jordan Baez DO Hemoglobin (Bld) [Mass/Vol] 13.4 g/dL Normal 12.0-16.0 [facility] Comment on above: Performed By: #### V D25, HIVCMB, AHCV #### [address] [address] Receiving Team Member: Arron Paul MD #### CBC, CP, TSH #### [facility] [address] [place] [address] Receiving Team Member: Jordan Baez DO MCH (RBC) [Entitic mass] 28.3 pg Normal 25-35 [facility] Comment on above: Performed By: #### Morelia D25, HIVCMB, AHCV #### [address] [address] Receiving Team Member: Arron Paul MD #### CBC, CP, TSH #### [facility] [address] [place] [address] Receiving Team Member: Jordan Baez DO MCHC (RBC) [Mass/Vol] 33.1 g/dL Normal 31-37 [facility] Comment on above: Performed By: #### Morelia D25, HIVCMB, AHCV #### [address] [address] Receiving Team Member: Arron Paul MD #### CBC, CP, TSH #### [facility] [address] [place] [address] Receiving Team Member: Jordan Baez DO MCV (RBC) [Entitic vol] 85.4 fL Normal 78-102 [facility] Comment on above: Performed By: #### V D25, HIVCMB, AHCV #### [address] [address] Receiving Team Member: Arron Paul MD #### CBC, CP, TSH #### [facility] [address] [place] [address] Receiving Team Member: Jordan Baez DO Platelet mean volume (Bld) [Entitic vol] 8.4 fL Normal 6.0-12.0 [facility] Comment on above: Performed By: #### Morelia D25, HIVCMB, AHCV #### [address] [address] Receiving Team Member: Arron Paul MD #### CBC, CP, TSH #### [facility] [place] [address] Receiving Team Member: Jordna Baez DO Platelets (Bld) [#/Vol] 229 10*3/uL Normal 150-450 [facility] Comment on above: Performed By: #### Morelia D2Sage, HIVCMB, AHCV #### [address] [address] Receiving Team Member: Arron Paul MD #### CBC, CP, TSH #### [facility] [address] [place] [address] Receiving Team Member: Jordan Baez DO RBC (Bld) [#/Vol] 4.74 10*6/uL Normal 4.0-5.2 [facility] Comment on above: Performed By: #### Morelia D25, HIVCMB, AHCV #### [address] [address] Receiving Team Member: Arron Paul MD #### CBC, CP, TSH #### [facility] [place] [address] Receiving Team Member: Jordan Baez DO WBC (Bld) [#/Vol] 4.8 10*3/uL Normal 4.5-13.5 [facility] Comment on above: Performed By: #### V D25, HIVCMB, AHCV #### [facility] [address] [place] [address] Receiving Team Member: Arron Paul MD #### CBC, CP, TSH #### [facility] [address] [facility] [place] [address] Receiving Team Member: Jordan Baez DO NRBC Automated NOT REPORTED Normal [facility] Comment on above: Performed By: #### V D25, HIVCMB, AHCV #### [facility] [address] [place] [address] Receiving Team Member: Arron Paul MD #### CBC, CP, TSH #### [facility] [address] [place] [address] Receiving Team Member: Jordan Baez DO Erythrocyte distribution width (RBC) [Ratio] 14.5 % 11.5 - 14.9 % [place] Hematocrit (Bld) [Volume fraction] 40.5 % 36 - 46 % [place] Hemoglobin (Bld) [Mass/Vol] 13.4 g/dL 12 - 16 g/dL [place] MCH (RBC) [Entitic mass] 28.3 pg 25 - 35 pg [place] MCHC (RBC) [Mass/Vol] 33.1 g/dL 31 - 37 g/dL [place] MCV (RBC) [Entitic vol] 85.4 fL 78 - 102 fL [place] Platelet mean volume (Bld) [Entitic vol] 8.4 fL 6 - 12 fL [place], [place] Platelets (Bld) [#/Vol] 229 10*3/uL [place] RBC (Bld) [#/Vol] 4.74 10*6/uL 4 - 5.2 m/uL [place] WBC (Bld) [#/Vol] 4.8 10*3/uL [place] WBC (Bld) [#/Vol] NOT REPORTED per 100 WBC [facility], [place] Comp Metabolic Profon 2020 (cont.) Normal [facility] Comment on above: Result Comment: Aver age GFR for <20 years old not available. Chronic Kidney Disease: <60 mL/min/1.73sq m Kidney failure: <15 mL/min/1.73sq m eGFR calculated using average adult body mass. Additional eGFR calculator available at: http://www.[employer]/multiple_crcl_2012.htm Performed By: #### V D25, HIVCMB, AHCV #### [address] [address] Receiving Team Member: Arron Paul MD #### VIVI, ASHLEY, TSH #### [facility] [address] [place] [address] Receiving Team Member: Jordan Baez DO Albumin [Mass/Vol] 4.1 g/dL Normal 3.5-5.2 [facility] Comment on above: Performed By: #### V D25, HIVCMB, AHCV #### [address] [address] Receiving Team Member: Arron Paul MD #### VIVI, CP, TSH #### [facility] [address] [place] [address] Receiving Team Member: Jordan Baez DO Alkaline Phos 81 U/L Normal 35-104 [facility] Comment on above: Performed By: #### V D25, HIVCMB, AHCV #### [address] [address] Receiving Team Member: Arron Paul MD #### VIVI, CP, TSH #### [facility] [address] [place] [address] Receiving Team Member: Jordan Baez DO ALT [Catalytic activity/Vol] 22 U/L Normal 5-33 [facility] Comment on above: Performed By: #### V D25, HIVCMB, AHCV #### [address] [address] Receiving Team Member: Arron Paul MD #### CBC, CP, TSH #### [facility] [address] [place] [address] Receiving Team Member: Jordan Baez DO Anion gap [Moles/Vol] 12 mmol/L Normal 9-17 [facility] Comment on above: Performed By: #### V D25, HIVCMB, AHCV #### [address] [address] Receiving Team Member: Arron Paul MD #### CBC, CP, TSH #### [facility] [address] [place] [address] Receiving Team Member: Jordan Baez DO AST [Catalytic activity/Vol] 16 U/L Normal <32 [facility] Comment on above: Performed By: #### V D25, HIVCMB, AHCV #### [address] [address] Receiving Team Member: Arron Paul MD #### CBC, CP, TSH #### [facility] [address] [place] [address] Receiving Team Member: Jordan Baez DO Bilirubin [Mass/Vol] 0.23 mg/dL Low 0.3-1.2 [facility] Comment on above: Performed By: #### V D25, HIVCMB, AHCV #### [address] [address] Receiving Team Member: Arron Paul MD #### CBC, CP, TSH #### [facility] [address] [place] [address] Receiving Team Member: Jordan Baez DO Calcium [Mass/Vol] 9.7 mg/dL Normal 8.6-10.4 [facility] Comment on above: Performed By: #### Morelia T[place], HIVCMB, AHCV #### [address] [address] Receiving Team Member: Arron Paul MD #### CBC, CP, TSH #### [facility] [place] [address] Receiving Team Member: Jordan Baez DO Chloride [Moles/Vol] 106 mmol/L Normal 98-107 [facility] Comment on above: Performed By: #### Morelia T[place], HIVCMB, AHCV #### [address] [address] Receiving Team Member: Arron Paul MD #### CBC, CP, TSH #### [facility] [address] [place] [address] Receiving Team Member: Jordan Baez DO CO2 [Moles/Vol] 21 mmol/L Normal 20-31 [facility] Comment on above: Performed By: #### Morelia Tello, HIVCMB, AHCV #### [address] [address] Receiving Team Member: Arron Paul MD #### CBC, CP, TSH #### [facility] [place] [address] Receiving Team Member: Jordan Baez DO Creatinine [Mass/Vol] 0.54 mg/dL Normal 0.50-0.90 [facility] Comment on above: Performed By: #### Morelia D25, HIVCMB, AHCV #### [address] [address] Receiving Team Member: Arron Paul MD #### CBC, CP, TSH #### [facility] [address] [place] [address] Receiving Team Member: Jordan Baez DO GFR,non Amer Pediatric GFR requires additional information. Refer to NKDEP website for Normal >60 [facility] Comment on above: Result Comment: calc ulator. Performed By: #### V D25, HIVCMB, AHCV #### [address] [address] Receiving Team Member: Arron Paul MD #### CBC, CP, TSH #### [facility] [address] [place] [address] Receiving Team Member: Jordan Baez DO Glucose [Mass/Vol] 97 mg/dL Normal 70-99 [facility] Comment on above: Performed By: #### V D25, HIVCMB, AHCV #### [address] [address] Receiving Team Member: Arron Paul MD #### CBC, CP, TSH #### [facility] [address] [place] [address] Receiving Team Member: Jordan Baez DO Potassium [Moles/Vol] 4.1 mmol/L Normal 3.7-5.3 [facility] Comment on above: Performed By: #### V D25, HIVCMB, AHCV #### [address] [address] Receiving Team Member: Arron Paul MD #### CBC, CP, TSH #### [facility] [address] [place] [address] Receiving Team Member: Jordan Baez DO Protein [Mass/Vol] 7.5 g/dL Normal 6.4-8.3 [facility] Comment on above: Performed By: #### V D25, HIVCMB, AHCV #### [address] [address] Receiving Team Member: Arron Paul MD #### CBC, CP, TSH #### [facility] [address] [place] [address] Receiving Team Member: Jordan Baez DO Sodium [Moles/Vol] 139 mmol/L Normal 135-144 [facility] Comment on above: Performed By: #### V D25, HIVCMB, AHCV #### [address] [address] Receiving Team Member: Arron Paul MD #### CBC, CP, TSH #### [facility] [address] [place] [address] Receiving Team Member: Joradn Baez DO Urea nitrogen [Mass/Vol] 9 mg/dL Normal 6-20 [facility] Comment on above: Performed By: #### V D25, HIVCMB, AHCV #### [address] [address] Receiving Team Member: Arron Paul MD #### CBC, CP, TSH #### [facility] [place] [address] Receiving Team Member: Jordan Baez, DO Albumin/Glob Ratio NOT REPORTED Normal 1.0-2.5 [facility] Comment on above: Performed By: #### Morelia D25, HIVCMB, AHCV #### [address] [address] Receiving Team Member: Arron Paul MD #### CBC, CP, TSH #### [facility] [address] [place] [address] Receiving Team Member: Jordan Baez, DO BUN/CRE Ratio NOT REPORTED Normal 9-20 [facility] Comment on above: Performed By: #### V D25, HIVCMB, AHCV #### [address] [place] [address] Receiving Team Member: Arron Paul MD #### CBC, CP, TSH #### [facility] [address] [place] [address] Receiving Team Member: Jordan Baez DO GFR, Amer NOT REPORTED Normal >60 [facility] Comment on above: Performed By: #### V D25, HIVCMB, AHCV #### [facility] [address] [place] [address] Receiving Team Member: Arron Paul MD #### CBC, CP, TSH #### [facility] [address] [place] [address] Receiving Team Member: Jordan Baez DO Staging: NOT REPORTED Normal [facility] Comment on above: Performed By: #### V D25, HIVCMB, AHCV #### [facility] [address] [place] [address] Receiving Team Member: Arron Paul MD #### CBC, CP, TSH #### [facility] [address] [place] [address] Receiving Team Member: Jordan Baez DO Comprehensive Metabolic Pane bonnie 12-02-2020 Albumin [Mass/Vol] 4.1 g/dL 3.5 - 5.2 g/dL [place] Albumin/Globulin [Mass ratio] NOT REPORTED [place] ALP [Catalytic activity/Vol] 81 U/L 35 - 104 U/L [place] ALT [Catalytic activity/Vol] 22 U/L 5 - 33 U/L [place] Anion gap [Moles/Vol] 12 mmol/L 9 - 17 mmol/L [place] AST [Catalytic activity/Vol] 16 U/L <32 [place] Bilirubin Ql (U) 0.23 mg/dL Low 0.3 - 1.2 mg/dL [place] Bun/Cre Ratio NOT REPORTED [facility] [place] Calcium [Mass/Vol] 9.7 mg/dL 8.6 - 10. 4 mg/dL [place] Chloride [Moles/Vol] 106 mmol/L 98 - 10 7 mmol/L [place] CO2 [Moles/Vol] 21 mmol/L 20 - 31 mmol/L [place] Creatinine [Mass/Vol] 0.54 mg/dL 0.5 - 0.9 mg/dL [place] GFR NOT REPORTED >60 mL/min [place] GFR Non- Pediatric GFR requires additional information. Refer to NKDEP website for calculator. >60 mL/min [place] GFR/1.73 sq M predicted among non-blacks MDRD (S/P/Bld) [Vol rate/Area] NOT REPORTED [place] GFR/1.73 sq M predicted among non-blacks MDRD (S/P/Bld) [Vol rate/Area] [place] Comment on above: Average GFR for <20 years old not available. Chronic Kidney Disease: <60 mL/min/1.73sq m Kidney failure: <15 mL/min/1.73sq m eGFR calculated using average adult body mass. Additional eGFR calculator available at: http://www.[employer]uv[employer]/multiple_crcl_2012.htm Glucose [Mass/Vol] 97 mg/dL 70 - 99 mg/dL [place] Interpretation and review of laboratory results Abnormal [place] Potassium [Moles/Vol] 4.1 mmol/L 3.7 - 5.3 mmol/L [place] Protein [Mass/Vol] 7.5 g/dL 6.4 - 8.3 g/dL [place] Sodium [Moles/Vol] 139 mmol/L 135 - 144 mmol/L [place] Urea nitrogen [Mass/Vol] 9 mg/dL 6 - 20 mg/dL [place] HIV Ag/Abon 12-02-2020 HIV Ag/Ab Non-Reactive Normal NR [facility] Comment on above: Result Comment: No l aboratory evidence of HIV infection. If acute HIV infection is suspected, consider testing for HIV-1 RNA. Performed By: #### V D25, HIVCMB, AHCV #### [facility] [place] [address] Receiving Team Member: Arron Paul MD #### CBC, CP, TSH #### [facility] [address] [place] [address] Receiving Team Member: Jordan Baez DO HIV Screenon 12-02-2020 HIV Ag/Ab NONREACTIVE NONREACTIVE [place], [place] Comment on above: No laboratory eviden ce of HIV infection. If acute HIV infection is suspected, consider testing for HIV-1 RNA. Hep C Abon 12-02-2020 Hep C Ab Non-Reactive Normal NR [facility] Comment on above: Result Comment: The hepatitis C procedure used in our laboratory is a Chemiluminescent test specific for three recombinant HCV antigens. A negative anti-HCV result indicates that the antibodies to hepatitis C virus are not present at this time. Individuals with reactive anti-HCV should be considered infected and infectious until proven otherwise. Confirmation of all equivocal or reactive results is recommended by ordering HCV RNA by PCR. Performed By: #### V D25, HIVCMB, AHCV #### [place] [id number] [place] [address] Receiving Team Member: Arron Paul MD #### CBC, CP, TSH #### [facility] [address] [place] [address] Receiving Team Member: Jordan Baez DO Hepatitis C Antibodyon 12-02 Hepatitis C Ab NONREACTIVE NONREACTIVE [place] Comment on above: The hepatitis C procedure used in our laboratory is a Chemiluminescent test specific for three recombinant HCV antigens. A negative anti-HCV result indicates that the antibodies to hepatitis C virus are not present at this time. Individuals with reactive anti-HCV should be considered infected and infectious until proven otherwise. Confirmation of all equivocal or reactive results is recommended by ordering HCV RNA by PCR. TSH without Reflexon 021 TSH Qn 1.56 m[IU]/L [place], [place] Thyroid Stim. Horm.on 2020 TSH Qn 1.56 m[IU]/L Normal 0.30-5.00 [facility] Comment on above: Performed By: #### V D25, HIVCMB, AHCV #### [facility] [address] [place] [address] Receiving Team Member: Arron Paul MD #### CBC, CP, TSH #### [facility] [address] [place] [address] Receiving Team Member: Jordan Baez DO Vitamin D 25 Hydroxyon 12-02 Interpretation and review of laboratory results Abnormal [place] Vit D, 25-Hydroxy 19.6 ng/mL Low 30 - 100 ng/mL [place] Comment on above: Reference Range: Vitamin D status Range Deficiency <20 ng/mL Mild Deficiency 20-30 ng/mL Sufficiency 30-100 ng/mL Toxicity >100 ng/mL Vitamin D 25 OHon 12-02-2020 Vitamin D 25 OH 19.6 ng/mL Low 30.0-100.0 [facility] Comment on above: Result Comment: Reference Range: Vitamin D status Range Deficiency <20 ng/mL Mild Deficiency 20-30 ng/mL Sufficiency 30-100 ng/mL Toxicity >100 ng/mL Performed By: #### V D25, HIVCMAgueda, AHCV #### [facility] [address] [place] [address] Receiving Team Member: Arron Paul MD #### CBC, CP, TSH #### [facility] [address] [place] [address] Receiving Team Member: Jordan Baez DO XR CHEST (2 VW)on 12-02-2020 XR CHEST (2 VW) EXAMINATION: TWO XRAY VIEWS OF THE CHEST 12/02/2020 3:21 pm COMPARISON: None. HISTORY: ORDERING SYSTEM PROVIDED HISTORY: Cough present for greater than 3 weeks TECHNOLOGIST PROVIDED HISTORY: Cough Reason for Exam: chronic cough x 1 year Acuity: Chronic Type of Exam: Initial FINDINGS: Cardiopericardial silhouette There are no significant mediastinal, pleural, parenchymal or osseous findings IMPRESSION: No acute cardiopulmonary findings Interpreted by: Pedro Guzman MD Signed by: Pedro Guzman MD 12/02/20 Final result Normal [facility] No acute cardiopulmonary findings [place] EXAMINATION: TWO XRAY VIEWS OF THE CHEST 12/02/2020 3:21 pm COMPARISON: None. HISTORY: ORDERING SYSTEM PROVIDED HISTORY: Cough present for greater than 3 weeks TECHNOLOGIST PROVIDED HISTORY: Cough Reason for Exam: chronic cough x 1 year Acuity: Chronic Type of Exam: Initial FINDINGS: Cardiopericardial silhouette There are no significant mediastinal, pleural, parenchymal or osseous findings [place], [place] Flex, [facility] Incoming Radiant Results From [employer] - 12/02/2020 3:27 PM EST EXAMINATION: TWO XRAY VIEWS OF THE CHEST 12/02/2020 3:21 pm COMPARISON: None. HISTORY: ORDERING SYSTEM PROVIDED HISTORY: Cough present for greater than 3 weeks TECHNOLOGIST PROVIDED HISTORY: Cough Reason for Exam: chronic cough x 1 year Acuity: Chronic Type of Exam: Initial FINDINGS: Cardiopericardial silhouette There are no significant mediastinal, pleural, parenchymal or osseous findings IMPRESSION: No acute cardiopulmonary findings [place], [place] Mononucleosis Screenon 10-26 Mononucleosis Screen Negative Normal NEG [facility] Comment on above: Performed By: #### L IPR #### [facility] [address] [place] [address] Receiving Team Member: Jordan Baez DO Mononucleosis Screen Negative NEGATIVE [place], [place] Lipid Panelon 09-13-2020 Cholesterol [Mass/Vol] 126 mg/dL <200 [place], [place] Comment on above: Cholesterol Guidelines: <200 Desirable 200-240 Borderline >240 Undesirable Cholesterol in HDL [Mass/Vol] 55 mg/dL >40 [place] Comment on above: HDL Guidelines: <40 Undesirable 40-59 Borderline >59 Desirable Cholesterol in LDL [Mass/Vol] 61 mg/dL 0 - 130 mg/dL [place] Comment on above: LDL Guidelines: <100 Desirable 100-129 Near to/above Desirable 130-159 Borderline >159 Undesirable Direct (measured) LDL and calculated LDL are not interchangeable tests. Cholesterol in VLDL [Mass/Vol] NOT REPORTED 1 - 30 mg/dL [place] Cholesterol.total/Chol esterol in HDL [Mass ratio] 2.3 {ratio} <5 [place] Triglyceride [Mass/Vol] 48 mg/dL <150 [place] Comment on above: Triglyceride Guidelines: <150 Desirable 150-199 Borderline 200-499 High >499 Very high Based on AHA Guidelines for fasting triglyceride, August 2012. Lipid Profileon 09-13-2020 Cholesterol [Mass/Vol] 126 mg/dL Normal <200 [facility] Comment on above: Result Comment: Cholesterol Guidelines: <200 Desirable 200-240 Borderline >240 Undesirable Performed By: #### L IPR #### [facility] [address] [place], [place] [id number] Receiving Team Member: Jordan Baez DO Cholesterol in HDL [Mass/Vol] 55 mg/dL Normal >40 [facility] Comment on above: Result Comment: HDL Guidelines: <40 Undesirable 40-59 Borderline >59 Desirable Performed By: #### L IPR #### [facility] [address] [place] [address] Receiving Team Member: Jordan Baez DO Cholesterol in LDL [Mass/Vol] 61 mg/dL Normal 0-130 [facility] Comment on above: Result Comment: LDL Guidelines: <100 Desirable 100-129 Near to/above Desirable 130-159 Borderline >159 Undesirable Direct (measured) LDL and calculated LDL are not interchangeable tests. Performed By: #### L IPR #### [facility] [address] [place] [address] Receiving Team Member: Jordan Baez DO Cholesterol.total/Chol esterol in HDL [Mass ratio] 2.3 {ratio} Normal <5 [facility] Comment on above: Performed By: #### L IPR #### [facility] [address] [facility] [place] [address] Receiving Team Member: Jordan Baez DO Triglyceride [Mass/Vol] 48 mg/dL Normal <150 [facility] Comment on above: Result Comment: Triglyceride Guidelines: <150 Desirable 150-199 Borderline 200-499 High >499 Very high Based on AHA Guidelines for fasting triglyceride, August 2012. Performed By: #### L IPR #### [facility] [address] [facility] [place] [address] Receiving Team Member: Jordan Baez DO Cholesterol,VLDL NOT REPORTED Normal 1-30 [facility] Comment on above: Performed By: #### L IPR #### [facility] [address] [facility] [place] [address] Receiving Team Member: Jordan Baez DO LIPID PROFILEon 08-27-2019 Cholesterol [Mass/Vol] 112 mg/dL Low 120-170 [facility] Comment on above: Order Comment: No: D o not add to previous draw Result Comment: CHOL ESTEROL REFERENCE RANGE: 20 YEARS AND OLDER CARDIOVASCULAR RISK Less than 200 mg/dl Low Risk 200 to 239 mg/dl Borderline Risk 240 mg/dl and greater High Risk Performed By: #### 3 1522, 13619, [id number] #### [facility] [address] [place] [address], [facility] Cholesterol in HDL [Mass/Vol] 42 mg/dL Normal 23-92 [facility] Comment on above: Order Comment: No: D o not add to previous draw Result Comment: Slig ht variation in normal range could be due to gender and/or age. HDL CHOLESTEROL REFERENCE RANGE: 20 years and older Cardiovascular Risk > or =60 mg/dL Desirable 40 TO 59 mg/dL Low Risk <40 mg/dL High Risk Performed By: #### 3 1522, 53023, 39212 #### [facility] [address] [place] [address], [facility] Cholesterol in LDL [Mass/Vol] 53 mg/dL Normal 0-130 [facility] Comment on above: Order Comment: No: D o not add to previous draw Result Comment: LDL IS A CALCULATION LDL IS ONLY VALID IF THE TRIG IS LESS THAN 400. Performed By: #### 3 1522, 65694, 54021 #### [facility] [address] Cholesterol.total/Chol esterol in HDL [Mass ratio] 2.7 {ratio} Normal 0.0-4.5 [facility] Comment on above: Order Comment: No: D o not add to previous draw Performed By: #### 3 1522, 55427, 75599 #### [facility] [address] NON-HDL CHOLESTEROL 70 mg/dL Normal [facility] Comment on above: Order Comment: No: D o not add to previous draw Performed By: #### 3 1522, 01296, 27085 #### [facility] [address] [facility] [address] Triglyceride [Mass/Vol] 83 mg/dL Normal 37-148 [facility] Comment on above: Order Comment: No: D o not add to previous draw Result Comment: TRIG LYCERIDE REFERENCE RANGE: 20 YEARS AND OLDER CARDIOVASCULAR RISK LESS THAN 150 mg/dl LOW RISK 150 TO 199 mg/dl BORDERLINE RISK 200 mg/dl AND GREATER HIGH RISK Performed By: #### 3 1522, 86940, 61506 #### [facility] [address] [facility] [address] VLDL CHOL 17 mg/dL Normal 0-40 [facility] Comment on above: Order Comment: No: D o not add to previous draw Performed By: #### 3 1522, 76681, 60540 #### [facility] [address] [facility]. [address] TSH3on 08-27-2019 TSH 3RD GENERATION 1.03 uIU/mL Normal 0.34-5.60 [facility] Comment on above: Order Comment: No: D o not add to previous draw Performed By: #### 3 1522, 33321, 58678 #### [facility] [address] [place] [address], [place] VITAMIN D 25-HYDROXYon 08-27 VITAMIN D 25-OH 19.6 ng/mL Low 30.0-80.0 [facility] Comment on above: Result Comment: >80. 0 Toxicity possible Performed By: #### 3 1522, 61155, 79930 #### [facility] [address] [place] [address], [place] BASIC METABOLIC PANELon Calcium [Mass/Vol] 8.7 mg/dL Normal 8.6-10.[address] [facility] Comment on above: Order Comment: No: D o not add to previous draw Performed By: #### 0 0071, 17869 #### [facility] [address] [place] [address], [place] Chloride [Moles/Vol] 105 mmol/L Normal 98-107 [facility] Comment on above: Order Comment: No: D o not add to previous draw Performed By: #### 0 0071, 92419 #### [facility] [address] [place] [address], [place] CO2 [Moles/Vol] 22 mmol/L Normal 21-31 [facility] Comment on above: Order Comment: No: D o not add to previous draw Performed By: #### 0 0071, 29183 #### [facility] [address] [place] [address], [place] Creatinine [Mass/Vol] 0.62 mg/dL Normal 0.60-1.20 [facility] Comment on above: Order Comment: No: D o not add to previous draw Performed By: #### 0 0071, 09243 #### [facility] [address] [place] [address], [place] GFR/1.73 sq M predicted among blacks MDRD (S/P/Bld) [Vol rate/Area] Calculation not validated for patients under 18 years Abnormal >60 [facility] Comment on above: Order Comment: No: D o not add to previous draw Performed By: #### 0 70, 84933 #### [facility] [address] [place] [address], [place] GFR/1.73 sq M predicted among non-blacks MDRD (S/P/Bld) [Vol rate/Area] Calculation not validated for patients under 18 years Abnormal >60 [facility] Comment on above: Order Comment: No: D o not add to previous draw Performed By: #### 0 70, 65004 #### [facility] [address] [place] [address], [place] Glucose [Mass/Vol] 91 mg/dL Normal 70-100 [facility] Comment on above: Order Comment: No: D o not add to previous draw Performed By: #### 0 70, 29237 #### [facility] [address] [place] [address], [place] Potassium [Moles/Vol] 3.7 mmol/L Normal 3.5-5.1 [facility] Comment on above: Order Comment: No: D o not add to previous draw Performed By: #### 0 70, 33798 #### [facility] [address] [place] [address], [place] Sodium [Moles/Vol] 133 mmol/L Low 136-145 [facility] Comment on above: Order Comment: No: D o not add to previous draw Performed By: #### 0 70, 00513 #### [facility] [address] [place] [address], [place] Urea nitrogen [Mass/Vol] 12 mg/dL Normal 7-25 [facility] Comment on above: Order Comment: No: D o not add to previous draw Performed By: #### 0 70, 27594 #### [facility] [address] CBC COMPLETE BLOOD COUNTon Erythrocyte distribution width (RBC) [Ratio] 13.8 % Normal 11.5-15.0 [facility] Comment on above: Order Comment: No: D o not add to previous draw Performed By: #### 5 0608 #### [facility] [address] [place] [address], [facility] Hematocrit (Bld) [Volume fraction] 40.6 % Normal 36.0-45.0 [facility] Comment on above: Order Comment: No: D o not add to previous draw Performed By: #### 5 0608 #### [facility] [address] [place] [address], [facility] Hemoglobin (Bld) [Mass/Vol] 12.5 g/dL Normal 12.0-15.0 [facility] Comment on above: Order Comment: No: D o not add to previous draw Performed By: #### 5 0608 #### [facility] [address] [place] [address], [facility] MCH (RBC) [Entitic mass] 27.2 pg Normal 27.0-33.0 [facility] Comment on above: Order Comment: No: D o not add to previous draw Performed By: #### 5 0608 #### [facility] [address] [place] [address], [facility] MCHC (RBC) [Mass/Vol] 30.8 g/dL Low 32.0-35.0 [facility] Comment on above: Order Comment: No: D o not add to previous draw Performed By: #### 5 0608 #### [facility] [address] [place] [id number], [facility] MCV (RBC) [Entitic vol] 88.3 fL Normal 82.0-98.0 [facility] Comment on above: Order Comment: No: D o not add to previous draw Performed By: #### 5 0608 #### [facility] [address] Nucleated RBC/100 WBC (Bld) [Ratio] 0 % Normal 0-0 [facility] Comment on above: Order Comment: No: D o not add to previous draw Performed By: #### 5 0608 #### [facility] [address] [place] [address], [facility] PLAT CNT 238 10*3/uL Normal 150-400 [facility] Comment on above: Order Comment: No: D o not add to previous draw Performed By: #### 5 0608 #### [facility] [address] RBC (Bld) [#/Vol] 4.60 10*6/uL Normal 3.80-5.00 [facility] Comment on above: Order Comment: No: D o not add to previous draw Performed By: #### 5 0608 #### [facility] [address] WBC (Bld) [#/Vol] 5.06 10*3/uL Normal 4.00-10.60 [facility] Comment on above: Order Comment: No: D o not add to previous draw Performed By: #### 5 0608 #### [facility] [address] FREE T4on 08-26-2019 Free T4 [Mass/Vol] 0.90 ng/dL Normal 0.71-1.[address] [facility] Comment on above: Performed By: #### 0 0071, 29819 #### [facility] [address] POC URINE PREGNANCYon 2018 Beta HCG ( test) Ql (U) Negative Normal NEGATIVE [facility] Comment on above: Result Comment: Perf ormed in Emergency Department. Performed By: #### 8 4140 #### [facility] [address] [facility] [place] [address], [facility] TOX PANEL URINEon 08-25-2019 50 THC Negative Normal NEGATIVE [facility] Comment on above: Performed By: #### 3 1079 #### [facility] [address] [place] [address], [facility] BARBITURATES Negative Normal NEGATIVE The [facility] Comment on above: Performed By: #### 3 1079 #### [facility] [address] [place] [address], [facility] Benzodiazepines Ql (U) Negative Normal NEGATIVE [facility] Comment on above: Performed By: #### 3 1079 #### [facility] [address] [facility] [place] [address], [facility] Cocaine Ql (U) Negative Normal NEGATIVE The [facility] Comment on above: Performed By: #### 3 1079 #### [facility] [address] [facility] [place] [address], [facility] Methadone Ql (U) Negative Normal NEGATIVE The [facility] Comment on above: Performed By: #### 3 1079 #### [facility] [address] [facility] [place] [address], [facility] MONO AMPHET Negative Normal NEGATIVE [facility] Comment on above: Performed By: #### 3 1079 #### [facility] [address] [facility] [place] [address], [facility] Opiates Ql (U) Negative Normal NEGATIVE The [facility] Comment on above: Performed By: #### 3 1079 #### [facility] [address] [facility] [place] [address], [facility] Phencyclidine Ql (U) Negative Normal NEGATIVE [facility] Comment on above: Performed By: #### 3 1079 #### [facility] [address] [facility] [place] [address], [place] PROPOXYPHENE Negative Normal NEGATIVE The [facility] Comment on above: Performed By: #### 3 1079 #### [facility] [address] [facility] [place] [address], [facility] TRICYCLICS Negative Normal NEGATIVE [facility] Comment on above: Performed By: #### 3 1079 #### [facility] [address] [place] [address], [facility] URINALYSIS REFLEXon 08-25-20 19 Appearance (U) SL CLOUDY Abnormal CLEAR The [facility] Comment on above: Order Comment: Crite allison for reflexing a culture was not met. Please call the lab at [phone] within 24 hours of collection time if culture is needed Performed By: #### 3 1608, 38262 #### [facility] [address] Bilirubin [Mass/Vol] Negative Normal NEGATIVE [facility] Comment on above: Order Comment: Crite allison for reflexing a culture was not met. Please call the lab at 7668 within 24 hours of collection time if culture is needed Performed By: #### 3 1608, 65199 #### [facility] [address] [facility] [place] [address], [facility] BLOOD MODERATE Abnormal NEGATIVE [facility] Comment on above: Order Comment: Crite allison for reflexing a culture was not met. Please call the lab at 7668 within 24 hours of collection time if culture is needed Performed By: #### 3 1608, 55948 #### [facility] [address] [facility] [place] [address], [facility] Color (U) YELLOW Normal YELLOW [facility] Comment on above: Order Comment: Crite allison for reflexing a culture was not met. Please call the lab at 7668 within 24 hours of collection time if culture is needed Performed By: #### 3 1608, 04578 #### [facility] [address] [place] [address], [facility] EPIS MANY Abnormal FEW,OCC,NONE SEEN [facility] Comment on above: Order Comment: Crite allison for reflexing a culture was not met. Please call the lab at 7668 within 24 hours of collection time if culture is needed Performed By: #### 3 1608, 20108 #### [facility] [address] [place] [id number], [facility] Glucose [Mass/Vol] Negative Normal NEGATIVE The [facility] Comment on above: Order Comment: Crite allison for reflexing a culture was not met. Please call the lab at 7668 within 24 hours of collection time if culture is needed Performed By: #### 3 1608, 81235 #### [facility] [address] [place] [address], [facility] KETONE Negative Normal NEGATIVE [facility] Comment on above: Order Comment: Crite allison for reflexing a culture was not met. Please call the lab at 7668 within 24 hours of collection time if culture is needed Performed By: #### 3 1608, 41175 #### [facility] [address] [place] [address], [facility] LEUK DANIELA Negative Normal NEGATIVE [facility] Comment on above: Order Comment: Crite allison for reflexing a culture was not met. Please call the lab at 7668 within 24 hours of collection time if culture is needed Performed By: #### 3 1608, 27283 #### [facility] [address] [facility] [place] [id number], [facility] Nitrite Ql (U) Negative Normal NEGATIVE The [facility] Comment on above: Order Comment: Crite allison for reflexing a culture was not met. Please call the lab at 7668 within 24 hours of collection time if culture is needed Performed By: #### 3 1608, 38001 #### [facility] [address] [place] [id number], [facility] pH (Bld) 5.0 Normal 5.0-8.0 [facility] Comment on above: Order Comment: Crite allison for reflexing a culture was not met. Please call the lab at 7668 within 24 hours of collection time if culture is needed Performed By: #### 3 1608, 71333 #### [facility] [address] Protein (U) [Mass/Vol] Negative Normal NEGATIVE [facility] Comment on above: Order Comment: Crite allison for reflexing a culture was not met. Please call the lab at 7668 within 24 hours of collection time if culture is needed Performed By: #### 3 1608, 90623 #### [facility] [address] RBC (U) [#/Vol] 0-2 Abnormal NONE SEEN [facility] Comment on above: Order Comment: Crite allison for reflexing a culture was not met. Please call the lab at 7668 within 24 hours of collection time if culture is needed Performed By: #### 3 1608, 30062 #### [address] SPEC GRAV 1.024 High 1.015-1.020 [facility] Comment on above: Order Comment: Crite allison for reflexing a culture was not met. Please call the lab at 7668 within 24 hours of collection time if culture is needed Performed By: #### 3 1608, 72194 #### [facility] [address] WBC UA 0-2 Abnormal NONE SEEN [facility] Comment on above: Order Comment: Crite allison for reflexing a culture was not met. Please call the lab at 7668 within 24 hours of collection time if culture is needed Performed By: #### 3 1608, 02783 #### [facility] [address] URINE TESTon 08-25 HCG ( test) Ql (U) Negative Normal [facility] Comment on above: Order Comment: No: D o not add to previous draw Performed By: #### 3 1608, 58907 #### [address] Vital Signs Date Time Vital Sign Value Performing Clinician Facility 08-28-2024 08:40-0400 Body height 162.6 cm Henrique Gutierrez MD Work Phone: [facility] 08-28-2024 08:40-0400 Body mass index (BMI) [Ratio] 50.46 kg/m2 Henrique Gutierrez MD Work Phone: [facility] 08-28-2024 08:40-0400 Body weight 133.36 kg Henrique Gutierrez MD Work Phone: [facility] 08-28-2024 08:40-0400 Diastolic blood pressure 73 mm[Hg] Henrique Gutierrez MD Work Phone: [facility] 08-28-2024 08:40-0400 Systolic blood pressure 104 mm[Hg] Henrique Gutierrez MD Work Phone: [facility] 05-18-2024 23:30-0400 SaO2% (BldA) [Mass fraction] 96 % Evens Kourtney [facility] 05-18-2024 23:00-0400 Diastolic blood pressure 76 mm[Hg] Evens Kourtney [facility] 05-18-2024 23:00-0400 Heart rate 81 /min Evens Kourtney [facility] 05-18-2024 23:00-0400 Mean blood pressure 92 mm[Hg] Evens Kourtney [facility] 05-18-2024 23:00-0400 SaO2% (BldA) [Mass fraction] 95 % Evens Kourtney [facility] 05-18-2024 23:00-0400 Systolic blood pressure 125 mm[Hg] Evens Kourtney [facility] 05-18-2024 21:30-0400 Diastolic blood pressure 82 mm[Hg] Evens Kourtney [facility] 05-18-2024 21:30-0400 Heart rate 82 /min Evens Kourtney [facility] 05-18-2024 21:30-0400 Mean blood pressure 93 mm[Hg] Evens Kourtney [facility] 05-18-2024 21:30-0400 Respiratory rate 18 /min Evens Kourtney [facility] 05-18-2024 21:30-0400 SaO2% (BldA) [Mass fraction] 99 % Evens Kourtney [facility] 05-18-2024 21:30-0400 Systolic blood pressure 116 mm[Hg] Evens Kourtney [facility] 05-18-2024 20:43-0400 Body temperature 98.6 [degF] Evens Kourtney [facility] 05-18-2024 20:43-0400 Diastolic blood pressure 86 mm[Hg] Evens Kourtney [facility] 05-18-2024 20:43-0400 Heart rate 92 /min Evens Kourtney [facility] 05-18-2024 20:43-0400 Respiratory rate 19 /min Evens Kourtney [facility] 05-18-2024 20:43-0400 Systolic blood pressure 131 mm[Hg] Evens Kourtney [facility] 05-08-2024 15:23-0400 Blood Pressure Location Sophiesruthi Medinaab [facility] 05-08-2024 15:23-0400 Body temperature 98.42 [degF] Sophie Fredo [facility] 05-08-2024 15:23-0400 Diastolic blood pressure 78 mm[Hg] Sophie Fredo [facility] 05-08-2024 15:23-0400 Heart rate 86 /min Sophie Fredo [facility] 05-08-2024 15:23-0400 Respiratory rate 16 /min Sophie Fredo [facility] 05-08-2024 15:23-0400 SaO2% (BldA) [Mass fraction] 98 % Sophie Fredo [facility] 05-08-2024 15:23-0400 Systolic blood pressure 118 mm[Hg] Sophie Fredo [facility] 03-06-2024 10:42-0400 Body height 165.1 cm [facility] 03-06-2024 10:42-0400 Body mass index (BMI) [Ratio] 48.2 kg/m2 [facility] 03-06-2024 10:42-0400 Body weight 131.59 kg [facility] 03-06-2024 10:42-0400 Diastolic blood pressure 76 mm[Hg] [facility] 03-06-2024 10:42-0400 Heart rate 94 /min [facility] 03-06-2024 10:42-0400 Systolic blood pressure 108 mm[Hg] [facility] 01-21-2024 16:07-0500 Body temperature 98.24 [degF] [facility] 01-21-2024 16:07-0500 Diastolic blood pressure 97 mm[Hg] [facility] 01-21-2024 16:07-0500 Heart rate 83 /min [facility] 01-21-2024 16:07-0500 Respiratory rate 18 /min [facility] 01-21-2024 16:07-0500 SaO2% (BldA) [Mass fraction] 99 % [facility] 01-21-2024 16:07-0500 Systolic blood pressure 131 mm[Hg] [facility] 10-03-2023 17:35-0500 Body height 162.56 cm 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 CNP Work Phone: [facility] Work Phone: 10-03-2023 17:35-0500 Body mass index (BMI) [Ratio] 50.2 kg/m2 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 Work Phone: [facility] Work Phone: 10-03-2023 17:35-0500 Body surface area Derived from formula 2.3 m2 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 CNP Work Phone: [facility] Work Phone: 10-03-2023 17:35-0500 Body weight 132.54 kg 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 CNP Work Phone: [facility] Work Phone: 10-03-2023 17:35-0500 Diastolic blood pressure 79 mm[Hg] 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 Work Phone: [facility] Work Phone: 10-03-2023 17:35-0500 Heart rate 83 /min 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 Work Phone: [facility] Work Phone: 10-03-2023 17:35-0500 SaO2% (BldA) [Mass fraction] 98 % 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 Work Phone: [facility] Work Phone: 10-03-2023 17:35-0500 Systolic blood pressure 104 mm[Hg] 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 Work Phone: [facility] Work Phone: 08-05-2023 09:42-0400 Diastolic blood pressure 73 mm[Hg] 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 Work Phone: [facility] Work Phone: 08-05-2023 09:42-0400 Systolic blood pressure 106 mm[Hg] 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 Work Phone: [facility] Work Phone: 08-05-2023 09:21-0400 Body height 162.56 cm 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 Work Phone: [facility] Work Phone: 08-05-2023 09:21-0400 Body mass index (BMI) [Ratio] 48.9 kg/m2 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 Work Phone: [facility] Work Phone: 08-05-2023 09:21-0400 Body surface area Derived from formula 2.3 m2 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 Work Phone: [facility] Work Phone: 08-05-2023 09:21-0400 Body temperature 98.1 [degF] 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 Work Phone: [facility] Work Phone: 08-05-2023 09:21-0400 Body weight 129.19 kg 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 Work Phone: [facility] Work Phone: 08-05-2023 09:21-0400 Diastolic blood pressure 81 mm[Hg] 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 Work Phone: [facility] Work Phone: 08-05-2023 09:21-0400 Heart rate 82 /min 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 Work Phone: [facility] Work Phone: 08-05-2023 09:21-0400 Respiratory rate 16 /min 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 CNP Work Phone: [facility] Work Phone: 08-05-2023 09:21-0400 SaO2% (BldA) [Mass fraction] 96 % 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 Work Phone: [facility] Work Phone: 08-05-2023 09:21-0400 Systolic blood pressure 163 mm[Hg] 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 Work Phone: [facility] Work Phone: 08-03-2023 08:27-0400 Body temperature 97.9 [degF] Sharon Ram DO Work Phone: [employer] 08-03-2023 08:27-0400 Diastolic blood pressure 77 mm[Hg] Sharon Ram DO Work Phone: [employer] 08-03-2023 08:27-0400 Heart rate 83 /min Sharon Ram DO Work Phone: [employer] 08-03-2023 08:27-0400 Respiratory rate 18 /min Sharon Ram DO Work Phone: [employer] 08-03-2023 08:27-0400 SaO2% (BldA) [Mass fraction] 98 % Sharon Ram DO Work Phone: [employer] 08-03-2023 08:27-0400 Systolic blood pressure 125 mm[Hg] Sharon Ram DO Work Phone: [employer] 07-22-2023 15:12-0400 Body height 162.56 cm 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 Work Phone: [facility] Work Phone: 07-22-2023 15:12-0400 Body mass index (BMI) [Ratio] 48.9 kg/m2 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 Work Phone: [facility] Work Phone: 07-22-2023 15:12-0400 Body surface area Derived from formula 2.3 m2 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 CNP Work Phone: [facility] Work Phone: 07-22-2023 15:12-0400 Body temperature 98.4 [degF] 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 CNP Work Phone: [facility] Work Phone: 07-22-2023 15:12-0400 Body weight 129.28 kg 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 CNP Work Phone: [facility] Work Phone: 07-22-2023 15:12-0400 Diastolic blood pressure 74 mm[Hg] 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 CNP Work Phone: [facility] Work Phone: 07-22-2023 15:12-0400 Heart rate 75 /min 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 CNP Work Phone: [facility] Work Phone: 07-22-2023 15:12-0400 SaO2% (BldA) [Mass fraction] 97 % 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 CNP Work Phone: [facility] Work Phone: 07-22-2023 15:12-0400 Systolic blood pressure 107 mm[Hg] 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 CNP Work Phone: [facility] Work Phone: 07-11-2023 10:37-0400 Body height 162.56 cm 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 CNP Work Phone: [facility] Work Phone: 07-11-2023 10:37-0400 Body mass index (BMI) [Ratio] 48.6 kg/m2 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 CNP Work Phone: [facility] Work Phone: 07-11-2023 10:37-0400 Body surface area Derived from formula 2.3 m2 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 CNP Work Phone: [facility] Work Phone: 07-11-2023 10:37-0400 Body temperature 98.2 [degF] 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 CNP Work Phone: [facility] Work Phone: 07-11-2023 10:37-0400 Body weight 128.37 kg 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 CNP Work Phone: [facility] Work Phone: 07-11-2023 10:37-0400 Diastolic blood pressure 76 mm[Hg] 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 CNP Work Phone: [facility] Work Phone: 07-11-2023 10:37-0400 Heart rate 80 /min 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 CNP Work Phone: [facility] Work Phone: 07-11-2023 10:37-0400 Respiratory rate 16 /min 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 CNP Work Phone: [facility] Work Phone: 07-11-2023 10:37-0400 SaO2% (BldA) [Mass fraction] 96 % 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 CNP Work Phone: [facility] Work Phone: 07-11-2023 10:37-0400 Systolic blood pressure 108 mm[Hg] 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 CNP Work Phone: [facility] Work Phone: 06-27-2023 15:17-0400 Body height 162.56 cm 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 CNP Work Phone: [facility] Work Phone: 06-27-2023 15:17-0400 Body mass index (BMI) [Ratio] 48.9 kg/m2 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 Work Phone: [facility] Work Phone: 06-27-2023 15:17-0400 Body surface area Derived from formula 2.3 m2 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 Work Phone: [facility] Work Phone: 06-27-2023 15:17-0400 Body weight 129.28 kg 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 Work Phone: [facility] Work Phone: 06-27-2023 15:17-0400 Diastolic blood pressure 74 mm[Hg] Cheyenne Jordan [employer]IVE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 Work Phone: [facility] Work Phone: 06-27-2023 15:17-0400 Heart rate 85 /min Cheyenne Jordan [employer]IVE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 Work Phone: [facility] Work Phone: 06-27-2023 15:17-0400 SaO2% (BldA) [Mass fraction] 97 % 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 Work Phone: [facility] Work Phone: 06-27-2023 15:17-0400 Systolic blood pressure 122 mm[Hg] Cheyenne Jordan [employer]IVE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 Work Phone: [facility] Work Phone: 06-04-2023 14:21-0400 Diastolic blood pressure 80 mm[Hg] 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 Work Phone: [facility] Work Phone: 06-04-2023 14:21-0400 Systolic blood pressure 109 mm[Hg] 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 Work Phone: [facility] Work Phone: 06-04-2023 13:13-0400 Body height 162.56 cm 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 Work Phone: [facility] Work Phone: 06-04-2023 13:13-0400 Body mass index (BMI) [Ratio] 47.9 kg/m2 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 CNP Work Phone: [facility] Work Phone: 06-04-2023 13:13-0400 Body surface area Derived from formula 2.3 m2 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 CNP Work Phone: [facility] Work Phone: 06-04-2023 13:13-0400 Body temperature 98.3 [degF] 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 CNP Work Phone: [facility] Work Phone: 06-04-2023 13:13-0400 Body weight 126.55 kg 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 CNP Work Phone: [facility] Work Phone: 06-04-2023 13:13-0400 Diastolic blood pressure 91 mm[Hg] 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 Work Phone: [facility] Work Phone: 06-04-2023 13:13-0400 Heart rate 77 /min 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 CNP Work Phone: [facility] Work Phone: 06-04-2023 13:13-0400 Respiratory rate 16 /min 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 Work Phone: [facility] Work Phone: 06-04-2023 13:13-0400 SaO2% (BldA) [Mass fraction] 97 % 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 Work Phone: [facility] Work Phone: 06-04-2023 13:13-0400 Systolic blood pressure 118 mm[Hg] 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 Work Phone: [facility] Work Phone: 01-08-2023 21:00-0500 Diastolic blood pressure 90 mm[Hg] Lorenzo Kota [facility] 01-08-2023 21:00-0500 Heart rate 88 /min Lorenzo Kota [facility] 01-08-2023 21:00-0500 Mean blood pressure 108 mm[Hg] Lorenzo Kota [facility] 01-08-2023 21:00-0500 Respiratory rate 16 /min Lorenzo Kota [facility] 01-08-2023 21:00-0500 SaO2% (BldA) [Mass fraction] 98 % Lorenzo Kota [facility] 01-08-2023 21:00-0500 Systolic blood pressure 145 mm[Hg] Lorenzo Blocke [facility] 01-08-2023 20:00-0500 Diastolic blood pressure 98 mm[Hg] Lorenzo Kota [facility] 01-08-2023 20:00-0500 Heart rate 61 /min Lorenzo Kota [facility] 01-08-2023 20:00-0500 Mean blood pressure 112 mm[Hg] Lorenzo Kota [facility] 01-08-2023 20:00-0500 Systolic blood pressure 139 mm[Hg] Lorenzo Kota [facility] 01-08-2023 19:00-0500 Diastolic blood pressure 75 mm[Hg] Lorenzo Kota [facility] 01-08-2023 19:00-0500 Heart rate 75 /min Lorenzo Kota [facility] 01-08-2023 19:00-0500 Mean blood pressure 96 mm[Hg] Lorenzo Kota [facility] 01-08-2023 19:00-0500 SaO2% (BldA) [Mass fraction] 100 % Lorenzo Escudero [facility] 01-08-2023 17:51-0500 Body temperature 98.06 [degF] Lorenzo Escudero [facility] 01-05-2023 13:05-0500 Body height 165.1 cm Marie Mccormick Other [facility] [employer] Other 01-05-2023 13:05-0500 Body mass index (BMI) [Ratio] 45.76 kg/m2 Marie Mccormick Other [facility] Other 01-05-2023 13:05-0500 Body temperature 98.3 [degF] Marie Mccormick Other [employer] Other 01-05-2023 13:05-0500 Body weight 124.74 kg Marie Mccormick Other [facility] Other 01-05-2023 13:05-0500 Respiratory rate 18 /min Marie Mccormick Other [facility] Other 01-05-2023 13:05-0500 SaO2% (BldA) [Mass fraction] 98 % Marie Mccormick Other [facility] Other 11-21-2022 11:04-0500 Body height 162.56 cm STOCK ROOM MANAGER-C Micaela Centeno Work Phone: [facility] 11-21-2022 11:04-0500 Body temperature 98.1 [degF] STOCK ROOM MANAGER-C Micaela Byrdmer Work Phone: [facility] 11-21-2022 11:04-0500 Body weight 125 kg STOCK ROOM MANAGER-C Micaelajamel Byrdmer Work Phone: [facility] 11-21-2022 11:04-0500 Diastolic blood pressure 79 mm[Hg] STOCK ROOM MANAGER-C Micaela Centeno Work Phone: [facility] 11-21-2022 11:04-0500 Heart rate 109 /min STOCK ROOM MANAGER-C Micaela Centeno Work Phone: [facility] 11-21-2022 11:04-0500 Respiratory rate 16 /min STOCK ROOM MANAGER-C Micaela Centeon Work Phone: [facility] 11-21-2022 11:04-0500 SaO2% (BldA) [Mass fraction] 97 % STOCK ROOM MANAGER-C Micaela Centeno Work Phone: [facility] 11-21-2022 11:04-0500 Systolic blood pressure 135 mm[Hg] STOCK ROOM MANAGER-C Micaela Centeno Work Phone: [facility] 11-14-2022 13:00-0500 Body height 162.56 cm Micaela Lewis Other [facility] Other 11-14-2022 13:00-0500 Body mass index (BMI) [Ratio] 46.34 kg/m2 Micaela Lewis Other [facility] Other 11-14-2022 13:00-0500 Body temperature 99.5 [degF] Micaela Gilmond Other [facility] Other 11-14-2022 13:00-0500 Body weight 122.47 kg Micaela Lewis Other [facility] Other 11-14-2022 13:00-0500 Respiratory rate 18 /min Micaela Gilmond Other [facility] Other 11-14-2022 13:00-0500 SaO2% (BldA) [Mass fraction] 98 % Micaela Lewis Other [facility] Other 07-04-2022 09:53-0400 Blood Pressure Location KALEB LOCO [facility] [employer] 07-04-2022 09:53-0400 Diastolic blood pressure 86 mm[Hg] KALEB LOCO [facility] [employer] 07-04-2022 09:53-0400 Heart rate 74 /min [facility] 07-04-2022 09:53-0400 Respiratory rate 16 /min [facility] 07-04-2022 09:53-0400 Systolic blood pressure 139 mm[Hg] KALEB LOCO [facility] [employer] 06-15-2022 11:00-0400 Body height 162.56 cm Katie Mahmood Other [facility] Other 06-15-2022 11:00-0400 Body mass index (BMI) [Ratio] 45.48 kg/m2 Katie Mahmood Other [facility] Other 06-15-2022 11:00-0400 Body temperature 97.5 [degF] Katie Mahmood Other [facility] Other 06-15-2022 11:00-0400 Body weight 120.2 kg Katie Mahmood Other [facility] Other 06-15-2022 11:00-0400 Respiratory rate 18 /min Katie Mahmood Other [facility] Other 06-15-2022 11:00-0400 SaO2% (BldA) [Mass fraction] 99 % Katie Mahmood Other [facility] Other 03-28-2022 10:55-0400 Body height 162.56 cm Micaela Lewis Other [facility] Other 03-28-2022 10:55-0400 Body mass index (BMI) [Ratio] 46.34 kg/m2 Micaela Debbie Other [facility] Other 03-28-2022 10:55-0400 Body temperature 97.5 [degF] Micaela Debbie Other [facility] Other 03-28-2022 10:55-0400 Body weight 122.47 kg Micaela Gilmond Other [facility] Other 03-28-2022 10:55-0400 SaO2% (BldA) [Mass fraction] 96 % Micaela Debbie Other [facility] Other 02-16-2022 14:35-0400 Body height 162.56 cm Marie Mccormick Other [facility] Other 02-16-2022 14:35-0400 Body mass index (BMI) [Ratio] 46.34 kg/m2 Marie Mccormick Other [facility] Other 02-16-2022 14:35-0400 Body temperature 97.8 [degF] Marie Mccormick Other [facility] Other 02-16-2022 14:35-0400 Body weight 122.47 kg Marie Mccormick Other [facility] Other 02-16-2022 14:35-0400 Respiratory rate 18 /min Marie Mccormick Other [facility] Other 02-16-2022 14:35-0400 SaO2% (BldA) [Mass fraction] 98 % Marie Mccormick Other [facility] Other 01-30-2022 11:25-0500 Body height 162.56 cm Marie Mccormick Other [facility] Other 01-30-2022 11:25-0500 Body mass index (BMI) [Ratio] 44.62 kg/m2 Marie Mccormick Other [facility] Other 01-30-2022 11:25-0500 Body temperature 97.3 [degF] Marie Mccormick Other [facility] Other 01-30-2022 11:25-0500 Body weight 117.94 kg Marie Mccormick Other [facility] Other 01-30-2022 11:25-0500 SaO2% (BldA) [Mass fraction] 97 % Marie Mccormick Other [facility] Other 11-10-2021 19:53-0500 Body mass index (BMI) [Percentile] Per age and sex 99.02 % Jose Gama MD Work Phone: [employer] 11-10-2021 19:53-0500 Body mass index (BMI) [Ratio] 44.93 kg/m2 Jose Gama MD Work Phone: [employer] 11-10-2021 19:53-0500 Body temperature 97.81 [degF] Jose Gama MD Work Phone: [employer] 11-10-2021 19:53-0500 Body weight 122.47 kg Jose Gama MD Work Phone: [employer] 11-10-2021 19:53-0500 Diastolic blood pressure 76 mm[Hg] Jose Gama MD Work Phone: [employer] 11-10-2021 19:53-0500 Heart rate 78 /min Jose Gama MD Work Phone: [employer] 11-10-2021 19:53-0500 Respiratory rate 18 /min Jose Gama MD Work Phone: [employer] 11-10-2021 19:53-0500 SaO2% (BldA) [Mass fraction] 97 % Jose Gama MD Work Phone: [employer] 11-10-2021 19:53-0500 Systolic blood pressure 114 mm[Hg] Jose Gama MD Work Phone: [employer] 07-07-2021 16:31-0400 Diastolic blood pressure 57 mm[Hg] Kristine Gonzalez DO Work Phone: [employer] Work Phone: 07-07-2021 16:31-0400 Heart rate 78 /min Kristine Gonzalez DO Work Phone: [employer] Work Phone: 07-07-2021 16:31-0400 Respiratory rate 20 /min Kristine Gonzalez DO Work Phone: [employer] Work Phone: 07-07-2021 16:31-0400 SaO2% (BldA) [Mass fraction] 96 % Kristine Gonzalez DO Work Phone: [employer] Work Phone: 07-07-2021 16:31-0400 Systolic blood pressure 102 mm[Hg] Kristine Gonzalez [employer] Work Phone: [facility] Phone: 07-07-2021 15:01-0400 Body temperature 97.7 [degF] Kristine Gonzalez [employer] Work Phone: [facility] Phone: 07-07-2021 12:42-0400 Body height 165.1 cm Kristine Gonzalez [employer] Work Phone: [facility] Phone: 07-07-2021 12:42-0400 Body mass index (BMI) [Ratio] 45.76 kg/m2 Kristine Gonzalez [employer] Work Phone: [facility] Phone: 07-07-2021 12:42-0400 Body weight 124.74 kg Kristine Gonzalez [employer] Work Phone: [facility] Phone: Encounters Encounter Date Encounter Type Care Provider Facility Start: 11-05-2024 End: 11-05-2024 ambulatory KATHYA A KANDICE [facility] Start: 10-26-2024 ambulatory Macielandrew Bellamy Facility:[facility] Start: 09-18-2024 End: 09-18-2024 ambulatory KATHYA A KANDICE Facility:[facility] Start: 09-01-2024 End: 09-01-2024 ambulatory Sophie L Fredo Facility:[facility] Start: 08-28-2024 End: 08-28-2024 Office outpatient new 45 minutes Henrique Gutierrez MD Work Phone: [facility] Comment on above: Otalgia, right ear ( Primary Dx) Start: 08-28-2024 End: 08-28-2024 ambulatory HENRIQUE GUTIERREZ Not Available Start: 08-24-2024 End: 08-24-2024 ambulatory Sophie L Fredo Facility:[facility] Start: 08-19-2024 End: 08-19-2024 ambulatory Sophie L Fredo Facility: [facility] Start: 07-21-2024 End: 07-21-2024 ambulatory Sophie L Fredo Facility: [facility] Start: 07-17-2024 ambulatory Sophie L Fredo Facility: [facility] Start: 07-16-2024 End: 07-16-2024 ambulatory KATHYA A KANDICE Facility:[facility] Start: 07-02-2024 End: 09-30-2024 ambulatory Sophie L Fredo [place] Start: 07-02-2024 End: 09-30-2024 Recurring Sophie L Fredo [facility] Start: 06-22-2024 End: 06-22-2024 ambulatory KATHYA A KANDICE Facility: [facility] Start: 05-27-2024 End: 05-27-2024 ambulatory Sophie L Fredo Facility: [facility] Start: 05-18-2024 End: 05-18-2024 Emergency department patient visit Evens Oconnell [facility] Start: 05-14-2024 End: 05-14-2024 Lab Drop off Sophie L Fredo [facility] Start: 05-14-2024 End: 05-14-2024 ambulatory ORDER CHECKER Sophie L Fredo [place] Start: 05-08-2024 End: 05-08-2024 ambulatory ORDER CHECKER Sophie L Fredo Facility: [place] Start: 05-08-2024 End: 05-08-2024 Patient encounter procedure Sophie L Fredo [facility] Start: 04-07-2024 End: 04-07-2024 ambulatory ORDER CHECKER Sophie L Fredo Facility:[facility] Start: 03-06-2024 End: 03-06-2024 ambulatory [facility] Work Phone: Start: 03-06-2024 End: 03-06-2024 Patient encounter procedure [facility] Work Phone: Start: 02-06-2024 End: 02-06-2024 ambulatory ORDER CHECKER Sophie L Fredo Facility:[facility] Start: 01-27-2024 End: 01-27-2024 ambulatory ORDER CHECKER Sophie L Fredo Facility:[facility] Start: 01-21-2024 End: 01-21-2024 Emergency department patient visit Ruel Edvin Nile [facility] Start: 01-13-2024 ambulatory ORDER CHECKER Sophie Fredo Facilit y:[facility] Start: 01-09-2024 End: 01-09-2024 ambulatory ORDER CHECKER Sophie L Fredo Facility:[facility] Start: 10-03-2023 End: 10-03-2023 [facility] visit, estab pt Vika Rose CNP Work Phone: [facility] Work Phone: Start: 09-10-2023 End: 09-11-2023 ambulatory PEDRO TOYA [facility] Start: 08-05-2023 End: 08-05-2023 [facility] visit, estab pt 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 CNP Work Phone: [facility] Work Phone: Start: 08-03-2023 End: 08-03-2023 Emergency department patient visit JOSE GAMA [facility] Start: 08-03-2023 End: 08-03-2023 Emergency department patient visit Sharon Ram DO Work Phone: [facility] Comment on above: Sprain of interphala ngeal joint of left great toe, initial encounter (Primary Dx) Start: 07-22-2023 End: 07-22-2023 [facility] visit, estab pt Macrina NAPIER Work Phone: [facility] Work Phone: Start: 07-22-2023 End: 07-22-2023 ambulatory 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 Work Phone: [facility] Work Phone: Start: 07-11-2023 ambulatory Dhiraj wyatt MD Facility:[facility] Start: 07-11-2023 End: 07-11-2023 Emergency department patient visit [facility] Start: 07-01-2023 End: 07-02-2023 ambulatory [facility] Start: 07-01-2023 End: 07-01-2023 Subsequent hospital visit by physician Jose Gama MD Work Phone: [facility] Comment on above: Routine screening fo r STI (sexually transmitted infection) Start: 06-27-2023 End: 06-27-2023 ambulatory Cheyenne Jordan MCALLISTER Work Phone: [facility] Work Phone: Start: 06-27-2023 End: 07-11-2023 ambulatory 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 Work Phone: [facility] Work Phone: Start: 06-24-2023 End: 06-24-2023 Emergency department patient visit [facility] Start: 06-04-2023 End: 06-04-2023 [facility] visit, estab pt Macrina NAPIER Work Phone: [facility] Work Phone: Start: 06-04-2023 End: 06-04-2023 Adult health examination 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 Work Phone: [facility] Work Phone: Start: 06-04-2023 End: 06-04-2023 [facility] visit new patient Cheyenne Jordan MCALLISTER Work Phone: [facility] Work Phone: Start: 05-29-2023 ambulatory 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 CNP [facility] Start: 03-13-2023 End: 03-14-[address] EDNA FROST . Facility:[facility] Start: 02-26-2023 End: 02-27-2023 ambulatory MICAELA CENTENO Facility:[facility] Start: 01-08-2023 End: 01-08-2023 Emergency department patient visit Lorenzo Escudero [facility] Start: 01-08-2023 End: 01-08-2023 ambulatory Marie Mccormick Other [facility] Other Start: 01-08-2023 Telephone encounter Marie Mccormick [facility] [address] Start: 01-07-2023 End: 01-07-2023 ambulatory Marie Mccormick Other [facility] Other Start: 01-07-2023 Telephone encounter Marie Mccormick [facility] Start: 01-05-2023 Office outpatient vi sit 15 minutes Marie Mccormick [facility] Start: 01-05-2023 End: 01-05-2023 ambulatory STOCK ROOM MANAGER-C Micaela Centeno Work Phone: [facility] Work Phone: Start: 01-05-2023 End: 01-05-2023 Departed Referred STOCK ROOM MANAGER-C Micaela Centeno Work Phone: [facility] Work Phone: Start: 01-02-2023 ambulatory MICAELA CENTENO Facility: [facility] Start: 12-26-2022 End: 12-26-2022 Patient encounter procedure KALEB LOCO [facility] Start: 12-19-2022 End: 12-19-2022 ambulatory MICAELA CENTENO Facility:H1 Start: 11-21-2022 End: 11-21-2022 Emergency department patient visit STOCK ROOM MANAGER-C Micaela Centeno Work Phone: [facility] Work Phone: Start: 11-20-2022 End: 11-20-2022 ambulatory MICAELA CENTENO Facility:H1 Start: 11-14-2022 End: 11-14-2022 ambulatory Micaela Lewis Other [facility] Other Start: 11-14-2022 Office outpatient vi sit 15 minutes Micaela Lewis [facility] Start: 10-25-2022 End: 10-25-2022 ambulatory MICAELA CENTENO Facility:H1 Start: 09-03-2022 End: 09-04-2022 ambulatory MICAELA CENTENO Facility:H1 Start: 08-29-2022 End: 08-29-2022 ambulatory MICAELA CENTENO Facility:H1 Start: 08-24-2022 End: 08-24-2022 ambulatory MICAELA CENTENO Facility:H1 Start: 08-22-2022 End: 08-22-2022 ambulatory MICAELA CENTENO Facility:H1 Start: 08-17-2022 End: 08-17-2022 ambulatory MICAELA CENTENO Facility:H1 Start: 08-10-2022 End: 08-10-[address] FELIPE RODRIGUEZ . Facility:H1 Start: 08-06-2022 End: 08-06-[address] FELIPE RODRIGUEZ . Facility:H1 Start: 08-01-2022 End: 08-01-2022 Patient encounter procedure KALEB LOCO [facility] Start: 07-25-2022 End: 07-25-2022 ambulatory KALEB LOCO Facility:H1 Start: 07-04-2022 End: 07-04-2022 Patient encounter procedure KALEB LOCO [facility] Start: 06-28-2022 End: 06-28-2022 ambulatory MICAELA CENTENO Facility:H1 Start: 06-15-2022 End: 06-15-2022 ambulatory Katie Mahmood Other [facility] Other Start: 06-15-2022 Office outpatient vi sit 25 minutes Katie Mahmood [facility] Start: 06-09-2022 End: 06-09-2022 ambulatory Lillian Almanzar Other [facility] Other Start: 06-09-2022 Office outpatient vi sit 5 minutes Lillian Almanzar [facility] Start: 06-06-[address] FELIPE RODRIGUEZ . Facili ty:H1 Start: 06-05-2022 End: 06-06-[address] FELIPE RODRIGUEZ . Facility:H1 Start: 05-30-2022 End: 05-30-2022 ambulatory MICAELA CENTENO Facility:H1 Start: 05-21-2022 End: 05-21-[address] EDNA FROST . Facility:H1 Start: 05-19-2022 End: 05-19-2022 ambulatory MICAELA CENTENO Facility:H1 Start: 05-17-2022 End: 05-18-2022 ambulatory MICAELA CENTENO Facility:H1 Start: 04-27-2022 End: 04-27-2022 ambulatory MICAELA CENTENO Facility:H1 Start: 04-13-2022 End: 04-14-2022 ambulatory MICAELA CENTENO Facility:H1 Start: 03-28-2022 End: 03-28-2022 ambulatory Micaela Lewis Other [facility] Other Start: 03-28-2022 Office outpatient vi sit 15 minutes Micaela Debbie [facility] Start: 02-16-2022 End: 02-16-2022 ambulatory Marie Mccormick Other [facility] Other Start: 02-16-2022 Office outpatient vi sit 15 minutes Marie Mccormick [facility] Start: 01-30-2022 End: 01-30-2022 ambulatory Marie Mccormick Other [facility] [employer] Other Start: 01-30-2022 Office outpatient vi sit 15 minutes Marie Mccormick [facility] Start: 11-10-2021 End: 11-10-2021 Emergency department patient visit [facility] Start: 11-10-2021 End: 11-10-2021 Subsequent hospital visit by physician Jose Gama MD Work Phone: [facility] Comment on above: Sinus congestion (Pr imary Dx) Start: 11-02-2021 End: 11-03-2021 ambulatory EVENS MEMBRENO [facility] Start: 07-07-2021 End: 07-07-2021 ambulatory KRISTINE GONZALEZ [facility] Start: 07-07-2021 End: 07-07-2021 Subsequent hospital visit by physician Kritsine Gonzalez DO Work Phone: [facility] [place] Comment on above: Chronic appendicitis (Primary Dx) Start: 07-03-2021 End: 07-04-2021 [facility] Start: 07-03-2021 End: 07-03-2021 Patient encounter status Stcz Schedule [facility]CZ Covid Scre ening Start: 07-03-2021 End: 07-03-2021 Subsequent hospital visit by physician Yong Covid Screening Schedule [facility] Covid Screening Comment on above: Pre-op testing (Prim nneka Dx) Right lower quadrant abdominal pain Start: 06-07-2021 End: 06-08-2021 [facility] Start: 06-07-2021 End: 06-07-2021 Subsequent hospital visit by physician Jose Gama MD Work Phone: [facility] Laboratory Comment on above: Abdominal pain, RLQ; Suprapubic pain Start: 12-02-2020 End: 12-05-2020 [facility] Start: 12-02-2020 End: 12-04-2020 Subsequent hospital visit by physician Patricia Xr Room 4 [facility] Comment on above: Recurrent major depr essive disorder, in full remission (HCC); Chronic fatigue; Anxiety; Encounter for screening for other viral diseases; Screen for STD (sexually transmitted disease) Cough present for gr eater than 3 weeks Start: 10-26-2020 End: 10-27-2020 ambulatory KEATON CAMP [facility] Start: 10-26-2020 End: 10-26-2020 Subsequent hospital visit by physician Kathya [facility] Comment on above: Recurrent acute supp urative otitis media of right ear without spontaneous rupture of tympanic membrane Start: 10-12-2020 End: 10-12-2020 Subsequent hospital visit by physician [facility] Comment on above: Suspected COVID-19 v irus infection; Non-recurrent acute suppurative otitis media of right ear without spontaneous rupture of tympanic membrane; Nausea and vomiting, intractability of vomiting not specified, unspecified vomiting type; Cough Start: 09-13-2020 End: 09-14-2020 ambulatory [facility] Start: 09-13-2020 End: 09-13-2020 Subsequent hospital visit by physician Kathya [facility] Laboratory Comment on above: Class 2 obesity with out serious comorbidity in adult, unspecified BMI, unspecified obesity type Start: 09-05-2020 End: 09-05-2020 Subsequent hospital visit by physician French [facility] Comment on above: Canceled (Patient no show) Start: 08-29-2020 End: 08-29-2020 Subsequent hospital visit by physician [facility] Comment on above: Canceled (Patient) Start: 08-22-2020 End: 08-22-2020 Subsequent hospital visit by physician [facility] Comment on above: Canceled (Patient) Start: 08-15-2020 End: 08-16-2020 ambulatory RADHA MACARIO [facility] Start: 08-15-2020 End: 08-15-2020 Subsequent hospital visit by physician [facility] Comment on above: Arrived Start: 08-08-2020 End: 08-08-2020 Subsequent hospital visit by physician French [facility] Comment on above: Canceled (Patient no show) Start: 08-04-2020 End: 08-05-2020 ambulatory KIP A [facility] Start: 08-04-2020 End: 08-04-2020 Subsequent hospital visit by physician French [facility] Start: 07-25-2020 End: 07-26-2020 ambulatory KIP A [facility] Start: 07-25-2020 End: 07-25-2020 Subsequent hospital visit by physician French [facility] Comment on above: Arrived Start: 07-11-2020 End: 07-11-2020 Subsequent hospital visit by physician Salima [facility] Comment on above: Canceled (Same Day C ancellation) Start: 06-23-2020 End: 06-23-2020 Subsequent hospital visit by physician Salima [facility] Comment on above: Canceled (Same Day C ancellation) Start: 06-16-2020 End: 06-16-2020 Subsequent hospital visit by physician Salima [facility] Comment on above: Canceled (Provider) Start: 08-26-2019 End: 08-31-2019 Evaluation and management of inpatient REFERRED SELF Facility:[facility] Procedures Date Procedure Procedure Detail Performing Clinician Start: 10-03-2023 Most recent diastoli c blood pressure < 80 mm hg Vika Rose AUTOMOTIVE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 Work Phone: Start: 10-03-2023 Most recent systolic blood pressure <130 mm hg Vika Rose AUTOMOTIVE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 Work Phone: Start: 08-05-2023 Most recent diastoli c blood pressure < 80 mm hg 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 Work Phone: Start: 08-05-2023 Most recent systolic blood pressure <130 mm hg 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 Work Phone: Start: 08-03-2023 Radex toe minimum 2 views Sharon Ram DO Work Phone: Start: 07-22-2023 Most recent diastoli c blood pressure < 80 mm hg 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 Work Phone: Start: 07-22-2023 Most recent systolic blood pressure <130 mm hg 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 Work Phone: Start: 07-22-2023 Psychotherapy w/radha ent 30 minutes Macrina NAPIER Work Phone: Start: 07-11-2023 Most recent diastoli c blood pressure < 80 mm hg 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 Work Phone: Start: 07-11-2023 Most recent systolic blood pressure <130 mm hg 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 Work Phone: Start: 06-27-2023 Most recent diastoli c blood pressure < 80 mm hg 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 Work Phone: Start: 06-27-2023 Most recent systolic blood pressure <130 mm hg 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 Work Phone: Start: 06-27-2023 Urine test visual color cmprsn darren Ortega AUTOMOTIVE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 Work Phone: Start: 06-04-2023 Appendectomy Cheyenne Law brady AUTOMOTIVE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 Work Phone: Start: 06-04-2023 Hemoglobin glycosyla mila a1c 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 Work Phone: Start: 06-04-2023 Hepatitis c antibody An omntez Ortega AUTOMOTIVE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 Work Phone: Start: 06-04-2023 Hyperlipidemia screening Visit For: Screening Exam Lipoid Disorders 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 Work Phone: Start: 06-04-2023 Most recent hemoglob in a1c level < 7.0% 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 Work Phone: Start: 06-04-2023 Pt-focused hlth risk assmt score doc stnd instrm 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 Work Phone: Start: 06-04-2023 Surgical procedure Dagmar la Jordan AUTOMOTIVE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 Work Phone: Start: 06-04-2023 Urine test visual color cmprsn methamrya Ortega AUTOMOTIVE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 Work Phone: Start: 11-21-2022 Streptococcus pyogen es antigen assay STOCK ROOM MANAGER-C Micaela Centeno Work Phone: Start: 11-21-2022 Plain chest X-ray STOCK ROOM MANAGER-C Micaela Centeno Work Phone: Start: 07-07-2021 Urine test visual color cmprsn meths Kristine Gonzalez DO Work Phone: Start: 07-03-2021 Comprehensive metabo lic panel Kristine Gonzalez DO Work Phone: Start: 06-07-2021 Blood count complete auto&auto difrntl wbc Jose Gama MD Work Phone: Start: 06-07-2021 Urinalysis microscop ic only Jose Gama MD Work Phone: Start: 06-07-2021 Urnls dip stick/tabl et rgnt auto w/o microscopy Jose Gama MD Work Phone: Start: 12-02-2020 Radiologic exam ches t 2 views Jose Gama Work Phone: Start: 12-02-2020 25 hydroxy includes fractions if performed Jose Gama Work Phone: Start: 12-02-2020 Antibody hiv-1&hiv-2 single result Jose Chircristal Work Phone: Start: 12-02-2020 Assay of thyroid stimulating hormone tsh Jose Gama Work Phone: Start: 12-02-2020 Blood count complete automated Jose Ashleycristal Work Phone: Start: 12-02-2020 Comprehensive metabo lic panel Jose Ashleycristal Work Phone: Start: 12-02-2020 Hepatitis c antibody Fl beatriz Gama Work Phone: Start: 10-26-2020 Heterophile antibodi es screen JOSE RAMIREZCRISTAL Start: 10-26-2020 Heterophile antibodi es screen Rayeesa Tabithamad Work Phone: Start: 09-13-2020 Lipid panel JOSE NATAN Start: 09-13-2020 Lipid panel Kathya L T urski Work Phone: Appendectomy KALEB LOCO Colonoscopy KALEB LOCO Excision of cyst of ovary GABRIEL LOCO Comment on above: left Plan of Treatment Date Care Activity Detail Author Start: 10-28-2025 DTaP/Tdap/Td vaccine (10 - Td or Tdap) DTaP/Tdap/Td vaccine (10 - Td or Tdap) [facility] Start: 10-28-2025 DTaP/Tdap/Td vaccine (9 - Td or Tdap) DTaP/Tdap/Td vaccine (9 - Td or Tdap) [facility] Start: 10-28-2025 DTaP/Tdap/Td vaccine (9 - Td) DTaP/Tdap/Td vaccine (9 - Td) [place] Start: 07-02-2024 FQHC visit, estab pt Medical E stablished Patient [facility] Work Phone: Start: 07-01-2024 Depression Monitoring Depression Mon itoring [facility] Start: 07-01-2024 Screening for Chlamy paramjit trachomatis Chlamydia/GC screen [facility] Start: 12-05-2023 FQHC visit, estab pt Medical E stablished Patient [facility] Work Phone: Start: 10-08-2023 ABO TYPE Health Par [facility] Start: 10-03-2023 End: 10-03-2023 Patient education based on identified need [facility] Start: 08-05-2023 FQHC visit, estab pt Medical E stablished Patient [facility] Work Phone: Start: 08-05-2023 End: 08-05-2023 Patient education based on identified need [facility] Start: 07-24-2023 Dental Comp Exam [facility] Work Phone: Start: 07-22-2023 End: 07-22-2023 Patient education based on identified need [facility] Start: 07-11-2023 End: 07-11-2023 Patient education based on identified need [facility] Start: 07-04-2023 [facility] Start: 06-27-2023 End: 06-27-2023 Patient education based on identified need [facility] Start: 06-25-2023 Influenza vaccination Flu vaccine (# 1) ARIA MANNY [facility] Start: 06-11-2023 CBC W Auto Different ial panel - Blood [facility] Start: 06-11-2023 Lipid 1996 panel - Serum or Plasma LIPID PROFILE [facility] Start: 06-04-2023 End: 06-04-2023 Patient education based on identified need [facility] Start: 01-05-2023 Bacteria identified in Urine by Culture [facility] Start: 11-02-2022 Screening for Chlamy paramjit trachomatis [facility] Start: 12-02-2021 Screening for Chlamy paramjit trachomatis Chlamydia screen [facility] Work Phone: Start: 10-27-2021 End: 10-27-2021 Patient encounter procedure 10/27/2021 Office Visit Family Medicine Jose Gama MD [address] [place] [address] [phone] [facility] Physicians [facility] Start: 08-16-2021 End: 08-16-2021 Patient encounter procedure 08/16/2021 Office Visit Obstetrics and Gynecology Evens Membreno, DEMETRICE - ANGY [address] [place] [address] [phone] [facility] Ob[facility]etric[facility] Gynecology Start: 08-09-2021 End: 08-09-2021 Patient encounter procedure 08/09/2021 Office Visit Obstetrics and Gynecology [facility] Start: 07-26-2021 Influenza vaccination Flu vaccine (# 1) [facility] Start: 07-24-2021 End: 07-24-2021 Patient encounter procedure 07/24/2021 Office [place] [address] [place] [address] [facility] Start: 07-07-2021 End: 07-07-2021 Admission to same day surgery center 07/07/2021 Surgery [place] [address] [place] [address] [phone] ABDOMINAL EXPLORATORY [facility] [place] Comment on above: ABDOMINAL EXPLORATOR Y [employer]OT[employer] Start: 07-07-2021 Subsequent hospital visit by physician 07/07/2021 Hospital Encounter [place] [address] [place] [address] [phone] [facility] [place] Start: 07-01-2021 End: 06-30-2022 COVID-19 COVID-19 Lab Routine Pre-op testing Expected: 07/01/2021, Expires: 06/30/2022 [facility] [employer] Phone: Comment on above: Expected: 07/01/2021 , Expires: 06/30/2022 Start: 06-19-2021 End: 06-19-2021 Patient encounter procedure 06/19/2021 Office [place] [address] [place] [address] [phone] [facility] Start: 04-12-2021 End: 04-12-2021 Office Visit 04/12/2021 Office Visit Family Medicine Jose Gama MD [address] [place] [address] [phone] [facility] Start: 12-02-2020 End: 12-02-2020 Office Visit 12/02/2020 Office Visit Family Jose King MD [address] [place], [place] [phone] [facility] Start: 10-04-2020 End: 10-04-2020 Virtual Visit 10/04/2020 Virtual Visit Family Medicine Kathya Rush, RECYCLER - AUTOMOTIVE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 [address] [place] [address] [phone] [facility] Start: 09-12-2020 End: 09-12-2020 Virtual Visit 09/12/2020 Virtual Visit Family Medicine Kathya Rush, RECYCLER - AUTOMOTIVE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 [address] [place] [address] [phone] [facility] Start: 09-05-2020 End: 09-05-2020 Appointment 09/05/2020 Appointment Physical Therapy French Bacon, PT [facility] Start: 08-29-2020 End: 08-29-2020 Appointment 08/29/2020 Appointment Physical Therapy French Bacon, PT [facility] Start: 08-22-2020 End: 08-22-2020 Appointment 08/22/2020 Appointment Physical Therapy French Bacon, PT [facility] Start: 08-15-2020 End: 08-15-2020 Appointment 08/15/2020 Appointment Physical Therapy French Bacon, PT [facility] Start: 08-08-2020 End: 08-08-2020 Appointment 08/08/2020 Appointment Physical Therapy French Bacon, PT [facility] Start: 07-26-2020 Influenza vaccination Flu vaccine (# 1) [place] Start: 07-11-2020 End: 07-11-2020 Office Visit 07/11/2020 Office Visit Obstetrics and Gynecology Evens Membreno APRN - STOCK ROOM MANAGER [address] [address] [phone] [facility] Start: 06-24-2020 End: 06-24-2020 Office Visit 06/24/2020 Office Visit Obstetrics and Gynecology Evens Membreno APRN - STOCK ROOM MANAGER [address] [address] [phone] [facility] Start: 06-23-2020 End: 06-23-2020 Appointment 06/23/2020 Appointment Physical Therapy Salima Taylor, PT [facility] Start: 2018 Meningococcal (ACWY) vaccine (2 - 2-dose series) Meningococcal (ACWY) vaccine (2 - 2-dose series) [place] Start: 2018 Screening for Chlamy paramjit trachomatis Chlamydia screen [place] Start: 2017 HIV screening [facility] screen [facility] [place] [place] Start: 2014 COVID-19 Vaccine (1) COVID-19 Vaccin e (1) [facility] Start: 02-20-2003 COVID-19 Vaccine (#1) COVID-19 Vacci ne (#1) [facility] End: 07-07-2021 Blood glucose - POCT Blood glucose - POCT Point of Care Testing Routine One Time for 1 Occurrences starting 07/07/2021 until 07/07/2021 [facility] [employer] Phone: Comment on above: One Time for 1 Occur rences starting 07/07/2021 until 07/07/2021 End: 07-01-2023 C.trachomatis N.gonorrhoeae DNA, Urine [facility] Comment on above: 1 Occurrences starti ng 07/01/2023 until 07/01/2023 End: 12-02-2020 Chlamydia, DNA, Urine Chlamydia, DNA, Urine Microbiology Routine Screen for STD (sexually transmitted disease) 1 Occurrences starting 12/02/2020 until 12/02/2020 [place] Comment on above: 1 Occurrences starti ng 12/02/2020 until 12/02/2020 Chlamydia, DNA, Urine Chlamydia, DNA, Urine Microbiology Routine Screen for STD (sexually transmitted disease) 12/02/2020 2:45 PM EST [place] End: 07-03-2021 COVID-19 COVID-19 Lab Routine Once for 1 Occurrences starting 07/03/2021 until 07/03/2021 [facility] [employer] Phone: Comment on above: Once for 1 Occurrenc es starting 07/03/2021 until 07/03/2021 COVID-19 COVID-19 Lab Rou trista 07/03/2021 6:49 PM EDT [facility] [place] [employer] Phone: End: 11-10-2021 COVID-19 & Influenza Combo H?REL Phone: Comment on above: One Time for 1 Occur rences starting 11/10/2021 until 11/10/2021 End: 10-12-2020 COVID-19 Ambulatory COVID-19 Ambulatory Lab Routine Suspected COVID-19 virus infection Non-recurrent acute suppurative otitis media of right ear without spontaneous rupture of tympanic membrane Nausea and vomiting, intractability of vomiting not specified, unspecified vomiting type Cough 1 Occurrences starting 10/12/2020 until 10/12/2020 [facility] [place] Comment on above: 1 Occurrences starti ng 10/12/2020 until 10/12/2020 COVID-19 Ambulatory COVID-19 Amb ulatory Lab Routine Suspected COVID-19 virus infection Non-recurrent acute suppurative otitis media of right ear without spontaneous rupture of tympanic membrane Nausea and vomiting, intractability of vomiting not specified, unspecified vomiting type Cough 10/12/2020 12:00 AM EST [email or web address] [facility] [place] Oxygen therapy [[facility] Data Set] Initiate Oxygen Therapy Protocol Respiratory Care Routine Daily until discontinued starting 07/07/2021 H?REL Phone: Comment on above: Daily until disconti nued starting 07/07/2021 Patient Education Strep Throat (DC) [facility] Work Phone: Patient referral [facility] Work Phone: Phase I & II - meter ed glucose Phase I & II - metered glucose Point of Care Testing Routine As Needed until discontinued starting 07/07/2021 H?REL Phone: Comment on above: As Needed until disc ontinued starting 07/07/2021 End: 07-07-2021 , urine POCT , urine POCT Point of Care Testing Routine One Time for 1 Occurrences starting 07/07/2021 until 07/07/2021 H?REL Phone: Comment on above: One Time for 1 Occur rences starting 07/07/2021 until 07/07/2021 Surgical Pathology Surgical Path ology Lab Routine Release Upon Ordering for 1 Occurrences starting 07/07/2021 H?REL Phone: Comment on above: Release Upon Orderin g for 1 Occurrences starting 07/07/2021 Immunizations Immunization Date Immunization Notes Care Provider Reji hanley 09-14-2021 influenza virus vacc ine, unspecified formulation KALEB CLAUDY [facility] 09-14-2021 influenza, injectabl e, quadrivalent, preservative free 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 Work Phone: [facility] 08-25-2021 influenza virus vacc ine, unspecified formulation 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 Work Phone: [facility] 08-25-2021 influenza, unspecifi ed formulation KALEB LOCO [facility] 12-02-2020 influenza virus vacc ine, unspecified formulation KALEB CLAUDY [facility] Comment on above: Result Comment: 2022: VIS DATE: 07/09/2019 12-02-2020 influenza, injectabl e, quadrivalent, preservative free [facility] [place] 12-02-2020 meningococcal ACWY vaccine, unspecified formulation [employer] [facility] Comment on above: Result Comment: 2022: VIS DATE: 07/09/2019 12-02-2020 meningococcal oligosaccharide (groups A, C, Y and W-135) diphtheria toxoid conjugate vaccine (MCV4O) [facility], [place] 09-17-2019 meningococcal ACWY vaccine, unspecified formulation KALEB LOCO [facility] 09-17-2019 meningococcal B vacc ine, fully recombinant KALEB CLAUDY [facility] 09-17-2019 meningococcal B vacc ine, recombinant, OMV, adjuvanted Jose Gama MD Work Phone: [facility] Work Phone: 09-17-2019 meningococcal polysaccharide (groups A, C, Y and W-135) diphtheria toxoid conjugate vaccine (MCV4P) Jose Gama MD Work Phone: [facility] Work Phone: 10-14-2018 influenza virus vacc ine, unspecified formulation KALEB LOCO [facility] 10-14-2018 Influenza, injectabl e, Madin Liseth Canine Kidney, preservative free, quadrivalent [facility] [place] 09-11-2018 influenza virus vacc ine, unspecified formulation [facility] 09-11-2018 influenza, seasonal, injectable 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 Work Phone: [facility] 11-25-2016 influenza virus vacc ine, unspecified formulation Jose Gama MD Work Phone: [facility] Work Phone: 11-25-2016 influenza, seasonal, injectable, preservative free 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 Work Phone: [facility] 09-25-2016 influenza virus vacc ine, unspecified formulation KALEB LOCO [facility] 09-25-2016 influenza, injectabl e, quadrivalent, preservative free [facility] 09-25-2016 influenza, injectable,quadrivalent, preservative free, pediatric 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 Work Phone: [facility] 03-12-2016 HPV, unspecified formulation KALEB LOCO [facility] 03-12-2016 human papilloma viru s vaccine, quadrivalent [facility], [place] 03-12-2016 Human Papillomavirus 9-valent vaccine Jose Gama MD Work Phone: [facility] Lema21 Work Phone: 11-07-2015 HPV, unspecified formulation KALEB LOCO [facility] 11-07-2015 human papilloma viru s vaccine, quadrivalent [facility] 11-07-2015 Human Papillomavirus 9-valent vaccine Jose Gama MD Work Phone: [facility] Work Phone: 09-07-2015 hepatitis A vaccine, pediatric/adolescent dosage, 2 dose schedule Jose Gama MD Work Phone: [facility] Work Phone: 09-07-2015 hepatitis A vaccine, unspecified formulation; Translations: [hepatitis A pediatric vaccine] [place], [place] 09-07-2015 HPV, unspecified formulation KALEB LOCO [facility] 09-07-2015 human papilloma viru s vaccine, quadrivalent [place], [place] 09-07-2015 influenza virus vacc ine, live, attenuated, for intranasal use [employer] [employer] [facility] 09-07-2015 influenza virus vacc ine, unspecified formulation [place], [place] 09-07-2015 influenza, live, intranasal, quadrivalent Jose Gama MD Work Phone: [facility] Work Phone: 09-07-2015 meningococcal ACWY vaccine, unspecified formulation KALEB LOCO [facility] 09-07-2015 meningococcal polysaccharide (groups A, C, Y and W-135) diphtheria toxoid conjugate vaccine (MCV4P) [place], [place] 09-07-2015 tetanus toxoid, redu lb diphtheria toxoid, and acellular pertussis vaccine, adsorbed [facility], [place] 09-07-2015 meningococcal vaccin e of unknown formulation and unknown serogroups [facility], [place] 12-23-2013 hepatitis A vaccine, pediatric/adolescent dosage, 2 dose schedule Jose Gama MD Work Phone: [facility] Work Phone: 12-23-2013 hepatitis A vaccine, unspecified formulation; Translations: [hepatitis A pediatric vaccine] [facility], [place] 09-22-2013 influenza virus vacc ine, live, attenuated, for intranasal use Jose Gama MD Work Phone: [facility] Work Phone: 02-24-2013 diphtheria, tetanus toxoids and acellular pertussis vaccine [facility], [place] 02-24-2013 diphtheria, tetanus toxoids and acellular pertussis vaccine, unspecified formulation Jose Gama MD Work Phone: [facility] Work Phone: 02-24-2013 DTaP, unspecified formulation [employer]EB LOC[employer] [facility] 01-16-2012 influenza virus vacc ine, unspecified formulation Jose Gama MD Work Phone: [facility] Work Phone: 01-16-2012 influenza, seasonal, injectable 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 Work Phone: [facility] 02-07-2010 varicella virus vaccine [facility], [place] 10-04-2009 influenza virus vacc ine, unspecified formulation Jose Gama MD Work Phone: [facility] Work Phone: 10-04-2009 influenza, seasonal, injectable 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 Work Phone: [facility] 08-12-2007 diphtheria, tetanus toxoids and acellular pertussis vaccine [facility] 08-12-2007 diphtheria, tetanus toxoids and acellular pertussis vaccine, unspecified formulation Joes Gama MD Work Phone: [facility] Work Phone: 08-12-2007 DTaP, unspecified formulation [employer] [facility] 08-12-2007 measles, mumps and rubella virus vaccine Jose Gama MD Work Phone: [facility] Work Phone: 08-12-2007 poliovirus vaccine, inactivated [facility], [place] 08-12-2007 poliovirus vaccine, unspecified formulation KALEB LOC[employer] [facility] 09-13-2004 pneumococcal conjuga te vaccine, 13 valent [facility], [place] 09-13-2004 pneumococcal conjuga te vaccine, 7 valent Jose Gama MD Work Phone: [facility] Work Phone: 05-12-2004 diphtheria, tetanus toxoids and acellular pertussis vaccine [facility], [place] 05-12-2004 diphtheria, tetanus toxoids and acellular pertussis vaccine, unspecified formulation Jose Gama MD Work Phone: [facility] Work Phone: 05-12-2004 DTaP, unspecified formulation KALEB LOCO [facility] 12-21-2003 haemophilus influenz ae type b vaccine, conjugate unspecified formulation Jose Gama MD Work Phone: [facility] Work Phone: 12-21-2003 haemophilus influenz ae type b vaccine, PRP-OMP conjugate [facility], [place] 12-21-2003 haemophilus influenz ae type b vaccine, PRP-T conjugate 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 CNP Work Phone: [facility] 12-21-2003 Hib, unspecified formulation KALEB LOCO [facility] 12-21-2003 measles, mumps and rubella virus vaccine Jose Gama MD Work Phone: [facility] Work Phone: 12-21-2003 pneumococcal conjuga te vaccine, 13 valent [facility], [place] 12-21-2003 pneumococcal conjuga te vaccine, 7 valent Jose Gama MD Work Phone: [facility] Work Phone: 12-21-2003 varicella virus vaccine [facility], [place] 11-04-2003 influenza virus vacc ine, unspecified formulation Jose Gama MD Work Phone: [facility] Work Phone: 11-04-2003 influenza, seasonal, injectable 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 Work Phone: [facility] 05-12-2003 diphtheria, tetanus toxoids and acellular pertussis vaccine Cheyenne Jordan AUT[employer]IVE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 Work Phone: [facility] 03-25-2003 diphtheria, tetanus toxoids and acellular pertussis vaccine [facility] 03-25-2003 diphtheria, tetanus toxoids and acellular pertussis vaccine, unspecified formulation Jose Gama MD Work Phone: [facility] Work Phone: 03-25-2003 DTaP, unspecified formulation [employer]EB [employer] [facility] 02-24-2003 diphtheria, tetanus toxoids and acellular pertussis vaccine 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 Work Phone: [facility] 02-24-2003 diphtheria, tetanus toxoids and acellular pertussis vaccine, unspecified formulation Jose Gama MD Work Phone: [facility] Work Phone: 02-24-2003 DTaP, unspecified formulation KALEB LOCO [facility] 02-24-2003 haemophilus influenz ae type b vaccine, conjugate unspecified formulation Jose Gama MD Work Phone: [facility] Work Phone: 02-24-2003 haemophilus influenz ae type b vaccine, PRP-OMP conjugate [place] 02-24-2003 haemophilus influenz ae type b vaccine, PRP-T conjugate 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 CNP Work Phone: [facility] 02-24-2003 hepatitis B vaccine, adult dosage Jose Gama MD Work Phone: [facility] Work Phone: 02-24-2003 hepatitis B vaccine, pediatric or pediatric/adolescent dosage Jose Gama MD Work Phone: [facility] Work Phone: 02-24-2003 hepatitis B vaccine, unspecified formulation [place] 02-24-2003 Hib, unspecified formulation KALEB LOCO [facility] 02-24-2003 pneumococcal conjuga te vaccine, 13 valent [place] 02-24-2003 pneumococcal conjuga te vaccine, 7 valent Jose Gama MD Work Phone: [facility] Work Phone: 02-24-2003 poliovirus vaccine, inactivated [place] 02-24-2003 poliovirus vaccine, unspecified formulation Jose Gama MD Work Phone: [facility] Work Phone: 2002 diphtheria, tetanus toxoids and acellular pertussis vaccine [place], [place] 2002 diphtheria, tetanus toxoids and acellular pertussis vaccine, unspecified formulation Jose Gama MD Work Phone: [facility] Work Phone: 2002 DTaP, unspecified formulation KALEB LOC[employer] [facility] 2002 haemophilus influenz ae type b vaccine, conjugate unspecified formulation Jose Gama MD Work Phone: [facility] Work Phone: 2002 haemophilus influenz ae type b vaccine, PRP-OMP conjugate [facility], [place] 2002 haemophilus influenz ae type b vaccine, PRP-T conjugate 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 CNP Work Phone: [facility] 2002 hepatitis B vaccine, adult dosage Jose Gama MD Work Phone: [facility] Work Phone: 2002 hepatitis B vaccine, pediatric or pediatric/adolescent dosage Jose Gama MD Work Phone: [facility] Work Phone: 2002 hepatitis B vaccine, unspecified formulation [facility] , [place] 2002 Hib, unspecified formulation KALEB LOCO [facility] 2002 poliovirus vaccine, inactivated [facility], [place] 2002 poliovirus vaccine, unspecified formulation Jose Gama MD Work Phone: [facility] Work Phone: 2002 diphtheria, tetanus toxoids and acellular pertussis vaccine [facility] 2002 diphtheria, tetanus toxoids and acellular pertussis vaccine, unspecified formulation Jose Gama MD Work Phone: [facility] Work Phone: 2002 DTaP, unspecified formulation [employer]EB LOC[employer] [facility] 2002 haemophilus influenz ae type b vaccine, conjugate unspecified formulation Jose Gama MD Work Phone: [facility] Work Phone: 2002 haemophilus influenz ae type b vaccine, PRP-OMP conjugate [facility], [place] 2002 haemophilus influenz ae type b vaccine, PRP-T conjugate Cheyenne Jordan MCALLISTER Work Phone: [facility] 2002 Hib, unspecified formulation KALEB LOCO [facility] 2002 poliovirus vaccine, inactivated [place], [place] 2002 poliovirus vaccine, unspecified formulation Jose Gama MD Work Phone: [facility] Work Phone: 2002 hepatitis B vaccine, adult dosage Jose Gama MD Work Phone: [facility] Work Phone: 2002 hepatitis B vaccine, pediatric or pediatric/adolescent dosage Jose Gama MD Work Phone: [facility] Work Phone: 2002 hepatitis B vaccine, unspecified formulation [place] Payers Date Payer Category Payer Medicaid [employer] [place] [employer] [id number] 2024-Present [address] [place] [address] [id number] 2022 Medicaid [id number] [id number] 2014 Unknown [id number] 2014 Unknown [employer] [id number] 2014-Present [phone] [address] [place] [address] [id number] 1.2.840.662978.1.13.239.2.7 .[id number] 2002 Unknown [id number] 2.16.840.1.312469.3.579.2.1 76 2002 Unknown [id number] 2.16.840.1.036980.3.579.2.1 76 2002 Unknown [id number] 2.16.840.1.413386.3.579.2.1 76 2002 Unknown [id number] 2.16.840.1.573550.3.579.2.1 76 2002 Unknown [id number] 2.16.840.1.750341.3.579.2.1 76 2002 Unknown [id number] 2.16.840.1.041149.3.579.2.1 76 2002 Unknown [id number] 2.16.840.1.418334.3.579.2.1 76 2002 Unknown [id number] 2.16.840.1.518697.3.579.2.1 75 2002 Unknown [id number] 2.16.840.1.313232.3.579.2.1 75 2002 Unknown [id number] 2.16.840.1.589194.3.579.2.9 3 2002 Unknown [id number] 2.16.840.1.523073.3.579.2.5 93 2002 Unknown [id number] 2.16.840.1.486697.3.579.2.5 93 2002 Unknown [id number] 2.16.840.1.644967.3.579.2.5 93 2002 Unknown [id number] 2.16.840.1.618812.3.579.2.5 93 2002 Unknown [id number] 2.16.840.1.062962.3.579.2.5 93 2002 Unknown [id number] 2.16.840.1.240706.3.579.2.5 93 2002 Unknown [id number] 2.16.840.1.186815.3.579.2.5 93 2002 Unknown [id number] 2.16.840.1.136059.3.579.2.5 93 2002 Unknown [id number] 2.16.840.1.414702.3.579.2.5 2002 Unknown [id number] 2.16.840.1.571031.3.579.2.5 2002 Unknown [id number] 2.16.840.1.025951.3.579.2.5 2002 Unknown [id number] 2.16.840.1.227032.3.579.2.5 93 2002 Unknown [id number] 2.16.840.1.442443.3.579.2.5 2002 Unknown [id number] 2.16.840.1.084791.3.579.2.5 2002 Unknown [id number] 2.16.840.1.175220.3.579.2.5 2002 Unknown [id number] 2.16.840.1.804553.3.579.2.5 93 2002 Unknown [id number] 2.16.840.1.405073.3.579.2.5 2002 Unknown [id number] 2.16.840.1.671997.3.579.2.5 93 2002 Unknown [id number] 2.16.840.1.079428.3.579.2.5 2002 Unknown [id number] 2.16.840.1.261588.3.579.2.5 93 2002 Unknown [id number] 2.16.840.1.984851.3.579.2.5 93 2002 Unknown [id number] 2.16.840.1.228562.3.579.2.5 93 2002 Unknown [id number] 2.16.840.1.264447.3.579.2.5 93 2002 Unknown [id number] 2.16.840.1.582175.3.579.2.5 93 2002 Unknown [id number] 2.16.840.1.135779.3.579.2.1 96 2002 Unknown [id number] 2.16.840.1.136454.3.579.2.1 73 2002 Unknown [id number] 2.16.840.1.511687.3.579.2.1 73 2002 Unknown [id number] 2.16.840.1.500284.3.579.2.1 73 2002 Unknown [id number] 2.16.840.1.050398.3.579.2.1 73 2002 Unknown [id number] 2.16.840.1.205435.3.579.2.1 73 2002 Unknown [id number] 2.16.840.1.467028.3.579.2.7 27 2002 Unknown [id number] 2.16.840.1.812780.3.579.2.7 27 2002 Unknown [id number] 2.16.840.1.633765.3.579.2.7 27 2002 Unknown [id number] 2.16.840.1.937758.3.579.2.7 27 2002 Unknown [id number] 2.16.840.1.751146.3.579.2.7 2002 Unknown [id number] 2.16.840.1.450137.3.579.2.7 2002 Unknown [id number] 2.16.840.1.382208.3.579.2.7 2002 Unknown [id number] 2.16.840.1.288939.3.579.2.7 2002 Unknown [id number] 2.16.840.1.657153.3.579.2.7 2002 Unknown [id number] 2.16.840.1.834030.3.579.2.7 2002 Unknown [id number] 2.16.840.1.025486.3.579.2.7 2002 Unknown [id number] 2.16.840.1.357146.3.579.2.1 2002 Unknown [id number] 2.16.840.1.285358.3.579.2.7 2002 Unknown [id number] 2.16.840.1.739695.3.579.2.7 2002 Unknown [id number] 2.16.840.1.208803.3.579.2.7 2002 Unknown [id number] 2.16.840.1.730399.3.579.2.7 2002 Unknown [id number] 2.16.840.1.080572.3.579.2.7 2002 Unknown [id number] 2.16.840.1.727644.3.579.2.7 2002 Unknown [id number] 2.16.840.1.157001.3.579.2.7 2002 Unknown [id number] 2.16.840.1.775400.3.579.2.7 2002 Unknown [id number] 2.16.840.1.689770.3.579.2.7 27 2002 Unknown [id number] 2.16.840.1.164086.3.579.2.7 27 2002 Unknown [id number] 2.16.840.1.592876.3.579.2.7 27 1985 Unknown [id number] 2.16.840.1.795938.3.579.2.1 76 1985 Unknown [id number] 2.16.840.1.373642.3.579.2.1 76 1985 Unknown [id number] 2.16.840.1.286250.3.579.2.1 76 1985 Unknown [id number] 2.16.840.1.338308.3.579.2.1 76 1982 Unknown [id number] 2.16.840.1.623840.3.579.2.6 47 1959 Self-pay [id number] 1959 Unknown [id number] 1.2.840.239808.1.13.239.2.7 .3.536348.315 1959 Worker's Compensation [id number] Unknown [id number] 2.16.840.1.965908.19 Unknown [facility] [id number] Unknown [id number] 2.16.840.1.042430.3.579.2.5 31 Social History Date Type Detail Facility Start: 01-21-2019 End: 09-18-2024 Tobacco smoking status NHIS Never smoker [place] Start: 01-21-2019 End: 08-27-2024 Tobacco use and exposure Never used [place] Start: 01-21-2019 End: 06-01-2021 Alcohol intake Current non-drinker of alcohol (finding) [facility] Start: 2002 [facility]igned [facility] Exposure to SARS-CoV-2 (event) Not sure [facility] Exposure to SARS-CoV-2 (event) Yes [facility] Start: 2002 Sex Assigned At Female M [facility]ner [facility] Start: 06-01-2021 End: 08-27-2024 Alcohol intake H?REL Phone: Start: 04-12-2021 End: 07-01-2023 History SDOH Financial 5 H?REL Phone: Start: 04-12-2021 End: 07-01-2023 History SDOH Food Worry 1 H?REL Phone: Start: 06-23-2021 End: 08-03-2023 Alcohol intake Lifetime non-drinker (finding) H?[facility] Phone: Start: 08-03-2023 End: 08-27-2024 Sex Assigned At Qoniac Other Tobacco smoking status Never [facility] Assertion Lives with annetta pederson (finding) [facility] Assertion Part-time employ ment (finding) [facility] Assertion Emotional stress (finding) [facility] Assertion Patient has move d away (finding) [facility] Tobacco smoking status Unknown if ever smoked [facility] Work Phone: Assertion Sexually active (finding) [facility] Assertion Gender identity finding (finding) [facility] Assertion Finding of sexua l orientation (finding) [facility] Assertion Social drinker (finding) [facility] History of tobacco use Passive smoker [facility] Start: 07-01-2023 History SDOH Transport Non-Med 2 [facility] [employer] Assertion Attending school (finding) [facility] Assertion Full-time employ ment (finding) [facility] (I/We) worried whether (my/our) food would run out before (I/we) got money to buy more. Never true [facility] Start: 10-26-2020 Gender identity Identifies as female gender (finding) [facility] Start: 10-26-2020 Sexual orientation Heterosexual (fin ding) [facility] Assertion Exposure to poll ution (event) [facility] Start: 08-28-2024 Alcoholic beverage intake Current drinker of alcohol (finding) [facility] NEGATED: Highlighted row Assertion Current drinker of alcohol (finding) [facility] NEGATED: Highlighted row Assertion [facility] NEGATED: Highlighted row Assertion Exposure to pollution (event) [facility] NEGATED: Highlighted row Assertion Finding relating to drug misuse behavior (finding) [facility] Functional Status Date Assessment Result Facility 05-18-2024 Functional Status N/A [facility] 05-08-2024 Functional Status N/A [facility] 01-21-2024 Functional Status N/A [facility] 01-08-2023 Functional Status N/A [facility] 07-04-2022 Functional Status N/A [facility] Mental Status Date Assessment Result Facility Cognitive function The estimated intelligence was normal Intelligence finding (finding) [facility] Work Phone: Clinical Notes 06-23-2021 to 09-18-2024 Henrique Gutierrez MD - 08/28/2024 8:40 AM EDT Note Date & Type Note Facility 09-18-2024 Note Patient Education Orthopedics Thoracic Strain A thoracic strain is an injury to the muscles or tendons that attach to the upper back. Tendons are tissues that connect muscle to bone. This injury is sometimes called a mid-back strain. A strain can be mild or very bad. A mild strain may take only 1?2 weeks to heal. A very bad strain involves torn muscles or tendons, so it may take 6?8 weeks to heal. What are the causes? This condition may be caused by: ??? A fall or a hit to the body. ??? Twisting or stretching the back too far. This may happen when doing activities that take a lot of energy, such as lifting heavy objects. In some cases, the cause may not be known. What increases the risk? This injury is more common in: ??? Athletes. ??? People who are very overweight (obese). What are the signs or symptoms? Pain in the middle back, especially with movement. This is the main symptom. ??? Stiffness or limited range of motion. ??? Sudden muscle tightening (spasms). How is this treated? This condition may be treated with: ??? Resting the injured area. ??? Putting heat and cold on the injured area. ??? Medicines for pain and inflammation, such as NSAIDs. ??? Prescription medicine for pain or to relax the muscles. These may be used for a short time if needed. ??? Physical therapy. This is doing exercises to help you move better and get stronger. ??? Treatments done to the painful area. This may be: ? Electrical stimulation. ? Engaging the muscle with small needles (dry needling). ? Shots of medicine (trigger point injections). Follow these instructions at home: Managing pain, stiffness, and swelling ??? If told, put ice on the injured area. ? Put ice in a plastic bag. ? Place a towel between your skin and the bag. ? Leave the ice on for 20 minutes, 2?3 times a day. ??? If told, put heat on the affected area. Do this as often as told by your doctor. Use the heat source that your doctor recommends, such as a moist heat pack or a heating pad. ? Place a towel between your skin and the heat source. ? Leave the heat on for 20?30 minutes. ??? If your skin turns bright red, take off the ice or heat right away to prevent skin damage. The risk of damage is higher if you cannot feel pain, heat, or cold. Activity ??? Rest as told. Return to your normal activities when your doctor says that it is safe. ??? Do exercises as told by your doctor. Medicines ??? Take [id number] and prescription medicines only as told by your doctor. ??? Ask your doctor if you should avoid driving or using machines while you are taking your medicine. ??? If told, take steps to prevent problems with pooping (constipation). You may need to: ? Drink enough fluid to keep your pee (urine) pale yellow. ? Take medicines. You will be told what medicines to take. ? Eat foods that are high in fiber. These include beans, whole grains, and fresh fruits and vegetables. ? Limit foods that are high in fat and sugar. These include fried or sweet foods. General instructions ??? Do not smoke or use any products that contain nicotine or tobacco. If you need help quitting, ask your doctor. ??? Keep all follow-up visits. Your doctor will check on your injury and activity. How is this prevented? To prevent a future mid-back injury: ??? Always warm up before physical activity or sports. ??? Cool down and stretch after being active. ??? Use correct form when playing sports and lifting heavy objects. Bend your knees before you lift heavy objects. ??? Use good posture when sitting and standing. ??? Stay physically fit and stay at a healthy weight. ? Do at least 150 minutes of moderate-intensity exercise each week, such as brisk walking or water aerobics. ? Do strength exercises at least 2 times each week. Contact a doctor if: ??? Your pain is not helped by medicine. ??? Your pain or stiffness is getting worse. ??? You have pain or stiffness in your neck or lower back. Get help right away if: ??? You have shortness of breath. ??? You have chest pain. ??? You have weakness, tingling, or loss of feeling (numbness) in your legs. ??? You are not able to control when you pee. These symptoms may be an emergency. Get help right away. Call 911. ??? Do not wait to see if the symptoms will go away. ??? Do not drive yourself to the hospital. This information is not intended to replace advice given to you by your health care provider. Make sure you discuss any questions you have with your health care provider. Document Revised: 07/01/2023 Document Reviewed: 07/01/2023 [employer] Patient Education ? 2023 [employer]. [facility] 08-28-2024 History of Presen t illness Narrative Subjective Patient ID: Jeny Cardoso is a 24 y.o. female who presents for Otitis Media Pt reports recurrent ear infections with itching, dysequalibrium, muffled hearing, ear pain. 4 infections in the past 4 mo. Tx with oral abx, drops and steroids (oflox, aug, flonase, medrol). RT ear hurts today. No known bruxism. Uses q-tips after showering. Review of Systems All other systems reviewed and are negative. Family History Problem Relation Name Age of Onset Hypertension Father Alcohol abuse Father Active Ambulatory Problems Diagnosis Date Noted Sprain and strain of ankle 08/27/2024 Rectal bleeding 08/27/2024 Recurrent major depressive disorder, in full remission ([facility] [facility] [place] 10/12/2018 Right knee pain 01/11/2016 Right otitis externa 08/27/2024 Right otitis media 08/27/2024 Seasonal allergies 09/12/2020 Skin yeast infection 08/27/2024 Vaginal irritation 08/27/2024 Vitamin D deficiency 12/05/2020 Frequent UTI 08/27/2024 Ear fullness 08/27/2024 Anxiety 01/21/2019 GERD (gastroesophageal reflux disease) 08/27/2024 Resolved Ambulatory Problems Diagnosis Date Noted No Resolved Ambulatory Problems Past Medical History: Diagnosis Date Otitis media Past Surgical History: Procedure Laterality Date APPENDECTOMY COLONOSCOPY OVARIAN CYST REMOVAL Allergies Allergen Reactions Morphine Hives Other Reaction(s): Unknown Trazodone Other Reaction(s): Unknown, Unknown Reaction, Wheezing Hydroxyzine Nausea And Vomiting and GI intolerance Other Reaction(s): Nausea And Vomiting Current Outpatient Medications on File Prior to Visit Medication Sig Dispense Refill acetaminophen (Tylenol) 500 MG tablet Take 500 mg by mouth desvenlafaxine (Pristiq) 50 MG 24 hr tablet Take 50 mg by mouth doxepin (SINEquan) 10 MG capsule Take 10 mg by mouth fluconazole (Diflucan) 150 MG tablet Take 150 mg by mouth fluticasone (Flonase Allergy Relief) 50 MCG/ACT nasal spray Administer 2 sprays into each nostril Daily methylPREDNISolone (Medrol) 4 MG tablet Take by mouth norgestimate-ethinyl estradiol (Ortho-Cyclen) 0.25-35 MG-MCG tablet Take 1 tablet by mouth Daily nystatin (Mycostatin) cream Apply topically ofloxacin (Floxin) 0.3 % otic solution 5 drops omeprazole (PriLOSEC) [address] capsule Take 40 mg by mouth ondansetron ODT (Zofran-ODT) 4 MG disintegrating tablet See Instructions, 1 tab(s) Oral every 4-6 hours prazosin (Minipress) 1 MG capsule Take 1 mg by mouth No current facility-administered medications on file prior to visit. Objective Last Recorded Vitals Vitals: 08/28/24 0840 BP: 104/73 ENT Physical Exam Constitutional Appearance: patient appears well-developed, well-nourished and well-groomed, Head and Face Appearance: head appears normal and face appears atraumatic; Palpation: TMJ tender on the right; Ear Ear Canals: right ear canal normal; left ear canal normal; Tympanic Membranes: right tympanic membrane normal; left tympanic membrane normal; Nose External Nose: nares patent bilaterally; external nose normal; Internal Nose: septum normal; Oral Cavity/Oropharynx Tongue: normal; Oral mucosa: normal; Hard palate: normal; Soft palate: normal; Tonsils: normal; Neck Neck: neck normal; neck palpation normal; Thyroid: thyroid normal; Respiratory Inspection: breathing unlabored; normal breathing rate; Auscultation: breath sounds are clear; Cardiovascular Inspection: extremities are warm and well perfused; no peripheral edema present; Auscultation: regular rate and rhythm; Assessment/Plan Diagnoses and all orders for this visit: Otalgia, right ear Pt feels her typical OM sx today but her otologic exam is normal. She pretty clearly has TMJ. I will tx with meloxicam and a night time mouth guard. Oral surgery eval if sx persist documented in this encounter [facility] 07-16-2024 Note Patient Education Infectious Disease Viral Respiratory Infection A viral respiratory infection is an illness that affects parts of the body that are used for breathing. These include the lungs, nose, and throat. It is caused by a germ called a virus. Some examples of this kind of infection are: ? A cold. ? The flu (influenza). ? A respiratory syncytial virus (RSV) infection. What are the causes? This condition is caused by a virus. It spreads from person to person. You can get the virus if: ? You breathe in droplets from someone who is sick. ? You come in contact with people who are sick. ? You touch mucus or other fluid from a person who is sick. What are the signs or symptoms? Symptoms of this condition include: ? A stuffy or runny nose. ? A sore throat. ? A cough. ? Shortness of breath. ? Trouble breathing. ? Yellow or green fluid in the nose. Other symptoms may include: ? A fever. ? Sweating or chills. ? Tiredness (fatigue). ? Achy muscles. ? A headache. How is this treated? This condition may be treated with: ? Medicines that treat viruses. ? Medicines that make it easy to breathe. ? Medicines that are sprayed into the nose. ? Acetaminophen or NSAIDs, such as ibuprofen, to treat fever. Follow these instructions at home: Managing pain and congestion ? Take dwzx-rwh-rrakxpr and prescription medicines only as told by your doctor. ? If you have a sore throat, gargle with salt water. Do this 3?4 times a day or as needed. ? To make salt water, dissolve ??1 tsp (3?6 g) of salt in 1 cup (237 mL) of warm water. Make sure that all the salt dissolves. ? Use nose drops made from salt water. This helps with stuffiness (congestion). It also helps soften the skin around your nose. ? Take 2 tsp (10 mL) of honey at bedtime to lessen coughing at night. ? Do not give honey to children who are younger than 1 year old. ? Drink enough fluid to keep your pee (urine) pale yellow. General instructions ? Rest as much as possible. ? Do not drink alcohol. ? Do not smoke or use any products that contain nicotine or tobacco. If you need help quitting, ask your doctor. ? Keep all follow-up visits. How is this prevented? ? Get a flu shot every year. Ask your doctor when you should get your flu shot. ? Do not let other people get your germs. If you are sick: ? Wash your hands with soap and water often. Wash your hands after you cough or sneeze. Wash hands for at least 20 seconds. If you cannot use soap and water, use hand supervisor grinding. ? Cover your mouth when you cough. Cover your nose and mouth when you sneeze. ? Do not share cups or eating utensils. ? Clean commonly used objects often. Clean commonly touched surfaces. ? Stay home from work or school. ? Avoid contact with people who are sick during cold and flu season. This is in fall and winter. Get help if: ? Your symptoms last for 10 days or longer. ? Your symptoms get worse over time. ? You have very bad pain in your face or forehead. ? Parts of your jaw or neck get very swollen. ? You have shortness of breath. Get help right away if: ? You feel pain or pressure in your chest. ? You have trouble breathing. ? You faint or feel like you will faint. ? You keep vomiting and it gets worse. ? You feel confused. These symptoms may be an emergency. Get help right away. Call your local emergency services (911 in the [place] ? Do not wait to see if the symptoms will go away. ? Do not drive yourself to the hospital. Summary ? A viral respiratory infection is an illness that affects parts of the body that are used for breathing. ? Examples of this illness include a cold, the flu, and a respiratory syncytial virus (RSV) infection. ? The infection can cause a runny nose, cough, sore throat, and fever. ? Follow what your doctor tells you about taking medicines, drinking lots of fluid, washing your hands, resting at home, and avoiding people who are sick. This information is not intended to replace advice given to you by your health care provider. Make sure you discuss any questions you have with your health care provider. Document Revised: 02/15/2022 Document Reviewed: 02/15/2022 Elsevier Patient Education ? 2022 [employer]. [facility] 06-22-2024 Note Patient Education Obstetrics and Gynecology Health Maintenance, Female Adopting a healthy lifestyle and getting preventive care are important in promoting health and wellness. Ask your health care provider about: ? The right schedule for you to have regular tests and exams. ? Things you can do on your own to prevent diseases and keep yourself healthy. What should I know about diet, weight, and exercise? Eat a healthy diet ? Eat a diet that includes plenty of vegetables, fruits, low-fat dairy products, and lean protein. ? Do not eat a lot of foods that are high in solid fats, added sugars, or sodium. Maintain a healthy weight Body mass index (BMI) is used to identify weight problems. It estimates body fat based on height and weight. Your health care provider can help determine your BMI and help you achieve or maintain a healthy weight. Get regular exercise Get regular exercise. This is one of the most important things you can do for your health. Most adults should: ? Exercise for at least 150 minutes each week. The exercise should increase your heart rate and make you sweat (moderate-intensity exercise). ? Do strengthening exercises at least twice a week. This is in addition to the moderate-intensity exercise. ? Spend less time sitting. Even light physical activity can be beneficial. Watch cholesterol and blood lipids Have your blood tested for lipids and cholesterol at 20 years of age, then have this test every 5 years. Have your cholesterol levels checked more often if: ? Your lipid or cholesterol levels are high. ? You are older than 40 years of age. ? You are at high risk for heart disease. What should I know about cancer screening? Depending on your health history and family history, you may need to have cancer screening at various ages. This may include screening for: ? Breast cancer. ? Cervical cancer. ? Colorectal cancer. ? Skin cancer. ? Lung cancer. What should I know about heart disease, diabetes, and high blood pressure? Blood pressure and heart disease ? High blood pressure causes heart disease and increases the risk of stroke. This is more likely to develop in people who have high blood pressure readings or are overweight. ? Have your blood pressure checked: ? Every 3?5 years if you are 18?39 years of age. ? Every year if you are 40 years old or older. Diabetes Have regular diabetes screenings. This checks your fasting blood sugar level. Have the screening done: ? Once every three years after age 40 if you are at a normal weight and have a low risk for diabetes. ? More often and at a younger age if you are overweight or have a high risk for diabetes. What should I know about preventing infection? Hepatitis B If you have a higher risk for hepatitis B, you should be screened for this virus. Talk with your health care provider to find out if you are at risk for hepatitis B infection. Hepatitis C Testing is recommended for: ? Everyone born from 1945 through 1965. ? Anyone with known risk factors for hepatitis C. Sexually transmitted infections (STIs) ? Get screened for STIs, including gonorrhea and chlamydia, if: ? You are sexually active and are younger than 24 years of age. ? You are older than 24 years of age and your health care provider tells you that you are at risk for this type of infection. ? Your sexual activity has changed since you were last screened, and you are at increased risk for chlamydia or gonorrhea. Ask your health care provider if you are at risk. ? Ask your health care provider about whether you are at high risk for HIV. Your health care provider may recommend a prescription medicine to help prevent HIV infection. If you choose to take medicine to prevent HIV, you should first get tested for HIV. You should then be tested every 3 months for as long as you are taking the medicine. ? If you are about to stop having your period (premenopausal) and you may become , seek counseling before you get . ? Take 400 to 800 micrograms (mcg) of folic acid every day if you become . ? Ask for control (contraception) if you want to prevent . Osteoporosis and menopause Osteoporosis is a disease in which the bones lose minerals and strength with aging. This can result in bone fractures. If you are 65 years old or older, or if you are at risk for osteoporosis and fractures, ask your health care provider if you should: ? Be screened for bone loss. ? Take a calcium or vitamin D supplement to lower your risk of fractures. ? Be given hormone replacement therapy (HRT) to treat symptoms of menopause. Follow these instructions at home: Alcohol use ? Do not drink alcohol if: ? Your health care provider tells you not to drink. ? You are , may be , or are planning to become . ? If you drink alcohol: ? Limit how much you have to: ? 0?1 drink a day. ? Know how (more content not included)... [facility] 05-19-2024 Hospital Discharg e instructions Patient Education 05/18/2024 23:40:01 Abdominal Pain, Adult Abdominal Pain, Adult Pain in the abdomen (abdominal pain) can be caused by many things. Often, abdominal pain is not serious and it gets better with no treatment or by being treated at home. However, sometimes abdominal pain is serious. Your health care provider will ask questions about your medical history and do a physical exam to try to determine the cause of your abdominal pain. Follow these instructions at home: Medicines Take vvqe-ifh-epwszpt and prescription medicines only as told by your health care provider. Do not take a laxative unless told by your health care provider. General instructions Watch your condition for any changes. Drink enough fluid to keep your urine pale yellow. Keep all follow-up visits as told by your health care provider. This is important. Contact a health care provider if: Your abdominal pain changes or gets worse. You are not hungry or you lose weight without trying. You are constipated or have diarrhea for more than 2 3 days. You have pain when you urinate or have a bowel movement. Your abdominal pain wakes you up at night. Your pain gets worse with meals, after eating, or with certain foods. You are vomiting and cannot keep anything down. You have a fever. You have blood in your urine. Get help right away if: Your pain does not go away as soon as your health care provider told you to expect. You cannot stop vomiting. Your pain is only in areas of the abdomen, such as the right side or the left lower portion of the abdomen. Pain on the right side could be caused by appendicitis. You have bloody or black stools, or stools that look like tar. You have severe pain, cramping, or bloating in your abdomen. You have signs of dehydration, such as: ?Dark urine, very little urine, or no urine. ?Cracked lips. ?Dry mouth. ?Sunken eyes. ?Sleepiness. ?Weakness. You have trouble breathing or chest pain. Summary Often, abdominal pain is not serious and it gets better with no treatment or by being treated at home. However, sometimes abdominal pain is serious. Watch your condition for any changes. Take zbpl-tik-gabeiyo and prescription medicines only as told by your health care provider. Contact a health care provider if your abdominal pain changes or gets worse. Get help right away if you have severe pain, cramping, or bloating in your abdomen. This information is not intended to replace advice given to you by your health care provider. Make sure you discuss any questions you have with your health care provider. Document Revised: 12/30/2020 Document Reviewed: 03/21/2020 [employer] Patient Education 2022 [employer]. Follow Up Care 05/18/2024 20:29:37 With:Sophie Yoo Address:Unknown When:Within 3 Day(s) [facility] 05-18-2024 Evaluation + Plan note Extrac mila from: Title:ED Note Author:Kourtney Evens Date :05/18/24 AP (abdominal pain) (R10.9: Unspecified abdominal pain) Orders: dicyclomine, 10 mg = 1 cap(s), Oral, QID, X 7 day(s), # 28 cap(s), Refills(s) 0, Pharmacy: [facility]/pharmacy #[id number], 163, cm, 05/18/24 20:47:00 EDT, Height/Length Dosing, 133.2, kg, 05/18/24 20:47:00 EDT, Weight Dosing dicyclomine, 10 mg = 1 cap(s), Cap, Oral, Once, Stop date 05/18/24 22:24:00 EDT, STAT, Start date 05/18/24 22:24:00 EDT, 05/18/24 22:24:00 EDT ibuprofen, 600 mg = 1 tab(s), Oral, q8hr, PRN as needed for pain, # 30 tab(s), Refills(s) 0, [id number] 163, cm, 05/18/24 20:47:00 EDT, Height/Length Dosing, 133.2, kg, 05/18/24 20:47:00 EDT, Weight Dosing ketorolac, 30 mg = 1 mL, Injection, IntraMuscular, Once, Stop date 05/18/24 22:23:00 EDT, STAT, Start date 05/18/24 22:23:00 EDT, 05/18/24 22:23:00 EDT ondansetron, 4 mg = 1 tab(s), Oral, q8hr, PRN Nausea/Vomiting, # 12 tab(s), Refills(s) 0, Pharmacy: [facility]/pharmacy #[id number], 163, cm, 05/18/24 20:47:00 EDT, Height/Length Dosing, 133.2, kg, 05/18/24 20:47:00 EDT, Weight Dosing ondansetron, 4 mg = 1 tab(s), Tab-Dis, Oral, Once, Stop date 05/18/24 22:24:00 EDT, STAT, Start date 05/18/24 22:24:00 EDT, 05/18/24 22:24:00 EDT Sodium Chloride 0.9% intravenous solution, 1,000 mL, Soln-IV, IV, Once, Stop date 05/18/24 20:52:00 EDT, STAT, Start date 05/18/24 20:52:00 EDT, Infuse over 61, minute(s) Basic Metabolic Panel CBC w/ Auto Diff eGFR Hepatic Function Panel Lipase Level Saline Lock Insert U Beta Hcg Qual UA with Cult Rflx Urine Culture Diagnostic Tests Pending * Urine Culture 05/18/[address] [facility]06-20-2024 Evaluation + Plan note Diagnostic Tests Pending * PAP [id number] CT/NG/Trich rflx HPV 05/14/[address] [facility]02-27-2024 Hospital Discharge instructions Patient Education 01/21/2024 18:29:12 Upper Respiratory Infection, Adult, Exlf-qq-Rltt Upper Respiratory Infection, Adult An upper respiratory infection (URI) affects the nose, throat, and upper airways that lead to the lungs. The most common type of URI is often called the common cold. URIs usually get better on their own, without medical treatment. What are the causes? A URI is caused by a germ (virus). You may catch these germs by: Breathing in droplets from an infected person's cough or sneeze. Touching something that has the germ on it (is contaminated) and then touching your mouth, nose, oreyes. What increases the risk? You are more likely to get a URI if: You are very young or very old. You have close contact with others, such as at work, school, or a health care facility. You smoke. You have long-term (chronic) heart or lung disease. You have a weakened disease-fighting system (immune system). You have nasal allergies or asthma. You have a lot of stress. You have poor nutrition. What are the signs or symptoms? Runny or stuffy (congested) nose. Cough. Sneezing. Sore throat. Headache. Feeling tired (fatigue). Fever. Not wanting to eat as much as usual. Pain in your forehead, behind your eyes, and over your cheekbones (sinus pain). Muscle aches. Redness or irritation of the eyes. Pressure in the ears or face. How is this treated? URIs usually get better on their own within 7 10 days. Medicines cannot cure URIs, but your doctor may recommend certain medicines to help relieve symptoms, such as: Qyws-ptq-injacmm cold medicines. Medicines to reduce coughing (cough suppressants). Coughing is a type of defense against infection that helps to clear the nose, throat, windpipe, and lungs (respiratory system). Take these medicinesonly as told by your doctor. Medicines to lower your fever. Follow these instructions at home: Activity Rest as needed. If you have a fever, stay home from work or school until your fever is gone, or until your doctor says you may return to work or school. ?You should stay home until you cannot spread the infection anymore (you are not contagious). ?Your doctor may have you wear a face mask so you have less risk of spreading the infection. Relieving symptoms Rinse your mouth often with salt water. To make salt water, dissolve 1 tsp (3 6 g) of salt in 1 cup(237 mL) of warm water. Use a cool-mist humidifier to add moisture to the air. This can help you breathe more easily. Eating and drinking Drink enough fluid to keep your pee (urine) pale yellow. Eat soups and other clear broths. General instructions Take ouqc-kig-twwowtu and prescription medicines only as told by your doctor. Do not smoke or use any products that contain nicotine or tobacco. If you need help quitting, ask your doctor. Avoid being where people are smoking (avoid secondhand smoke). Stay up to date on all your shots (immunizations), and get the flu shot every year. Keep all follow-up visits. How to prevent the spread of infection to others Wash your hands with soap and water for at least 20 seconds. If you cannot use soap and water, use hand supervisor grinding. Avoid touching your mouth, face, eyes, or nose. Cough or sneeze into a tissue or your sleeve or elbow. Do not cough or sneeze into your hand or into the air. Contact a doctor if: You are getting worse, not better. You have any of these: ?A fever or chills. ?Brown or red mucus in your nose. ?Yellow or brown fluid (discharge)coming from your nose. ?Pain in your face, especially when you bend forward. ?Swollen neck glands. ?Pain when you swallow. ?White areas in the back of your throat. Get help right away if: You have shortness of breath that gets worse. You have very bad or constant: ?Headache. ?Ear pain. ?Pain in your forehead, behind your eyes, and over your cheekbones (sinus pain). ?Chest pain. You have long-lasting (chronic) lung disease along with any of these: ?Making high-pitched whistling sounds when you breathe, most often when you breathe out (wheezing). ?Long-lasting cough (more than 14 days). ?Coughing up blood. ?A change in your usual mucus. You have a stiff neck. You have changes in your: ?Vision. ?Hearing. ?Thinking. ?Mood. These symptoms may be an emergency. Get help right away. Call 911. Do not wait to see if the symptoms will go away. Do not drive yourself to the hospital. Summary An upper respiratory infection (URI) is caused by a germ (virus). The most common type of URI is often called the common cold. URIs usually get better within 7 10 days. Take phbz-bne-xcgkkia and prescription medicines only as told by your doctor. This information is not intended to replace advice given to you by your health care provider. Make sure you discuss any questions you have with your health care provider. Document Revised: 06/13/2022 Document Reviewed: 06/13/2022 [employer] Patient Education 2022 [employer]. Follow Up Care 01/21/2024 15:58:15 With:Sophie Yoo Address:Unknown When:01/24/2024 17:57:[address] [facility]02-27-2024 Evaluation + Plan noteExtracted from: Title:ED Note Author:Sosa Licea PA-C Date:01/21/24 1. Viral URI with cough (J06 .9: Acute upper respiratory infection, unspecified) Orders: brompheniramine/dextromethorphan/PSE, 5 mL, Oral, QID for cold symptoms, 120 mL, Refill(s) 0, [facility], 163.8, cm, 01/21/24 16:10:00 EST, Height/Length Dosing, 135.2, kg, 01/21/24 16:10:00 EST, Weight Dosing Rapid Strep w/rfx U Beta Hcg Qual UA With Cult Reflex Future Appointments Appointment Date:02/06/2024 01:40:00 PM Scheduled Provider:Sophie Salcido Location:[facility] Appointment Type:[facility]11-09-2023 Evaluation note Includes: Assessments for all patient encounters Findings Encounter Date [M21.42 - Flat foot [pes carley nus] (acquired), left foot] acquired pes planus of bilateral feet Medical Established Patient with Vika Rose 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 10/03/2023 Last Documented On 3 6:21PM ; [facility] [Z68.43 - Body mass index [B OK] 50.0-59.9, adult] assessment of body mass index Medical Established Patient with Vika Rose [facility] 10/03/2023 Last Documented On 3 6:21PM ; [facility] Candidiasis Medical Established Patient with Vika Rose 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 10/03/2023 Last Documented On 3 6:21PM ; [facility] [Z68.42 - Body mass index [B OK] 45.0-49.9, adult] assessment of body mass index Medical Established 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 08/05/2023 Last Documented On 3 9:16AM ; [facility] Assessment of dietary counse bruno pertaining to obesity Medical Established Patient with 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 [facility] 08/05/2023 Last Documented On 3 9:16AM ; [facility] Generalized anxiety disorder Medical Est ablished 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 08/05/2023 Last Documented On 3 9:16AM ; [facility] Mild recurrent major depression Medical Established 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 08/05/2023 Last Documented On 3 9:16AM ; [facility] Generalized anxiety disorder Establis hed Patient with Macrina Short [facility] 07/22/2023 Last Documented On 3 3:26PM ; [facility] Mild recurrent major depression BH Estab lished Patient with Macrina Bal LISWS 07/22/2023 Last Documented On 3 3:26PM ; [facility] [Z68.42 - Body mass index [B OK] 45.0-49.9, adult] assessment of body mass index Open Access - Established with 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 [facility] 07/22/2023 Last Documented On 3 8:55AM ; [facility] [Z71.3 - Dietary counseling and surveillance] dietary counseling pertaining to obesity Open Access - Established with 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 [facility] 07/22/2023 Last Documented On 3 8:55AM ; [facility] Esophageal reflux without esophagitis Op en Access - Established with 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 [facility] 07/22/2023 Last Documented On 3 8:55AM ; [facility] [Z68.42 - Body mass index [B OK] 45.0-49.9, adult] assessment of body mass index Open Access - Established with 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 [facility] 07/11/2023 Last Documented On 3 9:18AM ; [facility] Upper respiratory infection Open Access - Established with 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 [facility] 07/11/2023 Last Documented On 3 9:18AM ; [facility] [Z68.42 - Body mass index [B OK] 45.0-49.9, adult] assessment of body mass index Open Access - Established with 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 [facility] 06/27/2023 Last Documented On 3 4:04PM ; [facility] A home test was negative Open Access - Established with 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 [facility] 06/27/2023 Last Documented On 3 4:04PM ; [facility] [F33.0 - Major depressive di sorder, recurrent, mild] mild recurrent major depression per patient reported history BH Established Patient with Macrina Bal LISWS 06/04/2023 Last Documented On 3 3:32PM ; [facility] [F41.1 - Generalized anxiety disorder] generalized anxiety disorder per patient reported history BH Established Patient with Macrina Bal LISWS 06/04/2023 Last Documented On 3 3:32PM ; [facility] [Z68.42 - Body mass index [B OK] 45.0-49.9, adult] assessment of body mass index Medical New 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 06/04/2023 Last Documented On 3 1:49PM ; [facility] A home test was negative Medic al New 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 06/04/2023 Last Documented On 3 1:49PM ; [facility] Diabetes Risk Test Score was four score 06/04/2023 Medical New 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 06/04/2023 Last Documented On 3 1:49PM ; [facility] Esophageal reflux without esophagitis Me dical New 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 06/04/2023 Last Documented On 3 1:49PM ; [facility] Generalized anxiety disorder Medical New 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 06/04/2023 Last Documented On 3 1:49PM ; [facility] Mild recurrent major depression Medical New 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 06/04/2023 Last Documented On 3 1:49PM ; [facility] Other hypothyroidism Medical New Patient with An montez Ortega 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 06/04/2023 Last Documented On 3 1:49PM ; [facility] Screening for diabetes mellitus Medical New 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 06/04/2023 Last Documented On 3 1:49PM ; [facility] Screening for HIV Medical New Patient with Yvan Ortega 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 06/04/2023 Last Documented On 3 1:49PM ; [facility] Urinary tract infection Medical New 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 06/04/2023 Last Documented On 3 1:49PM ; [facility] Visit for routine adult H&P without abnormal findings Medical New 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 06/04/2023 Last Documented On 3 1:49PM ; [facility] Visit for: screening for dig estive system disorders Medical New 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 06/04/2023 Last Documented On 3 1:49PM ; [facility] Visit for: screening for lip oid disorders Medical New 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 06/04/2023 Last Documented On 3 1:49PM ; [facility] Visit for: surveillance of c ontraceptive pill Medical New 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 06/04/2023 Last Documented On 3 1:49PM ; [facility] Work Phone: 1(560) 812-461211-09-2023 History general Narrative - Reported Includes: Medical History in patient's chart Description Last Updated 0 previous live (s) 10/03/2023 Last Documented On 3 6:21PM ; [facility] Previously 0 time(s) 10/03/2023 Last Documented On 3 6:21PM ; [facility] No previous suicide attempt 06/04/2023 Last Documented On 3 3:32PM ; [facility] Safety Measures [facility] discusse d with patient crisis resources in the area should they be needed 06/04/2023 Last Documented On 3 3:32PM ; [facility] Frequent UTIs, Has had genital herpes Last Documented On 3 1:49PM ; [facility] History of anxiety disorder NOS 06/04/20 23 Last Documented On 3 1:49PM ; [facility] History of depression 06/04/2023 Last Documented On 3 1:49PM ; [facility] Psychiatric disorders PTSD 06/04/2023 Last Documented On 3 1:49PM ; [facility] No previous hospitalizations 06/04/2023 Last Documented On 3 1:49PM ; [facility] Not planning to have a baby in the next 12 months 06/04/2023 Last Documented On 3 1:49PM ; [facility] Work Phone: 1(935) 710-678211-09-2023 Progress note* Progress note Date Encounter Last Documented by 10/03/2023 Medical Established Patient Last documented on 10/03/2023; 6:21 PM, Vika Rose CNP; [facility] Active Problems & Conditions - B37.9 - Candidiasis - Z71.3 - Dietary Counseling Pertaining To Obesity - K21.9 - Esophageal Reflux Without Esophagitis - M21.42 - Flat Foot Acquired Left (Pes Planus) - F41.1 - Generalized Anxiety Disorder - F33.0 - Major Depression Recurrent Mild - Z30.41 - Visit For: Contraceptive Surveillance Pill Chief Complaint The Chief Complaint is: Patient would like lab order to find out her blood type. Patient went to donate plasma last week and would not let her donate because her heart rate was 115. Patient reports heal pain. Right worse than left. Feels like stabbing pain. Belly button odor, drainage, painful. SARY and gauze after washing with soap and water. Referred Here No prior encounters. History of Present Illness Jeny Cardoso is a 23 year old female. - Allergy list reviewed - Reviewed Medications - Medication list reviewed - Date of last menstruation 10/02/2023 - test - would not like a test Presents normally seen by cheyenne ortega cnp , needed later appt , wants blood type tested. doesnt want to keep 12/05/23 appt with cheyenne I am not taking the adipex/ insurance wouldnt cover it has been exercising more Current Medication - Doxepin HCl 10 MG Oral Capsule 30 days, 0 refills - Escitalopram Oxalate 20 MG Oral Tablet 30 days, 0 refills - Bhumika 0.25-35 MG-MCG Oral Tablet take 1 tablet by mouth daily, 28 days, 11 refills - Omeprazole 40 MG Oral Capsule Delayed Release take 1 tablet by mouth daily, 30 days, 5 refills - Prazosin HCl 1 MG Oral Capsule 30 days, 0 refills Past Medical/Surgical History Other: No previous suicide attempt Reported: Safety Measures BHP discussed with patient crisis resources in the area should they be needed. Medical: No previous hospitalizations. : Previously 0 time(s) and para having 0 live (s). Not planning to have a baby in the next 12 months. Diagnoses: Psychiatric disorders PTSD. Depression Anxiety disorder NOS Frequent UTIs, Has had genital herpes. Surgical: - General surgery Removed a cyst on her ovaries - Appendectomy Social History Environmental Exposure: Secondhand cigarette smoke exposure. Behavioral: Not a current tobacco user. Tobacco use: Not using electronic cigarettes/vaping. Alcohol: A social drinker. Drug Use: Not using drugs denied by patient. Sexual: Sexually active, sexual orientation Straight (not lesbian or jones), gender identity Female, and control is being practiced Pills. Allergies - Imitrex Reaction: Hives / Urticaria, Skin Rashes / Eruption of skin - Morphine Derivatives Reaction: Hives / Urticaria - Vistaril Reaction: Skin Rashes / Eruption of skin Family History Paternal: Systemic hypertension Renal disorder Thyroid disorder Type 2 diabetes mellitus Rheumatologic disorder Depression Maternal: Thyroid disorder Rheumatologic disorder Headache syndromes Depression Fraternal: Asthma Depression Review Of Systems Head: No head symptoms. Neck: No neck symptoms. Eyes: No eye symptoms. Otolaryngeal: No ear symptoms, no nasal symptoms, no nose and sinus finding, no throat symptoms, no oral cavity symptoms, and no jaw symptoms. Breasts: No breast symptoms. Cardiovascular: No cardiovascular symptoms and no chest pain or discomfort. Pulmonary: No pulmonary symptoms. Gastrointestinal: No gastrointestinal symptoms. Genitourinary: No genitourinary symptoms. Musculoskeletal: Foot pain. Neurological: No neurological symptoms. Psychological: No psychological symptoms. Skin: Skin symptoms odor and redness in belly button. Cardiovascular: Edema not present. Physical Findings - Vitals taken 10/03/2023 05:35 pm BP-Sitting R104/79 mmHg BP Cuff SizeLarge Pulse Rate-Uvumqsx48 bpm Pkvwsw15 in Jvocuc994 lbs 3.2 oz Body Mass Index50.2 kg/m2 Body Surface Area2.3 m2 Oxygen Ycsaxijooj83 % Vital Signs: - Systolic blood pressure < 130 mmHg. - Diastolic Blood Pressure < 80 mmHg. General Appearance: - Awake. - Alert. - Well developed. - Well nourished. - In no acute distress. Lungs: - Respiration rhythm and depth was normal. - Clear to auscultation. Cardiovascular: Heart Rate And Rhythm: - Normal. Heart Sounds: - Normal. Abdomen: Visual Inspection: - Abdomen was normal on visual inspection. Musculoskeletal System: General/bilateral: - Normal movement of all extremities. Foot: General/bilateral: - Feet showed abnormalities flat footed bilaterally. Skin: - General appearance was abnormal erythematous belly button / moist. Tests Laboratory-based Chemistry: Other Laboratory Tests: Screening for sexually transmitted infections was not performed. Assessment - Z68.43 - Body mass index [BMI] 50.0-59.9, adult - M21.42 - Flat foot [pes planus] (acquired), left foot - B37.9 - Candidiasis, unspecified Therapy - Patient refused flu vaccine. Discussed benefits of flu vaccine with Patient. Vaccinations - Did not receive dose of Reported: Patient has not received the Covid Vaccine Counseling/Education - Does not want to stop using current contraception - Discussed nutritional needs teach healthy choices including fruits and vegetables - Patient education about a proper diet - Not requesting contraception - Discussed concerns about exercise: promote physical activity Plan StartCited- Candidiasis, unspecified Diflucan 150 MG tablet take 1 tablet by mouth today repeat every 3 days for a total of 4 doses, 12 days, 0 refills Clotrimazole 1% gram apply inside and around belly button twice daily, 10 days, 0 refills Acidophilus Probiotic capsule take 1 capsule by mouth once daily, 30 days, 11 refills EndCited StartCited- Encounter for blood typing Lab: ABO TYPE EndCited StartCited- Other Follow-up Appointment june 2024 wellness EndCited Arch supports and wear supportive shoes , roll ice water bottles under feet every 4-6 hours as needed , eat yogurt regularly. Notes - Patient is not interested in the COVID-19 vaccination at this time. Health Reminders - Assess BMI satisfied 10/03/2023. - Assess Tobacco Use satisfied 10/03/2023. - Follow Up Plan BMI Management satisfied 10/03/2023. - LEVI-2 satisfied 10/03/2023. - PHQ9 / PHQA satisfied 10/03/2023. User Defined 1 LEVI-2 score was 0 10/03/2023, LEVI-7 score [LEVI-7] Feeling nervous, anxious or on edge? + 0 pt : Not at all, [LEVI-7] Not being able to stop or control worrying? + 0 pt : Not at all, Patient Health Questionnaire 9-Item total score was 0 10/03/2023, [PHQ-9-1] Little interest or pleasure in doing things? + 0 pt : Not at all, [PHQ-9-2] Feeling down, depressed, or hopeless? + 0 pt : Not at all, [PHQ-9-3] Trouble falling or staying asleep or sleeping too much? + 0 pt : Not at all, [PHQ-9-4] Feeling tired or having little energy? + 0 pt : Not at all, [PHQ-9-5] Poor appetite or overeating? + 0 pt : Not at all, [PHQ-9-6] Feeling bad about yourself-or that you are a failure + 0 pt : Not at all, [PHQ-9-7] Trouble concentrating on things such as reading the newspaper + 0 pt : Not at all, [PHQ-9-8] Moving or speaking so slowly that other people have noticed. + 0 pt : Not at all, and [PHQ-9-9] Thoughts that you would be better off or hurting yourself? + 0 pt : Not at all. [facility]09-11-2023 Progress note* Progress note Date Encounter Last Documented by 08/05/2023 Medical Established Patient Last documented on 08/07/2023; 9:16 AM, 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 CNP; [facility] Active Problems & Conditions - Z71.3 - Dietary Counseling Pertaining To Obesity - K21.9 - Esophageal Reflux Without Esophagitis - F41.1 - Generalized Anxiety Disorder - F33.0 - Major Depression Recurrent Mild - Z30.41 - Visit For: Contraceptive Surveillance Pill Chief Complaint The Chief Complaint is: Follow up for weight loss. Reason For Visit Visit for: weight management. Referred Here Not referred by urgent care clinic. Referred by emergency room ER on the for toe pain. X-ray was negative. No prior encounters. History of Present Illness - Allergy list reviewed - Reviewed Medications - Medication list reviewed - Date of last menstruation 07/14/2023 - test - would not like a test Patient is here for counseling for weight management. Patient brought food log back with her. 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 Patient reports that she did start measuring things into portions but is not sure what the correct portion is. States she followed what was on the box. Patient reports using protein shakes when she is hungry instead of a meal, stops eating when she is satisfied vs eating until she is stuffed . Reports that she has increased her fruit intake. Has been eating one veggie with meals. Occasional snacks of cucumbers with ranch. Patient reports she has been drinking at least 3-4 bottles of water per day. Patient reports that she feels like she has a tonsil stone that she cannot get out of the back of her right tonsil Current Medication - Doxepin HCl 10 MG Oral Capsule 30 days, 0 refills - Escitalopram Oxalate 20 MG Oral Tablet 30 days, 0 refills - Bhumika 0.25-35 MG-MCG Oral Tablet take 1 tablet by mouth daily, 28 days, 11 refills - Omeprazole 40 MG Oral Capsule Delayed Release take 1 tablet by mouth daily, 30 days, 5 refills - Prazosin HCl 1 MG Oral Capsule 30 days, 0 refills Past Medical/Surgical History Other: No previous suicide attempt Reported: Safety Measures BHP discussed with patient crisis resources in the area should they be needed. Medical: No previous hospitalizations. : Not planning to have a baby in the next 12 months. Diagnoses: Psychiatric disorders PTSD. Depression Anxiety disorder NOS Frequent UTIs, Has had genital herpes. Surgical: - General surgery Removed a cyst on her ovaries - Appendectomy Social History Environmental Exposure: No secondhand cigarette smoke exposure. Behavioral: Not a current tobacco user. Tobacco use: Not using electronic cigarettes/vaping. Alcohol: A social drinker. Drug Use: Not using drugs denied by patient. Sexual: Sexually active, sexual orientation Straight (not lesbian or jones), and gender identity Female. Allergies - Imitrex Reaction: Hives / Urticaria, Skin Rashes / Eruption of skin - Morphine Derivatives Reaction: Hives / Urticaria - Vistaril Reaction: Skin Rashes / Eruption of skin Family History Paternal: Systemic hypertension Renal disorder Thyroid disorder Type 2 diabetes mellitus Rheumatologic disorder Depression Maternal: Thyroid disorder Rheumatologic disorder Headache syndromes Depression Fraternal: Asthma Depression Review Of Systems Systemic: No systemic symptoms. Head: No headache. Otolaryngeal: No ear symptoms, no nasal symptoms, and no throat symptoms. Cardiovascular: No cardiovascular symptoms. Pulmonary: No pulmonary symptoms. Gastrointestinal: No gastrointestinal symptoms. Genitourinary: No genitourinary symptoms. Musculoskeletal: No musculoskeletal symptoms. Neurological: No neurological symptoms. Psychological: No psychological symptoms. Skin: No skin symptoms. Physical Findings - Vitals taken 08/05/2023 09:21 am BP-Sitting L163/81 mmHg BP Cuff SizeLarge Pulse Rate-Qpuixwz01 bpm Respiration Rate16 per min Temp-Gmywmxzs78.1 F Xnzvyv83 in Zjipog919 lbs 12.8 oz Body Mass Index48.9 kg/m2 Body Surface Area2.3 m2 Oxygen Renprwpqbu56 % - Vitals taken 08/05/2023 09:42 am BP-Sitting L106/73 mmHg BP Cuff SizeLarge Vital Signs: - Systolic blood pressure < 130 mmHg. - Diastolic Blood Pressure < 80 mmHg. General Appearance: - Awake. - Alert. - In no acute distress. Eyes: General/bilateral: Pupils: - PERRLA. Pharynx: Oropharynx: - Abnormal right tonsil larger than left, no erythema, exudate or stones appreciated. Lungs: - Respiration rhythm and depth was normal. - Clear to auscultation. Cardiovascular: Heart Rate And Rhythm: - Normal. Heart Sounds: - Normal. Abdomen: Auscultation: - Bowel sounds were normal. Musculoskeletal System: General/bilateral: - Normal movement of all extremities. Neurological: - Oriented to time, place, and person. Psychiatric: - Expression of emotions finding was normal. Skin: - General appearance was normal. Tests Laboratory-based Chemistry: Other Laboratory Tests: Screening for sexually transmitted infections was not performed. Assessment - Z68.42 - Body mass index [BMI] 45.0-49.9, adult - F33.0 - Major depressive disorder, recurrent, mild - F41.1 - Generalized anxiety disorder - Z71.3 - Dietary counseling and surveillance Therapy - OARRS report was reviewed. - Patient refused flu vaccine. Discussed benefits of flu vaccine with Patient. Vaccinations - Did not receive dose of Reported: Patient has not received the Covid Vaccine Counseling/Education - Does not want to stop using current contraception - Discussed nutritional needs teach healthy choices including fruits and vegetables - Patient education about a proper diet - Not requesting contraception - Discussed concerns about exercise: promote physical activity Plan StartCited- Dietary counseling and surveillance Phentermine HCl 37.5 MG tablet Take 1 tablet by mouth daily on an empty stomach, 30 days, 0 refills EndCited Patient is agreeable to try adipex. Patient to sign habit forming contract. Follow up in 1 month for weight check. Discussed meal prepping and looking in to portion control containers to help her with how many portions she should be eating. Discussed continuing to add exercise to her daily routine. Discussed weight loss goal of 10% of current body weight, about 28 pounds. Salt water gargles for the throat. Notes - Patient is not interested in the COVID-19 vaccination at this time. Health Reminders - Assess BMI satisfied 08/05/2023. - Assess Tobacco Use satisfied 08/05/2023. - Follow Up Plan BMI Management satisfied 08/05/2023. [facility]09-09-2023 Hospital Discharge instructions* Discharge Instructions* Sharon Ram DO - 08/03/2023 10:10 AM EDT Tylenol and ibuprofen for pain as needed. Ice to the area 20 minutes at a time as often as you can.Rest your foot as often as you can until the pain is there. Follow-up with your doctor next week ifpain is still persistent. * Attachments The following attachments cannot be sent through Care Everywhere. * Foot Sprain (Citizen Of [place]) [facility] Includes: Assessments for all patient encounters Findings Encounter Date Generalized anxiety disorder Establis hed Patient with Macrina Short LISWS 07/22/2023 Last Documented On 3 3:26PM ; [facility] Mild recurrent major depression Estab lished Patient with Macrina Short LISWS 07/22/2023 Last Documented On 3 3:26PM ; [facility] [Z68.42 - Body mass index [B OK] 45.0-49.9, adult] assessment of body mass index Open Access - Established with 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 [facility] 07/22/2023 Last Documented On 3 3:49PM ; [facility] [Z71.3 - Dietary counseling and surveillance] dietary counseling pertaining to obesity Open Access - Established with 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 [facility] 07/22/2023 Last Documented On 3 3:49PM ; [facility] Esophageal reflux without esophagitis Op en Access - Established with 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 [facility] 07/22/2023 Last Documented On 3 3:49PM ; [facility] [Z68.42 - Body mass index [B OK] 45.0-49.9, adult] assessment of body mass index Open Access - Established with 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 [facility] 07/11/2023 Last Documented On 3 9:18AM ; [facility] Upper respiratory infection Open Access - Established with 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 [facility] 07/11/2023 Last Documented On 3 9:18AM ; [facility] [Z68.42 - Body mass index [B OK] 45.0-49.9, adult] assessment of body mass index Open Access - Established with 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 [facility] 06/27/2023 Last Documented On 3 4:04PM ; [facility] A home test was negative Open Access - Established with 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 [facility] 06/27/2023 Last Documented On 3 4:04PM ; [facility] [F33.0 - Major depressive di sorder, recurrent, mild] mild recurrent major depression per patient reported history Established Patient with Macrina NAPIER 06/04/2023 Last Documented On 3 3:32PM ; [facility] [F41.1 - Generalized anxiety disorder] generalized anxiety disorder per patient reported history Established Patient with Macrina Short FREDISWS 06/04/2023 Last Documented On 3 3:32PM ; [facility] [Z68.42 - Body mass index [B OK] 45.0-49.9, adult] assessment of body mass index Medical New Patient with 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 [facility] 06/04/2023 Last Documented On 3 1:49PM ; [facility] A home test was negative Medic al New 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 06/04/2023 Last Documented On 3 1:49PM ; [facility] Diabetes Risk Test Score was four score 06/04/2023 Medical New 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 06/04/2023 Last Documented On 3 1:49PM ; [facility] Esophageal reflux without esophagitis Me dical New 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 06/04/2023 Last Documented On 3 1:49PM ; [facility] Generalized anxiety disorder Medical New 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 06/04/2023 Last Documented On 3 1:49PM ; [facility] Mild recurrent major depression Medical New 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 06/04/2023 Last Documented On 3 1:49PM ; [facility] Other hypothyroidism Medical New Patient with An montez Ortega [facility] 06/04/2023 Last Documented On 3 1:49PM ; [facility] Screening for diabetes mellitus Medical [place] 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 06/04/2023 Last Documented On 3 1:49PM ; [facility] Screening for HIV Medical New Patient with Yvan Ortega [employer]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 06/04/2023 Last Documented On 3 1:49PM ; [facility] Urinary tract infection Medical New 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 06/04/2023 Last Documented On 3 1:49PM ; [facility] Visit for routine adult H&P without abnormal findings Medical New 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 06/04/2023 Last Documented On 3 1:49PM ; [facility] Visit for: screening for dig estive system disorders Medical New 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 06/04/2023 Last Documented On 3 1:49PM ; [facility] Visit for: screening for lip oid disorders Medical New 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 06/04/2023 Last Documented On 3 1:49PM ; [facility] Visit for: surveillance of c ontraceptive pill Medical New 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 06/04/2023 Last Documented On 3 1:49PM ; [facility] Work Phone: 1(262) 582-185308-28-2023 Evaluation note Includes: Assessments for all patient encounters Findings Encounter Date Generalized anxiety disorder BH Establis hed Patient with Macrina Short LISWS 07/22/2023 Last Documented On 3 3:26PM ; [facility] Mild recurrent major depression BH Estab lished Patient with Macrina Short LISWS 07/22/2023 Last Documented On 3 3:26PM ; [facility] [Z68.42 - Body mass index [B OK] 45.0-49.9, adult] assessment of body mass index Open Access - Established with 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 CNP 07/22/2023 Last Documented On 3 8:55AM ; [facility] [Z71.3 - Dietary counseling and surveillance] dietary counseling pertaining to obesity Open Access - Established with 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 CNP 07/22/2023 Last Documented On 3 8:55AM ; [facility] Esophageal reflux without esophagitis Op en Access - Established with 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 CNP 07/22/2023 Last Documented On 3 8:55AM ; [facility] [Z68.42 - Body mass index [B OK] 45.0-49.9, adult] assessment of body mass index Open Access - Established with 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 CNP 07/11/2023 Last Documented On 3 9:18AM ; [facility] Upper respiratory infection Open Access - Established with 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 [facility] 07/11/2023 Last Documented On 3 9:18AM ; [facility] [Z68.42 - Body mass index [B OK] 45.0-49.9, adult] assessment of body mass index Open Access - Established with 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 CNP 06/27/2023 Last Documented On 3 4:04PM ; [facility] A home test was negative Open Access - Established with 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 CNP 06/27/2023 Last Documented On 3 4:04PM ; [facility] [F33.0 - Major depressive di sorder, recurrent, mild] mild recurrent major depression per patient reported history Established Patient with Macrina Bal LISWS 06/04/2023 Last Documented On 3 3:32PM ; [facility] [F41.1 - Generalized anxiety disorder] generalized anxiety disorder per patient reported history Established Patient with Macrina Bal LISWS 06/04/2023 Last Documented On 3 3:32PM ; [facility] [Z68.42 - Body mass index [B OK] 45.0-49.9, adult] assessment of body mass index Medical New 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 06/04/2023 Last Documented On 3 1:49PM ; [facility] A home test was negative Medic al New 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 06/04/2023 Last Documented On 3 1:49PM ; [facility] Diabetes Risk Test Score was four score 06/04/2023 Medical New Patient with 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 [facility] 06/04/2023 Last Documented On 3 1:49PM ; [facility] Esophageal reflux without esophagitis Me dical New Patient with 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 [facility] 06/04/2023 Last Documented On 3 1:49PM ; [facility] Generalized anxiety disorder Medical New 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 06/04/2023 Last Documented On 3 1:49PM ; [facility] Mild recurrent major depression Medical New Patient with 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 [facility] 06/04/2023 Last Documented On 3 1:49PM ; [facility] Other hypothyroidism Medical New Patient with An montez Ortega [facility] 06/04/2023 Last Documented On 3 1:49PM ; [facility] Screening for diabetes mellitus Medical New 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 06/04/2023 Last Documented On 3 1:49PM ; [facility] Screening for HIV Medical New Patient with Yvan Ortega [employer]OTIVE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 06/04/2023 Last Documented On 3 1:49PM ; [facility] Urinary tract infection Medical New 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 06/04/2023 Last Documented On 3 1:49PM ; [facility] Visit for routine adult H&P without abnormal findings Medical New 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 06/04/2023 Last Documented On 3 1:49PM ; [facility] Visit for: screening for dig estive system disorders Medical New 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 06/04/2023 Last Documented On 3 1:49PM ; [facility] Visit for: screening for lip oid disorders Medical New Patient with 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 [facility] 06/04/2023 Last Documented On 3 1:49PM ; [facility] Visit for: surveillance of c ontraceptive pill Medical New Patient with 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 [facility] 06/04/2023 Last Documented On 3 1:49PM ; [facility] Work Phone: 1(673) 157-589208-28-2023 Progress note* Progress note Date Encounter Last Documented by 07/22/2023 Established Patient Last docu mented on 07/23/2023; 3:26 PM, Macrina NAPIER; [facility] Active Problems & Conditions - Z71.3 - Dietary Counseling Pertaining To Obesity - K21.9 - Esophageal Reflux Without Esophagitis - F41.1 - Generalized Anxiety Disorder - F33.0 - Major Depression Recurrent Mild - Z30.41 - Visit For: Contraceptive Surveillance Pill Chief Complaint The Chief Complaint is: [facility] met with patient to discuss mood and concerns related to physical health. Patient reports that she has been under increased stress with starting school and a new job. Patient states that she would like to lose weight and has had difficulty in the past with meal planning and not feeling overwhelmed by what to do. Patient reports that she is continuing to see [facility] for counseling. Patient reports that her new job has helped her to be more active and get more steps in as well as stay more hydrated. Patient reports trying to make healthy substitutions to meals. Patient reports no other concerns. History of Present Illness Jeny Cardoso is a 22 year old female. - No Irritability - Normal appetite - Anxiety regarding health - Depression at times - Energy level is good - No sleep disturbances - No loss of interest in activities - Not easily distracted - No social isolation - No impulsive behavior Current Medication - Doxepin HCl 10 MG Oral Capsule 30 days, 0 refills - Escitalopram Oxalate 20 MG Oral Tablet 30 days, 0 refills - Bhumika 0.25-35 MG-MCG Oral Tablet take 1 tablet by mouth daily, 28 days, 11 refills - Omeprazole 40 MG Oral Capsule Delayed Release take 1 tablet by mouth daily, 30 days, 5 refills - Prazosin HCl 1 MG Oral Capsule 30 days, 0 refills Social History Environmental Exposure: No secondhand cigarette smoke exposure. Personal: Recent emotional stress with going back to school for GED and starting a new job. Behavioral: Not a current tobacco user. Alcohol: Not using alcohol. Drug Use: Not using drugs. Housing And Economic Circumstances: Lives with significant other. Education: Currently in school for [employer]. 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 Physical Findings General Appearance: - Normal Appearance. Neurological: - Estimated intelligence was normal. - Oriented to time, place, and person. - No hallucinations. - Judgement was not impaired. Speech: - Is Normal. Psychiatric: - Mood was concerned. - Attitude Open. Demonstrated Behavior: - Motor Activity Normal Activity. - Eye Contact Appropriate. Affect: - Congruent with the mood. Thought Content: - Insight was intact. - No delusions. - No suicidal ideation. - No Passive thoughts of . - No suicidal plans. - No suicidal intent. - No homicidal ideations. - No homicidal plans. - No homicidal intent. Past Medical: - No repetitive self injurious behavior. - No access to weapons / guns in home. Assessment - F33.0 - Major depressive disorder, recurrent, mild - F41.1 - Generalized anxiety disorder Therapy - Brief solution-focused therapy. - Adherent with medications. - Plan - do not modify medication as patient sees psychiatry. Collaborated with patient and provider: Counseling/Education P offered active and supportive listening and normalized emotions and feelings related to dieting and weight loss. P discussed healthy lifestyle changes to implement in daily routine such as pre-planning meals, making lists for grocery shopping, staying hydrated and getting good sleep. P discussed stress management techniques and coping skills to also implement in daily routine. Plan Patient to take medications as prescribed and contact the office with any questions or concerns. Patient to implement coping skills and positive supports as discussed. Patient to implement healthy lifestyle changes as discussed. [facility] to follow-up with patient at next visit as scheduled. Health Reminders - Assess Tobacco Use satisfied 07/22/2023. [facility]08-28-2023 Progress note* Progress note Date Encounter Last Documented by 07/22/2023 Open Access - Established Last d ocumented on 07/24/2023; 8:55 AM, 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 CNP; [facility] Active Problems & Conditions - Z71.3 - Dietary Counseling Pertaining To Obesity - K21.9 - Esophageal Reflux Without Esophagitis - F41.1 - Generalized Anxiety Disorder - F33.0 - Major Depression Recurrent Mild - Z30.41 - Visit For: Contraceptive Surveillance Pill Chief Complaint The Chief Complaint is: Pt complains of vomiting yesterday, has been able to eat today no vomiting. Pt complains of cough for 5 months. Pt complains of sore feet after working. Pt would like to talk about weight loss. Reason For Visit Visit for: not feeling well yesterday and new report of cough x 5 months. Referred Here No prior encounters. History of Present Illness - Allergy list reviewed - Reviewed Medications - Medication list reviewed Patient is here for feeling sick. She did finish her antibiotic. Patient reports that she has been feeling better. Does not want to discuss cough- wants to discuss weight loss. Patient has been seeing [facility] for . Patient reports that she has been struggling to lose weight. She just started school for her GED and started a new job. Patient reports that she has not tried anything other than going to the gym for weight loss. Patient reports that she has been trying to eat less burgers and in eating more lean meat. Patient reports that she has been drinking more water at work. Patient reports that she has not been going to the gym since starting new job, previsouly she was going every day. Patient reports that she is drinking 4-5 water bottles per day- 16oz size. Patient reports that she is trying to get custody of child. Patient reports that she has been eating 3 meals per day. Breakfast- egg and a meat or oatmeal, Lunch- not sure, Dinner- usually has meat veggies and a side of rice or pasta. Patient reports veggies consist of carrots, broccoli, green beans, corn, etc. Patient would like to get to goal of 200 pounds Current Medication - Doxepin HCl 10 MG Oral Capsule 30 days, 0 refills - Escitalopram Oxalate 20 MG Oral Tablet 30 days, 0 refills - Bhumika 0.25-35 MG-MCG Oral Tablet take 1 tablet by mouth daily, 28 days, 11 refills - Omeprazole 40 MG Oral Capsule Delayed Release take 1 tablet by mouth daily, 30 days, 5 refills - Prazosin HCl 1 MG Oral Capsule 30 days, 0 refills Past Medical/Surgical History Other: No previous suicide attempt Reported: Safety Measures BHP discussed with patient crisis resources in the area should they be needed. Medical: No previous hospitalizations. : Not planning to have a baby in the next 12 months. Diagnoses: Psychiatric disorders PTSD. Depression Anxiety disorder NOS Frequent UTIs, Has had genital herpes. Surgical: - General surgery Removed a cyst on her ovaries - Appendectomy Social History Environmental Exposure: No secondhand cigarette smoke exposure. Behavioral: Not a current tobacco user. Alcohol: A social drinker. Drug Use: Not using drugs denied by patient. Sexual: Sexually active, sexual orientation Straight (not lesbian or jones), and gender identity Female. Allergies - Imitrex Reaction: Hives / Urticaria, Skin Rashes / Eruption of skin - Morphine Derivatives Reaction: Hives / Urticaria - Vistaril Reaction: Skin Rashes / Eruption of skin Family History Paternal: Systemic hypertension Renal disorder Thyroid disorder Type 2 diabetes mellitus Rheumatologic disorder Depression Maternal: Thyroid disorder Rheumatologic disorder Headache syndromes Depression Fraternal: Asthma Depression Review Of Systems Systemic: No systemic symptoms. Head: No headache. Otolaryngeal: No ear symptoms, no nasal symptoms, and no throat symptoms. Cardiovascular: No chest pain or discomfort. Pulmonary: No pulmonary symptoms. Gastrointestinal: No gastrointestinal symptoms. Genitourinary: No genitourinary symptoms. Musculoskeletal: No musculoskeletal symptoms. Neurological: No neurological symptoms. Psychological: No psychological symptoms. Skin: No skin symptoms. Physical Findings - Vitals taken 07/22/2023 03:12 pm BP-Sitting R107/74 mmHg Pulse Rate-Iejtgsr66 bpm Temp-Oral98.4 F Neicra11 in Hlfozj591 lbs Body Mass Index48.9 kg/m2 Body Surface Area2.3 m2 Oxygen Scanmpumrg30 % Vital Signs: - Systolic blood pressure < 130 mmHg. - Diastolic Blood Pressure < 80 mmHg. General Appearance: - Awake. - Alert. - In no acute distress. Eyes: General/bilateral: Pupils: - PERRLA. Lungs: - Respiration rhythm and depth was normal. - Clear to auscultation. Cardiovascular: Heart Rate And Rhythm: - Normal. Heart Sounds: - Normal. Abdomen: Auscultation: - Bowel sounds were normal. Musculoskeletal System: General/bilateral: - Normal movement of all extremities. Neurological: - Oriented to time, place, and person. Psychiatric: - Expression of emotions finding was normal. Skin: - General appearance was normal. Assessment - Z68.42 - Body mass index [BMI] 45.0-49.9, adult - K21.9 - Gastro-esophageal reflux disease without esophagitis - Z71.3 - Dietary counseling and surveillance Therapy - Patient refused flu vaccine. Discussed benefits of flu vaccine with Patient. Vaccinations - Did not receive dose of Reported: Patient has not received the Covid Vaccine Counseling/Education - Discussed nutritional needs teach healthy choices including fruits and vegetables - Patient education about a proper diet - Patient education about meal planning - Discussed concerns about exercise: promote physical activity Plan Will give the patient meal log to track foods and return with log in 2 weeks. Patient to increase physical activity to 30 minutes per day. Ensure 8 hours pf sleep per night. Hydrate well. Patient to decrease sodium intake and processed foods. Patient to work on portion control with meals as well. Notes - Patient is not interested in the COVID-19 vaccination at this time. Health Reminders - Assess BMI satisfied 07/22/2023. - Assess Tobacco Use satisfied 07/22/2023. - Follow Up Plan BMI Management satisfied 07/22/2023. [facility]08-17-2023 Evaluation note Includes: Assessments for all patient encounters Findings Encounter Date [Z68.42 - Body mass index [B OK] 45.0-49.9, adult] assessment of body mass index Open Access - Established with 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 CNP 07/11/2023 Last Documented On 9:18AM ; [facility] Upper respiratory infection Open Access - Established with 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 07/11/2023 Last Documented On 3 9:18AM ; [facility] [Z68.42 - Body mass index [B OK] 45.0-49.9, adult] assessment of body mass index Open Access - Established with 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 06/27/2023 Last Documented On 3 4:04PM ; [facility] A home test was negative Open Access - Established with 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 06/27/2023 Last Documented On 3 4:04PM ; [facility] [F33.0 - Major depressive di sorder, recurrent, mild] mild recurrent major depression per patient reported history Established Patient with Macrina NAPIER 06/04/2023 Last Documented On 3 3:32PM ; [facility] [F41.1 - Generalized anxiety disorder] generalized anxiety disorder per patient reported history Established Patient with Macrina MCNEALWS 06/04/2023 Last Documented On 3 3:32PM ; [facility] [Z68.42 - Body mass index [B OK] 45.0-49.9, adult] assessment of body mass index Medical New 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 06/04/2023 Last Documented On 3 1:49PM ; [facility] A home test was negative Medic al New 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 06/04/2023 Last Documented On 3 1:49PM ; [facility] Diabetes Risk Test Score was four score 06/04/2023 Medical New 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 06/04/2023 Last Documented On 3 1:49PM ; [facility] Esophageal reflux without esophagitis Me dical New 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 06/04/2023 Last Documented On 3 1:49PM ; [facility] Generalized anxiety disorder Medical New 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 06/04/2023 Last Documented On 3 1:49PM ; [facility] Mild recurrent major depression Medical New 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 06/04/2023 Last Documented On 3 1:49PM ; [facility] Other hypothyroidism Medical New Patient with An montez Ortega [employer]OMOTIVE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 06/04/2023 Last Documented On 3 1:49PM ; [facility] Screening for diabetes mellitus Medical New 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 06/04/2023 Last Documented On 3 1:49PM ; [facility] Screening for HIV Medical New Patient with Yvan Ortega AUTOMOTIVE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 06/04/2023 Last Documented On 3 1:49PM ; [facility] Urinary tract infection Medical New 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 06/04/2023 Last Documented On 3 1:49PM ; [facility] Visit for routine adult H&P without abnormal findings Medical New 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 06/04/2023 Last Documented On 3 1:49PM ; [facility] Visit for: screening for dig estive system disorders Medical New 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 06/04/2023 Last Documented On 3 1:49PM ; [facility] Visit for: screening for lip oid disorders Medical New 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 06/04/2023 Last Documented On 3 1:49PM ; [facility] Visit for: surveillance of c ontraceptive pill Medical New 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 06/04/2023 Last Documented On 3 1:49PM ; [facility] Work Phone: [phone]) 842-978508-17-2023 Progress note* Progress note Date Encounter Last Documented by 07/11/2023 Open Access - Established Last d ocumented on 07/12/2023; 9:18 AM, 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 [facility]; [facility] Active Problems & Conditions - K21.9 - Esophageal Reflux Without Esophagitis - F41.1 - Generalized Anxiety Disorder - F33.0 - Major Depression Recurrent Mild - Z30.41 - Visit For: Contraceptive Surveillance Pill Chief Complaint The Chief Complaint is: Here for sore throat and feels like her ears are plugged. Went to Urgent care yesterday and then went to ER last night. Urgent care gave her an ATB and allergy pill. Reason For Visit Visit for: sore throat. Referred Here Referred by urgent care clinic Urgent care yesterday and emergency room ER last night. No prior encounters. History of Present Illness - Allergy list reviewed - Reviewed Medications - Medication list reviewed - Date of last menstruation 07/06/2023 - test - would not like a test Patient reports that she has had sore throat for 3 days. Patient has been to urgent care and ER. Patient reports she was given antibiotic and allergy medication. Patient reports that she took first dose last night and then threw up. Patient reports that she has not had an emisis or taken her medication today. Patient reports she was tested for strep, flu and covid- all was negative. Patient is also reporting diarrhea, no measured fever. Has been taking tylenol for symptoms Current Medication - Doxepin HCl 10 MG Oral Capsule Capsule, conventional 30 days, 0 refills - Escitalopram Oxalate 20 MG Oral Tablet 30 days, 0 refills - Bhumika 0.25-35 MG-MCG Oral Tablet take 1 tablet by mouth daily, 28 days, 11 refills - Omeprazole 40 MG Oral Capsule Delayed Release Capsule, delayed-release take 1 tablet by mouth daily, 30 days, 5 refills - Prazosin HCl 1 MG Oral Capsule Capsule, conventional 30 days, 0 refills Past Medical/Surgical History Other: No previous suicide attempt Reported: Safety Measures BHP discussed with patient crisis resources in the area should they be needed. Medical: No previous hospitalizations. : Not planning to have a baby in the next 12 months. Diagnoses: Psychiatric disorders PTSD. Depression Anxiety disorder NOS Frequent UTIs, Has had genital herpes. Surgical: - General surgery Removed a cyst on her ovaries - Appendectomy Social History Environmental Exposure: No secondhand cigarette smoke exposure. Behavioral: Not a current tobacco user. Tobacco use: Not using electronic cigarettes/vaping. Alcohol: Not using alcohol. Drug Use: Not using drugs denied by patient. Sexual: Sexually active, sexual orientation Straight (not lesbian or jones), and gender identity Female. Allergies - Imitrex Reaction: Hives / Urticaria, Skin Rashes / Eruption of skin - Morphine Derivatives Reaction: Hives / Urticaria - Vistaril Reaction: Skin Rashes / Eruption of skin Family History Paternal: Systemic hypertension Renal disorder Thyroid disorder Type 2 diabetes mellitus Rheumatologic disorder Depression Maternal: Thyroid disorder Rheumatologic disorder Headache syndromes Depression Fraternal: Asthma Depression Review Of Systems Systemic: No systemic symptoms. Head: No headache. Otolaryngeal: Earache. No nasal symptoms. Sore throat. Cardiovascular: No cardiovascular symptoms. Pulmonary: No pulmonary symptoms. Gastrointestinal: No gastrointestinal symptoms. Genitourinary: No genitourinary symptoms. Musculoskeletal: No musculoskeletal symptoms. Neurological: No neurological symptoms. Psychological: No psychological symptoms. Skin: No skin symptoms. Physical Findings - Vitals taken 07/11/2023 10:37 am BP-Sitting L108/76 mmHg BP Cuff SizeLarge Pulse Rate-Dyrcgvh55 bpm Respiration Rate16 per min Temp-Wjcupljd35.2 F Djuiqo67 in Mesjtk685 lbs Body Mass Index48.6 kg/m2 Body Surface Area2.3 m2 Oxygen Irnavwqasi13 % Vital Signs: - Systolic blood pressure < 130 mmHg. - Diastolic Blood Pressure < 80 mmHg. General Appearance: - Awake. - Alert. - In no acute distress. Eyes: General/bilateral: Pupils: - PERRLA. Ears: General/bilateral: Tympanic Membrane: - Examined. - Erythematous mild on the right. - Not bulging. - No retraction of tympanic membrane. - Not opacified. Right Ear: - Examined. Left Ear: - Examined. Nose: General/bilateral: Discharge: - No nasal discharge. Pharynx: Oropharynx: - Normal. Lungs: - Respiration rhythm and depth was normal. - Clear to auscultation. Cardiovascular: Heart Rate And Rhythm: - Normal. Heart Sounds: - Normal. Abdomen: Auscultation: - Bowel sounds were normal. Musculoskeletal System: General/bilateral: - Normal movement of all extremities. Neurological: - Oriented to time, place, and person. Psychiatric: - Expression of emotions finding was normal. Skin: - General appearance was normal. Tests Laboratory-based Chemistry: Other Laboratory Tests: Screening for sexually transmitted infections was not performed. Assessment - Z68.42 - Body mass index [BMI] 45.0-49.9, adult - J06.9 - Acute upper respiratory infection, unspecified Therapy - Patient refused flu vaccine. Discussed benefits of flu vaccine with Patient. Vaccinations - Did not receive dose of Reported: Patient has not received the Covid Vaccine Counseling/Education - Does not want to stop using current contraception - Discussed nutritional needs teach healthy choices including fruits and vegetables - Patient education about a proper diet - Not requesting contraception - Discussed concerns about exercise: promote physical activity Plan Patient to continue to take medication prescribed by ER abd Urgent care. Advised that it may take several doses of the antibiotic before she feels better. Patient also advised to take all of the antibiotics until gone. Increase rest and fluids. Discussed referral to ENT as the patient would like to have her tonsils removed, advised that as I have no records of positive strep tests of record this will have to wait until there is a more concrete reason to go to ENT. Health Reminders - Assess BMI satisfied 07/11/2023. - Assess Tobacco Use satisfied 07/11/2023. - Follow Up Plan BMI Management satisfied 07/11/2023. [facility]08-17-2023 Instructions Includes: Instructions for all patient encounters Education and Decision Aids were provided during visit for: Discussed nutritional needs teach healthy choices including fruits and vegetables Last Documented On 3 10:42AM ; [facility] Patient education about a pr oper diet Last Documented On 3 10:42AM ; [facility] Discussed concerns about exe rcise : promote physical activity Last Documented On 3 10:42AM ; [facility] Not requesting contraception Last Documented On 3 10:43AM ; [facility] Discussed nutritional needs teach healthy choices including fruits and vegetables Last Documented On 3 3:22PM ; [facility] Patient education about a pr oper diet Last Documented On 3 3:22PM ; [facility] Discussed concerns about exe rcise : promote physical activity Last Documented On 3 3:22PM ; [facility] introduced patient to [facility] integrated model of care. ~P provided supportive and active listening, allowing patient the space to discuss concerns and explored with patient coping strategies. P discussed resources in the community for additional support as patient is moving to the [facility] and not aware. Health Transcription Manager provided information on local resources Last Documented On 3 3:29PM ; [facility] Discussed nutritional needs teach healthy choices including fruits and vegetables Last Documented On 3 1:16PM ; [facility] Patient education about a pr oper diet Last Documented On 3 1:16PM ; [facility] Discussed concerns about exe rcise : promote physical activity Last Documented On 3 1:16PM ; [facility] Not requesting contraception Last Documented On 3 1:17PM ; [facility] Work Phone: 1(310) 590-386508-03-2023 Evaluation note Includes: Assessments for all patient encounters Findings Encounter Date [Z68.42 - Body mass index [B OK] 45.0-49.9, adult] assessment of body mass index Open Access - Established with 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 [facility] 06/27/2023 Last Documented On 3 4:04PM ; [facility] A home test was negative Open Access - Established with 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 [facility] 06/27/2023 Last Documented On 3 4:04PM ; [facility] [F33.0 - Major depressive di sorder, recurrent, mild] mild recurrent major depression per patient reported history Established Patient with Macrina MCNEAL 06/04/2023 Last Documented On 3 3:32PM ; [facility] [F41.1 - Generalized anxiety disorder] generalized anxiety disorder per patient reported history Established Patient with Macrina MCNEAL 06/04/2023 Last Documented On 3 3:32PM ; [facility] [Z68.42 - Body mass index [B OK] 45.0-49.9, adult] assessment of body mass index Medical New Patient with Cheyennetommy Ortega [facility] 06/04/2023 Last Documented On 3 1:49PM ; [facility] A home test was negative Medic al New Patient with 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 [facility] 06/04/2023 Last Documented On 3 1:49PM ; [facility] Diabetes Risk Test Score was four score 06/04/2023 Medical New Patient with 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 [facility] 06/04/2023 Last Documented On 3 1:49PM ; [facility] Esophageal reflux without esophagitis Me dical New 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 06/04/2023 Last Documented On 3 1:49PM ; [facility] Generalized anxiety disorder Medical New 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 06/04/2023 Last Documented On 3 1:49PM ; [facility] Mild recurrent major depression Medical New Patient with 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 [facility] 06/04/2023 Last Documented On 3 1:49PM ; [facility] Other hypothyroidism Medical New Patient with An montez Ortega [facility] 06/04/2023 Last Documented On 3 1:49PM ; [facility] Screening for diabetes mellitus Medical New Patient with 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 [facility] 06/04/2023 Last Documented On 3 1:49PM ; [facility] Screening for HIV Medical New Patient with Yvan Ortega [facility] 06/04/2023 Last Documented On 3 1:49PM ; [facility] Urinary tract infection Medical New Patient with 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 [facility] 06/04/2023 Last Documented On 3 1:49PM ; [facility] Visit for routine adult H&P without abnormal findings Medical New Patient with 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 [facility] 06/04/2023 Last Documented On 3 1:49PM ; [facility] Visit for: screening for dig estive system disorders Medical New Patient with 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 [facility] 06/04/2023 Last Documented On 3 1:49PM ; [facility] Visit for: screening for lip oid disorders Medical New Patient with 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 [facility] 06/04/2023 Last Documented On 3 1:49PM ; [facility] Visit for: surveillance of c ontraceptive pill Medical New Patient with 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 [facility] 06/04/2023 Last Documented On 3 1:49PM ; [facility] Work Phone: 1(226) 367-347208-03-2023 Progress note* Progress note Date Encounter Last Documented by 06/27/2023 Open Access - Established Last d ocumented on 06/27/2023; 4:04 PM, 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; [facility] Active Problems & Conditions - K21.9 - Esophageal Reflux Without Esophagitis - F41.1 - Generalized Anxiety Disorder - F33.0 - Major Depression Recurrent Mild - Z30.41 - Visit For: Contraceptive Surveillance Pill Chief Complaint The Chief Complaint is: Pt here for possible , pt complains of increased fatigue, mood swings, nausea. Reason For Visit Visit for: test. Referred Here No prior encounters. History of Present Illness - Allergy list reviewed - Reviewed Medications - Medication list reviewed Patient is here for test. Urine test in the office was negative. Patient reports that she has been more adkins lately and has had some nauea. Patient reports her last menstrual cycle was in April. Started control last month. Reports that she may have missed a couple. Patient reports that she also had a negative test at the hospital. Patient was supposed to see the OB today, cannot see the OB due to insurance right now. States that she just switched insurance to [place]. Patient is requesting HCG blood test as well to confirm that she is not Current Medication - Doxepin HCl 10 MG Oral Capsule 30 days, 0 refills - Escitalopram Oxalate 20 MG Oral Tablet 30 days, 0 refills - Bhumika 0.25-35 MG-MCG Oral Tablet take 1 tablet by mouth daily, 28 days, 11 refills - Omeprazole 40 MG Oral Capsule Delayed Release take 1 tablet by mouth daily, 30 days, 5 refills - Prazosin HCl 1 MG Oral Capsule 30 days, 0 refills Past Medical/Surgical History Other: No previous suicide attempt Reported: Safety Measures BHP discussed with patient crisis resources in the area should they be needed. Medical: No previous hospitalizations. : Not planning to have a baby in the next 12 months. Diagnoses: Psychiatric disorders PTSD. Depression Anxiety disorder NOS Frequent UTIs, Has had genital herpes. Surgical: - General surgery Removed a cyst on her ovaries - Appendectomy Social History Environmental Exposure: No secondhand cigarette smoke exposure. Behavioral: Not a current tobacco user. Alcohol: Not using alcohol. Drug Use: Not using drugs denied by patient. Sexual: Sexually active, sexual orientation Straight (not lesbian or jones), and gender identity Female. Allergies - Imitrex Reaction: Hives / Urticaria, Skin Rashes / Eruption of skin - Morphine Derivatives Reaction: Hives / Urticaria - Vistaril Reaction: Skin Rashes / Eruption of skin Family History Paternal: Systemic hypertension Renal disorder Thyroid disorder Type 2 diabetes mellitus Rheumatologic disorder Depression Maternal: Thyroid disorder Rheumatologic disorder Headache syndromes Depression Fraternal: Asthma Depression Review Of Systems Systemic: No systemic symptoms. Head: No headache. Otolaryngeal: No ear symptoms, no nasal symptoms, and no throat symptoms. Cardiovascular: No cardiovascular symptoms. Pulmonary: No pulmonary symptoms. Gastrointestinal: No gastrointestinal symptoms. Genitourinary: No genitourinary symptoms. Musculoskeletal: No musculoskeletal symptoms. Neurological: No neurological symptoms. Psychological: No psychological symptoms. Skin: No skin symptoms. Physical Findings - Vitals taken 06/27/2023 03:17 pm BP-Sitting R122/74 mmHg Pulse Rate-Dsyxoyr36 bpm Czhpkz85 in Zqxpgp565 lbs Body Mass Index48.9 kg/m2 Body Surface Area2.3 m2 Oxygen Wtajhabycr12 % Vital Signs: - Systolic blood pressure < 130 mmHg. - Diastolic Blood Pressure < 80 mmHg. General Appearance: - Awake. - Alert. - In no acute distress. Eyes: General/bilateral: Pupils: - PERRLA. Lungs: - Respiration rhythm and depth was normal. - Clear to auscultation. Cardiovascular: Heart Rate And Rhythm: - Normal. Heart Sounds: - Normal. Abdomen: Auscultation: - Bowel sounds were normal. Musculoskeletal System: General/bilateral: - Normal movement of all extremities. Neurological: - Oriented to time, place, and person. Psychiatric: - Expression of emotions finding was normal. Skin: - General appearance was normal. Tests Laboratory Studies: Test: Test was negative. Assessment - Z32.02 - Encounter for test, result negative - Z68.42 - Body mass index [BMI] 45.0-49.9, adult Therapy - Patient refused flu vaccine. Discussed benefits of flu vaccine with Patient. Vaccinations - Did not receive dose of Reported: Patient has not received the Covid Vaccine Counseling/Education - Discussed nutritional needs teach healthy choices including fruits and vegetables - Patient education about a proper diet - Discussed concerns about exercise: promote physical activity Plan StartCited- Encounter for test, result negative Lab: HCG,,BLOOD EndCited Patient to follow up with OB that will take her insurance. Will call with results. Advised that this may take a couple of days. Notes - Patient is not interested in the COVID-19 vaccination at this time. Health Reminders - Assess BMI satisfied 06/27/2023. - Assess Tobacco Use satisfied 06/27/2023. - Follow Up Plan BMI Management satisfied 06/27/2023. [facility]07-11-2023 Evaluation note Includes: Assessments for all patient encounters Findings Encounter Date [F33.0 - Major depressive di sorder, recurrent, mild] mild recurrent major depression per patient reported history Established Patient with Macrina MCNEAL 06/04/2023 Last Documented On 3 3:32PM ; [facility] [F41.1 - Generalized anxiety disorder] generalized anxiety disorder per patient reported history Established Patient with Macrina Bal [facility] 06/04/2023 Last Documented On 3 3:32PM ; [facility] [Z68.42 - Body mass index [B OK] 45.0-49.9, adult] assessment of body mass index Medical New Patient with 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 [facility] 06/04/2023 Last Documented On 3 2:45PM ; [facility] A home test was negative Medic al New Patient with 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 [facility] 06/04/2023 Last Documented On 3 2:45PM ; [facility] Diabetes Risk Test Score was four score 06/04/2023 Medical New Patient with 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 [facility] 06/04/2023 Last Documented On 3 2:45PM ; [facility] Esophageal reflux without esophagitis Me dical New Patient with 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 [facility] 06/04/2023 Last Documented On 3 2:45PM ; [facility] Generalized anxiety disorder Medical New Patient with 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 [facility] 06/04/2023 Last Documented On 3 2:45PM ; [facility] Mild recurrent major depression Medical New Patient with 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 [facility] 06/04/2023 Last Documented On 3 2:45PM ; [facility] Other hypothyroidism Medical New Patient with An montez Ortega 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 06/04/2023 Last Documented On 3 2:45PM ; [facility] Screening for diabetes mellitus Medical New 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 06/04/2023 Last Documented On 3 2:45PM ; [facility] Screening for HIV Medical New Patient with Yvan Ortega 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 06/04/2023 Last Documented On 3 2:45PM ; [facility] Urinary tract infection Medical New Patient with 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 [facility] 06/04/2023 Last Documented On 3 2:45PM ; [facility] Visit for routine adult H&P without abnormal findings Medical New 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 06/04/2023 Last Documented On 3 2:45PM ; [facility] Visit for: screening for dig estive system disorders Medical New 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 06/04/2023 Last Documented On 3 2:45PM ; [facility] Visit for: screening for lip oid disorders Medical New Patient with 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 [facility] 06/04/2023 Last Documented On 3 2:45PM ; [facility] Visit for: surveillance of c ontraceptive pill Medical New 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 06/04/2023 Last Documented On 3 2:45PM ; [facility] Work Phone: 1(489) 328-146007-11-2023 History general Narrative - Reported Includes: Medical History in patient's chart Description Last Updated No previous suicide attempt 06/04/2023 Last Documented On 3 3:32PM ; [facility] Safety Measures [facility] discusse d with patient crisis resources in the area should they be needed 06/04/2023 Last Documented On 3 3:32PM ; [facility] Work Phone: 1(329) 459-194607-11-2023 History general Narrative - Reported Includes: Medical History in patient's chart Description Last Updated No previous suicide attempt 06/04/2023 Last Documented On 3 3:32PM ; [facility] Safety Measures [facility] discusse d with patient crisis resources in the area should they be needed 06/04/2023 Last Documented On 3 3:32PM ; [facility] Frequent UTIs, Has had genital herpes Last Documented On 3 1:49PM ; [facility] History of anxiety disorder NOS 06/04/20 Last Documented On 3 1:49PM ; [facility] History of depression 06/04/2023 Last Documented On 3 1:49PM ; [facility] Psychiatric disorders PTSD 06/04/2023 Last Documented On 3 1:49PM ; [facility] No previous hospitalizations 06/04/2023 Last Documented On 3 1:49PM ; [facility] Not planning to have a baby in the next 12 months 06/04/2023 Last Documented On 3 1:49PM ; [facility] Work Phone: 1(857) 539-114107-11-2023 History general Narrative - Reported Includes: Medical History in patient's chart Description Last Updated No previous suicide attempt 06/04/2023 Last Documented On 3 3:32PM ; [facility] Safety [facility] BHP discusse d with patient crisis resources in the area should they be needed 06/04/2023 Last Documented On 3 3:32PM ; [facility] Frequent UTIs, Has had genital herpes Last Documented On 3 1:49PM ; [facility] History of anxiety disorder NOS 06/04/20 Last Documented On 3 1:49PM ; [facility] History of depression 06/04/2023 Last Documented On 3 1:49PM ; [facility] Psychiatric disorders PTSD 06/04/2023 Last Documented On 3 1:49PM ; [facility] No previous hospitalizations 06/04/2023 Last Documented On 3 1:49PM ; [facility] Not planning to have a baby in the next 12 months 06/04/2023 Last Documented On 3 1:49PM ; [facility] Work Phone: [phone]) [phone] History general Narrative - Reported Includes: Medical History in patient's chart Description Last Updated No previous suicide attempt 06/04/2023 Last Documented On 3 3:32PM ; [facility] Safety Measures [facility] discusse d with patient crisis resources in the area should they be needed 06/04/2023 Last Documented On 3 3:32PM ; [facility] Frequent UTIs, Has had genital herpes Last Documented On 3 1:49PM ; [facility] History of anxiety disorder NOS 06/04/20 Last Documented On 3 1:49PM ; [facility] History of depression 06/04/2023 Last Documented On 3 1:49PM ; [facility] Psychiatric disorders PTSD 06/04/2023 Last Documented On 3 1:49PM ; [facility] No previous hospitalizations 06/04/2023 Last Documented On 3 1:49PM ; [facility] Not planning to have a baby in the next 12 months 06/04/2023 Last Documented On 3 1:49PM ; [facility] Work Phone: 1(104) 263-948807-11-2023 History general Narrative - Reported Includes: Medical History in patient's chart Description Last Updated No previous suicide attempt 06/04/2023 Last Documented On 3 3:32PM ; [facility] Safety [facility] BH discusse d with patient crisis resources in the area should they be needed 06/04/2023 Last Documented On 3 3:32PM ; [facility] Frequent UTIs, Has had genital herpes Last Documented On 3 1:49PM ; [facility] History of anxiety disorder NOS 06/04/20 23 Last Documented On 3 1:49PM ; [facility] History of depression 06/04/2023 Last Documented On 3 1:49PM ; [facility] Psychiatric disorders PTSD 06/04/2023 Last Documented On 3 1:49PM ; [facility] No previous hospitalizations 06/04/2023 Last Documented On 3 1:49PM ; [facility] Not planning to have a baby in the next 12 months 06/04/2023 Last Documented On 3 1:49PM ; [facility] Work Phone: 1([phone]) [phone] Progress note* Progress note Date Encounter Last Documented by 06/04/2023 Established Patient Last docu mented on 06/04/2023; 3:32 PM, Macrina NAPIER; [facility] Active Problems & Conditions - K21.9 - Esophageal Reflux Without Esophagitis - F41.1 - Generalized Anxiety Disorder - F33.0 - Major Depression Recurrent Mild - Z30.41 - Visit For: Contraceptive Surveillance Pill Chief Complaint The Chief Complaint is: Patient is in to establish care and [facility] met with patient to follow-up regarding mood and PHQ score of 2. Patient reports a history of being diagnosed with depression and anxiety as a child and is currently seen at [facility] for care. Patient reports that at times she feels depressed and has trouble sleeping, but it has been improved since starting medications. Patient reports that she and boyfriend are in the process of moving from [place] and have been working with someone to get into an apartment and they are not sure when that will happen. Patient reports that no thoughts of harm towards self or others. History of Present Illness Jeny Cardoso is a 22 year old female. - No Irritability - Normal appetite - Anxiety at times - Depression - Sleep disturbances - Energy level is fair - No loss of interest in activities - Not easily distracted - No social isolation - No impulsive behavior - No high involvement in pleasurable activities Current Medication - Doxepin HCl 10 MG Oral Capsule 30 days, 0 refills - Escitalopram Oxalate 20 MG Oral Tablet 30 days, 0 refills - Bhumika 0.25-35 MG-MCG Oral Tablet take 1 tablet by mouth daily, 28 days, 11 refills - Bhumika 0.25-35 MG-MCG Oral Tablet 28 days, 0 refills - Omeprazole 40 MG Oral Capsule Delayed Release take 1 tablet by mouth daily, 30 days, 5 refills - Omeprazole 40 MG Oral Capsule Delayed Release 30 days, 0 refills - Prazosin HCl 1 MG Oral Capsule 30 days, 0 refills Past Medical/Surgical History Other: No previous suicide attempt Reported: Safety Measures BHP discussed with patient crisis resources in the area should they be needed. Social History Environmental Exposure: No secondhand cigarette smoke exposure. Personal: Recent emotional stress recent relocation. Behavioral: Not a current tobacco user. Alcohol: Not using alcohol. Drug Use: Not using drugs. Housing And Economic Circumstances: Lives with significant other and housing stress. Work: Working part-time. Physical Findings General Appearance: - Normal Appearance. Neurological: - Estimated intelligence was normal. - Oriented to time, place, and person. - No hallucinations. - Judgement was not impaired. Speech: - Is Normal. Psychiatric: - Mood was anxious. - Mood was concerned. - Attitude Open. Demonstrated Behavior: - Motor Activity Normal Activity. - Eye Contact Appropriate. Affect: - Congruent with the mood. Thought Content: - Insight was intact. - No delusions. - No suicidal ideation. - No Passive thoughts of . - No suicidal plans. - No suicidal intent. - No homicidal ideations. - No homicidal plans. - No homicidal intent. Past Medical: - No repetitive self injurious behavior. - No access to weapons / guns in home. Assessment - F33.0 - Major depressive disorder, recurrent, mild per patient reported history - F41.1 - Generalized anxiety disorder per patient reported history Therapy - SBIRT Screen Neg. - SBIRT Full Screen Neg. - Brief solution-focused therapy. - Adherent with medications. - Referral to mental health team. - Plan - do not modify medication as patient sees [facility] for medication management. Collaborated with patient and provider: Counseling/Education P introduced patient to [facility] integrated model of care. P provided supportive and active listening, allowing patient the space to discuss concerns and explored with patient coping strategies. BHP discussed resources in the community for additional support as patient is moving to the are and not aware. Health Transcription Manager provided information on local resources. Plan - Referral for P provided list of community resources that may provide assistance with food and housing Patient to take medications as prescribed and contact the office with any questions or concerns. Patient to implement coping skills and positive supports as discussed. P to follow-up with patient as needed. Health Reminders - Assess Tobacco Use satisfied 06/04/2023. - PHQ9 / PHQA satisfied 06/04/2023. - SBIRT satisfied 06/04/2023. User Defined 1 Has not worked without getting the payment you thought you would, has not felt pressured to do something against will to keep job, have not felt threatened in a relationship, has not been put down, humilitated, or someone has tried to control them, has not been hit, kicked, punched, or sexually forced to do something, or hurt, not afraid of someone you have a relationship with, and not afraid of someone you have a relationship with No. Domestic Violence/ Human Trafficking Screening was completed. Has lack of transportation kept patient from medical appointments or from getting medications: No and lack of transportation has kept patient from beneficial non-medical activities: No. She has not had 4 or more drinks in a day within the past year. Do you feel stress - tense, restless, nervous, or anxious, or unable to sleep at night because your mind is troubled all the time - these days? Somewhat. No misuse of prescription only drugs and not illicit. Does patient feel physically and emotionally safe where he/she lives: Yes, worried about losing housing: Yes, and What is the highest grade or level of school you have completed or the highest degree you have received? Less than high school degree. In the past year, patient or family members in household were unable to get needed clothing: No, unable to get needed child care attendant: No, unable to get other needs No, unable to get needed phone: No, unable to get needed utilities: No, and unable to get needed Medicine or Health Care: No. In the past year, patient or family members in household were unable to get needed food: Yes, How often does patient see or talk to people that that he/she cares about and feels close to: 5 or more times a week, Little interest or pleasure in doing things in the last 2 weeks? 0 pt Not at all, Feeling down, depressed, or hopeless in the last 2 weeks? 1 pt Several days, and [PHQ-2] Patient Health Questionnaire 2 item total score: 1 pts (Scale: 0-6) PHQ2. PHQ-9: total score was two 06/04/2023 If you checked off problems, how difficult is it for you to do your work? + : Somewhat difficult, [PHQ-9-1] Little interest or pleasure in doing things? + 0 pt : Not at all, [PHQ-9-2] Feeling down, depressed, or hopeless? + 1 pt : Several days, [PHQ-9-3] Trouble falling or staying asleep or sleeping too much? + 1 pt : Several days, [PHQ-9-4] Feeling tired or having little energy? + 0 pt : Not at all, [PHQ-9-5] Poor appetite or overeating? + 0 pt : Not at all, [PHQ-9-6] Feeling bad about yourself-or that you are a failure + 0 pt : Not at all, [PHQ-9-7] Trouble concentrating on things such as reading the newspaper + 0 pt : Not at all, [PHQ-9-8] Moving or speaking so slowly that other people have noticed. + 0 pt : Not at all, and [PHQ-9-9] Thoughts that you would be better off or hurting yourself? + 0 pt : Not at all. 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 Wants a preganancy test. Reason For Visit Visit for: to establish care. Referred Here Not referred by urgent care clinic and not the emergency room. No prior encounters. - Data to be reviewed: no clinical lab tests History of Present Illness - Allergy list reviewed - Reviewed Medications - Medication list reviewed - Date of last menstruation 06/03/2023 - test - would like a test Patient is here to establish care. Patient reports that she takes Omeprazole for acid reflux and OCP. Patient sees [facility] for depression and anxiety and PTSD w/ nightmares. Patient denies any other concerns at this time. Patient would like and UTI testing. Patient reports she gets frequent UTI has no symptoms today. Patient reports that she thought she may be due to cramps this morning and spotting yesterday, had more menstrual bleeding today. She is not sure if she had cycle in April. She is currently on her last week of pills in her current pack, states she has been taking daily. Patient reports she has family history of diabetes and asthma from her dad Current Medication - Doxepin HCl 10 MG Oral Capsule 30 days, 0 refills - Escitalopram Oxalate 20 MG Oral Tablet 30 days, 0 refills - Bhumika 0.25-35 MG-MCG Oral Tablet 28 days, 0 refills - Omeprazole 40 MG Oral Capsule Delayed Release 30 days, 0 refills - Prazosin HCl 1 MG Oral Capsule 30 days, 0 refills Past Medical/Surgical History Reported: Medical: No previous hospitalizations. : Not planning to have a baby in the next 12 months. Diagnoses: Psychiatric disorders PTSD. Depression Anxiety disorder NOS Frequent UTIs, Has had genital herpes. Surgical: - General surgery Removed a cyst on her ovaries - Appendectomy Social History Environmental Exposure: Secondhand cigarette smoke exposure. Behavioral: Not a current tobacco user. Tobacco use: Not using electronic cigarettes/vaping. Alcohol: A social drinker. Drug Use: Not using drugs denied by patient. Sexual: Sexually active, sexual orientation Straight (not lesbian or jones), and gender identity Female. Allergies - Imitrex Reaction: Hives / Urticaria, Skin Rashes / Eruption of skin - Morphine Derivatives Reaction: Hives / Urticaria - Vistaril Reaction: Skin Rashes / Eruption of skin Family History Paternal: Systemic hypertension Renal disorder Thyroid disorder Type 2 diabetes mellitus Rheumatologic disorder Depression Maternal: Thyroid disorder Rheumatologic disorder Headache syndromes Depression Fraternal: Asthma Depression Review Of Systems Systemic: No systemic symptoms. Head: No headache. Otolaryngeal: No ear symptoms, no nasal symptoms, and no throat symptoms. Cardiovascular: No chest pain or discomfort. Pulmonary: No pulmonary symptoms. Gastrointestinal: Gastrointestinal symptoms intermittent constipation. Genitourinary: No genitourinary symptoms. Musculoskeletal: No musculoskeletal symptoms. Neurological: No dizziness. Psychological: Anxiety and depression. Skin: No skin symptoms. Physical Findings - Vitals taken 06/04/2023 01:13 pm BP-Sitting R118/91 mmHg BP Cuff SizeLarge Pulse Rate-Mbldjop82 bpm Respiration Rate16 per min Temp-Llyxytdx03.3 F Xrukac51 in Eczzxv359 lbs Body Mass Index47.9 kg/m2 Body Surface Area2.3 m2 Oxygen Eoxkdabobh30 % - Vitals taken 06/04/2023 02:21 pm BP-Sitting L109/80 mmHg General Appearance: - Awake. - Alert. - In no acute distress. Eyes: General/bilateral: Pupils: - PERRLA. Ears: General/bilateral: Tympanic Membrane: - Examined. - Not bulging. - No retraction of tympanic membrane. - Not erythematous. - Not opacified. Right Ear: - Examined. Left Ear: - Examined. Nose: General/bilateral: Discharge: - No nasal discharge. Pharynx: Oropharynx: - Normal. Lungs: - Respiration rhythm and depth was normal. - Clear to auscultation. Cardiovascular: Heart Rate And Rhythm: - Normal. Heart Sounds: - Normal. Abdomen: Auscultation: - Bowel sounds were normal. Musculoskeletal System: General/bilateral: - Normal movement of all extremities. Neurological: - Oriented to time, place, and person. Psychiatric: - Expression of emotions finding was normal. Skin: - General appearance was abnormal left posterior shoulder has scattered scaring- patient reports this is from acne during adolesence. Tests Urinalysis Was Performed: Routine urinalysis without microscopic examination Patient stated that she started her period and abnormal Protein +30. Glucose Negative, Bilirubin Negative, Urobilinogen 0.2, Nitrite Negative, Ketones 0 Negative, and Leukocyte Estrase Negative. Blood Moderate Non-Hemolyzed, Specific [place] 1.030, and pH 5.5. Urine clarity Clear and color [place]. Blood Analysis: Blood Endocrine Laboratory Tests: ValueDate Blood hemoglobin A1c 4.9%06/04/2023 Laboratory-based Chemistry: Immunology Studies: HIV test was negative. Other Laboratory Tests: Screening for sexually transmitted infections was not performed. Laboratory Studies: Test: Test was negative. Microbiology: Microbiology - Antibody Identification: In House Screen Hep C was negative 06/04/2023. Assessment - Z00.00 - Encounter for general adult medical examination without abnormal findings - Z30.41 - Encounter for surveillance of contraceptive pills - Z11.4 - Encounter for screening for human immunodeficiency virus [HIV] - Z13.220 - Encounter for screening for lipoid disorders - Z13.818 - Encounter for screening for other digestive system disorders - Z32.02 - Encounter for test, result negative - Z68.42 - Body mass index [BMI] 45.0-49.9, adult - Z13.1 - Encounter for screening for diabetes mellitus - K21.9 - Gastro-esophageal reflux disease without esophagitis - N39.0 - Urinary tract infection, site not specified - E03.8 - Other specified hypothyroidism - F33.0 - Major depressive disorder, recurrent, mild - F41.1 - Generalized anxiety disorder - Z13.1 - Encounter for screening for diabetes mellitus Therapy - Patient refused flu vaccine. Discussed benefits of flu vaccine with Patient. Vaccinations - HPV Human Papilloma Virus Vaccine (quadrivalent) Dose #1 Status: Prev Hist Date: 09/07/2015 - HPV-Gardasil 9 Dose #1 Status: Prev Hist Date: 11/07/2015 - HPV-Gardasil 9 Dose #2 Status: Prev Hist Date: 03/12/2016 - Hep A, ped/adol (2 dose) Havrix Dose #1 Status: Prev Hist Date: 12/23/2013 - Hep A, ped/adol (2 dose) Havrix Dose #2 Status: Prev Hist Date: 09/07/2015 - Hep B, adolescent or pediatric (Engerix-B) Dose #1 Status: Prev Hist Date: 2002 - Hep B, adolescent or pediatric (Engerix-B) Dose #2 Status: Prev Hist Date: 2002 - Hep B, adolescent or pediatric (Engerix-B) Dose #3 Status: Prev Hist Date: 02/24/2003 - IPV (IPOL) Dose #4 Status: Prev Hist Date: 08/12/2007 - Fluarix 0.5mL for 6 months and older Dose #1 Status: Prev Hist Date: 12/02/2020 - Fluarix 0.5mL for 6 months and older Dose #2 Status: Prev Hist Date: 09/14/2021 - Influenza 0.25 ml (Under 36 months) Fluzone Dose #1 Status: Prev Hist Date: 10/14/2018 - Influenza 0.5 ml 3yrs and up (Fluzone) Dose #1 Status: Prev Hist Date: 09/25/2016 - Influenza, seasonal, injectable Dose #1 Status: Prev Hist Date: 11/04/2003 - Influenza, seasonal, injectable Dose #2 Status: Prev Hist Date: 10/04/2009 - Influenza, seasonal, injectable Dose #3 Status: Prev Hist Date: 01/16/2012 - Influenza, seasonal, injectable Dose #4 Status: Prev Hist Date: 09/11/2018 - Influenza, seasonal, injectable, preservative free Dose #1 Status: Prev Hist Date: 11/25/2016 - MMR (MMR-II) Dose #1 Status: Prev Hist Date: 12/21/2003 - MMR (MMR-II) Dose #2 Status: Prev Hist Date: 08/12/2007 - (Bexsero)Meningococcal Sero B Dose #1 Status: Prev Hist Date: 09/17/2019 - Meningococcal MCV4O Dose #1 Status: Prev Hist Date: 12/02/2020 - PCV (NOS) Dose #1 Status: Prev Hist Date: 02/24/2003 - PCV (NOS) Dose #2 Status: Prev Hist Date: 12/21/2003 - PCV (NOS) Dose #3 Status: Prev Hist Date: 09/13/2004 - Tdap (Boostrix) Dose #1 Status: Prev Hist Date: 09/07/2015 - Influenza (live intranasal) Dose #1 Status: Prev Hist Date: 09/22/2013 - Influenza, live, intranasal, quadrivalent Dose #1 Status: Prev Hist Date: 09/07/2015 - Influenza Inactive Dose #1 Status: Prev Hist Date: 08/25/2021 - (Menactra) Meningococcal (MCV4) conjugate Dose #1 Status: Prev Hist Date: 09/07/2015 - (Menactra) Meningococcal (MCV4) conjugate Dose #2 Status: Prev Hist Date: 09/17/2019 - Varicella (Varivax) Dose #1 Status: Prev Hist Date: 12/21/2003 - Varicella (Varivax) Dose #2 Status: Prev Hist Date: 02/07/2010 - DTaP Dose #1 Status: Prev Hist Date: 2002 - DTaP Dose #2 Status: Prev Hist Date: 2002 - DTaP Dose #3 Status: Prev Hist Date: 02/24/2003 - DTaP Dose #4 Status: Prev Hist Date: 03/25/2003 - DTaP Dose #5 Status: Prev Hist Date: 05/12/2003 - DTaP Dose #6 Status: Prev Hist Date: 08/12/2007 - DTaP Dose #7 Status: Prev Hist Date: 02/24/2013 - HIB Dose #1 Status: Prev Hist Date: 2002 - HIB Dose #2 Status: Prev Hist Date: 2002 - HIB Dose #3 Status: Prev Hist Date: 02/24/2003 - HIB Dose #4 Status: Prev Hist Date: 12/21/2003 - IPV (IPOL) Dose #1 Status: Prev Hist Date: 2002 - IPV (IPOL) Dose #2 Status: Prev Hist Date: 2002 - IPV (IPOL) Dose #3 Status: Prev Hist Date: 02/24/2003 - Did not receive dose of Reported: Patient has not received the Covid Vaccine Counseling/Education - Does not want to stop using current contraception - Discussed nutritional needs teach healthy choices including fruits and vegetables - Patient education about a proper diet - Not requesting contraception - Discussed concerns about exercise: promote physical activity Plan StartCited- Encounter for screening for lipoid disorders Lab: CBC WITH DIFF Lab: COMP METABOLIC PROF Lab: LIPID PROFILE Lab: TSH W/REFLEX TO FT4 EndCited StartCited- Encounter for surveillance of contraceptive pills Bhumika 0.25-35 MG-MCG tablet take 1 tablet by mouth daily, 28 days, 11 refills EndCited StartCited- Gastro-esophageal reflux disease without esophagitis Omeprazole 40 MG capsule take 1 tablet by mouth daily, 30 days, 5 refills EndCited Patient and UA were negative. Patient to obtain annual labs and follow up in 6 months unless she needs anything sooner. Patient advised to increase hydration and fiber intake to help with occasional constipation. Notes - Patient is not interested in the COVID-19 vaccination at this time. Practice Management Hemoglobin A1c level < 7.0%, for blood pressure systolic < 140 mmHg systolic < 130 mmHg systolic < 130 mmHg, and diastolic > or = 90 mmHg diastolic > or = 90 mmHg. Health Reminders - Adult Well Visit 18 years and older satisfied 06/04/2023. - Assess BMI satisfied 06/04/2023. - Assess Tobacco Use satisfied 06/04/2023. - Diabetes Risk Screening Needed satisfied 06/04/2023. - Follow Up Plan BMI Management satisfied 06/04/2023. - HIV Screen satisfied 06/04/2023. User Defined 1 Yes (1 point) [Pre-DM]: Yes, mother, father, sister or brother has DM, No (0 points) [Pre-DM]: Patient has not been diagnosed with gestational diabetes or given to a baby weighing 9 pounds or more, No (0 points) [Pre-DM]: No, patient has not been diagnosed with high blood pressure, Yes (0 point) [Pre-DM]: Yes, physically active, and Woman (0 Points) [Pre-DM]. Less than 40 years (0 points) [Pre-DM]. [facility]07-11-2023 Reason for referral (narrative)* Date Encounter Description Provider Reason for Referral 06/04/23 Established Patient Macrina Bal MAXIMINO S Referral To Mental Health Team; PRAPARE Referral For - [facility] provided list of community resources that may provide assistance with food and housing. [facility] Work Phone: [phone] 600-844807-11-2023 Reason for referral (narrative)* Date Encounter Description Provider Reason for Referral 06/04/23 Established Patient Macrinamarlon Bal MAXIMINO S Referral To Mental Health Team; External referral/Resources provided - [facility] provided list of community resources that may provide assistance with food and housing. [facility] Work Phone: [phone]) 591-778802-14-2023 Hospital Discharge instructions Patient Education 01/08/2023 21:07:15 Ovarian Cyst, Lowp-vc-Mdmo Ovarian Cyst An ovarian cyst is a fluid-filled sac on an ovary. The ovaries are organs that make eggs in women. Most ovarian cysts go away on their own and are not cancerous (are benign). Some cysts need treatment. Follow these instructions at home: Take hlrp-lxj-flldyqr and prescription medicines only as told by your doctor. Do not drive or use heavy machinery while taking prescription pain medicine. Get pelvic exams and Pap tests as often as told by your doctor. Return to your normal activities as told by your doctor. Ask your doctor what activities are safe for you. Do not use any products that contain nicotine or tobacco, such as cigarettes and e-cigarettes. If you need help quitting, ask your doctor. Keep all follow-up visits as told by your doctor. This is important. Contact a doctor if: Your periods are: ?Late. ?Irregular. ?Painful. Your periods stop. You have pelvic pain that does not go away. You have pressure on your bladder. You have trouble making your bladder empty when you pee (urinate). You have pain during sex. You have any of the following in your belly (abdomen): ?A feeling of fullness. ?Pressure. ?Discomfort. ?Pain that does not go away. ?Swelling. You feel sick most of the time. You have trouble pooping (have constipation). You are not as hungry as usual (you lose your appetite). You get very bad acne. You start to have more hair on your body and face. You are gaining weight or losing weight without changing your exercise and eating habits. You think you may be . Get help right away if: You have belly pain that is very bad or gets worse. You cannot eat or drink without throwing up (vomiting). You suddenly get a fever. Your period is a lot heavier than usual. This information is not intended to replace advice given to you by your health care provider. Make sure you discuss any questions you have with your health care provider. Document Released: 04/29/2009 Document Revised: 10/24/2018 Document Reviewed: 04/14/2017 [employer] Patient Education 2020 [employer]. 01/08/2023 21:07:15 Flank Pain, Adult, Mhgd-vn-Forb Flank Pain, Adult Flank pain is pain in your side. The flank is the area of your side between your upper belly (abdomen) and your back. The pain may occur over a short time (acute), or it may be long-term or come backoften (chronic). It may be mild or very bad. Pain in this area can be caused by many different things. Follow these instructions at home: Drink enough fluid to keep your pee (urine) clear or pale yellow. Rest as told by your doctor. Take yyai-qxv-zrrrazl and prescription medicines only as told by your doctor. Keep a journal to keep track of: ?What has caused your flank pain. ?What has made it feel better. Keep all follow-up visits as told by your doctor. This is important. Contact a doctor if: Medicine does not help your pain. You have new symptoms. Your pain gets worse. You have a fever. Your symptoms last longer than 2 3 days. You have trouble peeing. You are peeing more often than normal. Get help right away if: You have trouble breathing. You are short of breath. Your belly hurts, or it is swollen or red. You feel sick to your stomach (nauseous). You throw up (vomit). You feel like you will pass out, or you do pass out (faint). You have blood in your pee. Summary Flank pain is pain in your side. The flank is the area of your side between your upper belly (abdomen) and your back. Flank pain may occur over a short time (acute), or it may be long-term or come back often (chronic). It may be mild or very bad. Pain in this area can be caused by many different things. Contact your doctor if your symptoms get worse or they last longer than 2 3 days. This information is not intended to replace advice given to you by your health care provider. Make sure you discuss any questions you have with your health care provider. Document Released: 08/20/2009 Document Revised: 10/24/2018 Document Reviewed: 03/03/2018 [employer] Patient Education 2020 [employer]. Follow Up Care 01/08/2023 17:50:24 With:MICAELA CENTENO Address: [address] [place] [address]- [phone] Business (1) When:01/11/2023 20:44:07 Comments:You can use the pain medication, muscle laxer's as prescribed as needed for pain. Please follow-up with your primary care doctor in the next 2 to 3 days. Please return to ED for any new or worsening symptoms. [facility]02-14-2023 Evaluation + Plan noteExtracted from: Title:ED Note Author:Kota DE LA ROSA Lorenzo Date:12/26 03/17 Flank pain (R10.9: Unspecifi ed abdominal pain) Orders: U Beta Hcg Qual UA With Cult Reflex Addendum by Cathy Kathleen DO on January 08, 2023 20:44:31 EST Patient signed out to me pending laboratory evaluation. Urinalysis does not show any evidence of infection patient does have left flank pain. Due to this basic laboratory evaluations obtained CT on pelvis is ordered. Patient's laboratory evaluations unremarkable, CT on pelvis does not show any acute pathology there is an incidental 2 cm ovarian cyst on the left ovary. Patient is given Toradol IV fluids on reevaluation she is feeling improved. She is discharged home to follow-up with primary care doctor next 2 to 3 days. She is return to ED for any new or worsening symptoms. Future Appointments Appointment Date:01/23/2023 02:20:00 PM Scheduled Provider:KALEB LOCO PA-C Location:[facility] Appointment Type:URO Office Visit [facility]02-11-2023 Evaluation note* Encounter Date Diagnosis Assessment Notes Treatment Notes Treatment Clinical Notes Dec, Dysuria (ICD-10 - R30.0) Discussed diagnosis and dipstick findings with patient. WIll hold off on treatment at this time. Will send in rx of Pyridium to use as directed. Advised patient culture was sent today and we will call with her results in 2-5 days. At time of results, treatment plan many change. Patient instructed to push fluids. Patient symptoms should improve in the next 48 hours, if symptoms persist follow up with PCP or UC. Immediate eval by ER if back or flank pain, fever, chills, N/V, or any other concerning symptoms arise. Patient verbalizes understanding and is agreeable to treatment plan [facility] Other 12-21-2022 Evaluation note* Encounter Date Diagnosis Assessment Notes Treatment Notes Treatment Clinical Notes Oct, Sore throat (ICD-10 - J02.9) Oct, Acute cough (ICD-10 - R05.1) Cough: adult home care material was printed, Cough: adult home care material was printed Drink plenty fluids, get plenty of rest. Take the prednisone as prescribed until gone. Use your albuterol inhaler as prescribed as needed for cough or shortness of breath. Follow-up with your family physician if no improvement in 2 to 3 days. Oct, Contact with and (suspected) exposure to other viral communicable diseases (ICD-10 - Z20.828) Oct, History of asthma (ICD-10 - Z87.09) [facility] Other 08-10-2022 Hospital Discharge instructions Patient Education 07/04/2022 11:00:25 Urinary Tract Infection, Adult Urinary Tract Infection, Adult A urinary tract infection (UTI) is an infection of any part of the urinary tract. The urinary tractincludes the kidneys, ureters, bladder, and urethra. These organs make, store, and get rid of urinein the body. Your health care provider may use other names to describe the infection. An upper UTI affects the ureters and kidneys (pyelonephritis). A lower UTI affects the bladder (cystitis) and urethra (urethritis). What are the causes? Most urinary tract infections are caused by bacteria in your genital area, around the entrance to your urinary tract (urethra). These bacteria grow and cause inflammation of your urinary tract. What increases the risk? You are more likely to develop this condition if: You have a urinary catheter that stays in place (indwelling). You are not able to control when you urinate or have a bowel movement (you have incontinence). You are female and you: ?Use a spermicide or diaphragm for control. ?Have low estrogen levels. ?Are . You have certain genes that increase your risk (genetics). You are sexually active. You take antibiotic medicines. You have a condition that causes your flow of urine to slow down, such as: ?An enlarged prostate, if you are male. ?Blockage in your urethra (stricture). ?A kidney stone. ?A nerve condition that affects your bladder control (neurogenic bladder). ?Not getting enough to drink, or not urinating often. You have certain medical conditions, such as: ?Diabetes. ?A weak disease-fighting system (immunesystem). ?Sickle cell disease. ?Gout. ?Spinal cord injury. What are the signs or symptoms? Symptoms of this condition include: Needing to urinate right away (urgently). Frequent urination or passing small amounts of urine frequently. Pain or burning with urination. Blood in the urine. Urine that smells bad or unusual. Trouble urinating. Cloudy urine. Vaginal discharge, if you are female. Pain in the abdomen or the lower back. You may also have: Vomiting or a decreased appetite. Confusion. Irritability or tiredness. A fever. Diarrhea. The first symptom in older adults may be confusion. In some cases, they may not have any symptoms until the infection has worsened. How is this diagnosed? This condition is diagnosed based on your medical history and a physical exam. You may also have other tests, including: Urine tests. Blood tests. Tests for sexually transmitted infections (STIs). If you have had more than one UTI, a cystoscopy or imaging studies may be done to determine the cause of the infections. How is this treated? Treatment for this condition includes: Antibiotic medicine. Jjht-opb-hakqdto medicines to treat discomfort. Drinking enough water to stay hydrated. If you have frequent infections or have other conditions such as a kidney stone, you may need to see a health care provider who specializes in the urinary tract (urologist). In rare cases, urinary tract infections can cause sepsis. Sepsis is a life- threatening condition that occurs when the body responds to an infection. Sepsis is treated in the hospital with IV antibiotics, fluids, and other medicines. Follow these instructions at home: Medicines Take ncms-hba-aabykac and prescription medicines only as told by your health care provider. If you were prescribed an antibiotic medicine, take it as told by your health care provider. Do notstop using the antibiotic even if you start to feel better. General instructions Make sure you: ?Empty your bladder often and completely. Do not hold urine for long periods of time. ?Empty your bladder after sex. ?Wipe from front to back after a bowel movement if you are female. Use each tissue one time when you wipe. Drink enough fluid to keep your urine pale yellow. Keep all follow-up visits as told by your health care provider. This is important. Contact a health care provider if: Your symptoms do not get better after 1 2 days. Your symptoms go away and then return. Get help right away if you have: Severe pain in your back or your lower abdomen. A fever. Nausea or vomiting. Summary A urinary tract infection (UTI) is an infection of any part of the urinary tract, which includes the kidneys, ureters, bladder, and urethra. Most urinary tract infections are caused by bacteria in your genital area, around the entrance to your urinary tract (urethra). Treatment for this condition often includes antibiotic medicines. If you were prescribed an antibiotic medicine, take it as told by your health care provider. Do notstop using the antibiotic even if you start to feel better. Keep all follow-up visits as told by your health care provider. This is important. This information is not intended to replace advice given to you by your health care provider. Make sure you discuss any questions you have with your health care provider. Document Released: 08/21/2006 Document Revised: 10/29/2019 Document Reviewed: 05/21/2019 [employer] Patient Education [employer] Follow Up Care 06/08/2022 09:35:25 With:CLAUDY FELTON, KALEB Russo, URL Address: [address] [place] [address] Business (1) When: Unknown Comments:pending results of imaging/testing, will call with next steps [facility] 07-22-2022 Evaluation note* Encounter Date Diagnosis Assessment Notes Treatment Notes Treatment Clinical Notes May, Nausea and vomiting, unspecified vomiting type (ICD-10 - R11.2) pt does report that she feels bloated and constipated , but then when she goes, she has a small amount of diarrhea and feels like she needs to go more but cannot. she has a hx of constipation. she is passing gas. she does have some mild nausea and vomitting, but states she is able to keep down food and fluids. pt was given zofran rx, take as needed for nausea and vomitting. push fluids. her exam is low suspicion for bowel obstruction, but pt was educated on the warning symptoms that would require immediate evaluation via ER, such as worsening abd pain, N/V, abdominal distension, flu-like symptoms. pt verbalizes understanding. May, Viral URI (ICD-10 - J06.9) rapid COVID test is NEG today. Low suspicion for bacterial infection. Clinical presentation is consistent with viral URI. Cannot definitively r/o COVID. Though I am not very suspicious of this, I still advised pt self quarantine per recommendation set forth by the CDC until symptoms resolve d/t known exposure and symptoms that are consistent with COVID. Pt educated on quarantine measures. Advised to tx symptomatically, rest, increase water intake. Immediate evaluation via ER if warning symptoms of respiratory distress or intractable fevers unresponsive to antipyretics. Otherwise, pt should follow up if new/worsening symptoms. Work note provided. May, Contact with and (suspected) exposure to other viral communicable diseases (ICD-10 - Z20.828) May, Nasal congestion (ICD-10 - R09.81) [facility] Other 07-16-2022 Evaluation note* Encounter Date Diagnosis Assessment Notes Treatment Notes Treatment Clinical Notes May, Exposure to COVID-19 virus (ICD-10 - Z20.828) May, COVID-19 (ICD-10 - U07.1) [facility] Other 05-04-2022 Evaluation note* Encounter Date Diagnosis Assessment Notes Treatment Notes Treatment Clinical Notes March, Sore throat (ICD-10 - J02.9) March, Seasonal allergies (ICD-10 - J30.2) Drink plenty fluids, get plenty of rest. Consider taking Zyrtec daily until your symptoms improve. Also consider using your Flonase inhaler, 2 sprays to each side of your nose daily until your symptoms improve. Take Tylenol or Motrin for aches pains or fevers. Follow-up with your family physician if no improvement in 2 to 3 days. March, Body aches (ICD-10 - R52) [facility] Other 03-25-2022 Evaluation note* Encounter Date Diagnosis Assessment Notes Treatment Notes Treatment Clinical Notes Jan, Contact with and (suspected) exposure to other viral communicable diseases (ICD-10 - Z20.828) Jan, Viral URI (ICD-10 - J06.9) Advised patient that rapid COVID antigen and Influenza A/B test was negative today in office. DIscussed diagnosis with patient. Advised that viral syndromes last 7-10 days, antibiotics are not indicated for viruses. Will treat as viral at this time based on physical exam and duration of symptoms. May use Bromfed and Flonase as directed, Tylenol/Motrin as directed for aches/fever. Supportive care as directed, push fluids and rest, throat lozenges, nasal saline spray as directed, cool mist humidification. Follow up with PCP if symptoms persist. Immediate eval for SOB, wheezing, difficulty breathing, chest pain, headache, neck pain/stiffness, light sensitivity, abdominal pain, N/V/D, rash, or other new or concerning symptoms. Patient verbalizes understanding and is agreeable to treatment plan Jan, Other Additional time spent conducting pre-visit phone call, screening for symptoms, instructions on social distancing, application and removal of PPE, and cleaning of examination room, equipment and supplies was preformed. Patient education given for testing methodology and results. Patient care instructions given in writting by [facility] Care At Home document [facility] Other 03-08-2022 Evaluation note* Encounter Date Diagnosis Assessment Notes Treatment Notes Treatment Clinical Notes Jan, Strep pharyngitis (ICD-10 - J02.0) Advised patient that rapid COVID antigen test, Influenza A/B, and rapid Strep test was negative today in office. Will treat today for Strep based on physical exam. Reviewed allergies and recent antibiotic use. Instructed patient to take antibiotic as prescribed, with food and plenty of water, complete entire course even if feeling better. Advised patient that they are contagious for 24 hours after starting antibiotic. Discussed infection control and good hand hygiene. New tooth brush in 2-3 days after starting antibiotic. Supportive care as directed. Push fluids and rest, Tylenol or Motrin as needed for fever or discomfort, warm salt water gargles, throat lozenges as needed. Patients symptoms should improve in the next 48 hours, eval by PCP or UC if symptoms have not improved with treatment. Discussed in depth warning symptoms that require immediate eval. Patient verbalizes understanding and is agreeable to treatment plan Jan, Acute effusion of both middle ears (ICD-10 - H65.193) Discussed diagnosis with patient, explained to patient that there is middle ear fluid without signs of bacterial infection, antibiotics are not indicated at this time. This is commonly due to ET dysfunction, viral illness, allergies, barotrauma, or recent AOM. Advised patient that fluid in middle ear may take several weeks to resolve. Take rx of Cetirizine, Flonase as directed. Supportive treatment as directed, push fluids/test, Tylenol/Motrin for discomfort. Follow up with PCP in 2 weeks or sooner for new or worsening symptoms. Patient verbalizes understanding and is agreeable to treatment plan Jan, Sore throat (ICD-10 - J02.9) Jan, Contact with and (suspected) exposure to other viral communicable diseases (ICD-10 - Z20.828) Jan, Other Additional time spent conducting pre-visit phone call, screening for symptoms, instructions on social distancing, application and removal of PPE, and cleaning of examination room, equipment and supplies was preformed. Patient education given for testing methodology and results. Patient care instructions given in writting by [facility] Care At Home document [facility] Other 08-13-2021 Hospital Discharge instructions* Instructions* Cristina Harris RN - 07/07/2021 Patient Discharge Instructions Discharge Date: 07/07/2021 HYGEINE: Ok to shower 07/08/21, no soaking in a tub/pool until seen at your follow up appointment. Clean incision daily with gentle soap and water, do not use alcohol/peroxide or any harsh cleansers. DRIVING: No driving while taking narcotic medications or while in pain ACTIVITY: No lifting greater than 20lbs for 6 weeks or any strenuous activity. DIET: Resume your normal diet as advised by your PCP. MEDICATIONS: Take all medications as prescribed. Take Colace until you have your first bowel movement, continue to take if you are using [place] for pain control SPECIAL INSTRUCTIONS: Follow up with Dr. Gonzalez in 10-14 days, call the clinic for appointment. Call sooner if fever above 100.4 degrees Farenheit, increase in swelling or redness, thick purulent discharge or pain not controlled with medications. Activity You have had anesthesia today Do not drive, operate heavy equipment, consume alcoholic beverages, or make any important decisionsfor 24 hours If you are taking pain medication: Do not drive or consume alcohol. Take your time changing positions today. You may feel light headed or dizzy if you move too quickly. Continue your home medications as ordered by your physician. Diet You can eat your normal diet when you feel well. You should start off with bland foods like chickensoup, toast, or yogurt. Then advance as tolerated. Drink plenty of fluids (unless your doctor tells you not to). Your urine should be very lightly colored without a strong odor. [facility] Phone: [phone]) 389-843607-30-2021 History of Present illness Narrative* Danita Cole RN - 06/23/2021 1:38 PM EDT DAY OF SURGERY/PROCEDURE GUIDELINES As a patient at the [facility] you can expect quality medical and nursing care that is centered on your individual needs. It is our goal to make your surgical experience as comfortable and excellent as possible. The following instructions are general guidelines, if any information on this sheet is different from what your doctor has instructed you to do, please follow your doctor's instructions. Please arrive on time or your procedure may be rescheduled Enter through front entrance of the building. Surgery Center will be located to your right. Upon arrival you will be taken to the pre-operative area to get ready for surgery, your family willstay in the waiting room and visit with you once you are ready for surgery. Due to special limitations please limit visitation to 1-2 members of your family at a time. When it is time for surgery your family will return to the waiting room. You will be given a specific time when you will NOT be able to eat, drink, smoke, suck or chew ANYTHING (no water, gum, mints, cigarettes, cigars, pipes, snuff, chewing tobacco, etc.) or your surgerymay be canceled. This will occur during your PAT appointment or by phone 1-2 days before surgery Take a shower or bath on the morning of your surgery/procedure (Hibiclens if directed) [place] your teeth, but do not swallow any water IN CASE OF ILLNESS - If you have a cold or flu symptoms (high fever, runny nose, sore throat, cough, etc.) rash, nausea, vomiting, loose stools, and/or recent contact with someone who has a contagious disease (chick pox, measles, etc.) please call your doctor before coming to the surgery center Take a small sip of water with heart, blood pressure, and/or seizure medication the morning of surgery. (DO NOT take blood pressure medications that contain a diuretic) If applicable bring your: Inhaler (s) Hearing aid(s) Eyeglasses and Case (If you wear contacts they have to be removed before surgery, bring case and solution) Any paperwork given to you by your doctor Any X-rays you were told to bring A copy of your Living Will or Durable Power of Invoice Control Clerk DO NOT take anticoagulants (blood thinners, aspirin or aspirin-containing products) two weeks priorto your surgery. You may start taking again 2 days post-operatively, unless otherwise directed by your doctor. DO NOT take any diabetic pills or insulin. Please bring your sliding scale instructions and sick day plan with you. If you have a low blood sugar reaction after midnight, drink 4 ounces of apple juice or regular pop. Wear loose, comfortable clothing that is easy to put on and take off. A locker will be provided to store your clothing during the procedure. The silva can be given to a family member/friend or it will remain in post-op with the nurse. You will be returning home the same day as your surgery, you will need to have a responsible adult (18 years of age or older) present to drive you home. You will need someone stay with you at home for the first 24 hours following your surgery. This is due to the anesthesia and the medication given to you during surgery and recovery. Your doctor may talk with your family immediately following your procedure. Depending on your needs, you will stay in the recovery room between 30 minutes to 2 hours. While you are recovering, the surgery family waiting room salon receptionist can answer many of your family's questions. All medically related questions will be answered by a medical professional. If you had outpatient surgery, you will meet your family for discharge instructions before leaving. documented in this [facility] Health[facility] Phone: evaluation + Plan note No data available for this section [facility] [employer] evaluation + Plan note Future Appointments Appointment Date:12/26/2022 01:00:00 PM Scheduled Provider:KALEB LOCO PA-C Location:[facility] Appointment Type:URO Office Visit Diagnostic Tests Pending * UTI ([facility]) 08/01/22 [facility] evaluation + Plan note Future Appointments Appointment Date:01/23/2023 02:20:00 PM Scheduled Provider:KALEB LOCO PA-C Location:[facility] Appointment Type:URO Office Visit [facility] evaluation note* Diagnosis Abdominal pain, RLQ Abdominal pain, right lower quadrant Suprapubic pain Abdominal pain, other specified site documented in this encounter H?REL Phone: [email or web address] note* Diagnosis Pre-op testing- Primary Preoperative examination, unspecified documented in this encounter H?REL Phone: [email or web address] note* Diagnosis Right lower quadrant abdominal pain Abdominal pain, right lower quadrant documented in this encounter H?REL Phone: [email or web address] note* Diagnosis Chronic appendicitis- Primary Other appendicitis documented in this encounter H?REL Phone: [email or web address] note* Diagnosis Sinus congestion- Primary Other diseases of nasal cavity and sinuses documented in this encounter H?REL Phone: [email or web address] noteNo assessment information available [facility] Work Phone: Evaluation noteNo InformationNort [employer] Other Evaluation note* Diagnosis Routine screening for STI (sexually transmitted infection) Screening examination for venereal disease documented in this encounter [facility]Franco ClasesDEvalubee[facility] healthcare note* Diagnosis Sprain of interphalangeal joint of left great toe, initial encounter- Primary documented [facility] this [facility]* Diagnosis Onset Date Resolution Status Pre-employment examination a [facility] Work Phone: Evaluation note* Diagnosis Otalgia, right ear- Primary documented in this encounter [facility] N[facility]ative - Reported* Type Description Date Medical History acid reflux wripl [facility] [employer] Other History general Narrative - Reported* Type Description Date Medical History acid reflux Surgical History colonoscopy Surgical History appendectomy Surgical History Cyst Removal Ovaries Hospitalization History see above [facility] Other Hisnnew general Narrative - Reported* Type Description Date Medical History acid reflux Medical History anxiety/depression Surgical History colonoscopy Surgical History appendectomy Surgical History Cyst Removal Ovaries Hospitalization History see above [facility] Other History of Present illness Narrative History of Present Illness not supported for this document type No History of Present Illness [facility] [employer] [facility] Work Phone: Hospital Discharge instructions* Attachments The following attachments cannot be sent through Care Everywhere. * guaifenesin and pseudoephedrine (Citizen [place]) * fluticasone nasal (Citizen Of [place]) [facility] Work Phone: Hospital Discharge instructions No data available for this section [facility] Instructions Includes: Instructions for all patient encounters Education and Decision Aids were provided during visit for: BHP introduced patient to [facility] integrated model of care. ~BHP provided supportive and active listening, allowing patient the space to discuss concerns and explored with patient coping strategies. BHP discussed resources in the community for additional support as patient is moving to the are and not aware. Health Transcription Manager provided information on local resources Last Documented On 3 3:29PM ; [facility] Discussed nutritional needs teach healthy choices including fruits and vegetables Last Documented On 3 1:16PM ; [facility] Patient education about a pr oper diet Last Documented On 3 1:16PM ; [facility] Discussed concerns about exe rcise : promote physical activity Last Documented On 3 1:16PM ; [facility] Not requesting contraception Last Documented On 3 1:17PM ; [facility] Work Phone: Instructions Includes: Instructions for all patient encounters Education and Decision Aids were provided during visit for: Discussed nutritional needs teach healthy choices including fruits and vegetables Last Documented On 3 3:22PM ; [facility] Patient education about a pr oper diet Last Documented On 3 3:22PM ; [facility] Discussed concerns about exe rcise : promote physical activity Last Documented On 3 3:22PM ; [facility] BHP introduced patient to [facility] integrated model of care. ~BHP provided supportive and active listening, allowing patient the space to discuss concerns and explored with patient coping strategies. BHP discussed resources in the community for additional support as patient is moving to the are and not aware. Health Transcription Manager provided information on local resources Last Documented On 3 3:29PM ; [facility] Discussed nutritional needs teach healthy choices including fruits and vegetables Last Documented On 3 1:16PM ; [facility] Patient education about a pr oper diet Last Documented On 3 1:16PM ; [facility] Discussed concerns about exe rcise : promote physical activity Last Documented On 3 1:16PM ; [facility] Not requesting contraception Last Documented On 3 1:17PM ; [facility] Work Phone: Instructions Includes: Instructions for all patient encounters Education and Decision Aids were provided during visit for: BHP offered active and suppo rtive listening and normalized emotions and feelings related to dieting and weight loss. ~BHP discussed healthy lifestyle changes to implement in daily routine such as pre-planning meals, making lists for grocery shopping, staying hydrated and getting good sleep. BHP discussed stress management techniques and coping skills to also implement in daily routine Last Documented On 3 3:25PM ; [facility] Discussed nutritional needs teach healthy choices including fruits and vegetables Last Documented On 3 3:17PM ; [facility] Patient education about a pr oper diet Last Documented On 3 3:17PM ; [facility] [Z71.3 - Dietary counseling and surveillance] dietary counseling pertaining to obesity Last Documented On 3 3:49PM ; [facility] Patient education about meal planning Last Documented On 3 3:48PM ; [facility] Discussed concerns about exe rcise : promote physical activity Last Documented On 3 3:17PM ; [facility] Discussed nutritional needs teach healthy choices including fruits and vegetables Last Documented On 3 10:42AM ; [facility] Patient education about a pr oper diet Last Documented On 3 10:42AM ; [facility] Discussed concerns about exe rcise : promote physical activity Last Documented On 3 10:42AM ; [facility] Not requesting contraception Last Documented On 3 10:43AM ; [facility] Discussed nutritional needs teach healthy choices including fruits and vegetables Last Documented On 3 3:22PM ; [facility] Patient education about a pr oper diet Last Documented On 3 3:22PM ; [facility] Discussed concerns about exe rcise : promote physical activity Last Documented On 3 3:22PM ; [facility] introduced patient to [facility] integrated model of care. ~P provided supportive and active listening, allowing patient the space to discuss concerns and explored with patient coping strategies. P discussed resources in the community for additional support as patient is moving to the are and not aware. Health Transcription Manager provided information on local resources Last Documented On 3 3:29PM ; [facility] Discussed nutritional needs teach healthy choices including fruits and vegetables Last Documented On 3 1:16PM ; [facility] Patient education about a pr oper diet Last Documented On 3 1:16PM ; [facility] Discussed concerns about exe rcise : promote physical activity Last Documented On 3 1:16PM ; [facility] Not requesting contraception Last Documented On 3 1:17PM ; [facility] Work Phone: Instructions Includes: Instructions for all patient encounters Education and Decision Aids were provided during visit for: P offered active and suppo rtive listening and normalized emotions and feelings related to dieting and weight loss. ~P discussed healthy lifestyle changes to implement in daily routine such as pre-planning meals, making lists for grocery shopping, staying hydrated and getting good sleep. [facility] discussed stress management techniques and coping skills to also implement in daily routine Last Documented On 3 3:25PM ; [facility] Discussed nutritional needs teach healthy choices including fruits and vegetables Last Documented On 3 3:17PM ; [facility] Patient education about a pr oper diet Last Documented On 3 3:17PM ; [facility] [Z71.3 - Dietary counseling and surveillance] dietary counseling pertaining to obesity Last Documented On 3 3:49PM ; [facility] Patient education about meal planning Last Documented On 3 3:48PM ; [facility] Discussed concerns about exe rcise : promote physical activity Last Documented On 3 3:17PM ; [facility] Discussed nutritional needs teach healthy choices including fruits and vegetables Last Documented On 3 10:42AM ; [facility] Patient education about a pr oper diet Last Documented On 3 10:42AM ; [facility] Discussed concerns about exe rcise : promote physical activity Last Documented On 3 10:42AM ; [facility] Not requesting contraception Last Documented On 3 10:43AM ; [facility] Discussed nutritional needs teach healthy choices including fruits and vegetables Last Documented On 3 3:22PM ; [facility] Patient education about a pr oper diet Last Documented On 3 3:22PM ; [facility] Discussed concerns about exe rcise : promote physical activity Last Documented On 3 3:22PM ; [facility] introduced patient to [facility] integrated model of care. ~P provided supportive and active listening, allowing patient the space to discuss concerns and explored with patient coping strategies. [facility] discussed resources in the community for additional support as patient is moving to the are and not aware. Health Transcription Manager provided information on local resources Last Documented On 3 3:29PM ; [facility] Discussed nutritional needs teach healthy choices including fruits and vegetables Last Documented On 3 1:16PM ; [facility] Patient education about a pr oper diet Last Documented On 3 1:16PM ; [facility] Discussed concerns about exe rcise : promote physical activity Last Documented On 3 1:16PM ; [facility] Not requesting contraception Last Documented On 3 1:17PM ; [facility] Work Phone: Instructions Includes: Instructions for all patient encounters Education and Decision Aids were provided during visit for: Discussed nutritional needs teach healthy choices including fruits and vegetables Last Documented On 3 5:43PM ; [facility] Patient education about a pr oper diet Last Documented On 3 5:43PM ; [facility] Discussed concerns about exe rcise : promote physical activity Last Documented On 3 5:43PM ; [facility] Not requesting contraception Last Documented On 3 5:43PM ; [facility] Discussed nutritional needs teach healthy choices including fruits and vegetables Last Documented On 3 9:24AM ; [facility] Patient education about a pr oper diet Last Documented On 3 9:24AM ; [facility] Discussed concerns about exe rcise : promote physical activity Last Documented On 3 9:24AM ; [facility] Not requesting contraception Last Documented On 3 9:26AM ; [facility] active and suppo rtive listening and normalized emotions and feelings related to dieting and weight loss. ~P discussed healthy lifestyle changes to implement in daily routine such as pre-planning meals, making lists for grocery shopping, staying hydrated and getting good sleep. P discussed stress management techniques and coping skills to also implement in daily routine Last Documented On 3 3:25PM ; [facility] Discussed nutritional needs teach healthy choices including fruits and vegetables Last Documented On 3 3:17PM ; [facility] Patient education about a pr oper diet Last Documented On 3 3:17PM ; [facility] [Z71.3 - Dietary counseling and surveillance] dietary counseling pertaining to obesity Last Documented On 3 3:49PM ; [facility] Patient education about meal planning Last Documented On 3 3:48PM ; [facility] Discussed concerns about exe rcise : promote physical activity Last Documented On 3 3:17PM ; [facility] Discussed nutritional needs teach healthy choices including fruits and vegetables Last Documented On 3 10:42AM ; [facility] Patient education about a pr oper diet Last Documented On 3 10:42AM ; [facility] Discussed concerns about exe rcise : promote physical activity Last Documented On 3 10:42AM ; [facility] Not requesting contraception Last Documented On 3 10:43AM ; [facility] Discussed nutritional needs teach healthy choices including fruits and vegetables Last Documented On 3 3:22PM ; [facility] Patient education about a pr oper diet Last Documented On 3 3:22PM ; [facility] Discussed concerns about exe rcise : promote physical activity Last Documented On 3 3:22PM ; [facility] introduced patient to [facility] integrated model of care. ~[facility] provided supportive and active listening, allowing patient the space to discuss concerns and explored with patient coping strategies. [facility] discussed resources in the community for additional support as patient is moving to the are and not aware. Health Transcription Manager provided information on local resources Last Documented On 3 3:29PM ; [facility] Discussed nutritional needs teach healthy choices including fruits and vegetables Last Documented On 3 1:16PM ; [facility] Patient education about a pr oper diet Last Documented On 3 1:16PM ; [facility] Discussed concerns about exe rcise : promote physical activity Last Documented On 3 1:16PM ; [facility] Not requesting contraception Last Documented On 3 1:17PM ; [facility] Work Phone: Patient problem outcome Narrative Includes: Evaluations & Outcomes for active Goals No [facility]ed[facility] Work Phone: Progress note No data available for this section [facility] review of systems Narrative - Reported Review of Systems not supported for this document type No Review of [facility] Work Phone: Summary Purpose Family History No Family History Records Found Description Last Updated Fraternal history of asthma 06/04/2023 Last Documented On 3 1:49PM ; [facility] Fraternal history of depression 06/04/20 23 Maternal history of depression 3 Maternal history of headache syndromes 0 06/04/2023 Maternal history of rheumatologic disord er 06/04/2023 Maternal history of thyroid disorder 09/2023 Paternal history of depression 3 Paternal history of renal disorder 06/04 Paternal history of rheumatologic disord er 06/04/2023 Paternal history of systemic hypertensio n 06/04/2023 Paternal history of thyroid disorder 09/2023 Paternal history of type 2 diabetes tom itus 06/04/2023 Description Last Updated Fraternal history of asthma 06/04/2023 Last Documented On 3 1:49PM ; [facility] Fraternal history of depression 06/04/20 23 Maternal history of depression 3 Maternal history of headache syndromes 0 06/04/2023 Maternal history of rheumatologic disord er 06/04/2023 Maternal history of thyroid disorder 09/2023 Paternal history of depression 3 Paternal history of renal disorder 06/04 Paternal history of rheumatologic disord er 06/04/2023 Paternal history of systemic hypertensio n 06/04/2023 Paternal history of thyroid disorder 09/2023 Paternal history of type 2 diabetes tom itus 06/04/2023 Description Last Updated Fraternal history of asthma 06/04/2023 Last Documented On 3 1:49PM ; [facility] Fraternal history of depression 06/04/20 23 Maternal history of depression 3 Maternal history of headache syndromes 0 06/04/2023 Maternal history of rheumatologic disord er 06/04/2023 Maternal history of thyroid disorder 09/2023 Paternal history of depression 3 Paternal history of renal disorder 06/04 Paternal history of rheumatologic disord er 06/04/2023 Paternal history of systemic hypertensio n 06/04/2023 Paternal history of thyroid disorder 09/2023 Paternal history of type 2 diabetes tom itus 06/04/2023 Description Last Updated Fraternal history of asthma 06/04/2023 Last Documented On 3 1:49PM ; [facility] Fraternal history of depression 06/04/20 23 Maternal history of depression 3 Maternal history of headache syndromes 0 06/04/2023 Maternal history of rheumatologic disord er 06/04/2023 Maternal history of thyroid disorder 09/2023 Paternal history of depression 3 Paternal history of renal disorder 06/04 Paternal history of rheumatologic disord er 06/04/2023 Paternal history of systemic hypertensio n 06/04/2023 Paternal history of thyroid disorder 09/2023 Paternal history of type 2 diabetes tom itus 06/04/2023 Description Last Updated Fraternal history of asthma 06/04/2023 Last Documented On 3 1:49PM ; [facility] Fraternal history of depression 06/04/20 23 Maternal history of depression 3 Maternal history of headache syndromes 0 06/04/2023 Maternal history of rheumatologic disord er 06/04/2023 Maternal history of thyroid disorder 09/2023 Paternal history of depression 3 Paternal history of renal disorder 06/04 Paternal history of rheumatologic disord er 06/04/2023 Paternal history of systemic hypertensio n 06/04/2023 Paternal history of thyroid disorder 09/2023 Paternal history of type 2 diabetes tom itus 06/04/2023 Relationship Condition Age at Onset Recorded Date/T niall father Diabetes mellitus Unknown Advance Directives No Advanced Directives Records FoundDocuments on File Type Date Recorded 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 Advance Directives and Living Will Power of Invoice Control Clerk Documents on File Type Date Recorded 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 Name: Jeny Cardoso Admitted: 08/26/2019 Discharged: 08/31/2019 Date of : 2000 Physician: Armond Subramanian MD DISCHARGE SUMMARY Lawson Garcia Patient Name: eJny Cardoso D/c date: 08/31/2019 Principal Dx: Major Depressive Disorder, Suicide intent HISTORY OF PRESENT ILLNESS: Patient is a 19-year-old female, , with past history of depression and anxiety presenting to [facility] for ER for evaluation to admission to [facility] for suicidal ideation with plan. Patient reports that she opened up to a teacher yesterday at school and then was subsequently sent to a therapist. Patient reports that she has been having increasing depression over the last couple months with increasing suicidal ideation. She states that this is most likely secondary to discontinuing her Zoloft for the last 3 months. Patient endorsed significant side effects to the medication feeling blah and also inside. When inquired about her suicida (more content not included)... History of Present Illness * French Bacon, PT - 08/04/2020 12:15 PM EDT Physical Therapy Daily Treatment Note Date: 08/04/2020 Patient Name: Jeny Cardoso : 2000 Subjective: General Referring Practitioner: Yovany Au PA-C PT Visit Information Onset Date: 05/09/20 PT Insurance Information: [employer] Total # of Visits Approved: 12 Total # of Visits to Date: 2 Plan of Care/Certification Expiration Date: 09/09/20 No Show: 0 Progress Note Due Date: 08/12/20 Canceled Appointment: 0 Subjective Subjective: The towel roll in the pillow did not help. The patient reports her pain is about the same. While at work if her back is hurting she is able to adjust her posture and the pain gets better. Pain Screening Patient Currently in Pain: Yes Pain Assessment Pain Assessment: 0-10 Pain Level: 2 Patient's Stated Pain Goal: No pain Pain Location: Back Pain Orientation: Lower;Mid Pain Descriptors: Aching Pain Frequency: Intermittent Pain Onset: On-going Clinical Progression: Gradually worsening Functional Pain Assessment: Prevents or interferes some active activities and ADLs Non-Pharmaceutical Pain Intervention(s): Ambulation/Increased Activity Response to Pain Intervention: None Vital Signs Patient Currently in Pain: Yes Patient Observation Observations: Sitting kyphosis Treatment Activities: Balance Posture: Fair Sitting - Static: Good Sitting - Dynamic: Good Standing - Static: Good Standing - Dynamic: Good Single Leg Stance R Le Single Leg Stance L Le Strength Other Other: Neck 5/5 Exercises Exercise 1: Sitting with V pillow-3 min with cervical retraction. Exercise 2: Sitting cervical retractions 25 x 2 no change - stopped due to no change Exercise 3: Sitting extension 60 sec hold x 1 stopped worse Exercise 4: Supine laying 2 pillows 2 min No change Exercise 5: Supine laying 2 pillows traction 2-3 min -- no change(manual traction 2-4 lbs of force) Exercise 6: Supine laying 3 pillows retraction 10 x no changed stopped Exercise 7: Supine laying 3 pillows traction no change Exercise 8: Supine laying 4 pillows traction - centralization her neck pain into her lower cervicalspine. Exercise 9: HEP supine laying with small to medium cervical roll under neck with 4 pillows 5-10 min4-6 x daily Ortho Screen Posture: poor Ortho Screen: Sitting and supine SLR (-) BLE Assessment: Conditions Requiring Skilled Therapeutic Intervention Body structures, Functions, Activity limitations: Decreased functional mobility ;Decreased ADL status;Decreased ROM;Decreased strength;Increased pain;Decreased posture Assessment: The patient should respond well to PT for her lower back and neck pain. Will focus her initial program on improving her cervical posture and developing a safe HEP that lessons her neck and mid back pain. The progression of her program will focus on posture change. Treatment Diagnosis: Low Back and Cervical Pain Prognosis: Good Decision Making: Low Complexity REQUIRES PT FOLLOW UP: Yes Treatment Initiated : HEP see above Discharge Recommendations: Continue to assess pending progress Activity Tolerance Activity Tolerance: Patient limited by pain Goals: Short term goals Time Frame for Short term goals: 6 visits Short term goal 1: OPTIMAL score of 12/3 initial, her goal of 6/3. Short term goal 2: Independent with her home program. terminal gauger goals Time Frame for terminal gauger goals : 12 visits group home goal 1: OPTIMAL score at discharge 3/3. Patient Goals Patient goals : Walk and get around without pain Plan: continue Timed Code Treatment Minutes: 45 Minutes Total Treatment Time: 45 Frequency and duration of TX Days: 2 Weeks: 8 Therapy Time Individual Concurrent Group Co-treatment Time In 1215 Time Out 1300 Minutes 45 min Timed Code Treatment Minutes: 45 Minutes Treatment Charges: Minutes Units [] Ultrasound [] Electrical-Stim [] Iontophoresis [] Traction [] Massage [] Eval [] Gait [x] Ther Exercise 15 1 [] Manual Therapy [] Ther Activities [] Aquatics [] Vasopneumatic Device [x] Neuro Re-Ed 30 2 [] Other Total Treatment Time: 45 3 French Bacon, PT documented in this encounter* French Bacon, PT - 08/08/2020 10:45 AM EDT Physical Therapy No Show Note Date: 08/08/2020 Patient Name: Jeny Cardoso : 2000 General Referring Practitioner: Yovany Au PA-C PT Visit Information Onset Date: 05/09/20 PT Insurance Information: [employer] Total # of Visits Approved: 12 Total # of Visits to Date: 2 Plan of Care/Certification Expiration Date: 09/09/20 No Show: 1 Progress Note Due Date: 08/12/20 Canceled Appointment: 0 Progress Note Counter: 2/6 General Comment Comments: No show French Bacon PT * French Bacon, PT - 08/08/2020 10:45 AM EDT Physical Therapy Initial Assessment Date: 07/25/2020 Patient Name: Jeny Cradoso : 2000 Treatment Diagnosis: Mid Back Pain, Cervical Pain Subjective General Referring Practitioner: Yovany Au PA-C Referral Date : 06/06/20 Diagnosis: Thorasoce sprain PT Visit Information Onset Date: 05/09/20 PT Insurance Information: [employer] Advantage Total # of Visits Approved: 12 Total # of Visits to Date: 1 Plan of Care/Certification Expiration Date: 09/09/20 No Show: 0 Progress Note Due Date: 08/12/20 Canceled Appointment: 0 Subjective Subjective: The pain started about two months after school got out. The pain starts around or between my shoulders and then goes into my lower back. I feel the pain is getting worse. Pain Screening Patient Currently in Pain: Yes Pain Assessment Pain Assessment: 0-10 Pain Level: 4 Patient's Stated Pain Goal: No pain Pain Type: Chronic pain Pain Location: Back Pain Orientation: Lower;Mid Pain Descriptors: Aching Pain Frequency: Intermittent Pain Onset: On-going Clinical Progression: Gradually worsening Functional Pain Assessment: Prevents or interferes some active activities and ADLs Non-Pharmaceutical Pain Intervention(s): Ambulation/Increased Activity Response to Pain Intervention: None Vital Signs Patient Currently in Pain: Yes Patient Observation Observations: Sitting kyphosis Vision/Hearing Vision Vision: Within Functional Limits Hearing Hearing: Within functional limits Orientation Orientation Overall Orientation Status: Within Normal Limits Social/Functional History Social/Functional History Lives With: Family Type of Home: House Home Layout: One level Bathroom Accessibility: Accessible ADL Assistance: Independent Homemaking Assistance: Independent Homemaking Responsibilities: Yes Ambulation Assistance: Independent Transfer Assistance: Independent 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 Exercise 2: HEP -- Sleeping with towel roll in pillow Exercise 3: HEP -- Avoid painful head and neck positions Ortho Screen Posture: poor Ortho Screen: Sitting and supine SLR (-) BLE Assessment Neurological Neurological (WDL): Within Defined Limits Conditions Requiring Skilled Therapeutic Intervention Body structures, Functions, Activity limitations: Decreased functional mobility ;Decreased ADL status;Decreased ROM;Decreased strength;Increased pain;Decreased posture Assessment: The patient should respond well to PT for her neck and upper back pain. Treatment Diagnosis: Lw Back Pain Prognosis: Good Decision Making: Low Complexity REQUIRES PT FOLLOW UP: Yes Treatment Initiated : HEP see above Discharge Recommendations: Continue to assess pending progress Activity Tolerance Activity Tolerance: Patient limited by pain Plan Plane of care established OutComes Score OPTIMAL score 12/3 initial. Goals Short term goals Time Frame for Short term goals: 6 visits Short term goal 1: OPTIMAL score of 12/3 initial, her goal of 6/3. Short term goal 2: Independent with her home program. terminal gauger goals Time Frame for group home goals : 12 visits terminal gauger goal 1: OPTIMAL score at discharge 3/3. Patient Goals Patient goals : Walk and get around without pain Therapy Time Individual Concurrent Group Co-treatment Time In 1200 Time Out 1300 Minutes 60 min Timed Code Treatment Minutes: 60 Minutes Treatment Charges: Minutes Units [] Ultrasound [] Electrical-Stim [] Iontophoresis [] Traction [] Massage [x] Eval 45 1 [] Gait [x] Ther Exercise 15 1 [] Manual Therapy [] Ther Activities [] Aquatics [] Vasopneumatic Device [] Neuro Re-Ed [] Other Total Treatment Time: 60 2 Rehab Potential: [x] Good [] Fair [] Poor Suggested Professional Referral: [x] No [] Yes: Barriers to Goal Achievement: [x] No [] Yes: Domestic Concerns: [x] No [] Yes: Treatment Plan: [x] Therapeutic Exercise 55726 [] Iontophoresis: 4 mg/mL Dexamethasone Sodium Phosphate 40-120 mAmin 06058 [] Therapeutic Activity 94000 [] Vasopneumatic cold with compression 65982 [] Gait Training 09405 [] Ultrasound 38296 [x] Neuromuscular Re-education 15023 [x] Electrical Stimulation Unattended 54475 [x] Manual Therapy 04460 [] Electrical Stimulation Attended 68484 [x] Instruction in HEP [] Lumbar/Cervical Traction 61069 [] Aquatic Therapy 04895 [x] Cold/hot pack [] Massage 70895 [] Dry Needling, 1 or 2 muscles [] Biofeedback, first 15 minutes [] Biofeedback, additional 15 minutes [] Dry Needling, 3 or more muscles Frequency: 1 X/wk x 6 wk's [x] Plans/Goals, Risk/Benefits discussed with pt/family Comprehension of Education [] yes [x] Needs Review Pt/Family Education: [x] Verbal [x] Demo [x] Written More objective information is available upon request. Thank you for this referral. Medicare/Regulatory Requirements: I have reviewed this plan of care and certify a need for Medically necessary rehabilitation services. [] Physician Signature Date: Electronically signed by: French Bacon PT [facility] [address] [place] [address] [address] [id number] documented in this encounter* French Bacon, PT - 08/22/2020 2:45 PM EDT Physical Therapy Cancellation Note Date: 08/22/2020 Patient Name: Jeny Cardoso : 2000 General Referring Practitioner: Yovany Au PA-C PT Visit Information Onset Date: 05/09/20 PT Insurance Information: [employer] [employer] Total # of Visits Approved: 12 Total # of Visits to Date: 3 Plan of Care/Certification Expiration Date: 09/09/20 No Show: 1 Canceled Appointment: 1 Progress Note Counter: 01/28 General Comment Comments: Called and cancelled today's visit. French Bacon PT documented in this encounter* French Bacon, PT - 08/29/2020 2:45 PM EDT Physical Therapy Cancellation Note Date: 08/29/2020 Patient Name: Jeny Cardoso : 2000 General Referring Practitioner: Yovany Au PA-C PT Visit Information Onset Date: 05/09/20 PT Insurance Information: Monico Leon Total # of Visits Approved: 12 Total # of Visits to Date: 3 Plan of Care/Certification Expiration Date: 09/09/20 No Show: 1 Canceled Appointment: 2 Progress Note Counter: 3/6 General Comment Comments: Called and cancelled today's visit. French Bacon, PT documented in this encounter* French Bacon, PT - 09/05/2020 8:00 AM EDT Physical Therapy Discharge Note Date: 09/05/2020 Patient Name: Jeny Cardoso : 2000 General Referring Practitioner: Yovany Au PA-C PT Visit Information Onset Date: 05/09/20 PT Insurance Information: Monico Leon Total # of Visits Approved: 12 Total # of Visits to Date: 3 Plan of Care/Certification Expiration Date: 09/09/20 No Show: 2 Canceled Appointment: 2 Progress Note Counter: 3/6 General Comment Comments: No show x 2 cancellation x 2. Will Discharge at this time. French Bacon, PT documented in this encounter Assessments Diagnosis Class 2 obesity without serious comorbidity in adult, unspecified BMI, unspecified obesity type Diagnosis Suspected COVID-19 virus infection Non-recurrent acute suppurative otitis media of right ear without spontaneous rupture of tympanic membrane Nausea and vomiting, intractability of vomiting not specified, unspecified vomiting type Cough Diagnosis Recurrent acute suppurative otitis media of right ear without spontaneous rupture of tympanic membrane Diagnosis Recurrent major depressive disorder, in full remission (HCC) Chronic fatigue Other malaise and fatigue Anxiety Anxiety state, unspecified Encounter for screening for other viral diseases Screen for STD (sexually transmitted disease) Screening examination for venereal disease Diagnosis Cough present for greater than 3 weeks Chief Complaint and Reason for Visit Chief Complaint sore throat 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 Reason for Visit Pre-employment exam[place] Physical Exam Physical Exam not supported for this document type No Physical Exam Recorded Physical Exam not supported for this document type No Physical Exam Recorded Physical Exam not supported for this document type No Physical Exam Recorded Physical Exam not supported for this document type No Physical Exam Recorded Physical Exam not supported for this document type No Physical Exam Recorded Physical Exam not supported for this document type No Physical Exam Recorded Additional Source Comments INFORMATION SOURCE (unrecogn ized section and content) DATE CREATED AUTHOR 09/15/2019 [facility] DATE CREATED AUTHOR AUTHOR'S ORGANIZ ATION 07/05/2021 [facility] DATE CREATED AUTHOR AUTHOR'S ORGANIZ ATION 11/03/2021 [facility] DATE CREATED AUTHOR AUTHOR'S ORGANIZ ATION 11/12/2021 [facility] DATE CREATED AUTHOR AUTHOR'S ORGANIZ ATION 03/30/2023 [facility] DATE CREATED AUTHOR AUTHOR'S ORGANIZ ATION 06/29/2023 [facility] DATE CREATED AUTHOR AUTHOR'S ORGANIZ ATION 07/12/2023 [facility] DATE CREATED AUTHOR AUTHOR'S ORGANIZ ATION 09/18/2023 [facility] DATE CREATED AUTHOR AUTHOR'S ORGANIZ ATION 05/10/2024 [facility] DATE CREATED AUTHOR AUTHOR'S ORGANIZ ATION 05/19/2024 [facility] DATE CREATED AUTHOR AUTHOR'S ORGANIZ ATION 05/20/2024 [facility] DATE CREATED AUTHOR AUTHOR'S ORGANIZ ATION 05/21/2024 [facility] DATE CREATED AUTHOR AUTHOR'S ORGANIZ ATION 08/30/2024 [facility] DATE CREATED AUTHOR AUTHOR'S ORGANIZ ATION 10/26/2024 [facility] DATE CREATED AUTHOR AUTHOR'S ORGANIZ ATION 11/08/2024 [facility] Reason for Visit (unrecogniz ed section and content) Status Reason Specialty Diagnoses / Procedures Referred By Contact Referred To Contact Authorized Physical Therapy Diagnoses Pain in thoracic spine Procedures MN PHYSICAL THERAPY EVALUATION LOW COMPLEX 20 MINS Yovany Johnson PA-C [address] [place] [address] Salima Taylor, PT Status Reason Specialty Diagnoses / Procedures Referred By Contact Referred To Contact Closed Physical Therapy Diagnoses Pain in thoracic spine Procedures MN PHYSICAL THERAPY EVALUATION LOW COMPLEX 20 MINS Yovany Johnson PA-C [address] [place] [address] Salima Taylor, PT Status Reason Specialty Diagnoses / Procedures Referre d By Contact Referred To Contact Diagnoses Abdominal pain, RLQ RIGHT LOWER QUADRANT PAIN Procedures MN LAP,DIAGNOSTIC ABDOMEN MN LAP,APPENDECTOMY ABDOMINAL EXPLORATORY LAPAROSCOPIC ROBOTIC possible APPENDECTOMY [place] [address] [place] [address] [facility] Reason Comments Headache Headache and bilater al ear pain x's 3 days. Reason Comments Toe Pain No trauma/injury, bi g toe left foot Reason Comments Otitis Media Ordered Prescriptions (unrec ognized section and content) Prescription Sig Dispensed Refills Start Date End Da te docusate sodium (COLACE) 100 MG capsule Take 1 capsule by mouth 2 times daily 20 capsule 0 07/07/2021 HYDROcodone-acetaminoph en (NORCO) 5-325 MG per tabletIndications:Chron ic appendicitis Take 1 tablet by mouth every 6 hours as needed for Pain for up to 7 days. Intended supply: 7 days. Take lowest dose possible to manage pain 10 tablet 0 07/07/2021 07/14/2021 Prescription Sig Dispensed Refills Start Date End Da te predniSONE (DELTASONE) 20 MG tablet Take 2 tablets by mouth daily for 7 days 14 tablet 0 11/10/2021 11/17/2021 fluticasone (FLONASE) 50 MCG/ACT nasal spray 1 spray by Each Nostril route daily 16 g 0 11/10/2021 pseudoephedrine-guaiFENe sin (MUCINEX D MAX STRENGTH) 120-1200 MG TB12 Take 1 tablet by mouth 2 times daily as needed (cough/congestion) 20 tablet 0 11/10/2021 Scheduled Active and Recently Administ ered Medications (unrecognized section and content) Medication Order 07/05/2021 07/06/2021 07/07/2021 cefOXitin (MEFOXIN) 2000 mg in dextrose 5% 50 mL (mini-bag) (COMPLETED) 2,000 mg, Intravenous, WATCH ADJUSTER TO O.R., 1 dose, On Sat07/07/21 at 1300, Intra-op 1356 (New Bag - Prov ider: Daiana Diallo APRN - SENIOR HEALTH EDUCATOR) diphenhydrAMINE (BENADRYL) injection 25 mg (COMPLETED) 25 mg, Intravenous, ONCE, On Sat07/07/21 at 1600, For 1 dose, Post-op 1535 (Given - Provid er: Cristina Harris RN) sodium chloride flush 0.9 % injection 10 mL 10 mL, Intravenous, EVERY 12 HOURS SCHEDULED (2 times per day), First dose on Sat07/07/21 at 2100, Pre-op (day of surgery) 2100 (Due) Continuous Medication Order 07/05/2021 07/06/2021 07/07/2021 0.9 % sodium chloride infusion Intravenous, at 125 mL/hr, CONTINUOUS, Starting on Sat07/07/21 at 1300, Pre-op (day of surgery) 1300 (Due) lactated ringers infusion Intravenous, at 125 mL/hr, CONTINUOUS, Starting on Sat07/07/21 at 1300, 0.9% sodium chloride infusion diabetic and/or renal failure patients at 125ml/hr, Pre-op (day of surgery) 1349 (New Bag - Prov ider: Daiana Diallo APRN - SENIOR HEALTH EDUCATOR)1459 (Anesthesia Volume Adjustment - Provider: Braeden Rodríguez MD) PRN Medication Order 07/05/2021 07/06/2021 07/07/2021 0.9 % sodium chloride infusion 25 mL, Intravenous, at 100 mL/hr, PRN, If patient receiving piggyback infusions without ordered maintenance IV fluids or with frequent/long duration piggyback infusions, Starting on Sat07/07/21 at 1241, Administer at the same rate as the piggyback being infused., Pre-op (day of surgery) bupivacaine (MARCAINE) 20 mL, lidocaine 1 % 20 mL (CANCELED) PRN, Starting on Sat07/07/21 at 1403, Intra-op 1403 (Given - Provid er: Kristine Gonzalez DO) fentaNYL (SUBLIMAZE) injection 25 mcg 25 mcg, Intravenous, EVERY 5 MIN PRN, Pain Moderate (4-6), Starting on Sat07/07/21 at 1328, For 4 doses, Phase I - Secondary therapy to be used after all initial moderate pain medication doses have been administered., PACU only hydrALAZINE (APRESOLINE) injection 5 mg 5 mg, Intravenous, EVERY 10 MIN PRN, High Blood Pressure, Starting on Sat07/07/21 at 1328, PRN for SBP > 160 for 2 consecutive measurements, and if one of the following conditions is met: 1) If IV labetolol is ineffective. 2) If HR is under 60. 3) If patient has heart block, COPD or asthma. If both labetalol and hydralazine ineffective, notify anesthesiologist., PACU only HYDROcodone-acetaminophen (NORCO) 5-325 MG per tablet 1 tablet (COMPLETED) 1 tablet, Oral, PRN, Pain Moderate (4-6), Starting on Sat07/07/21 at 1328, For 1 dose, PHASE II, PACU only 1614 (Given - Provid er: Cristina Harris RN) HYDROmorphone (DILAUDID) injection 0.5 mg 0.5 mg, Intravenous, EVERY 5 MIN PRN, Pain Severe (7-10), Starting on Sat07/07/21 at 1328, For 4 doses, Phase I - Initial therapy for severe pain., PACU only 1507 (Given - Provid er: Cristina Harris RN) meperidine (DEMEROL) injection 12.5 mg 12.5 mg, Intravenous, EVERY 5 MIN PRN, Shivering, , Starting on Sat07/07/21 at 1328, May give every 5 minutes to max of 50mg., PACU only morphine (PF) injection 1 mg 1 mg, Intravenous, EVERY 5 MIN PRN, Pain Moderate (4-6), Starting on Sat07/07/21 at 1328, For 4 doses, Phase I - Initial therapy for moderate pain., PACU only ondansetron (ZOFRAN) injection 4 mg 4 mg, Intravenous, ONCE PRN, Nausea, Starting on Sat07/07/21 at 1328, For 1 dose, Initial antiemetic therapy., PACU only promethazine (PHENERGAN) injection 6.25 mg 6.25 mg, Intramuscular, ONCE PRN, Nausea, Starting on Sat07/07/21 at 1328, For 1 dose, Recommended route is IM. Caution if used IV:Check IV site for infiltrate prior to and during administration. Secondary antiemetic therapy. For IV administration, dilute to 10ml with normal saline. Must be administered over at least 10 minutes., PACU only sodium chloride flush 0.9 % injection 10 mL 10 mL, Intravenous, PRN, Line Care, After every IV line use, Starting on Sat07/07/21 at 1241, Pre-op (day of surgery) No Frequency Medication Order 07/05/2021 07/06/2021 07/07/2021 bupivacaine (PF) (MARCAINE) 0.25 % injection Starting on Sat07/07/21 at 1314, For 1 dose, Edna Hale: cabinet override 1315 (Due) cefOXitin (MEFOXIN) 2 g injection Starting on Sat07/07/21 at 1321, For 1 dose, Pippa Ashton: cabinet override 1330 (Due) lidocaine 1 % injection Starting on Sat07/07/21 at 1314, For 1 dose, Edna Hale: cabinet override 1315 (Due) morphine 2 MG/ML injection (COMPLETED) Starting on Sat07/07/21 at 1522, For 1 dose, CRISTINA HARRIS: cabinet override 1524 (Given - Provid er: Cristina Harris RN) neostigmine (PROSTIGMINE) 5 MG/5ML injection Starting on Sat07/07/21 at 1413, For 1 dose, BRAEDEN RODRÍGUEZ: cabinet override 1415 (Due) Care Teams (unrecognized sec tion and content) [employer]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 Relationship Specialty Start Date End Date Jose Gama MD [address] [facility] [address] [place] [address] PCP - General Family Medicine 12/02/20 Team Status: Inactive Member Role Status Dates Marie Mccormick APRN Attending Provider Active Team Status: Inactive Member Role Status Dates ТАТЬЯНА Gonsalez Primary Care Provider Active Codey Lewis APRN Emergency Provider Active 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 Relationship Specialty Start Date End Date Jose Gama MD [address] [facility] [address] [place] [address] PCP - General Family Medicine 12/02/20 [employer]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 Relationship Specialty Start Date End Date Jose Gama MD [address] [place] [address] PCP - General Family Medicine 12/02/20 Team Status: Active Member Role Status Dates NON STAFF Primary Care Provider Active Team Status: Inactive Member Role Status Dates NON STAFF Primary Care Provider Active Start: March 06, 2024 End: March 06, 2024 Tariq Johansen DO Attending Provider Active Sta rt: March 06, 2024 End: March 06, 2024 [employer]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 This clinical summary was aggregated from multiple sources. Caution should be exercised in using it in the provision of clinical care. This summary normalizes information from multiple sources, and as a consequence, information in this document may materially change the coding, format and clinical context of patient data. In addition, data may be omitted in some cases. CLINICAL DECISIONS SHOULD BE BASED ON THE PRIMARY CLINICAL RECORDS. [employer] provides no warranty or guarantee of the accuracy or completeness of information in this document.
[2024-11-10 21:45] VITALS: O2SAT 97
--- NOTE | 2024-11-10 22:08 | XR_ITS ---
[place] [id number] Patient Name: ELZA CARDOSO MRN: [id number] date: 2000 Sex: F Assigned Patient Location: ER Current Patient Location: ER Accession/Order Number: [id number] Exam Date: 11/10/2024 22:38 Report Date: 11/10/2024 22:53 At the request of: BERTIN SCHWARZ Procedure: XR chest 2V EXAMINATION: XR chest 2V, , 11/10/2024 10:38 PM EST INDICATION: cough HISTORY: Ordering Provider Reason for Exam: cough Technologist Note: Additional: COMPARISON: None. TECHNIQUE: Chest x-ray: Two views. FINDINGS: No pneumothorax, pleural effusion or focal airspace consolidation. Heart is normal in size. Bony thorax is unremarkable. XR/XR chest 2V IMPRESSION: No acute cardiopulmonary process. Electronically authenticated by: SONIA PITTMAN Date: 11/10/2024 22:53
--- NOTE | 2024-11-10 22:13 | ED_ITS ---
HPI - URI/Sore Throat General Chief Complaint: Upper Respiratory Infection Stated Complaint: cough Time Seen by Provider: 11/10/24 21:42 Source: patient History of Present Illness HPI Narrative: 24-year-old female to the emergency department with chief complaint of cough. Patient reports that she became sick around 6 days ago. She was seen on the by her primary care doctor and was prescribed Augmentin for her congestion. Her symptoms had improved. She was seen again today by her primary care doctor. Influenza test was positive. She was given a steroid shot. Patient reports that she is just not improving. She wants to make sure she does not hav e pneumonia. She does not know if she is . Related Data Home Medications ?Medication ?Instructions ?Recorded ?Confirmed omeprazole 40 mg capsule,delayed 40 mg PO DAILY 04/04/24 11/10/24 release prazosin 1 mg capsule 1 mg PO BEDTIME 04/04/24 11/10/24 amoxicillin 875 mg-potassium 1 tab PO BID 11/10/24 11/10/24 clavulanate 125 mg tablet cetirizine 10 mg tablet 10 mg PO DAILY 11/10/24 11/10/24 Previous Rx's ?Medication ?Instructions ?Recorded lsewxhtzvcpidyn-zzkvvkciokenhdq-XV 5 ml PO Q4H PRN cold symptoms #118 11/10/24 2 mg-30 mg-10 mg/5 mL oral syrup mL (Bromfed DM) Allergies Allergy/AdvReac Type Severity Reaction Status Date / Time morphine Allergy Intermediate Verified 04/04/24 12:00 Review of Systems ROS Status of ROS 10 or more systems reviewed and unremark able except as noted in history and below Exam Narrative Exam Narrative: VITALS: I have reviewed the triage vital signs. GENERAL: Well developed, well appearing adult in no acute distress. NEURO: Alert and oriented. Moves all extremities. Face is symmetric and expressive. EYES: PERRL. No scleral icterus or conjunctival injection. No discharge. HENT: Normocephalic, atraumatic. Hearing is grossly intact. Nares grossly patent and without discharge. Mucous membranes moist. NECK: No JVD. Patient moves neck without restriction. CARDIO: Rhythm regular. Normal rate. No murmur, rub, or gallop. Pulses equal bilaterally in the upper and lower extremity. No lower extremity edema. PULM: Lungs clear to auscultation in all lynn. No wheezes, rales, or rhonchi. No conversational dyspnea. No splinting, stridor, or accessory muscle use. GI/: Abdomen is soft and non-tender. Normoactive bowel sounds. EXTREMITIES: Symmetric muscle bulk. No joint swelling. No clubbing, cyanosis, or deformity. SKIN: Warm and dry. Normal turgor. No rash or lesions appreciated. PSYCH: Mood, affect, and interaction is appropriate to the setting. Constitutional Vital Signs, click to edit/add: Last Vital Signs Temp 98.6 F 11/10/24 21:39 Pulse 86 11/10/24 21:39 Resp 18 11/10/24 21:39 BP 126/84 11/10/24 21:39 Pulse Ox 97 11/10/24 21:45 O2 Del Method Room Air 11/10/24 21:45 Course Vital Signs Vital signs: Vital Signs Temperature 98.6 F 11/10/24 21:39 Pulse Rate 86 11/10/24 21:39 Respiratory Rate 18 11/10/24 21:39 Blood Pressure 126/84 11/10/24 21:39 Pulse Oximetry 97 11/10/24 21:39 Oxygen Delivery Method Room Air 11/10/24 21:39 Temperature 98.6 F 11/10/24 21:39 Pulse Rate 86 11/10/24 21:39 Respiratory Rate 18 11/10/24 21:39 Blood Pressure 126/84 11/10/24 21:39 Pulse Oximetry 97 11/10/24 21:45 Oxygen Delivery Method Room Air 11/10/24 21:45 MDM - URI/Sore Throat MDM Narrative Medical decision making narrative: 24-year-old female to the emergency department chief complaint of cough. Vital stable, the patient is afebrile. She has a dry cough on exam. She is otherwise well-appearing. No respiratory distress. Chest x-ray is ordered. test is ordered. test is negative. Chest x-ray without acute findings. Discussed with the patient. Bromfed as prescribed. Albuterol inhaler as needed. Return precautions were discussed. All questions were answered. The patient was discharged home Medical Records Attestation: I reviewed the patient's medical records. Lab Data Labs: Lab Results 11/10/24 Range/Units 22:18 Urine HCG, Qual Negative (NEGATIVE) Imaging Data Chest x-ray: Attestation: I have reviewed the pertinent imaging results. Radiologist's impression: ITS Impressions Chest X-Ray 11/10/24 22:08 IMPRESSION: No acute cardiopulmonary process. Electronically authenticated by: SONIA PITTMAN Date: 11/10/2024 22:53 Discharge Plan Discharge Chief Complaint: Upper Respiratory Infection Clinical Impression: Influenza Patient Disposition: Home, Self-Care Time of Disposition Decision: 23:07 Condition: Good Mode of Transportation: Private Vehicle Prescriptions / Home Meds: New pobmpeftsotwslz-adjjxigon-YO [Bromfed DM] 2-30-10 mg/5 mL syrup 5 ml PO Q4H PRN (Reason: cold symptoms) Qty: 118 0RF No Action omeprazole 40 mg capsule,delayed release(DR/EC) 40 mg PO DAILY prazosin 1 mg capsule 1 mg PO BEDTIME amoxicillin-pot clavulanate 875-125 mg tablet 1 tab PO BID cetirizine 10 mg tablet 10 mg PO DAILY Print Language: Indian Instructions: How to Use a Metered-Dose Inhaler (ED), Influenza (ED) Additional Instructions: Call the office of your primary care doctor to arrange for follow-up within the above-stated timeframe. Your ED visit was focused on your acute issue and does not replace primary care. You should review your labs, imaging, and diagnoses from this ED visit with your primary care physician. There may be non-emergent/ incidental findings that need further evaluation. You should review your vital signs including blood pressure with your PCP. If you were prescribed medications you should discuss possible side-effects and drug interactions with your pharmacist. Call 911 or go to the nearest Emergency Department if you develop any new or worsening symptoms. Seek immediate medical attention if you develop: worsening shortness of breath, difficulty breathing, chest pain, nausea, vomiting, weakness, numbness, tingling, excessive sweating, loss of motion in your arms or legs, or any new or worsening symptoms. Referrals: DRE VÁZQUEZ [Primary Care Provider] - 1 week
[2024-11-10 22:26] LABS: HCG Qualitative Urine* NEGATIVE (NEGATIVE); Internal Control Within Normal Limits
--- NOTE | 2024-11-10 22:44 | PC.NURSE ---
this patient back from x-ray dept, i informed her that now we are waiting on the chest x-ray results to come back. this patient voices no concerns and shows no signs of distress
[2024-11-10] MEDS: ALBUTEROL SULFATE 200 PUFF/6.7 GM INHALER IH (23:17)
--- NOTE | 2024-11-10 23:24 | PC.NURSE ---
i gave this patient verbal and paper discharge orders along with 1 take home medication, 1 e-script, and 1 work note to this patient, this patient voices yes to understanding these. at time of discharge this patient voices no concerns and shows no signs of distress
== END 2024-11-10 23:27 | disposition home or self-care (01) ==
PROVIDERS: Emergency Provider Student in an Organized Health Care Education/Training Program; PCP Nurse Practitioner
DX: J11.1 Influenza due to unidentified influenza virus with other respiratory manifestations (principal)
CPT/HCPCS: 71046; 84703; 99284

== ENCOUNTER 2025-01-14 14:26 | Emergency (ER) | payer OTHER, SELFPAY ==
[2025-01-14 14:35] VITALS: BP 129/97; PULSE 68; TEMP 36.4; O2SAT 98; BMI 49.8
[2025-01-14 15:13] LABS: HCG Qualitative Urine* NEGATIVE (NEGATIVE); Internal Control Within Normal Limits
--- NOTE | 2025-01-14 16:09 | ED_ITS ---
HPI HPI - General Adult General Chief complaint: Back Pain/Injury Stated complaint: FALL Time Seen by Provider: 01/14/25 14:28 Source: patient Mode of arrival: Wheelchair History of Present Illness HPI narrative: Patient states shortly prior to arrival she was going out when she slipped on ice and fell down 5-6 concrete steps. She complains of back pain. Pain does not radiate into the extremities. She denies neck pain or head injury. She is currently on her menstrual period. Related Data Home Medications ?Medication ?Instructions ?Recorded ?Confirmed omeprazole 40 mg capsule,delayed 40 mg PO DAILY 04/04/24 01/14/25 release prazosin 1 mg capsule 1 mg PO BEDTIME 04/04/24 01/14/25 cetirizine 10 mg tablet 10 mg PO DAILY 11/10/24 01/14/25 desvenlafaxine succinate 50 mg mg PO 01/14/25 tablet,extended release 24 hr doxepin 10 mg capsule mg 01/14/25 Allergies Allergy/AdvReac Type Severity Reaction Status Date / Time morphine Allergy Intermediate Hives Verified 01/14/25 14:35 Opioid HPI Opioid Management Most Recent Opioid Data: No Data to Display Review of Systems ROS Status of ROS 10 or more systems reviewed and unremark able except as noted in history and below PFSH PFSH Social History Little interest or pleasure in doing things: not at all Feeling down, depressed, or hopeless: not at all Exam Narrative Exam Narrative: Patient's vitals are stable head is atraumatic. C-spine is nontender neck is full range of painless motion. Palpation of the spine reveals tenderness over the mid and lower thoracic spine. The lumbar spine is nontender. She also has tenderness on both sides of the rib cage posteriorly. There is no underlying crepitus. No bruising is seen of the overlying skin on her back. Lung sounds are clear to auscultation bilaterally. Heart has regular rate and rhythm. Abdomen soft and benign. Bony survey of the extremities is negative. Constitutional Vital Signs, click to edit/add: Last Vital Signs Temp 97.5 F L 01/14/25 14:35 Pulse 68 01/14/25 14:35 Resp 16 01/14/25 14:35 BP 129/97 H 01/14/25 14:35 Pulse Ox 98 01/14/25 14:35 O2 Del Method Room Air 01/14/25 14:35 Course Vital Signs Vital signs: Vital Signs Temperature 97.5 F L 01/14/25 14:35 Pulse Rate 68 01/14/25 14:35 Respiratory Rate 16 01/14/25 14:35 Blood Pressure 129/97 H 01/14/25 14:35 Pulse Oximetry 98 01/14/25 14:35 Oxygen Delivery Method Room Air 01/14/25 14:35 Temperature 97.5 F L 01/14/25 14:35 Pulse Rate 68 01/14/25 14:35 Respiratory Rate 16 01/14/25 14:35 Blood Pressure 129/97 H 01/14/25 14:35 Pulse Oximetry 98 01/14/25 14:35 Oxygen Delivery Method Room Air 01/14/25 14:35 Medical Decision Making MDM Narrative Medical decision making narrative: Patient presents with injury to the mid back from a fall that occurred just prior to arrival. Thoracic spine CT and chest x-ray are both negative for any signs of trauma. Patient is reassured and is discharged with supportive care advised. She may return anytime for worsening symptoms. Lab Data Labs: Lab Results 01/14/25 Range/Units 15:00 Urine HCG, Qual Negative (NEGATIVE) Discharge Plan Discharge Chief Complaint: Back Pain/Injury Clinical Impression: Contusion of back Qualifiers: Encounter type: initial encounter Laterality: unspecified laterality Qualified Code(s): S20.229A - Contusion of unspecified back wall of thorax, initial encounter Patient Disposition: Home, Self-Care Time of Disposition Decision: 17:54 Condition: Good Mode of Transportation: Private Vehicle Prescriptions / Home Meds: No Action doxepin 10 mg capsule desvenlafaxine succinate 50 mg tablet extended release 24 hr PO omeprazole 40 mg capsule,delayed release(DR/EC) 40 mg PO DAILY prazosin 1 mg capsule 1 mg PO BEDTIME cetirizine 10 mg tablet 10 mg PO DAILY Print Language: Armenian Instructions: Contusion in Adults (ED) Additional Instructions: Tylenol, ibuprofen for pain as needed. Follow-up if not better in 2 to 3 days. Return for worsening symptoms. Referrals: DRE VÁZQUEZ [Primary Care Provider] - 1 week Discharge Date/Time: 01/14/25 17:58
== END 2025-01-14 17:58 | disposition home or self-care (01) ==
PROVIDERS: Emergency Provider Emergency Medicine; PCP Nurse Practitioner
DX: S20.229A Contusion of unspecified back wall of thorax, initial encounter (principal); W10.8XXA Fall (on) (from) other stairs and steps, initial encounter
CPT/HCPCS: 71046; 72128; 84703; 99285

== ENCOUNTER 2025-05-30 20:54 | Outpatient (REF) | payer OTHER, SELFPAY | END 2025-05-30 20:55 | disposition home or self-care (01) | LOC: LAB 20:54 | PROVIDERS: PCP Nurse Practitioner; Visit Provider Nurse Practitioner | DX: R10.84 Generalized abdominal pain (principal) | CPT/HCPCS: 87177; 87209 ==